=== PATIENT | female | born 1950 | race Caucasian/White ===

== ENCOUNTER → 2017-04-12 09:03 | Outpatient (CLI) | payer MEDICARE, OTHER, SELFPAY ==
[2017-04-12 10:17] LABS: Glucose 88 mg/dL (70-110)
== END ==
PROVIDERS: Family Provider Family Medicine; PCP Family Medicine; Visit Provider Family Medicine
DX: Z13.1 Encounter for screening for diabetes mellitus (principal)
CPT/HCPCS: 36415; 82947

== ENCOUNTER → 2017-12-28 16:05 | Outpatient (CLI) | payer MEDICARE, OTHER, SELFPAY ==
--- NOTE | 2017-12-28 16:20 | BI_ITS ---
MAMMOGRAPHY - BILATERAL SCREENING REASON FOR EXAM: Female, 67 years old. Routine annual screening examination. PERTINENT HISTORY: Non-contributory. TECHNIQUE: Digital bilateral breast narda (3D mammographic acquisition) in the CC and MLO projections. 2-D mediolateral oblique (MLO) and craniocaudad (CC) views of both breasts were obtained. CAD: Full Field Digital Mammography with Computer Added Detection was performed. COMPARISON: Comparison is made with prior study dated October 20, 2016 and October 06, 2015. FINDINGS: Breast Composition: The breasts are heterogeneously dense, which may obscure small masses. There are no dominant masses or suspicious calcifications. Stable bilateral axillary lymph nodes. No other significant abnormalities are identified. There has been no significant change since the prior study. BI/SCREENING MAMM (CAD), BILAT IMPRESSION: Stable bilateral screening mammogram. Yearly follow-up mammogram recommended. (A) ASSESSMENT CATEGORY: BIRADS Category 2: Benign. A letter regarding these results will be sent to the patient by the facility within 30 days. Approximately 10% of breast cancers are not detected by mammography. A normal mammogram should not delay biopsy of a clinically suspicious abnormality. [id number] Electronically Signed: Zak Caceres MD at 10:43 EDT Tel [phone], Service support ,
== END ==
PROVIDERS: Family Provider Family Medicine; PCP Family Medicine; Visit Provider Obstetrics & Gynecology
DX: Z12.31 Encounter for screening mammogram for malignant neoplasm of breast (principal)
CPT/HCPCS: 77063; 77067

== ENCOUNTER → 2019-01-01 13:03 | Outpatient (CLI) | payer MEDICARE, OTHER, SELFPAY ==
--- NOTE | 2019-01-01 13:08 | BI_ITS ---
MAMMOGRAPHY - BILATERAL SCREENING REASON FOR EXAM: Female, 68 years old. Routine annual screening examination. PERTINENT HISTORY: Non-contributory. TECHNIQUE: Digital bilateral breast hortencia (3D mammographic acquisition) in the CC and MLO projections. 2-D mediolateral oblique (MLO) and craniocaudad (CC) views of both breasts were obtained. CAD: Full Field Digital Mammography with Computer Added Detection was performed. COMPARISON: Comparison is made with prior examination dated December 28, 2017 and October 20, 2016. FINDINGS: Breast Composition: The breasts are heterogeneously dense, which may obscure small masses. There are no dominant masses or suspicious calcifications. No other significant abnormalities are identified. There has been no significant change since the prior study. BI/SCREEN MAMM (CAD) W/HORTENCIA BILAT IMPRESSION: Stable bilateral screening mammogram. Yearly follow-up mammogram recommended. (A) ASSESSMENT CATEGORY: BIRADS Category 1: Negative. A letter regarding these results will be sent to the patient by the facility within 30 days. Approximately 10% of breast cancers are not detected by mammography. A normal mammogram should not delay biopsy of a clinically suspicious abnormality. [id number] Electronically Signed: Zak Caceres, at 15:16 EDT , Service support ,
== END ==
PROVIDERS: Family Provider Family Medicine; PCP Family Medicine; Referring Provider Obstetrics & Gynecology; Visit Provider Obstetrics & Gynecology
DX: Z12.31 Encounter for screening mammogram for malignant neoplasm of breast (principal)
CPT/HCPCS: 77063; 77067

== ENCOUNTER 2019-02-21 11:13 | Day surgery (SDC) | payer MEDICARE, OTHER, SELFPAY ==
--- NOTE | 2019-02-13 11:32 | HP.PCM_ITS ---
History and Physical Date of Admission: 02/21/19 HPI: The patient is a 68 year old female presenting for pre-operative visit. She is scheduled for?anterior and posterior repair, for?symptomatic cystocele and rectocele on?02/21/2019. ??Procedure discussed along with risks, benefits and complications. ?Other alternatives discussed for management. Consent form signed??Yes.? PAST MEDICAL HISTORY PAST MEDICAL HISTORY Diagnosis Date ? Bursitis of left hip ? ? Hemorrhage of gastrointestinal tract, unspecified ? ? From hemorrhoids only ? Internal hemorrhoids without mention of complication ? ? Irregular menstrual cycle ? ? Irregular periods ?Resolved ? PMH - PAST MEDICAL HISTORY OF ? ? svt ? Shingles 04/12/2012 ? Symptomatic menopausal or female climacteric states ? ? ?With atrophic vaginitis ? Unspecified constipation ? ? ? PAST SURGICAL HISTORY PAST SURGICAL HISTORY Procedure Laterality Date ? APPENDECTOMY ? 87 ? CATARACT SURGERY, COMPLEX Left 04/2016 ? CATARACT SURGERY, COMPLEX Right 2018 ? COLONOSCOP W/ OR W/O [facility] SPEC ? 01/05/05 [facility] ? Colonoscopy ? COLONOSCOP W/ OR W/O [facility] SPEC ? 01/30/2015 ? Colonoscopy ? D&C, DIAG AND/OR THERAPEUTIC ? ? ? Dilation & curettage ? HYSTEROSCOPY, DIAGNOSTIC (SEPARATE ? 2001 ? Hysteroscopy ? L'SCOPE DX W/WO BRUSHINGS/WASHINGS ? ? ? Laparoscopy ? LIGATE FALLOPIAN TUBE ? 83 ? Tubal ligation ? REMOVAL OF SKIN TAGS 1-15 ? 08/17/05 ? Removal skin tags ? ? CURRENT MEDICATIONS Current Outpatient Medications Medication Sig Dispense Refill ? melatonin 3 mg cap Take by mouth. ? ? ? docusate sodium (STOOL SOFTENER ORAL) Take by mouth. ? ? ? compounded vaginal estrogen 0.1 % estriol cream. ?Apply 1/2 inch of cream vaginally qhs twice weekly 30 g 2 ? fluticasone (FLONASE) 50 mcg/actuation nasal spray Use 2 Sprays in each nostril once daily. Rinse mouth after use. 1 Bottle 11 ? CALCIUM CARBONATE/VITAMIN D3 (CALCIUM 600 + D,3, ORAL) Take by mouth twice daily. ? ? ? PSYLLIUM SEED, WITH SUGAR, (METAMUCIL ORAL) Take ?by mouth. ? ? ? POLYETHYLENE GLYCOL 3350 (MIRALAX ORAL) Take ?by mouth. As needed ? ? ? oxybutynin (DITROPAN) 5 mg tablet Take 1 tablet by mouth twice daily as needed. (Patient not taking: Reported on 12/04/2018 ) 60 tablet 12 ? No current facility-administered medications for this visit.? ? ALLERGIES:?Amoxicillin; Bactrim [Sulfamethoxazole-Trimethoprim] ? PERSONAL HISTORY:? SOCIAL HISTORY Social History ? Tobacco Use ? Smoking status: Never Smoker ? Smokeless tobacco: Never Used Substance Use Topics ? Alcohol use: Yes ? ? Comment: Occasionally ? Drug use: No ? FAMILY HISTORY:? FAMILY HISTORY FAMILY HISTORY Problem Relation Age of Onset ? Diabetes Mother ?Fatty liver; esophageal vaices Non- alcohol ? Ischemic Heart Disease Mother ?bypass age 72 ? Lipids Mother ? ? Coronary Artery Disease Mother ? ? other (Parkinson's) Mother ?Parkinskinson's= ? Cancer Father ?PROSTATE ? other (Parkinson's) Father ? ? Cancer Maternal Grandmother ?UTERINE ? Ischemic Heart Disease Maternal Grandfather ?and many others on that side of the family ? Prostate Cancer Brother ? ? other (polymyalgia rheumatica) Brother ? ? Lipids Sister ? ? REVIEW OF SYMPTOMS: GENERAL: denies fevers or chills ENDOCRINOLOGY: has not been on steroids Cardiology : denies palpitations or chest pain Respiratory: denies SOB or cough Hematology: denies history of prolonged bleeding or easy bruising or VTE Allergy: Denies history of personal or family history of allergy to anesthesia ? ? PHYSICAL EXAMINATION: ? VITALS:?Last menstrual period 07/12/2006. ? GENERAL:??The patient is well nourished, well hydrated in no acute distress. ?, The patient is oriented to time, place, and person. NECK:?Supple. No lynphadenopathy, normal thyroid, no thyromegaly. LUNGS:?Clear to auscultation bilaterally. no wheezes, rhonchi or rales HEART:?Regular rate and rhythm, Normal heart sounds and No murmurs or gallops ? IMPRESSION:?Symptomatic cystocele in the midline, and rectocele. ? PLAN:???The risks/benefits/alternatives and personal involved for the planne d?anterior and posterior repair?were reviewed with the patient. Her questions were answered to her satisfaction and she desires to proceed. ?Consent was signed. ?I reviewed with her postop instructions and expectations. ? ? I have reviewed and updated past medical and surgical history, medications and allergies? Patient plans to stay overnight in observation status This history and physical was completed in my office on 02/11/19
[2019-02-21] VITALS (9 sets, daily range): BP systolic 106–134; BP diastolic 52–82; PULSE 73–96; RESP 15–16; TEMP 35.9–36.9; O2SAT 95–100; BMI 30.5
[2019-02-21] MEDS: Lactated Ringers 1,000 ML 40 ML IV ×2 (07:00→16:14)
[2019-02-21] MEDS: Celecoxib 200 MG Capsule 400 MG PO (07:00)
[2019-02-21] MEDS: Gabapentin 600 MG Tablet PO (07:00)
[2019-02-21] MEDS: Phenazopyridine 95 MG Tablet 190 MG PO (07:00)
[2019-02-21] MEDS: Enoxaparin 40 MG/0.4 ML Syringe SC (07:00)
[2019-02-21] MEDS: Magnesium Sulfate 4gm/100mL 4 GM/100 ML IV.SOLN. IV (07:00)
[2019-02-21] MEDS: Acetaminophen 500 MG Tablet 1000 MG PO ×3 (07:00→23:44)
--- NOTE | 2019-02-21 11:26 | EKG12_ITS ---
Test Reason : PREOP Blood Pressure : / mmHG Vent. Rate : 072 BPM Atrial Rate : 072 BPM P-R Int : 186 ms QRS Dur : 082 ms QT Int : 378 ms P-R-T Axes : 052 023 026 degrees QTc Int : 413 ms Normal sinus rhythm Borderline Low Voltage QRS Confirmed by JASON REYNA, ZEHRA ([id number]), digital editor NIKOS SWENSON ([id number]) on 02/27/2019 1:29:36 PM Referred By: Rosmery Guzman Confirmed By:ZEHRA GOMEZ MD
[2019-02-21 11:55] LABS: Bedside Glucose 80 mg/dL (70-110)
[2019-02-21 12:13] LABS: Hematocrit 42.4 % (37-47); Hemoglobin 14.1 g/dL (12.0-15.0); Mean Corp Hgb Conc 33.3 g/dL (32-36); Mean Corpuscular Hgb 31.3 pg (27.0-32.0); Mean Platelet Vol. 10.1 fl (6.2-12.0); Platelet Count 236 K/mm3 (150-450); RBC Distribution Width CV 13.5 % (11.6-14.6); RBC Distribution Width SD 46.8 fl (35.1-43.9); Red Blood Count 4.51 M/mm3 (4.2-5.4)
[2019-02-21] MEDS: dexAMETHasone 10 MG/ML Vial 8 MG IV (14:08)
[2019-02-21] MEDS: Ondansetron 4 MG/2 ML Vial IV (14:08)
[2019-02-21] MEDS: Estrogens,Conj. 1 Tube 1 DOSE (14:40)
--- NOTE | 2019-02-21 15:04 | PCM.OPRPT ---
Report of Operation Date of Procedure: 02/21/19 Pre-Operative Diagnosis: symptomatic midline cystocele and rectocele Post-Operative Diagnosis: same Surgery/Procedure Performed:: anterior and posterior repair Description of Surgical Findings:: normal cervix and vagina, midline cystocele, rectocele precinct captain: Paulina Ramirez precinct captain: michelle Garrett Type of Anesthesia:: General Anesthesiologist: Faye Razo Special Medications: none Specimen's removed: none Drains: stratton Estimated Blood Loss (mL): 20 Fluids Replaced: lr Description of Procedure: the patient was taken operating room she is prepped and draped in dorsal lithotomy position. Weighted speculum was placed in the vagina. The midline cystocele and posterior rectocele were noted. The vaginal epithelium at the apex of the anterior vagina was grasped at approximately 2 and 10:00 with Allis clamps. The midline Allis clamp was placed approximately 3 cm proximal to the urethral meatus. the vaginal epithelium was then infiltrated with 1% Xylocaine with dilute epinephrine solution. An incision was made in the vaginal epithelium between the 2 proximal Allises and Metzenbaum scissors were used to undermine the vaginal epithelium in the midline. An incision was made in the vaginal epithelium and the vaginal epithelium was dissected off the underlying tissue with blunt and sharp dissection. The cystocele was then imbricated with interrupted 0 Vicryl sutures and secured down. Small amount of vaginal epithelium was removed and the vaginal epithelium was closed with 2-0 Vicryl suture in a running locked fashion. Hemostasis was noted. Attention was then turned to the rectocele. Allis clamps were placed at the introitus at approximately 4 and 7:00. The vaginal epithelium in the midline of the rectocele and in the perineal body were infiltrated with the same lidocaine with dilute epinephrine solution. A bin-shaped incision was made in the over the perineal body and the epithelium removed with the scalpel. Midline incision was made in the vaginal epithelium to near the cervix with Metzenbaum scissors with blunt and sharp dissection. Allis clamps were used to clamp the vaginal epithelium and it was dissected away from the underlying tissue with blunt and sharp dissection. 0 Vicryl sutures were used to imbricate the rectocele. Was noted that there is a very tight shelf at the most superior suture and this suture was removed. Decision was made to believe that suture out because of how it narrowed the vaginal opening up near the cervix. The excess vaginal epithelium was trimmed, and care was taken not to trim a lot of vaginal epithelium to allow for adequate closure. The perineal body was pulled together with 2-0 Vicryl interrupted sutures. The vaginal epithelium and perineal epithelium was then closed with 2-0 Vicryl suture in a running standard fashion by Dr. Allison. Hemostasis was noted. The vagina was then packed with gauze with Premarin cream. Stratton catheter was left to straight drain. Before the vagina was packed, vaginal sweep was completed by me. The patient was taken the recovery room in stable condition. I performed the entire procedure with assistance other than as dictated above. Grafts/Implants Used: none - Complications none - Admit VTE Documentation VTE Present on Admission: No VTE Mechan Device Prophylaxis: SCD's VTE Pharm Prophylaxis ordered?: Yes
[2019-02-21] MEDS: Ketorolac 15 MG/ML Vial IV ×2 (15:49→23:44)
[2019-02-21] MEDS: Docusate Sodium 100 MG Capsule PO (20:59)
[2019-02-22 02:33] VITALS: BP 122/56; PULSE 82; RESP 18; TEMP 36.9; O2SAT 95
[2019-02-22] MEDS: Ketorolac 15 MG/ML Vial IV ×2 (05:17→11:17)
[2019-02-22 05:18] LABS: Hematocrit 38.6 % (37-47); Hemoglobin 13.1 g/dL (12.0-15.0); Mean Corp Hgb Conc 33.9 g/dL (32-36); Mean Corpuscular Hgb 31.3 pg (27.0-32.0); Mean Corpuscular Volume 92.3 fL (81-99); Mean Platelet Vol. 9.9 fl (6.2-12.0); Platelet Count 235 K/mm3 (150-450); RBC Distribution Width CV 13.5 % (11.6-14.6); RBC Distribution Width SD 46.1 fl (35.1-43.9); Red Blood Count 4.18 M/mm3 (4.2-5.4); White Blood Count 16.5 K/mm3 (4.4-11.0)
[2019-02-22] MEDS: Acetaminophen 500 MG Tablet 1000 MG PO ×2 (05:18→11:17)
[2019-02-22 07:26] VITALS: O2SAT 96
--- NOTE | 2019-02-22 08:50 | DCINST_ITS ---
Discharge Diet: No Restrictions Discharge Activity: Return to Normal Activity, May Not Drive - for 5-7 days, May Shower Return to work on:: 03/22/19 May shower in (days): 0 May resume sexual activity in: 8 weeks Weight Bearing Status: Full weight bearing Call your doctor if your incision/area has: Continuous Slow Oozing, Sudden Increased Bleeding, Increased Pain/ Swelling, Increased Redness, Foul Smelling Discharge Call your doctor if you observe: Fever of 101 or Higher, Inability to urinate, Inability to have a bowel movement, Using more than one pad per hour Allergies/Adverse Reactions: Allergies amoxicillin Allergy (Verified 02/21/19 11:59) Rash sulfamethoxazole [From Bactrim] Allergy (Verified 02/21/19 11:59) Other MOUTH SORES trimethoprim [From Bactrim] Allergy (Verified 02/21/19 11:59) Other MOUTH SORES Medications to take at Discharge Fluticasone 0.05% [Flonase Nasal [place]] 1 spray NASAL DAILY PRN 01/30/15 Calcium Carbonate/Vitamin D3 [Calcium 500+D Tablet Chew] 1 ea PO DAILY 02/15/19 Loratadine [Claritin] 10 mg PO PRN PRN 02/15/19 Melatonin/Pyridoxine HCl (B6) [Melatonin 3 mg Tablet] 1 ea PO QHS PRN 02/15/19 Primary Care Physician: Shiraz Mccauley III, MD [Primary Care Provider] - Test Results: Test results from this visit will be discussed in further detail at your follow- up appointment, if applicable. Please Follow Up With: Rosmery Guzman MD - [phone] When: 2 adn 6 weeks or as needed
--- NOTE | 2019-02-22 08:51 | PN.OBGYN_ITS ---
Subjective: Pain well controlled. No nausea or vomiting. - Physical Exam Vitals/I&O's: Vital Signs Temp Pulse Resp BP Pulse Ox 98.5 F 82 18 122/56 H 96 02/22/19 02:33 02/22/19 02:33 02/22/19 02:33 02/22/19 02:33 02/22/19 07:26 Oxygen Flow Rate (L/min) 5 Oxygen Delivery Method Room Air Weight: 77.02 kg Body Mass Index (BMI) 30.5 Intake and Output for Last 24 Hours 02/20/19 02/21/19 02/22/19 23:59 23:59 23:59 Intake Total 1100.768 / 1100.768 Output Total 1400 / 1400 2400 / 2400 Balance -299.232 / -299.232 -2400 / -2400 General: Alert, Cooperative, No apparent distress Abdomen: Soft, Non Tender, Non-Distended, - - Vaginal packing removed with moderate amount of sanguinous drainage on it. No active vaginal bleeding. The catheter removed. Laboratory Results 02/21/19 11:53: POC Glucose 80 02/21/19 12:00: WBC 7.0, RBC 4.51, Hgb 14.1, Hct 42.4, MCV 94.0, MCH 31.3, MCHC 33.3, RDW Std Deviation 46.8 H, RDW Coeff of Birgit 13.5, Plt Count 236, MPV 10.1 02/22/19 05:10: WBC 16.5 H, RBC 4.18 L, Hgb 13.1, Hct 38.6, MCV 92.3, MCH 31.3, MCHC 33.9, RDW Std Deviation 46.1 H, RDW Coeff of Birgit 13.5, Plt Count 235, MPV 9.9 Current Medications Acetaminophen (Tylenol) 1,000 mg PO Q6 [facility] Last Admin: 02/22/19 05:18 Dose: 1,000 mg Documented by: Docusate Sodium (Colace) 100 mg PO BID [facility] Last Admin: 02/21/19 20:59 Dose: 100 mg Documented by: Enoxaparin Sodium (Lovenox) 40 mg SC DAILY [facility] Lactated Ringer's () 1,000 mls @ 40 mls/hr IV .Q25H [facility] Stop: 02/22/19 15:26 Last Admin: 02/21/19 16:14 Dose: 40 mls/hr Documented by: Influenza Virus Vaccine Quadrival (Flucelvax /Fluzone ) 0.5 ml IM .ONCE ONE Stop: 02/22/19 10:01 Ketorolac Tromethamine (Toradol) 15 mg IV Q6 [facility] Stop: 02/23/19 00:01 Last Admin: 02/22/19 05:17 Dose: 15 mg Documented by: Magnesium Oxide (Mag-Ox 400) 400 mg PO DAILY PRN PRN PRN Reason: Constipation Ondansetron HCl (Zofran Odt) 4 mg PO Q6H PRN PRN PRN Reason: NAUSEA Oxycodone HCl (Oxyir) 5 - 10 mg PO Q4H PRN PRN PRN Reason: Pain Score 4-10/10 Sodium Chloride () 10 - 40 ml IV UD PRN PRN Reason: SALINE FLUSH Medical Necessity - Tobacco Use Smoking Status: Never smoker Tobacco Use: Non-smoker Assessment/Plan Postoperative day #1 status post anterior and posterior repair. Vaginal packing and Mccormick removed. If passes voiding trial may DC home. Routine instructions. Patient states that she will be able to control her pain with anti- inflammatories and ice packs as needed
[2019-02-22] MEDS: Docusate Sodium 100 MG Capsule PO (09:56)
[2019-02-22 10:00] VITALS: BP 117/64; PULSE 74; RESP 18; TEMP 36.8; O2SAT 98
[2019-02-22 11:37] VITALS: BP 130/74; PULSE 80; RESP 18; TEMP 37.1; O2SAT 100
== END 2019-02-22 11:38 | disposition home or self-care (01) ==
LOC: SDC 11:14 → AC 11:15 → MS3 02-22 10:09
PROVIDERS: Family Provider Family Medicine; PCP Family Medicine; Referring Provider Obstetrics & Gynecology; Visit Provider Obstetrics & Gynecology
PROC: (CPT 57260; principal; 2019-02-21 12:55)
DX: N81.11 Cystocele, midline (principal); N81.6 Rectocele; Z78.0 Asymptomatic menopausal state
CPT/HCPCS: 57260; 36415; 82962; 85027; 93005; J7120; J2405

== ENCOUNTER → 2020-01-31 15:10 | Outpatient (CLI) | payer MEDICARE, OTHER, SELFPAY ==
[2019-02-21 16:41] VITALS: BMI 30.5
--- NOTE | 2020-01-31 15:31 | BI_ITS ---
MAMMOGRAPHY - BILATERAL SCREENING REASON FOR EXAM: Female, 69 years old. Routine annual screening examination. PERTINENT HISTORY: Screening TECHNIQUE: Digital bilateral breast hortencia (3D mammographic acquisition) in the CC and MLO projections. 2-D mediolateral oblique (MLO) and craniocaudad (CC) views of both breasts were obtained. CAD: Full Field Digital Mammography with Computer Added Detection was performed. COMPARISON: Previous study obtained on 01/01/2019 FINDINGS: Breast Composition: Heterogeneously dense There are no dominant masses or suspicious calcifications. No other significant abnormalities are identified. BI/SCREEN MAMM (CAD) W/HORTENCIA BILAT IMPRESSION: Stable bilateral screening mammogram. Yearly follow-up mammogram recommended. (A) ASSESSMENT CATEGORY: BIRADS Category 1: Negative. A letter regarding these results will be sent to the patient by the facility within 30 days. Approximately 10% of breast cancers are not detected by mammography. A normal mammogram should not delay biopsy of a clinically suspicious abnormality. [id number] Electronically Signed: Kenji Lindsay, at 16:11 EST Tel , Service support ,
== END ==
PROVIDERS: PCP Family Medicine; Referring Provider Obstetrics & Gynecology; Visit Provider Obstetrics & Gynecology
DX: Z12.31 Encounter for screening mammogram for malignant neoplasm of breast (principal)
CPT/HCPCS: 77063; 77067

== ENCOUNTER → 2021-02-10 14:05 | Outpatient (CLI) | payer MEDICARE, OTHER, SELFPAY ==
--- NOTE | 2021-02-10 14:11 | BI_ITS ---
MAMMOGRAPHY - BILATERAL SCREENING REASON FOR EXAM: Female, 70 years old. Routine annual screening examination. PERTINENT HISTORY: Non-contributory. TECHNIQUE: Digital bilateral breast hortencia (3D mammographic acquisition) in the CC and MLO projections. 2-D mediolateral oblique (MLO) and craniocaudad (CC) views of both breasts were obtained. CAD: Full Field Digital Mammography with Computer Added Detection was performed. COMPARISON: Comparison is made with prior study 01/31/2020 and 01/01/2019. FINDINGS: Breast Composition: The breasts are heterogeneously dense, which may obscure small masses. There are no dominant masses or suspicious calcifications. Stable small benign-appearing bilateral axillary No other significant abnormalities are identified. There has been no significant change since the prior study. BI/SCRN MAMM (CAD)W/HORTENCIA BILAT IMPRESSION: Stable bilateral screening mammogram. Yearly follow-up mammogram recommended. (A) ASSESSMENT CATEGORY: BIRADS Category 2: Benign. A letter regarding these results will be sent to the patient by the facility within 30 days. Approximately 10% of breast cancers are not detected by mammography. A normal mammogram should not delay biopsy of a clinically suspicious abnormality. [id number] Electronically Signed: Zak Caceres MD at 15:04 EST , Service support ,
== END ==
PROVIDERS: PCP Family Medicine; Referring Provider Obstetrics & Gynecology; Visit Provider Obstetrics & Gynecology
DX: Z12.31 Encounter for screening mammogram for malignant neoplasm of breast (principal)
CPT/HCPCS: 77063; 77067

== ENCOUNTER 2022-02-15 15:28 | Outpatient (CLI) | payer MEDICARE, OTHER, SELFPAY ==
--- NOTE | 2022-02-15 15:32 | BI_ITS ---
MAMMOGRAPHY - BILATERAL SCREENING REASON FOR EXAM: Female, 71 years old. Routine annual screening examination. PERTINENT HISTORY: Non-contributory. TECHNIQUE: Digital bilateral breast hortencia (3D mammographic acquisition) in the CC and MLO projections. 2-D mediolateral oblique (MLO) and craniocaudad (CC) views of both breasts were obtained. CAD: Full Field Digital Mammography with Computer Added Detection was performed. COMPARISON: Comparison is made with prior study dated 02/10/2021 and 01/31/2020. FINDINGS: Breast Composition: The breasts are heterogeneously dense, which may obscure small masses. There are no dominant masses or suspicious calcifications. Stable small benign-appearing bilateral axillary lymph nodes.. No other significant abnormalities are identified. There has been no significant change since the prior study. BI/SCRN MAMM (CAD)W/HORTENCIA BILAT IMPRESSION: Stable bilateral screening mammogram. Yearly follow-up mammogram recommended. (A) ASSESSMENT CATEGORY: BIRADS Category 2: Benign. A letter regarding these results will be sent to the patient by the facility within 30 days. Approximately 10% of breast cancers are not detected by mammography. A normal mammogram should not delay biopsy of a clinically suspicious abnormality. [id number] Electronically Signed: Zak Caceres MD at 9:05 EST ,
== END 2022-02-15 23:59 | disposition home or self-care (01) ==
LOC: OPBI 15:29
PROVIDERS: PCP Family Medicine; Visit Provider Obstetrics & Gynecology
DX: Z12.31 Encounter for screening mammogram for malignant neoplasm of breast (principal)
CPT/HCPCS: 77063; 77067

== ENCOUNTER 2022-03-29 10:51 | Day surgery (SDC) | payer MEDICARE, OTHER, SELFPAY ==
--- NOTE | 2022-03-22 16:53 | HP.PCM_ITS ---
History and Physical Date of Admission: 03/24/22 Pre-Op History and Physical ? HPI: The patient is a 71 year old female presenting for question regarding postmenopausal bleeding and endocervical polyp. Patient was previously seen by nurse practitioner Melanie Umana and had a stenotic cervix unable to obtain endometrial biopsy for postmenopausal bleeding. I was asked to see her in the room and again I was unable to penetrate through the cervix. Decision was made to perform a hysteroscopy, D&C, polypectomy under anesthesia. Patient had a ultrasound done which showed a 1 cm endocervical polyp and a thickened endometrial lining. Patient is scheduled for a knee replacement and would like the surgery done prior to that. ? Pre-operative visit. She is scheduled for Hysteroscopy D&C and polypectomy, for PMB, Thickened Endometrium, Endocervical polyp, stenotic cervix on 03/24/22. Procedure discussed along with risks, benefits and complications. Other alternatives discussed for management. Consent form signed? Yes. ? ? PAST MEDICAL HISTORY PAST MEDICAL HISTORY Diagnosis Date ? Bursitis of left hip ? ? Class 1 obesity due to excess calories without serious comorbidity with body mass index (BMI) of 30.0 to 30.9 in adult ? ? Hemorrhage of gastrointestinal tract, unspecified ? ? From hemorrhoids only ? Internal hemorrhoids without mention of complication ? ? Irregular menstrual cycle ? ? Irregular periods Resolved ? Osteoarthritis ? ? knee ? Primary osteoarthritis of both knees ? ? Dr. Michael ? Pure hypercholesterolemia ? ? Shingles 04/12/2012 ? SVT (supraventricular tachycardia) ([facility]) 2004 ? Symptomatic menopausal or female climacteric states ? ? With atrophic vaginitis ? Unspecified constipation ? ? ? PAST SURGICAL HISTORY PAST SURGICAL HISTORY Procedure Laterality Date ? APPENDECTOMY ? 87 ? CATARACT SURGERY, COMPLEX Left 04/2016 ? CATARACT SURGERY, COMPLEX Right 2018 ? CMBND ANTERPOST COLPORRAPHY W/CYSTO ? 02/21/2019 ? A&P repair ? COLONOSCOPY FLX DX W/COLLJ SPEC WHEN PFRMD ? 01/05/05 [facility] ? Colonoscopy ? COLONOSCOPY FLX DX W/COLLJ SPEC WHEN PFRMD ? 01/30/2015 ? Colonoscopy ? DILATION & CURETTAGE DX&/THER NONOBSTETRIC ? ? ? Dilation & curettage ? HYSTEROSCOPY, DIAGNOSTIC (SEPARATE ? 2002 ? Hysteroscopy ? LAPS ABD PRTM&OMENTUM DX W/WO SPEC BR/WA SPX ? ? ? Laparoscopy ? LIG/TRNSXJ FLP TUBE ABDL/VAG APPR UNI/BI ? 83 ? Tubal ligation ? 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 08/17/05 ? Removal skin tags ? ? ? CURRENT MEDICATIONS Current Outpatient Medications Medication Sig Dispense Refill ? EVENING PRIMROSE OIL ORAL Take by mouth. ? ? ? miSOPROStol (CYTOTEC) 200 mcg tablet Take 2 tablets by mouth as directed. The night before the procedure and the morning of the procedure. 4 tablet 0 ? meloxicam (MOBIC) 7.5 mg tablet ? atorvastatin (LIPITOR) 20 mg tablet Take 1 tablet by mouth daily at bedtime. For cholesterol. 90 tablet 1 ? estradiol (ESTRACE) 0.01 % (0.1 mg/gram) vaginal cream APPLY APROX. 1/2 INCH VAGINALLY AT BEDTIME TWICE WEEKLY 85 g 1 ? fluticasone (FLONASE) 50 mcg/actuation nasal spray Use 2 Sprays in each nostril once daily. Rinse mouth after use. 3 Bottle 3 ? docusate sodium (STOOL SOFTENER ORAL) Take by mouth. ? ? ? CALCIUM CARBONATE/VITAMIN D3 (CALCIUM 600 + D,3, ORAL) Take by mouth twice daily. ? ? ? PSYLLIUM SEED, WITH SUGAR, (METAMUCIL ORAL) Take by mouth. ? ? ? POLYETHYLENE GLYCOL 3350 (MIRALAX ORAL) Take by mouth. As needed ? ? ? No current facility-administered medications for this visit. ? ? ALLERGIES: Amoxicillin and Bactrim [Sulfamethoxazole-Trimethoprim] ? PERSONAL HISTORY: SOCIAL HISTORY Social History ? Tobacco Use ? Smoking status: Never ? Smokeless tobacco: Never Vaping Use ? Vaping Use: Never used Substance Use Topics ? Alcohol use: Yes ? ? Comment: 1-2 times per month ? Drug use: No ? FAMILY HISTORY: FAMILY HISTORY FAMILY HISTORY Problem Relation Age of Onset ? Diabetes Mother ? ? Fatty liver; esophageal vaices Non- alcohol ? Ischemic Heart Disease Mother ? ? bypass age 72 ? Lipids Mother ? ? Coronary Artery Disease Mother ? ? other (Parkinson's) Mother ? ? Parkinskinson's= ? Cancer Father ? ? PROSTATE ? other (Parkinson's) Father ? ? Cancer Maternal Grandmother ? ? UTERINE ? Ischemic Heart Disease Maternal Grandfather ? ? and many others on that side of the family ? Prostate Cancer Brother ? ? other (polymyalgia rheumatica) Brother ? ? Lipids Sister ? ? ? REVIEW OF SYMPTOMS: negative except as noted above PHYSICAL EXAMINATION: ? VITALS: Blood pressure 138/72, weight 168 lb (76.2 kg), last menstrual period 07/12/2006. ? GENERAL: The patient is well nourished, well hydrated in no acute distress. , The patient is oriented to time, place, and person. NECK: full range of motion LUNGS: Clear to auscultation bilaterally. no wheezes, rhonchi or rales HEART: Regular rate and rhythm, Normal heart sounds, and No murmurs or gallops GENITALIA: not performed today ? IMPRESSION: Postmenopausal bleeding, thickened endometrium, endocervical polyp, stenotic cervix ? PLAN: Hysteroscopy, dilation and curettage, polypectomy ? Pt has been counseled on risks/benefits and alternatives of surgery including but not limited to anesthesia, bleeding, infection, uterine perforation with subsequent injury to pelvic structures including bowel, bladder, ureters and vessels. Pt wishes to proceed with surgery at this time. ? Pre and post op instructions reviewed ? She will be having her preoperative medical clearance tomorrow with her family physician so blood work and EKG can be faxed over to [facility] on Monday or morning 03/24/2022 prior to surgery. ? ? I have reviewed and updated past medical and surgical history, medications and allergies Paulina Allison MD ?3:47 PM Office Visit on 03/22/2022 Office Visit on 03/22/2022 Note shared with patient
[2022-03-29] VITALS (9 sets, daily range): BP systolic 118–145; BP diastolic 59–95; PULSE 87–104; RESP 16–17; TEMP 36.1–37.1; O2SAT 94–98; BMI 29.8
[2022-03-29] MEDS: Lactated Ringers 1,000 ML 15 ML IV (11:00)
--- NOTE | 2022-03-29 12:27 | PCM.DC ---
Discharge Instructions Diet Discharge Diet: No restrictions Activity May resume sexual activity in: 1 week Lifting Restrictions: none Dressing / Incision Call your doctor if your incision/area has: Sudden Increased Bleeding and Foul Smelling Discharge Call your doctor if you observe: Fever of 101 or Higher and Using more than 1 pad per hour (for 2 hrs in a row) Follow Up Care Please Follow Up With: Rosmery Guzman MD When: 2-4 weeks or as needed. Call [phone] to make an appointment or with any concerns. Test Results: Test results from this visit will be discussed in further detail at your follow-up appointment, if applicable. Discharge Plan Admission Primary Reason for Your Visit: Hysteroscopy dilation and curettage Attending Provider: Rosmery Guzman Primary Care Provider: Abel Bolden Consulting Providers: Paulina Ramirez Discharge Orders/Prescriptions Prescriptions: No Action calcium carbonate-vitamin D3 1 EACH tablet,chewable 1 ea PO BID acetaminophen [Tylenol] 325 mg Tablet 325 mg PO Q6H PRN (Reason: Pain) atorvastatin 20 mg Tablet 20 mg PO QHS meloxicam [Mobic] 7.5 mg Tablet 7.5 mg PO PRN PRN (Reason: Pain) misoprostol [Cytotec] 200 mcg Tablet 400 mcg SUBLINGUAL PRN PRN (Reason: PREOP) estradiol 0.01 % (0.1 mg/gram) Cream 1 g VAGINAL SUWE ipratropium bromide 42 mcg (0.06 %) [place],Non-Aerosol 2 spray INTRANASAL DAILY Rx Instructions: administer into each nostril cholecalciferol (vitamin D3) [Vitamin D3] 25 mcg (1,000 unit) Capsule 25 mcg PO DAILY [place] Oil 1,000 mg Capsule 1 cap PO BID Rx Instructions: administer with meals Referrals / Follow Up: Abel Bolden MD [Primary Care Provider] - Disposition Disposition (needs filled in before D/C Order can be placed): Home, Self Care
--- NOTE | 2022-03-29 12:30 | EMB_PTH ---
PATIENT: MEDARDO GASTELUM [place] [facility] [place][id number] AGE/SX: 72/F ROOM: RE03/29/[address]: Dr. Rosmery Guzman MD : 1950 BED: DIS: 03/29/2022 SPEC #: [id number] RECD: 03/29/22 14:34 STATUS: ALEE REWan #: [id number] GONZALO: 03/29/22 12:[address]: Rosmery Guzman DEPT: SURGICAL PATHOLOGY RECD BY: Nilay Galvez ENTERED: 03/30/22 08:39 SP TYPE: ENDOM BX/C OTHR DR: MD Dr. Paulina Gonzales MD Tissues: Endometrium, NOS Procedures: Surgery Specimen Level IV HEADER OPERATION: Hysteroscopy, D & C Symphion, polypectomy PRE-OP DIAGNOSIS: Postmenopausal bleeding TISSUE SUBMITTED: Endometrial curettings MICROSCOPIC DIAGNOSIS Endometrium, curettings: Inactive endometrium with polypoid cystic atrophy. Fragment of benign polypoid, cystic endocervical tissue. Focal exogenous hormonal effect with denudation of mucosa. AM:kwaku 03/31/2022 COMMENT Case has been reviewed in consultation with Dr. Smith who concurs with the above diagnosis. IDC:SJ MICROSCOPIC DESCRIPTION Slides are reviewed. GROSS DESCRIPTION Received in fixative is one container labeled with the patient's name and designated endometrial curettings. The specimen consists of multiple irregular fragments of light quiñones soft tissue that in aggregate measure 3 x 2.5 x 0.2 cm. The specimen is totally submitted in one cassette. / AM:kwaku 03/30/2022 :5 CPT: 76475
--- NOTE | 2022-03-29 12:47 | OP.PCM_ITS ---
Problems Associated Problem List Diagnoses (1) PMB (postmenopausal bleeding): Report of Operation Date of Procedure: 03/29/22 Pre-Operative Diagnosis: PMB Post-Operative Diagnosis: same + endometrial polyp Surgery/Procedure Performed:: hysteroscopy D&C Description of Surgical Findings:: atrophic endometrium, reji flush stenotic cervix, normal endocervix. Funal small polyp Surgeon: Rosmery Guzman collection systems foreman: Pallavi Lopez Type of Anesthesia: MAC/Supplemental/Local Anesthesiologist: Ewa Mendoza Special Medications: none Specimen's removed: endometrial curetings and polyp Drains: none Estimated Blood Loss (mL): 5 Fluids Replaced: 400 Description of Procedure: The patient was taken to the OR where she was prepped and draped in dorsal lithotomy position. The weighted speculum was placed in the vagina and the anterior lip of the cervix was grasped with a single-tooth tenaculum. A paracervical block was administered with 8 cc of vasopressin solution. The solution was 20 units of vasopressin and 40 cc of normal saline. After the cervix was given some time, I to carefully dilate the os with small dilators because of how stenotic it was. The cervix was dilated serially with Hegar dilators. The Symphion hysteroscope was placed into the uterine cavity and the above findings were noted. Bilateral tubal ostia were identified. The hysteroscope was removed. The Symphion resection was readied and inserted. The polyp was resected. A visual D&C was performed with the device to sample the entire endometrium. The instruments were removed from the vagina. The specimen was handed off an350 cc normal saline Grafts/Implants Used: none Procedure Start Time: 12:53 Procedure Stop Time: 13:08 Complications none Admit VTE Documentation VTE Present on Admission: No VTE Mechan Device Prophylaxis: SCD's VTE Pharm Prophylaxis ordered?: No Reason prophylaxis not ordered:: Procedure Not Indicated
[2022-03-29] MEDS: Vasopressin 20 UNITS/ML Vial (12:53)
== END 2022-03-29 15:09 | disposition home or self-care (01) ==
LOC: SDC 10:52 → AC 10:52
PROVIDERS: PCP Family Medicine; Referring Provider Obstetrics & Gynecology; Visit Provider Obstetrics & Gynecology
PROC: 0UB98ZZ Excision of Uterus, Via Natural or Artificial Opening Endoscopic (ICD-10-PCS; CPT 58558; principal; 2022-03-29 12:15)
DX: N84.0 Polyp of corpus uteri (principal); N95.0 Postmenopausal bleeding; E78.00 Pure hypercholesterolemia, unspecified
CPT/HCPCS: 58558; 00952; 88305; J7120; J2405

== ENCOUNTER → 2022-03-30 | Outpatient (CLI) | payer MEDICARE, OTHER, SELFPAY ==
--- NOTE | 2022-03-30 08:19 | CT_ITS ---
CT of the right knee INDICATION: Knee pain preop nanette procedure TECHNIQUE: CT of the right knee was performed in the axial projection without contrast scanning from the hip to the ankle followed by sagittal coronal reconstructions. Radiographic technique was optimized limitation radiation dose. DLP was 1151.26 FINDINGS: Bony structures demonstrate normal mineralization for stated age. There is no acute fracture. There are no lytic or sclerotic bony lesions. There is narrowing of the medial compartment of the medial joint space with mild valgus angulation. There is also narrowing of the lateral compartment of the patellofemoral joint. Small suprapatellar bursal effusion is noted CT/Extremity Lower without Contra IMPRESSION: Moderate osteoarthritic changes. No acute fracture or other significant bony pathology Electronically Signed: Neil Layton MD at 18:07 EST ,
== END | disposition home or self-care (01) ==
LOC: CT 08:18
PROVIDERS: PCP Family Medicine; Visit Provider Specialist
DX: M21.161 Varus deformity, not elsewhere classified, right knee (principal); M17.11 Unilateral primary osteoarthritis, right knee
CPT/HCPCS: 73700

== ENCOUNTER 2022-04-03 14:36 | Emergency (ER) | payer MEDICARE, OTHER, SELFPAY ==
[2022-04-03 14:37] VITALS: BP 157/81; PULSE 109; RESP 18; TEMP 36.1; O2SAT 97; BMI 29.8
--- NOTE | 2022-04-03 15:03 | EDS_ITS ---
HPI History of Present Illness Chief Complaint: Lower Extremity Injury Detail of Chief Complaint: Left leg swelling Informant: patient Onset/Context/Timing Onset: Days Narrative Narrative: Patient presents with left leg swelling and some pain to the bottom of her left foot for the past couple days. She had surgery earlier this week which included cystoscopy and D&C. She is scheduled to undergo a right knee replacement this coming week. She denies chest pain or shortness of breath. No history of clots. She does state that her leg swelling seem to be somewhat improved when she first got this morning, but is increased again throughout the day. [facility] Medical History Arthritis Bladder disease Chronic constipation Chronic cough High cholesterol History of edema History of pain when walking History of steroid therapy History of stress test History of supraventricular tachycardia Leg cramps Non-smoker Post-menopausal Wears glasses Home Medications calcium carbonate 500 mg-vitamin D3 10 mcg (400 unit) chewable tablet 1 ea PO BID 02/15/19 [History Last Taken Unknown] acetaminophen 325 mg tablet (Tylenol) 325 mg PO Q6H PRN Pain 03/22/22 [History Last Taken Unknown] atorvastatin 20 mg tablet 20 mg PO QHS 03/22/22 [History Last Taken Unknown] cholecalciferol (vitamin D3) 25 mcg (1,000 unit) capsule (Vitamin D3) 25 mcg PO DAILY 03/22/22 [History Last Taken Unknown] estradiol 0.01% (0.1 mg/gram) vaginal cream 1 g vaginal SUWE 03/22/22 [History Last Taken Unknown] evening primrose oil-linoleic acid-gamolenic acid 1,000 mg capsule ([place] Oil) 1 cap PO BID 03/22/22 [History Last Taken Unknown] ipratropium bromide 42 mcg (0.06 %) nasal spray 2 spray intranasal DAILY 03/22/22 [History Last Taken Unknown] meloxicam 7.5 mg tablet 7.5 mg PO PRN PRN Pain 03/22/22 [History Last Taken Unkn own] misoprostol 200 mcg tablet (Cytotec) 400 mcg sublingual PRN PRN PREOP 03/22/22 [History Last Taken Unknown] Allergy/AdvReac Type Severity Reaction Status Date / Time amoxicillin Allergy Rash Verified 04/03/22 14:39 sulfamethoxazole Allergy Other Verified 04/03/22 14:39 [From Bactrim] trimethoprim [From Bactrim] Allergy Other Verified 04/03/22 14:39 Surgical History History of cystoscopy History of hysteroscopy Hx of colonoscopy Hx of exploratory laparotomy Hx of exploratory laparotomy Hx of tubal ligation Social History Smoking Status: Never smoker ROS ROS ED Constitutional Constitutional ED: Denies chills or fever(s) Eyes Eyes: Denies change in vision or discharge from eye(s) ENT ENT ED: Denies discharge from eye(s), rhinorrhea or sore throat Cardiovascular Cardiovascular: Denies chest pain or palpitations Respiratory/Chest Respiratory/Chest: Denies cough or dyspnea Gastrointestinal Gastrointestinal: Denies abdominal pain, diarrhea, nausea or vomiting Musculoskeletal Musculoskeletal: Reports extremity pain; Denies back pain Integumentary Denies Abrasions or rash Neurologic Neurologic: Denies headache(s) or weakness Psychiatric Psychiatric: Denies anxiety or depression Allergic/Immunologic Allergic/Immunologic ED: Denies lip swelling or urticaria EXAM Physical Exam Const Vital Signs: 04/03/22 14:37 Temperature 97 F L Temperature Source Temporal Pulse Rate 109 H Respiratory Rate 18 Blood Pressure 157/81 H Blood Pressure Mean 106 Pulse Ox 97 Oxygen Delivery Method Room Air Positive well nourished and well developed General Appearance ED: well developed HEENT Reports normocephalic and head/scalp atraumatic Eyes PERRL and EOMs intact bilaterally Neck supple Chest Wall inspection of chest normal and palpation of chest normal Resp normal respiratory effort and clear to auscultation bilaterally Cardio regular rate and regular rhythm GI normal to inspection, nondistended, normoactive bowel sounds Palpation: soft Extremity Extremity Narrative: 1+ edema noted to the left lower extremity. Mild tenderness of the plantar surface of the left foot. No wounds. She does not have pain with dorsiflexion of her toes. No palpable cords. No overlying skin change. Neuro oriented x3 and no sensory deficits noted Sensorium / Orientation: alert Motor Exam: strength 5/5 throughout Psych mental status grossly normal Skin no rashes or lesions noted MDM MDM MDM Narrative Medical decision making narrative: Patient presents on a Monday afternoon when I do not have ultrasound available to rule out a DVT. We discussed the possibility of treating her with a dose of blood thinner to cover her tonight, however because she has an upcoming surgery she would like to avoid this if possible. Patient does not have any pain in her thigh and I feel this is reasonable to hold. Patient will be given an order to return tomorrow for an ultrasound of her leg to rule out DVT. We also discussed other causes of her foot pain and edema, likely musculoskeletal in nature. Patient was on regular anti-inflammatories until recently. She may have some rebound inflammation as she is currently not able to take her anti- inflammatories preop. Return instructions are provided. Patient will return tomorrow for ultrasound of her leg. Discharge Plan Triage Chief Complaint: Lower Extremity Injury ED Provider: Vikki Aly Dx/Rx/DC Orders Clinical Impression: Edema of extremity Instructions: ED Deep Vein Thrombosis (DVT), ED Peripheral Edema, Unilateral Prescriptions: No Action calcium carbonate-vitamin D3 1 EACH tablet,chewable 1 ea PO BID acetaminophen [Tylenol] 325 mg Tablet 325 mg PO Q6H PRN (Reason: Pain) atorvastatin 20 mg Tablet 20 mg PO QHS meloxicam [Mobic] 7.5 mg Tablet 7.5 mg PO PRN PRN (Reason: Pain) misoprostol [Cytotec] 200 mcg Tablet 400 mcg SUBLINGUAL PRN PRN (Reason: PREOP) estradiol 0.01 % (0.1 mg/gram) Cream 1 g VAGINAL SUWE ipratropium bromide 42 mcg (0.06 %) [place],Non-Aerosol 2 spray INTRANASAL DAILY Rx Instructions: administer into each nostril cholecalciferol (vitamin D3) [Vitamin D3] 25 mcg (1,000 unit) Capsule 25 mcg PO DAILY [place] Oil 1,000 mg Capsule 1 cap PO BID Rx Instructions: administer with meals Other Ambulatory Orders: Venous Duplex US, Unilateral (Stat) Facility: [facility] - Location: [facility] Ordered By: Dr. Vikki Aly Primary Care Provider: Able Bolden Referrals: Abel Bolden MD [Primary Care Provider] - As Needed Disposition Disposition: Home, Self Care
== END 2022-04-03 15:23 | disposition home or self-care (01) ==
LOC: ED 15:12
PROVIDERS: Emergency Provider Emergency Medicine; PCP Family Medicine; Visit Provider Emergency Medicine
DX: R60.0 Localized edema (principal); E78.00 Pure hypercholesterolemia, unspecified; M79.672 Pain in left foot; M79.89 Other specified soft tissue disorders; M19.90 Unspecified osteoarthritis, unspecified site; Z79.899 Other long term (current) drug therapy
CPT/HCPCS: 99282

== ENCOUNTER → 2022-04-04 | Outpatient (CLI) | payer MEDICARE, OTHER, SELFPAY ==
--- NOTE | 2022-04-04 12:56 | VDLE_ITS ---
Reason For Study: LLE swelling RIGHT LEFT CFV is compressible, spontaneous, phasic, GSV is normal. competent and demonstrates normal CFV is compressible, spontaneous, phasic, augmentation. competent, and demonstrates normal Procedure augmentation. This is a venous duplex using B-mode, color FV is compressible, spontaneous, phasic, flow and spectral Doppler. competent and demonstrates normal Exam performed in department. augmentation. The exam was diagnostic. POP V is compressible, spontaneous, phasic, A preliminary report was called and/or faxed competent and demonstrates normal to Melissa mims/Dr. Bolden @ 1:[address] Bolden and/or his nurse will contact LT PerV is compressible. patient with instructions. T/P TRUNK is partially compressible and dilated. PTV is dilated and NON-compressible. VL/Venous Duplex US, Unilateral Interpretation Summary Acute deep vein thrombosis is noted in the left tibio-peroneal trunk and music promoter ior tibial veins Ordering Physician: Vikki Aly Referring Physician: Syed Bolden Performed By: Neyda Harris, MIQUEL, RVT
== END | disposition home or self-care (01) ==
LOC: CVS 12:54
PROVIDERS: PCP Family Medicine; Visit Provider Emergency Medicine
DX: M79.605 Pain in left leg (principal)
CPT/HCPCS: 93971

== ENCOUNTER 2022-04-07 19:49 | Emergency (ER) | payer MEDICARE, OTHER, SELFPAY ==
[2022-04-07 19:50] VITALS: BP 145/77; PULSE 100; RESP 18; TEMP 35.9; O2SAT 97; BMI 30.7
--- NOTE | 2022-04-07 20:27 | EKG12_ITS ---
Test Reason : DYSRHYTHMIA Blood Pressure : / mmHG Vent. Rate : 092 BPM Atrial Rate : 092 BPM P-R Int : 182 ms QRS Dur : 078 ms QT Int : 334 ms P-R-T Axes : 061 -12 041 degrees QTc Int : 413 ms Normal sinus rhythm Normal ECG Confirmed by FILIBERTO REYNA, LEONEL ([id number]), telegraph editor NKIOS SWENSON ([id number]) on 04/11/2022 9:13:02 AM Referred By: TL Confirmed By:LEONEL DE LOS SANTOS MD
--- NOTE | 2022-04-07 20:28 | EX.ED.DYSGE1 ---
HPI History of Present Illness Chief Complaint: General Illness Informant: patient Narrative Narrative: Patient presents with sickle allergies states she does not feel well today. She was diagnosed to left lower extremity 3 days ago. She noted swelling on Monday. She came in Monday swelling outpatient ultrasound the next morning was positive. Her PCP was contacted started on Xarelto she has been taking this. She had a D&C under MAC anesthesia 9 days ago. No history of PE or DVT. She denies chest pains or shortness of breath. States she is walking she no heart rate 110. Denies fevers headaches cough recent vomiting or diarrhea. Denies urinary symptoms. She reports 3 weeks ago she had a viral upper respiratory illness that resolved. Reports leg swelling is improving. [facility] Medical History Arthritis Bladder disease Chronic constipation Chronic cough High cholesterol History of edema History of pain when walking History of steroid therapy History of stress test History of supraventricular tachycardia Leg cramps Non-smoker Post-menopausal Wears glasses Home Medications calcium carbonate 500 mg-vitamin D3 10 mcg (400 unit) chewable tablet 1 ea PO BID 02/15/19 [History Last Taken Unknown] acetaminophen 325 mg tablet (Tylenol) 325 mg PO Q6H PRN Pain 03/22/22 [History Last Taken Unknown] atorvastatin 20 mg tablet 20 mg PO QHS 03/22/22 [History Last Taken Unknown] cholecalciferol (vitamin D3) 25 mcg (1,000 unit) capsule (Vitamin D3) 25 mcg PO DAILY 03/22/22 [History Last Taken Unknown] estradiol 0.01% (0.1 mg/gram) vaginal cream 1 g vaginal SUWE 03/22/22 [History Last Taken Unknown] evening primrose oil-linoleic acid-gamolenic acid 1,000 mg capsule ([place] Oil) 1 cap PO BID 03/22/22 [History Last Taken Unknown] ipratropium bromide 42 mcg (0.06 %) nasal spray 2 spray intranasal DAILY 03/22/22 [History Last Taken Unknown] meloxicam 7.5 mg tablet 7.5 mg PO PRN PRN Pain 03/22/22 [History Last Taken Unknown] misoprostol 200 mcg tablet (Cytotec) 400 mcg sublingual PRN PRN PREOP 03/22/22 [History Last Taken Unknown] Allergy/AdvReac Type Severity Reaction Status Date / Time amoxicillin Allergy Rash Verified 04/07/22 19:50 sulfamethoxazole Allergy Other Verified 04/07/22 19:50 [From Bactrim] trimethoprim [From Bactrim] Allergy Other Verified 04/07/22 19:50 Surgical History History of cystoscopy History of hysteroscopy Hx of colonoscopy Hx of exploratory laparotomy Hx of exploratory laparotomy Hx of tubal ligation Social History Smoking Status: Never smoker ROS ROS ED Constitutional Constitutional ED: Denies chills, fever(s) or sweats Eyes Eyes: Denies change in vision ENT ENT ED: Denies dysphagia or sore throat Cardiovascular Cardiovascular: Denies chest pain, leg edema, palpitations or racing heartbeat Respiratory/Chest Respiratory/Chest: Denies cough, dyspnea or dyspnea on exertion Gastrointestinal Gastrointestinal: Denies abdominal pain, diarrhea, nausea or vomiting Genitourinary Genitourinary ED: Denies dysuria, hematuria or urinary frequency Musculoskeletal Musculoskeletal: Denies back pain, extremity pain or neck pain Integumentary Denies rash or wounds Neurologic Neurologic: Denies headache(s), paresthesias or weakness EXAM Physical Exam Const Vital Signs: 04/07/22 19:50 04/07/22 20:02 04/07/22 21:49 Temperature 96.7 F L Temperature Source Temporal Pulse Rate 100 94 Respiratory Rate 18 19 H Respiratory Effort Normal Non-Labored Respiratory Pattern Normal Blood Pressure 145/77 H Blood Pressure Mean 99 Pulse Ox 97 95 Oxygen Delivery Method Room Air Room Air Positive well nourished and well developed General Appearance ED: well developed and NAD HEENT Reports moist mucous membranes normocephalic and atraumatic Eyes PERRL, EOMs intact bilaterally and conjunctivae normal General Eye ED: Yes normal appearance of both eyes Neck no lymphadenopathy and supple General: Negative for tenderness Chest Wall Chest: Negative for tenderness Resp normal respiratory effort and normal air movement Effort and Inspection: symmetric chest movement; Negative for respiratory distress Cardio regular rate, regular rhythm and no murmurs Peripheral Pulses: pulses 2+ throughout GI normal to inspection, nondistended, normoactive bowel sounds and non-tender Palpation: Negative for guarding or rebound tenderness present Back/Spine no CVA tenderness and no thoracic nor lumbar tenderness Extremity normal to inspection General Extremety ED: Negative for edema or tenderness General Extremity: Negative for edema Neuro oriented x3 and no sensory deficits noted Sensorium / Orientation: awake and alert Skin no rashes or lesions noted and no wounds MDM MDM MDM Narrative Medical decision making narrative: Patient presented with vague symptoms of just not feeling well. she states her heart rate was 110 at home. She states no significant dyspnea. She reports she was working harder today. She states she did have mild symptoms on Monday however not as significant. EKG normal labs were stable. Normal hemoglobin. White count 8.8. She is not tachycardic not hypoxic in ED. However with her tachycardia and her concerns, CT of the chest obtained for further evaluation. Results and discussion with radiology the PE right mid no right lower there is no right also noted pulmonary nodule left upper lobe is 6 mm. Consideration due to pulmonary embolism on Xarelto that she is failing her anticoagulation at this time. Multiple discussion with the patient she states she had mild symptoms on Monday when she initially came for evaluation of her leg pain she is not hypoxic she states minimal and resolved. She been taking her Xarelto she has had less activity over the last couple days she has been more active today she states. However these are more noticeable symptoms today compared to Monday. She ambulated pulse ox 93% clinically denied any symptoms. During monitoring she states she had weird sensation of symptoms which shakes and felt something was off. She was normal sinus rhythm on the monitor she is not hypoxic she is in no respiratory distress. I attempted to reach out to her physicians and on-call doctor multiple times no callback, discussed extensively with patient if she is concerned that we should start Lovenox. She has appointment with her doctor in the morning at 11 AM. Discussed that she can discuss with her PCP tomorrow for continued Lovenox bridging and starting warfarin if she has continued concerns. Without hypoxia or tachycardia, there is no indication for admission at this time. There is no heart strain on CT. She will be given Lovenox in the ED therapeutic dose. She will keep her appointment tomorrow. Return precautions. All questions were answered. Lab Data Attestation: I reviewed the patient's lab results. Labs: Laboratory Results - last 24 hr 04/07/22 04/07/22 20:32 20:32 WBC 8.8 RBC 4.58 Hgb 13.4 Hct 42.3 MCV 92.4 MCH 29.3 MCHC 31.7 L RDW Std Deviation 49.7 H RDW Coeff of Birgit 14.7 H Plt Count 307 MPV 9.5 Immature Gran % (Auto) 0.700 Neut % (Auto) 73.5 H Lymph % (Auto) 15.6 L [place] % (Auto) 8.6 Eos % (Auto) 0.9 Baso % (Auto) 0.7 Absolute Neuts (auto) 6.5 Absolute Lymphs (auto) 1.37 Nucleated RBC % 0 Sodium 144 Potassium 3.7 Chloride 108 H Carbon Dioxide 29.0 Anion Gap 7 BUN 17 Creatinine 0.65 Estim Creat Clear Calc 41.40 Est GFR (MDRD) Af Amer 116 Est GFR (MDRD) Non-Af 96 BUN/Creatinine Ratio 26.2 H Glucose 136 H Calcium 9.5 Radiography Diagnostic Testing: Clinical Impression(s) from Imaging Studies Chest CTA 04/07/22 21:34 IMPRESSION: 1. Moderate PE. No right heart strain. 2. Left upper lobe pulmonary nodule, nonspecific. Fleischner Society Guidelines (MacMahon, et al. Radiology 2017; 284(1):228-43) suggest the following. For low-risk patients recommend follow-up chest CT at 6-12 months. If unchanged consider an additional follow-up CT at 18-24 months. For high-risk patients initial follow-up chest CT at 6-12 months and if unchanged, 18-24 months. 3. Old granulomatous disease. Electronically Signed: Melissa Gonzalez MD at 22:16 EST Reading Location ID and State: [id number] / Tel , Service support , ADDENDUM: 04/07/22 2231 IMPRESSION: 1. Moderate PE. No right heart strain. 2. Left upper lobe pulmonary nodule, nonspecific. Fleischner Society Guidelines (MacMahon, et al. Radiology 2017; 284(1):228-43) suggest the following. For low-risk patients recommend follow-up chest CT at 6-12 months. If unchanged consider an additional follow-up CT at 18-24 months. For high-risk patients initial follow-up chest CT at 6-12 months and if unchanged, 18-24 months. 3. Old granulomatous disease. N.B. : The above Results were Read Back by Melissa Gonzalez MD to Yovani Arellano AA, and understanding confirmed on 04/07/2022 22:24:39 (ET). Electronically Signed: Melissa Gonzalez MD at 22:16 EST , EKG Initial EKG: Attestation: I personally reviewed and interpreted this EKG as follows: Comments: Sinus rhythm 92, no ST or T wave changes. Normal axis. QTC 413 Discharge Plan Triage Chief Complaint: General Illness ED Provider: Yovani Arellano Dx/Rx/DC Orders Clinical Impression: Pulmonary embolism on right, Left upper lobe pulmonary nodule Instructions: Pulmonary Embolism, ED Pulmonary Nodule, Solitary Prescriptions: No Action calcium carbonate-vitamin D3 1 EACH tablet,chewable 1 ea PO BID acetaminophen [Tylenol] 325 mg Tablet 325 mg PO Q6H PRN (Reason: Pain) atorvastatin 20 mg Tablet 20 mg PO QHS meloxicam [Mobic] 7.5 mg Tablet 7.5 mg PO PRN PRN (Reason: Pain) misoprostol [Cytotec] 200 mcg Tablet 400 mcg SUBLINGUAL PRN PRN (Reason: PREOP) estradiol 0.01 % (0.1 mg/gram) Cream 1 g VAGINAL SUWE ipratropium bromide 42 mcg (0.06 %) [place],Non-Aerosol 2 spray INTRANASAL DAILY Rx Instructions: administer into each nostril cholecalciferol (vitamin D3) [Vitamin D3] 25 mcg (1,000 unit) Capsule 25 mcg PO DAILY [place] Oil 1,000 mg Capsule 1 cap PO BID Rx Instructions: administer with meals Primary Care Provider: Abel Bolden Referrals: Abel Bolden MD [Primary Care Provider] - Keep Umberto appointment Activity Restrictions/Additional Instructions: Moderate pulmonary embolism right side middle and lower lobe. There is no heart strain. 6 mm left upper lobe pulmonary nodule. Will need to follow with your PCP imaging again in the future. Consideration discussed with possible failure of your Xarelto. You clinically have more symptoms currently. You are given Lovenox. Discussed with Dr. Bolden with your visit in the morning if you she can continue with the Lovenox for bridging and starting Coumadin. Attempted to get a hold of your doctor prior to your discharge. Return if worsening symptoms. Disposition Disposition: Home, Self Care
[2022-04-07 20:43] LABS: Absolute Lymphocyte Count 1.37 X10^3/uL (0.83-4.51); Absolute Neutrophil Count 6.5 X10^3/uL (2.0-7.7); Basophil# 0.06 X10^3/uL; Basophil% 0.7 % (0-1); Eosinophil# 0.08 X10^3/uL; Eosinophils% 0.9 % (0-5); Hematocrit 42.3 % (37-47); Hemoglobin 13.4 g/dL (12.0-15.0); Lymphocyte # 1.37 X10^3/ul (0.83-4.51); Lymphocyte % 15.6 % (19-41); Mean Corp Hgb Conc 31.7 g/dL (32-36); Mean Corpuscular Hgb 29.3 pg (27.0-32.0); Mean Corpuscular Volume 92.4 fL (81-99); Mean Platelet Vol. 9.5 fl (6.2-12.0); Monocyte# 0.75 X10^3/uL; Monocyte% 8.6 % (0-10); NRBC Flagged by Analyzer 0 % (0-5); Neutrophil # 6.45 X10^3/uL (2.7-7.7); Neutrophil % 73.5 % (47-70); Platelet Count 307 K/mm3 (150-450); RBC Distribution Width CV 14.7 % (11.6-14.6); RBC Distribution Width SD 49.7 fl (35.1-43.9); Red Blood Count 4.58 M/mm3 (4.2-5.4); White Blood Count 8.8 K/mm3 (4.4-11.0)
[2022-04-07 21:02] LABS: Anion Gap 7 (5-15); BUN 17 mg/dL (7-18); BUN/Creat Ratio 26.2 RATIO (10-20); Calcium,Total 9.5 mg/dL (8.5-10.1); Chloride 108 mmol/L (98-107); Creatinine, Serum 0.65 mg/dL (0.55-1.02); EST Glomerular Filtration Rate 96 mL/min (>60); Est Glom Filt Rate - Afr Amer 116 mL/min (>60); Glucose 136 mg/dL (74-106); Potassium 3.7 mmol/L (3.5-5.1); Sodium Level 144 mmol/L (136-145)
--- NOTE | 2022-04-07 21:34 | CT_ITS ---
We are attempting to reach an attending provider to discuss findings. An addendum with communication details will be sent when the communication is complete. EXAM: CT ANGIOGRAPHY CHEST WITHOUT AND WITH INTRAVENOUS CONTRAST CLINICAL INDICATION: palpitations -- recent LLE DVT, r/o PE TECHNIQUE: Helically acquired angiography images were obtained of the chest without and with intravenous contrast. This CT exam was performed using one or more of the following dose reduction techniques: automated exposure control, adjustment of the mA and/or kV according to patient size, and/or use of iterative reconstruction technique. This report was created using [employer] report generation technology. MIP reconstructed images were created and reviewed. CONTRAST: IV 100mL Isovue-370 COMPARISON: None. FINDINGS: PULMONARY ARTERIES: Moderate pulmonary emboli in segmental and subsegmental arteries of the right middle and lower lobes. Normal in caliber. AORTA: Unremarkable. Normal in caliber. No evidence of dissection. GREAT VESSELS OF AORTIC ARCH: Unremarkable. Normal in caliber. No evidence of dissection. LUNGS AND PLEURAL SPACES: Calcified granulomas in the right middle and lower lobes. 6 mm nodular density in the left upper lobe seen on series 2 image 215. No additional pulmonary nodules. No pleural effusion or thickening. No pneumothorax. HEART: Unremarkable. Heart size is normal. No pericardial effusion. No signs of right heart strain, ratio of right ventricle to left ventricle measures less than 1. MEDIASTINUM: Unremarkable. No mediastinal or hilar adenopathy. Esophagus is unremarkable. No hiatal hernia. THYROID: Unremarkable. No thyroid lesions. BONES/JOINTS: Unremarkable. No suspicious lytic or blastic abnormality. CT/CTA Chest W/WO Contrast IMPRESSION: 1. Moderate PE. No right heart strain. 2. Left upper lobe pulmonary nodule, nonspecific. Fleischner Society Guidelines (MacMahon, et al. Radiology 2017; 284(1):228-43) suggest the following. For low-risk patients recommend follow-up chest CT at 6-12 months. If unchanged consider an additional follow-up CT at 18-24 months. For high-risk patients initial follow-up chest CT at 6-12 months and if unchanged, 18-24 months. 3. Old granulomatous disease. Electronically Signed: Melissa Gonzalez MD at 22:16 EST Reading Location ID and State: [id number] / Tel , Service support ,
[2022-04-07 21:49] VITALS: PULSE 94; RESP 19; O2SAT 95
[2022-04-07 22:21] VITALS: O2SAT 95
[2022-04-08 00:18] VITALS: BP 139/89; PULSE 100; RESP 17; O2SAT 98
[2022-04-08] MEDS: Enoxaparin 80 MG/0.8 ML Syringe SC (00:29)
== END 2022-04-08 00:36 | disposition home or self-care (01) ==
PROVIDERS: Emergency Provider Emergency Medicine; PCP Family Medicine; Visit Provider Emergency Medicine
DX: I26.99 Other pulmonary embolism without acute cor pulmonale (principal); E78.00 Pure hypercholesterolemia, unspecified; M19.90 Unspecified osteoarthritis, unspecified site; Z79.899 Other long term (current) drug therapy; R91.1 Solitary pulmonary nodule
CPT/HCPCS: 71275; 80048; 85025; 93005; 99284; Q9967; A4216

== ENCOUNTER 2022-04-20 16:53 | Emergency (ER) | payer MEDICARE, OTHER, SELFPAY ==
[2022-04-20 16:54] VITALS: BP 136/84; PULSE 104; RESP 18; TEMP 36.1; O2SAT 96; BMI 30.2
--- NOTE | 2022-04-20 20:19 | EDS_ITS ---
HPI History of Present Illness Chief Complaint: Upper Extremity Injury Narrative Narrative: 72-year-old female past medical history of DVT and pulmonary embolism, currently taking warfarin and Lovenox. She states that she was initially on Xarelto, and then was diagnosed with a pulmonary embolism and they were not sure if the Xarelto had been working, so they switched her to warfarin. She has had a low INR in the past so they are bridging her with Lovenox. She is on about day 12 of Lovenox. They increased her warfarin to 7.5 mg on Monday and Monday, but she has not taken any blood thinners today. She presents because on Monday, she began having right elbow swelling. She had a history of bursitis and thought may be the swelling on her olecranon was another form of bursitis. She denies any direct trauma against a hard surface to her right elbow. No fevers or chills. No redness to the area. She noticed that the olecranon was swollen, and then she wrapped her right elbow with an Barber bandage and started to notice ecchymosis medially in her proximal forearm. She presents mainly because of the elbow swelling and the fact that she is on blood thinners. [facility] Medical History Arthritis Bladder disease Chronic constipation Chronic cough High cholesterol History of edema History of pain when walking History of steroid therapy History of stress test History of supraventricular tachycardia Leg cramps Non-smoker Post-menopausal Wears glasses Home Medications calcium carbonate 500 mg-vitamin D3 10 mcg (400 unit) chewable tablet 1 ea PO BID 02/15/19 [History Last Taken Unknown] acetaminophen 325 mg tablet (Tylenol) 325 mg PO Q6H PRN Pain 03/22/22 [History Last Taken Unknown] atorvastatin 20 mg tablet 20 mg PO QHS 03/22/22 [History Last Taken Unknown] cholecalciferol (vitamin D3) 25 mcg (1,000 unit) capsule (Vitamin D3) 25 mcg PO DAILY 03/22/22 [History Last Taken Unknown] estradiol 0.01% (0.1 mg/gram) vaginal cream 1 g vaginal SUWE 03/22/22 [History Last Taken Unknown] evening primrose oil-linoleic acid-gamolenic acid 1,000 mg capsule ([place] Oil) 1 cap PO BID 03/22/22 [History Last Taken Unknown] ipratropium bromide 42 mcg (0.06 %) nasal spray 2 spray intranasal DAILY 03/22/22 [History Last Taken Unknown] meloxicam 7.5 mg tablet 7.5 mg PO PRN PRN Pain 03/22/22 [History Last Taken Unknown] misoprostol 200 mcg tablet (Cytotec) 400 mcg sublingual PRN PRN PREOP 03/22/22 [History Last Taken Unknown] Allergy/AdvReac Type Severity Reaction Status Date / Time amoxicillin Allergy Rash Verified 04/20/22 16:54 sulfamethoxazole Allergy Other Verified 04/20/22 16:54 [From Bactrim] trimethoprim [From Bactrim] Allergy Other Verified 04/20/22 16:54 Surgical History History of cystoscopy History of hysteroscopy Hx of colonoscopy Hx of exploratory laparotomy Hx of exploratory laparotomy Hx of tubal ligation Social History Smoking Status: Never smoker ROS ROS ED ROS Narrative Constitutional: No fever, no chills. HEENT: No sore throat. No neck pain. No loss of vision. No rhinorrhea. Cardiovascular: No chest pain. No palpitations. No pedal edema. Respiratory: No cough, no shortness of breath. Abdominal: No abdominal pain. No nausea. No vomiting. Genitourinary: No dysuria. No hematuria. Musculoskeletal: No myalgias. Right posterior elbow swelling with ecchymosis of proximal forearm medially. Neurologic: No headaches. No dizziness. No lightheadedness. Skin: No rash. No change in color. Psychiatric: No depression. No anxiety. EXAM Physical Exam Narrative Exam Narrative: Afebrile. Vital signs noted. HEENT: Normocephalic. Atraumatic. PERRL, EOMI. Neck soft and supple. No point tenderness or step off. Cardiovascular: Regular rate and rhythm. No murmurs, rubs, or gallops appreciated. Respiratory: No tachypnea. Lungs clear to auscultation bilaterally. Gastrointestinal: Abdomen soft, nontender, with normoactive bowel sounds. No rebound or guarding. Neurological: Awake. Alert. Nonfocal, nonlateralizing. Skin: No rash. Normal color. No pallor. Musculoskeletal: No pedal edema. Full range of motion extremities. Positive swelling of right olecranon bursa without erythema. Mild swelling and tenderness with slight ecchymosis medial proximal forearm. Neurovascular intact distally with palpable radial pulse. Good capillary refill. Full range of motion of wrist. Const Vital Signs: 04/20/22 16:54 Temperature 97 F L Temperature Source Temporal Pulse Rate 104 H Respiratory Rate 18 Blood Pressure 136/84 H Blood Pressure Mean 101 Pulse Ox 96 Oxygen Delivery Method Room Air MDM MDM MDM Narrative Medical decision making narrative: She is supposed to have her INR checked tomorrow, but I will check it today to make sure that she is not having a spontaneous hematoma. X-rays were obtained of the right elbow and 3 views and interpreted by myself. I am not concerned for septic arthritis as she has full range of motion of her right elbow. I do not think this is a septic bursitis that requires antibiotics as there is no erythema and she is afebrile. I reviewed her laboratory work and her INR is subtherapeutic at 1.7. X-rays of the right elbow were obtained and interpreted by myself. There is soft tissue swelling about the olecranon consistent with bursitis but no evidence of fracture. I reviewed the radiology report which confirms no evidence of fracture. At this point in time, she is post to have her INR rechecked tomorrow. I do feel that she should take her Lovenox and her Coumadin to treat her DVT/pulmonary embolism and that the benefit of taking it outweighs the low risk of her continued bleeding in the soft tissue of her forearm. She states that she was told to wrap her elbow, so Barber wrap will be applied here. She will follow-up with orthopedics. She will return with increased swelling, increased pain, new or worsening symptoms. Position is discharged home in stable condition. Lab Data Attestation: I reviewed the patient's lab results. Discharge Plan Triage Chief Complaint: Upper Extremity Injury ED Provider: Chino Saxena Dx/Rx/DC Orders Clinical Impression: Olecranon bursitis of right elbow, Hematoma Instructions: ED Hematoma, ED Bursitis Elbow Olecranon Prescriptions: No Action calcium carbonate-vitamin D3 1 EACH tablet,chewable 1 ea PO BID acetaminophen [Tylenol] 325 mg Tablet 325 mg PO Q6H PRN (Reason: Pain) atorvastatin 20 mg Tablet 20 mg PO QHS meloxicam [Mobic] 7.5 mg Tablet 7.5 mg PO PRN PRN (Reason: Pain) misoprostol [Cytotec] 200 mcg Tablet 400 mcg SUBLINGUAL PRN PRN (Reason: PREOP) estradiol 0.01 % (0.1 mg/gram) Cream 1 g VAGINAL SUWE ipratropium bromide 42 mcg (0.06 %) [place],Non-Aerosol 2 spray INTRANASAL DAILY Rx Instructions: administer into each nostril cholecalciferol (vitamin D3) [Vitamin D3] 25 mcg (1,000 unit) Capsule 25 mcg PO DAILY [place] Oil 1,000 mg Capsule 1 cap PO BID Rx Instructions: administer with meals Primary Care Provider: Abel Bolden Referrals: Abel Bolden MD [Primary Care Provider] - Johnnie Michael MD [Med Staff - Active Staff] - As soon as possible Activity Restrictions/Additional Instructions: Continue your yourself Lovenox and Coumadin as the benefit of anticoagulation for your pulmonary embolism and DVT outweighs the small amount of bleeding that you are having in the soft tissue of your right forearm. Disposition Disposition: Home, Self Care
--- NOTE | 2022-04-20 20:34 | RAD_ITS ---
INDICATION: Swelling olecranon EXAMINATION/TECHNIQUE: X-RAY - RIGHT XR Elbow Min 3 Views 3 VIEWS COMPARISON: None. FINDINGS: SOFT TISSUES: Soft tissue swelling over the olecranon. No soft tissue gas or radiopaque foreign body. BONES/JOINTS: No acute fracture or subluxation. Normal alignment. Preservation of the joint space. No sclerotic or destructive changes observed. RAD/Elbow min 3 Views IMPRESSION: Soft tissue swelling over the left, probably represents sinusitis. No finding of fracture or dislocation. Electronically Signed: Salvatore Liang MD at 20:57 EST ,
[2022-04-20 21:02] LABS: International Normalized Ratio 1.7; Prothrombin Time (Protime)PT. 19.5 SECONDS (11.7-14.9)
== END 2022-04-20 21:44 | disposition home or self-care (01) ==
PROVIDERS: Emergency Provider Emergency Medicine; PCP Family Medicine; Visit Provider Emergency Medicine
DX: M70.21 Olecranon bursitis, right elbow (principal); E78.00 Pure hypercholesterolemia, unspecified; Z86.711 Personal history of pulmonary embolism; Z86.718 Personal history of other venous thrombosis and embolism; Z79.01 Long term (current) use of anticoagulants; Z79.899 Other long term (current) drug therapy; S50.01XA Contusion of right elbow, initial encounter; M19.90 Unspecified osteoarthritis, unspecified site; Z92.241 Personal history of systemic steroid therapy; X58.XXXA Exposure to other specified factors, initial encounter
CPT/HCPCS: 73080; 85610; 99283; A4216

== ENCOUNTER → 2022-11-29 | Outpatient (CLI) | payer MEDICARE, OTHER, SELFPAY ==
--- NOTE | 2022-11-29 07:56 | CT_ITS ---
STUDY: CT RIGHT KNEE WITHOUT CONTRAST REASON FOR EXAM: Female, 72 years old. Varus deformity, not elsewhere classified, right knee RADIATION DOSAGE (If Supplied By Facility): CTDIvol = ( 18.73 ) mGy, DLP = ( 1414 ) mGycm TECHNIQUE: Transaxial CT imaging of the right knee was performed. Coronal and sagittal images were reformatted. Individualized dose optimization techniques were used for this CT. COMPARISON: Right knee CT dated 03/30/2022. FINDINGS: There is persistent severe degenerative arthrosis of the medial femorotibial compartment with severe joint space narrowing, small marginal osteophyte formation, and subchondral sclerosis. There is persistent mild degenerative arthrosis of the lateral femorotibial compartment with small marginal osteophyte formation. There is persistent mild degenerative arthrosis of the patellofemoral compartment with small marginal osteophyte formation. Normal proximal tibiofibular articulation. There is a small to moderate joint effusion. There is no demonstrated fracture. The quadriceps tendon is grossly normal. The patellar tendon is grossly normal. Normal Hoffa''s fat pad. There is minimal subcutaneous soft tissue edema along the anterior aspect of the knee. CT/Extremity Lower without Contra IMPRESSION: Persistent tricompartment degenerative arthrosis, most severe in the medial femorotibial compartment. Small to moderate joint effusion. Electronically Signed: Jose R Rosales MD at 10:28 EDT ,
== END | disposition home or self-care (01) ==
LOC: CT 07:56
PROVIDERS: PCP Family Medicine; Referring Provider Specialist; Visit Provider Specialist
DX: M21.161 Varus deformity, not elsewhere classified, right knee (principal)
CPT/HCPCS: 73700

== ENCOUNTER → 2023-02-20 | Outpatient (CLI) | payer MEDICARE, OTHER, SELFPAY ==
--- NOTE | 2023-02-20 11:57 | BI_ITS ---
MAMMOGRAPHY - BILATERAL SCREENING REASON FOR EXAM: Female, 72 years old. Routine annual screening examination. PERTINENT HISTORY: Non-contributory. TECHNIQUE: Digital bilateral breast hortencia (3D mammographic acquisition) in the CC and MLO projections. 2-D mediolateral oblique (MLO) and craniocaudad (CC) views of both breasts were obtained. CAD: Full Field Digital Mammography with Computer Added Detection was performed. COMPARISON: Comparison is made with prior study dated February 15, 2022 and February 10, 2021. FINDINGS: Breast Composition: The breasts are heterogeneously dense, which may obscure small masses. There are no dominant masses or suspicious calcifications. Stable benign-appearing bilateral axillary lymph nodes. No other significant abnormalities are identified. There has been no significant change since the prior study. BI/SCRN MAMM (CAD)W/HORTENCIA BILAT IMPRESSION: Stable bilateral screening mammogram. Yearly follow-up mammogram recommended. (A) ASSESSMENT CATEGORY: BIRADS Category 2: Benign. A letter regarding these results will be sent to the patient by the facility within 30 days. Approximately 10% of breast cancers are not detected by mammography. A normal mammogram should not delay biopsy of a clinically suspicious abnormality. [id number] Electronically Signed: Zak Caceres MD at 12:46 EST ,
== END | disposition home or self-care (01) ==
LOC: OPBI 11:55
PROVIDERS: PCP Family Medicine; Referring Provider Obstetrics & Gynecology; Visit Provider Obstetrics & Gynecology
DX: Z12.31 Encounter for screening mammogram for malignant neoplasm of breast (principal)
CPT/HCPCS: 77063; 77067

== ENCOUNTER → 2024-02-22 | Outpatient (CLI) | payer MEDICARE, OTHER, SELFPAY ==
--- NOTE | 2024-02-22 15:53 | BI_ITS ---
MAMMOGRAPHY - BILATERAL SCREENING REASON FOR EXAM: Female, 73 years old. Routine annual screening examination. PERTINENT HISTORY: Non-contributory. TECHNIQUE: Digital bilateral breast hortencia (3D mammographic acquisition) in the CC and MLO projections. 2-D mediolateral oblique (MLO) and craniocaudad (CC) views of both breasts were obtained. CAD: Full Field Digital Mammography with Computer Added Detection was performed. COMPARISON: Comparison is made with prior study February 20, 2023 and February 15, 2022. FINDINGS: Breast Composition: The breasts are heterogeneously dense, which may obscure small masses. There are no dominant masses or suspicious calcifications. Stable bilateral axillary lymph nodes. No other significant abnormalities are identified. There has been no significant change since the prior study. BI/SCRN MAMM (CAD)W/HORTENCIA BILAT IMPRESSION: Stable bilateral screening mammogram. Yearly follow-up mammogram recommended. (A) ASSESSMENT CATEGORY: BIRADS Category 2: Benign. A letter regarding these results will be sent to the patient by the facility within 30 days. Approximately 10% of breast cancers are not detected by mammography. A normal mammogram should not delay biopsy of a clinically suspicious abnormality. [id number] Electronically Signed: Zak Caceres MD at 8:35 EST ,
== END | disposition home or self-care (01) ==
LOC: OPBI 15:51
PROVIDERS: PCP Family Medicine; Referring Provider Obstetrics & Gynecology; Visit Provider Obstetrics & Gynecology
DX: Z12.31 Encounter for screening mammogram for malignant neoplasm of breast (principal)
CPT/HCPCS: 77063; 77067

== ENCOUNTER → 2024-03-27 | Outpatient (CLI) | payer MEDICARE, OTHER, SELFPAY ==
--- NOTE | 2024-03-27 08:52 | EKG12_ITS ---
Test Reason : PREOP Blood Pressure : */* mmHG Vent. Rate : 72 BPM Atrial Rate : 72 BPM P-R Int : 190 ms QRS Dur : 80 ms QT Int : 404 ms P-R-T Axes : 65 -10 41 degrees QTcB Int : 442 ms Normal sinus rhythm Normal ECG Confirmed by FILIBERTO REYNA, LOENEL ([id number]), brands editor NIKOS SWENSON ([id number]) on 03/28/2024 5:50:22 AM Referred By: Johnnie Michael Confirmed By: LEONEL DE LOS SANTOS MD
[2024-03-27 09:36] LABS: Absolute Lymphocyte Count 2.01 X10^3/uL (0.83-4.51); Absolute Neutrophil Count 3.6 X10^3/uL (2.0-7.7); Basophil# 0.07 X10^3/uL; Basophil% 1.1 % (0-1); Eosinophil# 0.09 X10^3/uL; Eosinophils% 1.4 % (0-5); Hematocrit 44.6 % (37-47); Hemoglobin 14.6 g/dL (12.0-15.0); Lymphocyte # 2.01 X10^3/ul (0.83-4.51); Lymphocyte % 30.9 % (19-41); Mean Corp Hgb Conc 32.7 g/dL (32-36); Mean Corpuscular Hgb 29.3 pg (27.0-32.0); Mean Corpuscular Volume 89.6 fL (81-99); Mean Platelet Vol. 10.5 fl (6.2-12.0); Monocyte% 10.8 % (0-10); NRBC Flagged by Analyzer 0 % (0-5); Neutrophil # 3.61 X10^3/uL (2.7-7.7); Neutrophil % 55.3 % (47-70); Platelet Count 219 K/mm3 (150-450); RBC Distribution Width CV 15.3 % (11.6-14.6); RBC Distribution Width SD 50.8 fl (35.1-43.9); Red Blood Count 4.98 M/mm3 (4.2-5.4); White Blood Count 6.5 K/mm3 (4.4-11.0)
[2024-03-27 09:59] LABS: AST(SGOT) 19 U/L (15-37); Alanine Aminotransfer ALT/SGPT 26 U/L (13-56); Albumin, Serum 3.8 g/dL (3.2-5.0); Alkaline Phosphatase 106 U/L (45-117); Anion Gap 3 (5-15); BUN 19 mg/dL (7-18); Calcium,Total 9.5 mg/dL (8.5-10.1); Chloride 109 mmol/L (98-107); Cholesterol 127 mg/dL (200); Creatinine, Serum 0.79 mg/dL (0.55-1.02); EST Glomerular Filtration Rate 76 mL/min (>60); Est Glom Filt Rate - Afr Amer 92 mL/min (>60); Globulin 3.9 g/dL (2.2-4.2); Glucose 100 mg/dL (74-106); High Density Lipoprotein 64 mg/dL; Potassium 4.3 mmol/L (3.5-5.1); Protein, Total 7.7 g/dL (6.4-8.2); Sodium Level 140 mmol/L (136-145); Triglycerides 102 mg/dL; Very Low Density Lipoprotein 20 mg/dL (5-40)
== END | disposition home or self-care (01) ==
LOC: PSN 08:49
PROVIDERS: PCP Family Medicine; Referring Provider Specialist; Visit Provider Specialist
DX: Z01.810 Encounter for preprocedural cardiovascular examination (principal); Z01.818 Encounter for other preprocedural examination; E78.00 Pure hypercholesterolemia, unspecified
CPT/HCPCS: 36415; 80053; 80061; 85025; 93005

== ENCOUNTER → 2024-11-04 | Outpatient (CLI) | payer MEDICARE, OTHER, SELFPAY | END | disposition home or self-care (01) | LOC: LABSPEC 15:57 | PROVIDERS: PCP Family Medicine; Referring Provider Urology; Visit Provider Urology | DX: N30.00 Acute cystitis without hematuria (principal) | CPT/HCPCS: 87086; 87088; 87186 ==

== ENCOUNTER 2025-02-20 06:28 | Day surgery (SDC) | payer MEDICARE, OTHER, SELFPAY ==
[2025-02-20] VITALS (7 sets, daily range): BP systolic 104–124; BP diastolic 67–81; PULSE 66–80; RESP 14–20; TEMP 36.1–36.4; O2SAT 98–99; BMI 31.0
--- OUTSIDE RECORDS SUMMARY | 2025-02-20 06:31 | XMS RPT_ITS | CCD ---
Author Organization [facility] Care Team Providers Care Fountain Brush Assembler Name Role Phone Abhinav Bolden MD Primary Care Provider Yovany REYNA, Bolivar Jorgensen Primary Care Provider Garrick LUIS MD, Shiraz [place] Primary Care Provider Steffi Abhinav Ly MD Primary Care Provider Dr. Abel Bolden Primary Care Provider Dr. Zeke Palomino Attending Provider Abhinav Bolden MD Primary Care Provider Podlogar BINDERY MACHINE SETTER.Meli PURCELL Unavailable Knevelin BINDERY MACHINE SETTER.MOTION DESIGNER, Tony Unavailable Knoble BINDERY MACHINE SETTER.MOTION DESIGNER, Tony Unavailable TONY GIRON Referring Unavailable ABHINAV BOLDEN Primary Care Unavailab TONY Brown Referring Unavailable ABHINAV BOLDEN Primary Care Unavailab Christopher Fernandes Unavailable Dr. Abel Bolden MD Primary Care Provider Nohemi REYNA, Dr. William Milligan Attending Provider Dr. William Song MD Referring Provider THINE RIVERA Admitting Unavailable THIEN RIVERA Attending Unavailable ABHINAV BOLDEN Primary Care Unavailab LILIAN Rankin Referring Unavailable ABHINAV BOLDEN Primary Care Unavailab SORAIDA Valencia Attending Unavailable ABHINAV BOLDEN Primary Care Unavailab le MELI REYNA Attending Unavailable ABHINAV BOLDEN Primary Care Unavailab le PODLOGARMELI Attending Unavailable SETHER BOLDENER B Primary Care Unavailab TONY Brown Referring Unavailable CLEOLEY, VIDALOPHER B Primary Care Unavailab BEVERLEY Martinez Attending Unavailable CLEOLEY, VIDALOPHER B Primary Care Unavailab le HARLILIAN BRIGHT Referring Unavailable BURSLEY, CHRISTOPHER B Primary Care Unavailab le PODLOGJANEEN, MELI Attending Unavailable KIMI, VIDALOPHER B Primary Care Unavailab THIEN Franco Attending Unavailable BURSLEY, VIDALOPHER B Primary Care Unavailab le KNTONY HANNAH Attending Unavailable BURSLEY, CHRISTOPHER B Primary Care Unavailab le BURSLEY, CHRISTOPHER B Primary Care Unavailab TONY Brown Referring Unavailable BURSLEY, CHRISTOPHER B Primary Care Unavailab le HARPSTERLILIAN Attending Unavailable BURSLEY, CHRISTOPHER B Primary Care Unavailab le HARLILIAN BRIGHT Attending Unavailable HARPSTERLILIAN Referring Unavailable BURSLEY, VIDALOPHER B Primary Care Unavailab JIHAN Leigh Attending Unavailabl e CLEOLEY, CHRISTOPHER B Primary Care Unavailab le Bursley, Abel Primary Care Unavailable Jacob Nickerson Attending Unavailable Podlogar Meli MOSS Attending Unavailable Bursley, Abel Primary Care Unavailable Yash Chairez Attending Unavailable Jose Juan Garcia Referring Unavailable Bursley, Abel Primary Care Unavailable Beverley Jorgensen Referring Unavailable Beverley Jorgensen Attending Unavailable Bursley, Abel Primary Care Unavailable Jose Juan Garcia Referring Unavailable Jose Juan Garcia Attending Unavailable Podlogar INSTRUCTIONAL DEVELOPERMeli Consulting Unavailable Bursley, Abel Primary Care Unavailable William Song Referring Unavailable William Song Attending Unavailable Bursley, Abel Primary Care Unavailable Allergies Allergy Classification Reported Allergen(s) Allergy Type Date of Onset Reaction(s) Facility (20 sources) Amoxicillin; Translations: [AMOXICILLIN] Drug Allergy 6 Rash [facility] Work Phone: (20 sources) Sulfamethoxazole / Trimethoprim; Translations: [SULFAMETHOXAZOLE-TR IMETHOPRIM] Drug Allergy 6 [facility] Work Phone: (7 sources) Sulfamethoxazole Drug Allergy 9 Other [facility] Comment on above: MOUTH SORES (7 sources) Trimethoprim Drug Allergy 9 Other [facility] Comment on above: MOUTH SORES (20 sources) Meperidine; Translations: [MEPERIDINE] Drug Allergy 3 Other: See Comments [facility] Work Phone: (1 source) Amoxicillin Drug Allergy 3 [facility] Repository (1 source) Sulfamethoxazole Drug Allergy 3 [facility] Rep[facility] (1 source) Trimethoprim Drug Allergy 3 [facility] Medications Current Medications Medication Drug Class(es) Dates Sig (Normalized) Sig (Original) acetaminophen 325 mg oral tablet (20 sources) Start: 03-22-2022 take 1 tablet by mouth every six hours as needed for pain Acetaminophen (Tylenol) 325 mg Tablet Active 325 mg PO EVERY 6 HOURS as needed for Pain March 22, 2022 1:00am acetaminophen (T YLENOL EXTRA STRENGTH ORAL) Take 2 tablets by mouth as needed. Active acetaminophen (T YLENOL EXTRA STRENGTH ORAL) Take 2 tablets by mouth as needed. 0 Active Comment on above: Take 2 tablets by mo [facility] as needed. atorvastatin 20 mg oral tablet (20 sources) HMG-CoA Reductase Inhibitor Start: 021 End: 025 take 1 tablet by mouth once daily at bedtime for hyperlipidemia atorvastatin (LIPITOR) 20 mg tablet Take 1 tablet by mouth daily at bedtime. For cholesterol. 90 tablet 1 06/24/2024 12/21/2024 Active Comment on above: Take 1 tablet by marcos daily at bedtime. For cholesterol. calcium carbonate 1250 mg / cholecalciferol 0.01 mg chewable tablet (7 sources) Vitamin D Start: 019 Calcium Carbonate-Vitamin D3 1 EACH tablet,chewable Active 1 NMA PO TWICE A DAY February 15, 2019 1:00am Start: 02-15-2019 Calcium Carbon ate-Vitamin D3 Active 1 EACH PO TWICE A DAY February 15, 2019 12:00am Start: 02-15-2019 Calcium Carbon ate-Vitamin D3 Active 1 EACH PO DAILY February 15, 2019 12:00am Calcium Carbonate / vitamin D3 (20 sources) CALCIUM CARBONAT E/VITAMIN D3 (CALCIUM 600 + D,3, ORAL) Take by mouth twice daily. Active CALCIUM CARBONAT E/VITAMIN D3 (CALCIUM 600 + D,3, ORAL) Take by mouth twice daily. 0 Active Comment on above: Take by mouth twice daily. cholecalciferol 0.025 mg oral capsule (6 sources) Vitamin D Start: take 1 capsule by mouth once daily Cholecalciferol (Vitamin D3) (Vitamin D3) 25 mcg (1,000 unit) Capsule Active 25 ug PO DAILY March 22, 2022 1:00am ciprofloxacin 500 mg oral tablet (3 sources) Quinolone Antimicrobial Start: ciprofloxacin HCl (CIPRO) 500 mg tablet 11/06/2024 Active Start: 10-04-2024 End: 10-07-2024 take 1 tablet by mouth twice daily ciprofloxacin HCl (CIPRO) 500 mg tablet Indications: Urinary retention , UTI symptoms Take 1 tablet by mouth two times a day for 3 days. 6 tablet 10/04/2024 10/07/2024 Active diphenhydrAMINE hydrochloride 25 mg oral capsule (20 sources) Histamine-1 Receptor Antagonist take 1 capsule by mouth every six hours as needed diphenhydrAMINE (BENADRYL) 25 mg capsule Take 25 mg by mouth every 6 hours as needed. Active Comment on above: Take 25 mg by mouth every 6 hours as needed. Docusate (20 sources) docusate sodium (STOOL SOFTENER ORAL) Take by mouth. Active docusate sodium (STOOL SOFTENER ORAL) Take by mouth. 0 Active Comment on above: Take by mouth. 0.8 ml enoxaparin sodium 100 mg/ml prefilled syringe (12 sources) Low Molecular Weight Heparin Start: End: inject 0.8 mL by subcutaneous injection every twelve hours enoxaparin (LOVENOX) 80 mg/0.8 mL Indications: Acute deep vein thrombosis (DVT) of tibial vein of left lower extremity (HCC) Inject 0.8 mL subcutaneously every 12 hours for 10 days. 16 mL 0 04/28/2022 05/08/2022 Active Comment on above: Inject 0.8 mL subcut aneously every 12 hours for 10 days. estradiol 0.1 mg/ml vaginal cream (20 sources) Estrogen Start: Estradiol 0.01 % (0.1 mg/gram) Cream Active 1 g VAGINAL SUWE March 22, 2022 1:00am Start: 01-18-2021 End: 04-24-2023 estradiol (ESTRACE) 0.01 % ( 0.1 mg/gram) vaginal cream APPLY APROX. 1/2 INCH VAGINALLY AT BEDTIME TWICE WEEKLY 85 g 1 01/18/2021 04/24/2023 Discontinued (Other) Start: 01-30-2015 End: 02-22-2019 Estradiol (Vagifem) 10 MCG t ablet Discontinued 10 ug VG SUJanuary 30, 2015 1:00am February 22, 2019 9:49am Comment on above: APPLY APROX. 1/2 INC H VAGINALLY AT BEDTIME TWICE WEEKLY Yocasta Mjdk-Zwwbhzrq-Bsdknlst c Ac (Stem Oil) 1,000 mg Capsule (6 sources) Start: 03-22-2022 Yocasta Qizp-Zmantgjf-Prilsaegp Ac (Stem Oil) 1,000 mg Capsule Active 1 NMA PO TWICE A DAY March 22, 2022 1:00am administer with meals Start: 03-22-2022 take 1 capsule by mo uth twice daily at mealtime Yocasta Fxzm-Wmigxzqa-Sqclivaqv Ac (Stem Oil) 1,000 mg Capsule Active 1 CAP PO TWICE A DAY March 22, 2022 1:00am administer with meals Start: 03-22-2022 take 1 capsule by mo uth twice daily at mealtime Yocasta Ijam-Wlguagle-Tjtxzjtnh Ac (Stem Oil) 1,000 mg Capsule Active 1 CAP PO TWICE A DAY March 22, 2022 12:00am administer with meals fluticasone propionate 0.05 mg/actuat metered dose nasal spray (20 sources) Corticosteroid Start: 09-16-2020 take 2 spray(s) by mouth once daily fluticasone (FLONASE) 50 mcg/actuation nasal spray Indications: Vasomotor rhinitis Use 2 Sprays in each nostril once daily. Rinse mouth after use. 3 Bottle 3 09/16/2020 Active Start: 01-30-2015 Fluticasone Pr opionate Active 1 SPRAY NASAL DAILY January 30, 2015 12:00am Comment on above: Use 2 Sprays in each nostril once daily. Rinse mouth after use. ipratropium bromide 0.042 mg/actuat metered dose nasal spray (20 sources) Anticholinergic Start: 02-07-2024 ipratropium bromide (ATROVENT) 42 mcg (0.06 %) nasal spray Indications: Vasomotor rhinitis Use 2 Sprays in the nose two times a day. 15 mL 2 02/07/2024 Active Start: 03-22-2022 Ipratropium Br omide 42 mcg (0.06 %) Crocker,Non-Aerosol Active 2 NMA INTRANASAL DAILY March 22, 2022 1:00am administer into each nostril Start: 03-22-2022 take 1 spray(s) nasa l route once daily Ipratropium [place] Active 2 SPRAY INTRANASAL DAILY March 22, 2022 12:00am administer into each nostril End: 02-07-2024 ipratropium bromide (ATROVEN T NASAL) Use in the nose once daily. 02/07/2024 Discontinued (Duplicate Entry) ipratropium brom tho (ATROVENT NASAL) Use in the nose once daily. Active ipratropium brom tho (ATROVENT NASAL) Use in the nose once daily. 0 Active Comment on above: Use in the nose once daily. iv contrast (will be provided with radiology test) (1 source) Start: 2024 End: 2024 inject 1 dose intravenously once, then inject 1 dose intravenously once iv contrast (will be provided with radiology test) Indications: Localized enlarged lymph nodes Inject 1 each intravenously one time only for [address] Neck W IVCON No IV access, insert saline lock prior to the sedation, infusion, injection for imaging exam. Discontinue saline lock post exam. If Pt. has a central line or IVAD, may access for administration according to line specific nursing protocol. Once exam is complete flush line and de-access according to line specific nursing protocol in the CT contrast administration guidelines link. 1 each 08/29/2024 08/29/2024 Active latanoprost 0.05 mg/ml ophthalmic solution (20 sources) Prostaglandin Analog Start: 2023 latanoprost (XALATAN) 0.005 % ophthalmic solution 03/22/2023 Active loratadine 10 mg disintegrating oral tablet (1 source) Start: 2018 Loratadine Active 10 MG PO NEEDED February 15, 2019 12:00am melatonin 3 mg / vitamin b6 10 mg oral tablet (1 source) Start: 2018 Melatonin-Pyridoxine Hcl (B6) Active 1 EACH PO AT BEDTIME February 15, 2019 12:00am meloxicam 7.5 mg oral tablet (16 sources) Nonsteroidal Anti-inflammatory Drug Start: 2021 End: 2022 Meloxicam (Mobic) 7.5 mg Tablet Active 7.5 mg PO NEEDED as needed for Pain March 22, 2022 1:00am Comment on above: Take 7.5 mg by mouth as needed. miSOPROStol 0.2 mg oral tablet (20 sources) Prostaglandin E1 Analog Start: 2022 Misoprostol (Cytotec) 200 mcg Tablet Active 400 ug SL NEEDED as needed for PREOP March 22, 2022 1:00am Start: 03-22-2022 Misoprostol (C ytotec) 200 mcg Tablet Active 400 MCG SL NEEDED March 22, 2022 12:00am Start: 03-17-2022 miSOPROStol (C YTOTEC) 200 mcg tablet Take 2 tablets by mouth as directed. The night before the procedure and the morning of the procedure. 4 tablet 0 03/17/2022 Active Start: 03-15-2022 End: 03-17-2022 miSOPROStol (CYTOTEC) 200 mc g tablet Indications: PMB (postmenopausal bleeding) Use 2 tablets vaginally as directed. The night before the procedure and the morning of the procedure. 4 tablet 0 03/15/2022 03/17/2022 Discontinued Comment on above: Use 2 tablets vagina lly as directed. The night before the procedure and the morning of the procedure. Take 2 tablets by mo ut as directed. The night before the procedure and the morning of the procedure. nitrofurantoin, macrocrystals 25 mg / nitrofurantoin, monohydrate 75 mg oral capsule (2 sources) Nitrofuran Antibacterial Start: End: take 1 capsule by mouth twice daily at mealtime nitrofurantoin monohydrate and macrocrystal (MACROBID) 100 mg capsule Take 1 capsule by mouth twice daily with meals for 7 days. 14 capsule 0 07/09/2022 07/16/2022 Active Comment on above: Take 1 capsule by mo ut twice daily with meals for 7 days. oxyCODONE hydrochloride 1 mg/ml oral solution (2 sources) Opioid Agonist Start: 025 End: 025 take 5 mL by mouth every six hours as needed oxyCODONE (ROXICODONE) 5 mg/5 mL oral solution Indications: Acute post-operative pain Take 5 mL by mouth every 6 hours as needed for up to 5 days. 100 mL 10/01/2024 10/06/2024 Active Polyethylene Glycols (20 sources) POLYETHYLENE GLY COL 3350 (MIRALAX ORAL) Take by mouth. As needed Active POLYETHYLENE GLY COL 3350 (MIRALAX ORAL) Take by mouth. As needed 0 Active Comment on above: Take by mouth. As ne eded PSYLLIUM SEED, WITH SUGAR, (METAMUCIL ORAL) (20 sources) PSYLLIUM SEED, W ITH SUGAR, (METAMUCIL ORAL) Take by mouth. Active PSYLLIUM SEED, W ITH SUGAR, (METAMUCIL ORAL) Take by mouth. 0 Active Comment on above: Take by mouth. Completed/Discontinued Medications Medication Drug Class(es) Dates Sig (Normalized) Sig (Original) apixaban (4 sources) Factor Xa Inhibitor Start: 04-04-2022 End: 04-04-2022 take 1 tablet by mouth twice daily apixaban (ELIQUIS) 5 mg tab(s) Take 1 tablet by mouth twice daily. To start after she finishes starting month regimen/pack 60 tablet 1 04/04/2022 04/04/2022 Discontinued Start: 04-04-2022 End: 04-04-2022 take 2 tablets by mouth twice daily, then take 1 tablet by mouth twice daily apixaban (ELIQUIS) 5 mg (74 tabs) Take 2 tablets (10 mg) by mouth twice daily for 7 days. Then take 1 tablet (5 mg) by mouth twice daily for 23 days 74 tablet 0 04/04/2022 04/04/2022 Discontinued Comment on above: Take 2 tablets (10 m g) by mouth twice daily for 7 days. Then take 1 tablet (5 mg) by mouth twice daily for 23 days Take 1 tablet by marcos th twice daily. To start after she finishes starting month regimen/pack ergocalciferol, vitamin D2, (VITAMIN D2 ORAL) (20 sources) End: 09-27-2024 ergocalciferol, vitamin D2, (VITAMIN D2 ORAL) Take by mouth. 09/27/2024 Discontinued ergocalciferol, vitamin D2, (VITAMIN D2 ORAL) Take by mouth. Active ergocalciferol, vitamin D2, (VITAMIN D2 ORAL) Take by mouth. 0 Active Comment on above: Take by mouth. EVENING PRIMROSE OIL ORAL (20 sources) EVENING PRIMROSE OIL ORAL Take by mouth. 0 Active Comment on above: Take by mouth. melatonin 3 mg oral capsule (7 sources) End: 3 melatonin 3 mg cap Take by mouth. 0 03/15/2022 Discontinued Comment on above: Take by mouth. pantoprazole 40 mg delayed release oral tablet (2 sources) Proton Pump Inhibitor Start: 2 End: [address] (PROTONIX) 40 mg tablet rivaroxaban 15 mg oral tablet (6 sources) Factor Xa Inhibitor Start: 3 End: 3 take 1 tablet by mouth twice daily at mealtime rivaroxaban (XARELTO DVT-PE TREAT 30D START) 15 mg (42)- 20 mg (9) DsPk Indications: Acute deep vein thrombosis (DVT) of tibial vein of left lower extremity (HCC) Take 1 tablet (15 mg) by mouth twice daily with food for 21 days. Then take 1 tablet (20 mg) by mouth once daily with food for 9 days. 51 tablet 0 04/04/2022 04/04/2022 Discontinued Start: 04-04-2022 End: 06-03-2022 take 1 tablet by mouth once daily at dinner rivaroxaban (XARELTO) 20 mg tablet Indications: Acute deep vein thrombosis (DVT) of tibial vein of left lower extremity (HCC) Take 1 tablet by mouth daily with dinner. Start after completing 30 day starter pack 30 tablet 1 04/04/2022 04/04/2022 Discontinued Comment on above: Take 1 tablet by marcos th daily with dinner. Start after completing 30 day starter pack Take 1 tablet (15 mg ) by mouth twice daily with food for 21 days. Then take 1 tablet (20 mg) by mouth once daily with food for 9 days. warfarin sodium 5 mg oral tablet (20 sources) Vitamin K Antagonist Start: 04-21-2022 End: 04-28-2022 warfarin (COUMADIN) 5 mg tablet Indications: Acute deep vein thrombosis (DVT) of tibial vein of left lower extremity (HCC) 7.5 mg Monday//Mon, 5 mg all others days or as directed 0 04/21/2022 04/28/2022 Discontinued Start: 04-08-2022 End: 12-14-2022 warfarin (COUMADIN) 5 mg tab let Indications: Acute deep vein thrombosis (DVT) of tibial vein of left lower extremity (HCC) 5mg Mon,Tues and 7.5mg all other days or as directed 60 tablet 11 04/28/2022 12/14/2022 Discontinued Comment on above: Take 1 tablet by marcos th once daily. 7.5 mg Monday// ri, 5 mg all others days or as directed 5mg Mon,Tu and 7.5 mg all other days or as directed Problems Active Problems Problem Classification Problem Date Documented Da te Episodic/Chronic Administrative/social admission (1 source) Advance directive discussed with patient; Translations: [Other specified counseling] Episodic Coagulation and hemorrhagic disorders (1 source) Petechiae; Translations: [Spontaneous ecchymoses] Episodic Complications of surgical procedures or medical care (2 sources) Postprocedural retention of urine; Translations: [Other postprocedural complications and disorders of genitourinary system] Onset: 10-04-2024 10-04-2024 Episodic Disorders of lipid metabolism (20 sources) Pure hypercholesterolemia ; Translations: [Pure hypercholesterolemia , unspecified] Onset: 09-18-2020 09-18-2020 Chronic Genitourinary symptoms and ill-defined conditions (8 sources) Abnormal urine; Translations: [Unspecified abnormal findings in urine] Onset: 10-04-2024 Episodic Immunizations and screening for infectious disease (4 sources) Patient encounter status; Translations: [Encounter for immunization] Onset: 12-27-2024 12-07-2022 Episodic Menopausal disorders (20 sources) Atrophic vaginitis; Translations: [Postmenopausal atrophic vaginitis] Onset: 08-10-2010 04-12-2011 Chronic Nonmalignant breast conditions (20 sources) Fibrocystic disease of breast; Translations: [Diffuse cystic mastopathy of unspecified breast] Onset: 09-26-2005 04-12-2011 Chronic Osteoarthritis (20 sources) Primary gonarthrosis, bilateral; Translations: [Bilateral primary osteoarthritis of knee] Onset: 09-21-2021 Chronic Other aftercare (2 sources) Anticoagulant effect; Translations: [Encounter for therapeutic drug level monitoring] Episodic Other circulatory disease (7 sources) History of cardiac arrhythmia; Translations: [Personal history of other diseases of the circulatory system] Onset: 09-27-2024 09-27-2024 Episodic Other connective tissue disease (7 sources) History of total replacement of left hip joint; Translations: [Presence of left artificial hip joint] Onset: 09-27-2024 09-27-2024 Chronic Other connective tissue disease (1 source) Presence of left artificial hip joint; Translations: [History of total hip arthroplasty, left] Onset: 09-27-2024 Chronic Other connective tissue disease (1 source) Presence of unspecified artificial knee joint; Translations: [History of partial knee replacement] Onset: 09-27-2024 Chronic Other connective tissue disease (3 sources) Bursitis of olecranon of right elbow; Translations: [Olecranon bursitis, right elbow] 04-28-2022 Episodic Other connective tissue disease (1 source) Bursitis of left hip; Translations: [Other bursitis of hip, left hip] 02-07-2024 Episodic Other female genital disorders (1 source) H/O: postmenopausal bleeding; Translations: [Personal history of other diseases of the female genital tract] 07-17-2024 Episodic Other gastrointestinal disorders (20 sources) Chronic constipation; Translations: [Other constipation] 09-03-2019 Episodic Other injuries and conditions due to external causes (3 sources) Hematoma; Translations: [Other injury of unspecified body region, initial encounter] 04-28-2022 Episodic Other lower respiratory disease (7 sources) Nodule of lung; Translations: [Solitary pulmonary nodule] 04-07-2022 Episodic Other lower respiratory disease (7 sources) Multiple nodules of lung; Translations: [Other nonspecific abnormal finding of lung field] 09-20-2022 Episodic Other nutritional; endocrine; and metabolic disorders (20 sources) Obesity; Translations: [Other obesity due to excess calories] 09-16-2020 Chronic Other nutritional; endocrine; and metabolic disorders (20 sources) Obesity caused by energy imbalance; Translations: [Other obesity due to excess calories] 09-16-2020 Chronic Other nutritional; endocrine; and metabolic disorders (1 source) Other obesity due to excess calories; Translations: [Class 1 obesity due to excess calories without serious comorbidity with body mass index (BMI) of 30.0 to 30.9 in adult] Onset: 09-16-2020 Chronic Other nutritional; endocrine; and metabolic disorders (1 source) Body mass index (BMI) 30.0-30.9, adult; Translations: [Class 1 obesity due to excess calories without serious comorbidity with body mass index (BMI) of 30.0 to 30.9 in adult] Onset: 09-16-2020 Chronic Other upper respiratory disease (20 sources) Vasomotor rhinitis; Translations: [Vasomotor rhinitis] Onset: 04-06-2018 04-06-2018 Chronic Other upper respiratory disease (1 source) Vasomotor rhinitis; Translations: [Vasomotor rhinitis] Onset: 04-06-2018 Chronic Other upper respiratory infections (1 source) Viral upper respiratory tract infection; Translations: [Acute upper respiratory infection, unspecified] Episodic Residual codes; unclassified (5 sources) Edema of extremity; Translations: [Localized edema] 04-03-2022 Episodic Residual codes; unclassified (1 source) Family history of malignant neoplasm of uterus; Translations: [Family history of malignant neoplasm of other genital organs] 07-17-2024 Episodic Residual codes; unclassified (1 source) Postoperative state; Translations: [Other specified postprocedural states] 11-08-2024 Episodic Residual codes; unclassified (1 source) Other specified postprocedural states; Translations: [Post-operative state] Onset: 11-08-2024 Episodic Residual codes; unclassified (1 source) Acquired absence of other specified parts of digestive tract; Translations: [H/O parotidectomy] Onset: 10-04-2024 Episodic Unclassified (1 source) Class 1 obesity due to excess calories without serious comorbidity with body mass index (BMI) of 30.0 to 30.9 in adult; Translations: [Class 1 obesity due to excess calories without serious comorbidity with body mass index (BMI) of 30.0 to 30.9 in adult] Onset: 09-16-2020 Urinary tract infections (1 source) Acute cystitis without hematuria; Translations: [Acute cystitis without hematuria] Onset: 11-07-2024 Episodic Past or Other Problems Problem Classification Problem Date Documented Da te Episodic/Chronic Cardiac dysrhythmias (20 sources) Supraventricular tachycardia; Translations: [SVT (supraventricular tachycardia)] Onset: 9 Resolved: 8 04-04-2017 Chronic Diseases of mouth; excluding dental (4 sources) Mass of parotid gland; Translations: [Other diseases of salivary glands] Onset: 5 09-03-2024 Episodic Disorders of teeth and jaw (6 sources) Problem of jaw; Translations: [Other specified diseases of jaws] Onset: 5 08-29-2024 Episodic Gastrointestinal hemorrhage (20 sources) Gastrointestinal hemorrhage; Translations: [Gastrointestinal hemorrhage, unspecified] Resolved: 9 12-18-2008 Episodic Lymphadenitis (6 sources) Localized enlarged lymph nodes; Translations: [Localized enlarged lymph nodes] Onset: 5 08-29-2024 Episodic Other circulatory disease (1 source) Personal history of other diseases of the circulatory system; Translations: [Personal history of cardiac arrhythmia] Onset: 5 Episodic Other congenital anomalies (20 sources) Congenital anomaly of skin; Translations: [Other specified congenital malformations of skin] Onset: 6 Resolved: 9 12-18-2008 Chronic Other connective tissue disease (1 source) Other bursitis of hip, left hip; Translations: [Bursitis of other bursa of left hip] Onset: 4 Episodic Other female genital disorders (1 source) Personal history of other diseases of the female genital tract; Translations: [History of postmenopausal bleeding] Onset: 5 Episodic Other gastrointestinal disorders (1 source) Other constipation; Translations: [Chronic constipation] Onset: 0 Episodic Other lower respiratory disease (20 sources) Solitary nodule of lung; Translations: [Solitary pulmonary nodule] Onset: 2 04-12-2022 Episodic Other lower respiratory disease (1 source) Solitary pulmonary nodule; Translations: [Solitary pulmonary nodule on lung CT] Onset: 3 Episodic Other lower respiratory disease (2 sources) Other nonspecific abnormal finding of lung field; Translations: [Multiple lung nodules on CT] Onset: 5 Episodic Other nervous system disorders (1 source) Other acute postprocedural pain; Translations: [Acute post-operative pain] Onset: 5 Episodic Other screening for suspected conditions (not mental disorders or infectious disease) (20 sources) Mammography abnormal; Translations: [Other abnormal and inconclusive findings on diagnostic imaging of breast] Onset: 4 Resolved: 8 04-04-2017 Episodic Phlebitis; thrombophlebitis and thromboembolism (20 sources) Acute deep venous thrombosis of tibial vein of left leg; Translations: [Acute embolism and thrombosis of left tibial vein] Onset: 3 Episodic Pulmonary heart disease (20 sources) Pulmonary embolism; Translations: [Other pulmonary embolism without acute cor pulmonale] Onset: 3 Resolved: 4 04-07-2022 Episodic Residual codes; unclassified (1 source) Family history of malignant neoplasm of other genital organs; Translations: [Family history of uterine cancer] Onset: 5 Episodic Screening and history of mental health and substance abuse codes (2 sources) Encounter for screening for depression; Translations: [Encounter for screening examination for other mental health and behavioral disorders] Onset: 4 Episodic Viral infection (20 sources) Herpes zoster; Translations: [Zoster without complications] Onset: 3 04-12-2012 Episodic Results Test Name Value Interpretation Reference Range Facility [facility]JASP[facility] -------- YAKELIN HUYNH ([id number]) 1950 F Date Time Provider Department 12/27/24 9:00 AM MELI REYNA During your visit today, we recorded the following information about you: Allergies As of Date: 12/27/2024 Noted Allergy Reaction AMOXICILLIN 07/15/2005 2 - Rash BACTRIM (SULFAMETHOXAZOLE-TRIMET H*07/15/2005 Comments: stomatitis DEMEROL (MEPERIDINE) 12/07/2022 14 - Other: See Comments Comments: Urinary retention Date Reviewed: 11/08/2024 Reviewed by: Twin Reddy OCCA - Fully Assessed Visit Diagnosis:Encounter for immunization [Z23] Order(s):INFLUENZA VACCINE, PRSV FREE, AGE 65+ YR, HIGH DOSE, TRIVALENT (FLUZONE HIGH-DOSE) [68214SOV] Order #: [id number] Prescriptions as of 12/30/2024 - atorvastatin (LIPITOR) 20 mg tablet Take 1 tablet by mouth daily at bedtime. For cholesterol. - ciprofloxacin HCl (CIPRO) 500 mg tablet - ipratropium bromide (ATROVENT) 42 mcg (0.06 %) nasal spray Use 2 Sprays in the nose two times a day. - latanoprost (XALATAN) 0.005 % ophthalmic solution - acetaminophen (TYLENOL EXTRA STRENGTH ORAL) Take 2 tablets by mouth as needed. - diphenhydrAMINE (BENADRYL) 25 mg capsule Take 25 mg by mouth every 6 hours as needed. - fluticasone (FLONASE) 50 mcg/actuation nasal spray Use 2 Sprays in each nostril once daily. Rinse mouth after use. - docusate sodium (STOOL SOFTENER ORAL) Take by mouth. - CALCIUM CARBONATE/VITAMIN D3 (CALCIUM 600 + D,3, ORAL) Take by mouth twice daily. - PSYLLIUM SEED, WITH SUGAR, (METAMUCIL ORAL) Take by mouth. - POLYETHYLENE GLYCOL 3350 (MIRALAX ORAL) Take by mouth. 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 12/18/2008 Diffuse cystic mastopathy [N60.19] 09/26/2005 Routine general medical examination at a health*12/18/2008 08/16/2011 Class: Chronic Routine gynecological examination [Z01.419] 12/18/2008 08/16/2011 Class: Chronic SVT (supraventricular tachycardia) (HCC) [I47.1*12/18/2008 04/04/2017 Postmenopausal atrophic vaginitis [N95.2] 08/10/2010 Shingles [B02.9] 04/12/2012 Abnormal mammogram, unspecified [R92.8] 10/15/2013 04/04/2017 Vasomotor rhinitis [J30.0] 04/06/2018 Class 1 obesity due to excess calories without * Pure hypercholesterolemia [E78.00] Primary osteoarthritis of both knees [M17.0] 09/21/2021 Personal history of DVT (deep vein thrombosis) *04/11/2022 Single subsegmental pulmonary embolism without *04/11/2022 03/28/2023 Solitary pulmonary nodule on lung CT [R91.1] 04/07/2021 History of total hip arthroplasty, left [Z96.64*09/27/2024 History of partial knee replacement [Z96.659] 09/27/2024 Personal history of cardiac arrhythmia [Z86.79] 09/27/2024 Encounter Status:Closed by MELI REYNA on 12/30/24 [facility] CNOVon 11-08-2024 CNOV Office Visit (OTMNCA ) -------- YAKELIN HUYNH ([id number]) 1950 F Date Time Provider Department 11/08/24 12:20 PM JIHAN ACOSTA During your visit today, we recorded the following information about you: Pulse Blood pressure Weight 85/minute 124/71 77.2 kg Jihan Acosta APRN.MOTION DESIGNER 11/08/2024 12:58 PM Signed [facility] Note CC post op Patient of Dr Rivera Last clinic visit on: 09/30/2024 HPI : Patient is a 74 year old female with a history of HLD, obesity, osteoarthritis, prior PE in 2022, who 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 Was evaluated by PCP who ordered ultrasound which was inconclusive. CT scan revealed parotid gland mass. Saw [facility] who recommended biopsy but this was unable to be completed at [facility]. She was taken to the OR with Dr Rivera 09/30/2024 for parotidectomy questions/concerns today include: - Mild ear discomfort, rated 1/10, with occasional zing of discomfort. - No issues with hearing, jaw movement, or swallowing. - No pain along the incision line; initial scab took 2-3 weeks to soften and come off. - Using Aquaphor on the incision site. - noticed some swelling and numbness around the incision. - Denies any drainage from the incision. -reports a tender area in front of the ear. 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 Last 2 Encounter Wt Readings: Date: Wt: 11/08/2024 77.2 kg (170 lb 3.1 oz) 10/04/2024 76 kg (167 lb 8.8 oz) BP 124/71 Pulse 85 Wt 77.2 kg (170 lb 3.1 oz) LMP 07/12/2006 SpO2 96% BMI 31.13 kg/m? Current Outpatient Medications Medication Sig Dispense Refill ciprofloxacin HCl (CIPRO) 500 mg tablet atorvastatin (LIPITOR) 20 mg tablet Take 1 tablet by mouth daily at bedtime. For cholesterol. 90 tablet 1 ipratropium bromide (ATROVENT) 42 mcg (0.06 %) nasal spray Use 2 Sprays in the nose two times a day. 15 mL 2 latanoprost (XALATAN) 0.005 % ophthalmic solution acetaminophen (TYLENOL EXTRA STRENGTH ORAL) Take 2 tablets by mouth as needed. fluticasone (FLONASE) 50 mcg/actuation nasal spray Use 2 Sprays in each nostril once daily. Rinse mouth after use. 3 Bottle 3 CALCIUM CARBONATE/VITAMIN D3 (CALCIUM 600 + D,3, ORAL) Take by mouth twice daily. PSYLLIUM SEED, WITH SUGAR, (METAMUCIL ORAL) Take by mouth. diphenhydrAMINE (BENADRYL) 25 mg capsule Take 25 mg by mouth every 6 hours as needed. (Patient not taking: Reported on 11/08/2024) docusate sodium (STOOL SOFTENER ORAL) Take by mouth. (Patient not taking: Reported on 11/08/2024) POLYETHYLENE GLYCOL 3350 (MIRALAX ORAL) Take by mouth. As needed (Patient not taking: Reported on 11/08/2024) No current facility-administered medications for this visit. ALLERGIES Allergen Reactions Amoxicillin Rash Bactrim [Sulfametho* stomatitis Demerol [Meperidine] Other: See Comments Urinary retention EXAM: Constitutional - General Appearance: well developed, well nourished, without obvious deformities Communication: speaks with a strong voice without hoarseness Head AND Face - Overall: no obvious scars, lesions or masses Parotid and submandibular glands: right [place]ent[place] incision well approximated minimal edema posteriorly Facial strength: normal and equal bilaterally Ear, Nose, Mouth AND Throat - Neck: appears symmetric, and on palpation is without masses or lymphadenopathy Thyroid: no asymmetry, thyromegaly, or thyroid nodules on palpation Neuro: CN III - CN XII grossly intact Latest Ref Rng AND Units 12/07/2022 08/29/2024 10/01/2024 CMP Sodium 136 - 144 mmol/L 140 135 Potassium 3.7 - 5.1 mmol/L 4.2 4.2 Chloride 98 - 107 mmol/L 107 105 CO2 22 - 30 mmol/L 23 19 Glucose 74 - 99 mg/dL 81 153 BUN 7 - 21 mg/dL 19 14 Creatinine 0.58 - 0.96 mg/dL 0.69 0.72 0.59 EGFR >=60 mL/min/1.73m? 93 89 96 Protein, Total 6.3 - 8.0 g/dL 7.2 Albumin 3.9 - 4.9 g/dL 4.5 Calcium 8.5 - 10.2 mg/dL 10.0 9.9 Bilirubin, Total 0.2 - 1.3 mg/dL 0.4 AST 13 - 35 U/L 25 ALT 7 - 38 U/L 23 Alkaline Phosphatase 34 - 123 U/L 92 Latest Ref Rng AND Units 08/29/2024 09/30/2024 10/01/2024 CBC WBC 3.70 - 11.00 k/uL 6.30 15.57 RBC 3.90 - 5.20 m/uL 4.74 4.79 Hemoglobin 11.5 - 15.5 g/dL 14.4 14.4 Hemoglobin Total, Whole Blood 11.5 - 15.5 g/dL 15.0 Hematocrit 36.0 - 46.0 % 43.9 42.7 MCV 80.0 - 100.0 fL 92.6 89.1 MCH 26.0 - 34.0 pg 30.4 30.1 MCHC 30.5 - 36.0 g/dL 32.8 33.7 RDW-CV 11.5 - 15.0 % 13.5 14.3 Platelet Count 150 - 400 k/uL 214 208 MPV 9.0 - 12.7 fL 11.5 10.5 Baso% % 1.0 0.1 Abs Neut (ANC) 1.45 - 7.50 k/uL 3.94 13.85 Abs Lymph 1.00 - 4.00 k/uL 1.61 0.88 Abs [place] <0.87 k/uL 0.62 0.72 Abs Eosin <0.46 k/uL 0.06 <0.03 Abs Baso <0.11 k/uL 0.06 <0.03 NRBC /100 WBC 0.0 0.0 ASSESSMENT: Yakelin Huynh is a 74 year old female with history of HLD, obesity, osteoarthritis, prior PE in 2022, who p (more content not included)... Normal [facility] Urine Cultureon 11-06-2024 URC Presumptive E. coli [place] Count >100,000 Presumptive E. coli: REACTION Ampicillin Islt APRIL >=32 Ampicillin+Sulbac Islt APRIL 16 I Cefepime Islt APRIL <=0.12 S cefTRIAXone Islt APRIL <=0.25 S Ciprofloxacin Islt APRIL <=0.06 S B-Lactamase Extended Susc Islt NEG Gentamicin Islt APRIL <=1 S levoFLOXacin Islt APRIL <=0.12 S Meropenem Islt APRIL <=0.25 S Nitrofurantoin Islt APRIL <=16 S Pip+Tazo Islt APRIL <=4 S TMP SMX Islt APRIL <=20 S Normal [facility] Comment on above: Performed By: #### M 100.1610 #### [facility] [address] [place], [address] Urine cultureOrdered By: Deo Song on 11-04-2024 Bacteria identified Cx Nom (U) Presumptive E. coli Abnormal [facility] CNPMaite 10-07-2024 CNPN Telephone (INTMWS) -------- YAKELIN HUYNH ([id number]) 1950 F Date Time Provider Department 10/07/24 SORAIDA FELDMAN During your visit today, we recorded the following information about you: Dai Garcia LPN 10/07/2024 8:58 AM Signed Patient calling asking to have Urology referral faxed to Dr Song office at [phone]. Printed office visit notes, urine results, face sheet, consult, insurance card copy and faxed as requested. Allergies As of Date: 10/07/2024 Noted Allergy Reaction AMOXICILLIN 07/15/2005 2 - Rash BACTRIM (SULFAMETHOXAZOLE-TRIMET H*07/15/2005 Comments: stomatitis DEMEROL (MEPERIDINE) 12/07/2022 14 - Other: See Comments Comments: Urinary retention Date Reviewed: 10/04/2024 Reviewed by: Soraida Feldman APRN.DIGITAL SALES EXECUTIVE - Fully Assessed Reason for Visit: fax Urology referral to Dr Song [Other] Prescriptions as of 10/07/2024 - ciprofloxacin HCl (CIPRO) 500 mg tablet Take 1 tablet by mouth two times a day for 3 days. - atorvastatin (LIPITOR) 20 mg tablet Take 1 tablet by mouth daily at bedtime. For cholesterol. - ipratropium bromide (ATROVENT) 42 mcg (0.06 %) nasal spray Use 2 Sprays in the nose two times a day. - latanoprost (XALATAN) 0.005 % ophthalmic solution - acetaminophen (TYLENOL EXTRA STRENGTH ORAL) Take 2 tablets by mouth as needed. - diphenhydrAMINE (BENADRYL) 25 mg capsule Take 25 mg by mouth every 6 hours as needed. - fluticasone (FLONASE) 50 mcg/actuation nasal spray Use 2 Sprays in each nostril once daily. Rinse mouth after use. - docusate sodium (STOOL SOFTENER ORAL) Take by mouth. - CALCIUM CARBONATE/VITAMIN D3 (CALCIUM 600 + D,3, ORAL) Take by mouth twice daily. - PSYLLIUM SEED, WITH SUGAR, (METAMUCIL ORAL) Take by mouth. - POLYETHYLENE GLYCOL 3350 (MIRALAX ORAL) Take by mouth. 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 12/18/2008 Diffuse cystic mastopathy [N60.19] 09/26/2005 Routine general medical examination at [facility]*12/18/2008 08/16/2011 Class: Chronic Routine gynecological examination [Z01.419] 12/18/2008 08/16/2011 Class: Chronic SVT (supraventricular tachycardia) (HCC) [I47.1*12/18/2008 04/04/2017 Postmenopausal atrophic vaginitis [N95.2] 08/10/2010 Shingles [B02.9] 04/12/2012 Abnormal mammogram, unspecified [R92.8] 10/15/2013 04/04/2017 Vasomotor rhinitis [J30.0] 04/06/2018 Class 1 obesity due to excess calories without * Pure hypercholesterolemia [E78.00] Primary osteoarthritis of both knees [M17.0] 09/21/2021 Personal history of DVT (deep vein thrombosis) *04/11/2022 Single subsegmental pulmonary embolism without *04/11/2022 03/28/2023 Solitary pulmonary nodule on lung CT [R91.1] 04/07/2021 History of total hip arthroplasty, left [Z96.64*09/27/2024 History of partial knee replacement [Z96.659] 09/27/2024 Personal history of cardiac arrhythmia [Z86.79] 09/27/2024 Encounter Status:Closed by DAI GARCIA on 10/07/24 Normal [facility] Bacteria Ur Culton Bacteria identified Cx Nom (U) CULTURE, URINE: Mixed microbiota: ORGANISM ID: 1 10,000 -<50,000 CFU/ml Lactose positive gram negative bacilli ORGANISM ID: 2 <10,000 CFU/ml Lactose negative gram negative bacilli Normal [facility] Comment on above: Performed By: #### 6 30-4 ####[facility] [id number] [place] [id number] [place] CNOVon 10-04-2024 CNOV Office Visit (INTMWS ) -------- YAKELIN HUYNH ([id number]) 1950 F Date Time Provider Department 10/04/24 11:40 AM SORAIDA FELDMAN INTMWS During your visit today, we recorded the following information about you: Pulse Respiration Blood pressure Weight 101/minute 16/minute 116/80 76 kg Soraida Feldman APRN.[facility] 10/04/2024 12:19 PM Signed Subjective Patient ID: Yakelin is a 74 year old female who presents for Urinary Frequency (urinary frequency and pelvic pain). HPI Yakelin Huynh is a 74-year-old female presenting for evaluation of urinary retention and discomfort following recent parotid gland tumor removal. Urinary Retention and Discomfort: - Recent [facility]. - History of urinary retention issues post-anesthesia; required straight catheterization once during hospital stay. - Reports incomplete bladder emptying post-surgery; experiencing a heavy sensation in the pelvic area. - Urinating throughout the day with some relief, but unsure if completely emptying bladder. - Nocturia noted during hospital stay, urinating every 1.5-2 hours. - Denies dysuria, urgency, or back pain; monitoring temperature regularly. - History of urinary retention with previous surgeries and anesthesia, including childbirth and a surgery in the 1980s. - Past treatment with Ditropan for suspected overactive bladder, discontinued due to lack of efficacy. - No current fever; managing post-surgical discomfort with Tylenol. ROS Constitutional: (-) fever Neck: (+) tight pulling sensation Genitourinary: (+) urinary frequency, (+) urinary retention, (+) suprapubic heaviness, (+) straining to void, (-) dysuria, (-) urinary urgency Musculoskeletal: (-) back pain Objective BP 116/80 Pulse 101 Resp 16 Wt 76 kg (167 lb 8.8 oz) LMP 07/12/2006 BMI 30.65 kg/m? Physical Exam Vitals and nursing note reviewed. Constitutional: Appearance: Normal appearance. HENT: Head: Normocephalic and atraumatic. Eyes: Conjunctiva/sclera: Conjunctivae normal. Cardiovascular: Rate and Rhythm: Normal rate and regular rhythm. Heart sounds: Normal heart sounds. Pulmonary: Effort: Pulmonary effort is normal. Breath sounds: Normal breath sounds. Abdominal: General: Bowel sounds are normal. Palpations: Abdomen is soft. Tenderness: There is abdominal tenderness (mild mid low abdomen). Skin: General: Skin is warm and dry. Neurological: General: No focal deficit present. Mental Status: She is alert and oriented to person, place, and time. 1. Urinary retention (R33.9) 2. UTI symptoms (R39.9) 3. Postprocedural urinary retention (N99.89) - Recent parotidectomy with subsequent urinary retention requiring straight catheterization; ongoing incomplete bladder emptying and pelvic heaviness. - Urinalysis obtained to evaluate for UTI. Culture sent - Start empiric antibiotic therapy. - Refer to urology for further evaluation, including bladder ultrasound to assess post-void residual volume. - Advised to seek emergency care if unable to void. 4. H/O parotidectomy (Z90.49) - Recent parotid gland tumor removal; no current surgical complications reported. Soraida Feldman APRN.DIGITAL SALES EXECUTIVE Medical Decision Making: Problems: Low: Acute, uncomplicated illness or injury Data: Unique test(s) ordered: 2 Risk: Moderate: Drug management Medical Decision Making Level: 3 - Low Allergies As of Date: 10/04/2024 Noted Allergy Reaction AMOXICILLIN 07/15/2005 2 - Rash BACTRIM (SULFAMETHOXAZOLE-TRIMET H*07/15/2005 Comments: stomatitis DEMEROL (MEPERIDINE) 12/07/2022 14 - Other: See Comments Comments: Urinary retention Date Reviewed: 10/04/2024 Reviewed by: Soraida Feldman APRN.DIGITAL SALES EXECUTIVE - Fully Assessed Reason for Visit: Urinary Frequency [1086] Cmt: urinary frequency and pelvic pain Primary Visit Diagnosis:Urinary retention [R33.9] Other Visit Diagnoses:UTI symptoms [R39.9] H/O parotidectomy [Z90.49] Comment:09/30/24 Postprocedural urinary retention [N99.89, R33.8] Order(s):CONSULT TO UROLOGY [9040] Order #: [id number]: 1 FUTURE UA DIP, URINE (POC) [6492384] Order #: [id number]. #:[id number] BACTERIAL CULTURE, URINE [SQURCUL] Order #: [id number]. #:[id number] ciprofloxacin HCl (CIPRO) 500 mg tabletTake 1 tablet by mouth two times a day for 3 days.Disp: 6 tabletRfl: 0 Prescriptions as of 10/04/2024 - ciprofloxacin HCl (CIPRO) 500 mg tablet Take 1 tablet by mouth two times a day for 3 days. - oxyCODONE (ROXICODONE) 5 mg/5 mL oral solution Take 5 mL by mouth every 6 hours as needed for up to 5 days. - atorvastatin (LIPITOR) 20 mg tablet Take 1 tablet by mouth daily at bedtime. For cholesterol. - ipratropium bromide (ATROVENT) 42 mcg (0.06 %) nasal spray Use 2 Sprays in the nose two times a day. - latanoprost (XALATAN) 0.005 % ophthalmic solution - (more content not included)... Normal [facility] UA DIP, URINE (POC)on 2024 BILIRUBIN UA (POCT) Negative Negative [facility] CLARITY UA (POCT) Clear [facility] COLOR UA (POCT) Yellow [facility] GLUCOSE UA (POCT) Negative Negative mg/dL [facility] Hemoglobin Ql (U) Negative Negative [facility] Interpretation and review of laboratory results Abnormal [facility] KETONE UA (POCT) Negative Negative mg/dL [facility] LEUKOCYTES UA (POCT) Negative Negative [facility] NITRITE UA (POCT) Negative Negative [facility] PH UA (POCT) 7 4.5 - 8.0 [facility] Protein Ql (U) Negative Negative mg/dL [facility] SPECIFIC GRAVITY UA (POCT) <=1.005 Abnormal 1.005 - 1.030 [facility] UROBILINOGEN UA (POCT) 0.2 Ayana l E.U./dL [facility] Location:[facility], [address], [place], [address] [facility] Basic metabolic 2000 panelon 10-01-2024 Anion gap [Moles/Vol] 11 mmol/L Normal 8-15 [facility] Comment on above: Order Comment: Speci men Type: BLOOD SPECIMENOrdering Facility: [facility] Address: [address] [place] [address] Performed By: #### 2 4321-2 ####[facility]CL[facility] [id number] [facility] [address] [address] [place] Calcium [Mass/Vol] 9.9 mg/dL Normal 8.5-10.2 [facility] Comment on above: Order Comment: Speci men Type: BLOOD SPECIMENOrdering Facility: [facility] Address: [address] [place] [address] Performed By: #### 2 4321-2 ####[facility] [id number] [place] [id number] [place] Chloride [Moles/Vol] 105 mmol/L Normal 98-107 [facility] Comment on above: Order Comment: Speci men Type: BLOOD SPECIMENOrdering Facility: [facility] Address: [address] [place] [address] Performed By: #### 2 4321-2 ####[facility] [id number] [place] [id number] [place] CO2 [Moles/Vol] 19 mmol/L Low 22-30 [facility] Comment on above: Order Comment: Speci men Type: BLOOD SPECIMENOrdering Facility: [facility] Address: [address] [place], [place] [address] Performed By: #### 2 4321-2 ####[facility] [id number] [address] [address] [place] Creatinine [Mass/Vol] 0.59 mg/dL Normal 0.58-0.96 [facility] Comment on above: Order Comment: Corrina steward Type: BLOOD SPECIMENOrdering Facility: [facility] Address: [address] [place] [address] Performed By: #### 2 4321-2 ####[facility] [id number] [place] [address] [place] eGFRcr SerPlBld CKD-EPI 2020 96 mL/min/1.73m??? Normal >=60 [facility] Comment on above: Order Comment: Corrina steward Type: BLOOD SPECIMENOrdering Facility: [facility] Address: [address] [place] [address] Result Comment: Josselin mated Glomerular Filtration Rate (eGFR) is calculated using the 2020 CKD-EPI creatinine equation. This equation utilizes serum creatinine, sex, and age as parameters. The creatinine assay has traceable calibration to isotope dilution-mass spectrometry. Refer to KDIGO guidelines for clinical interpretation. In patients with unstable renal function, e.g. those with acute kidney injury, the eGFR may not accurately reflect actual GFR. Performed By: #### 2 4321-2 ####[facility] [id number] [place] [address] [place] Glucose [Mass/Vol] 153 mg/dL High 74-99 [facility] Comment on above: Order Comment: Corrina steward Type: BLOOD SPECIMENOrdering Facility: [facility] Address: [address] [place] [address] Result Comment: The [place] Diabetes Association (ADA) provides guidance for cutoff values for fasting glucose and random glucose. The ADA defines fasting as no caloric intake for at least 8 hours. Fasting plasma glucose results between 100 to 125 mg/dL indicate increased risk for diabetes (prediabetes). Fasting plasma glucose results greater than or equal to 126 mg/dL meet the criteria for diagnosis of diabetes. In the absence of unequivocal hyperglycemia, results should be confirmed by repeat testing. In a patient with classic symptoms of hyperglycemia or hyperglycemic crisis, random plasma glucose results greater than or equal to 200 mg/dL meet the criteria for diagnosis of diabetes. Reference: Standards of Medical Care in Diabetes 2016, [place] Diabetes Association. Diabetes Care. 2016.39(Suppl 1). Performed By: #### 2 4321-2 ####[facility] [id number] [place] [address] [place] Potassium [Moles/Vol] 4.2 mmol/L Normal 3.7-5.1 [facility] Comment on above: Order Comment: Speci men Type: BLOOD SPECIMENOrdering Facility: [facility] Address: [address] [place] [address] Performed By: #### 2 4321-2 ####[facility] LABIA [id number] [place] [address] [place] Sodium [Moles/Vol] 135 mmol/L Low 136-144 [facility] Comment on above: Order Comment: Speci men Type: BLOOD SPECIMENOrdering Facility: [facility] Address: [address] [place] [address] Performed By: #### 2 4321-2 ####[facility] [id number] [place] [address] [place] Urea nitrogen [Mass/Vol] 14 mg/dL Normal 7-21 [facility] Comment on above: Order Comment: Speci men Type: BLOOD SPECIMENOrdering Facility: [facility] Address: [address] [place] [address] Performed By: #### 2 4321-2 ####[facility] [id number] [place] [id number] [place] CBC W Auto Differential pane l (Bld)on 10-01-2024 Basophils (Bld) [#/Vol] 10*3/uL Normal <0.11 [facility] Comment on above: Order Comment: Speci men Type: BLOOD SPECIMENOrdering Facility: [facility] Address: [address] [place] [address] Performed By: #### 5 7021-8 ####[facility] [id number] [address], [place] [address] [place] Basophils/100 WBC (Bld) 0.1 % Normal [facility] Comment on above: Order Comment: Speci men Type: BLOOD SPECIMENOrdering Facility: [facility] Address: [address] [place] [address] Performed By: #### 5 7021-8 ####[facility] [id number] [address], [place] [address] [place] Differential cell count method Nom (Bld) Auto Normal [facility] Comment on above: Order Comment: Speci men Type: BLOOD SPECIMENOrdering Facility: [facility] Address: [address] [place] [address] Performed By: #### 5 7021-8 ####[facility] [id number] [address], [place] [address] [place] Eosinophils (Bld) [#/Vol] 10*3/uL Normal <0.46 [facility] Comment on above: Order Comment: Speci men Type: BLOOD SPECIMENOrdering Facility: [facility] Address: [address] [place] [address] Performed By: #### 5 7021-8 ####[facility] [id number] [address], [address] [place] Eosinophils/100 WBC (Bld) 0.0 % Normal [facility] Comment on above: Order Comment: Speci men Type: BLOOD SPECIMENOrdering Facility: [facility] Address: [address] [place] [address] Performed By: #### 5 7021-8 ####[facility] [id number] [place] [address] [place] Erythrocyte distribution width (RBC) [Ratio] 14.3 % Normal 11.5-15.0 [facility] Comment on above: Order Comment: Speci men Type: BLOOD SPECIMENOrdering Facility: [facility] Address: [address] [place] [address] Performed By: #### 5 7021-8 ####[facility] [id number] [place] [address] [place] Hematocrit (Bld) [Volume fraction] 42.7 % Normal 36.0-46.0 [facility] Comment on above: Order Comment: Speci men Type: BLOOD SPECIMENOrdering Facility: [facility] Address: [address] [place] [address] Performed By: #### 5 7021-8 ####[facility] [id number] [place] [address] [place] Hemoglobin (Bld) [Mass/Vol] 14.4 g/dL Normal 11.5-15.5 [facility] Comment on above: Order Comment: Speci men Type: BLOOD SPECIMENOrdering Facility: [facility] Address: [address] [place] [address] Performed By: #### 5 7021-8 ####[facility] [id number] [place] [address] [place] Immature granulocytes (Bld) [#/Vol] 0.10 10*3/uL High <0.10 [facility] Comment on above: Order Comment: Speci men Type: BLOOD SPECIMENOrdering Facility: [facility] Address: [address] [place] [address] Performed By: #### 5 7021-8 ####[facility] [id number] [place] [address] [place] Immature granulocytes/100 WBC (Bld) 0.6 % Normal [facility] Comment on above: Order Comment: Speci men Type: BLOOD SPECIMENOrdering Facility: [facility] Address: [address] [place] [address] Performed By: #### 5 7021-8 ####[facility] [id number] [place] [address] [place] Lymphocytes (Bld) [#/Vol] 0.88 10*3/uL Low 1.00-4.00 [facility] Comment on above: Order Comment: Speci men Type: BLOOD SPECIMENOrdering Facility: [facility] Address: [address] [place] [address] Performed By: #### 5 7021-8 ####[facility] [id number] [place] [address] [place] Lymphocytes/100 WBC (Bld) 5.7 % Normal [facility] Comment on above: Order Comment: Speci men Type: BLOOD SPECIMENOrdering Facility: [facility] Address: [address] [place] [address] Performed By: #### 5 7021-8 ####[facility] [id number] [place] [address] [place] MCH (RBC) [Entitic mass] 30.1 pg Normal 26.0-34.0 [facility] Comment on above: Order Comment: Speci men Type: BLOOD SPECIMENOrdering Facility: [facility] Address: [address] [place] [address] Performed By: #### 5 7021-8 ####[facility] [id number] [place] [address] [place] MCHC (RBC) [Mass/Vol] 33.7 g/dL Normal 30.5-36.0 [facility] Comment on above: Order Comment: Speci men Type: BLOOD SPECIMENOrdering Facility: [facility] Address: [address] [place] [address] Performed By: #### 5 7021-8 ####[facility] [id number] [place] [address] [place] MCV (RBC) [Entitic vol] 89.1 fL Normal 80.0-100.0 [facility] Comment on above: Order Comment: Speci men Type: BLOOD SPECIMENOrdering Facility: [facility] Address: [address] [place] [address] Performed By: #### 5 7021-8 ####[facility] [id number] [place] [address] [place] Monocytes (Bld) [#/Vol] 0.72 10*3/uL Normal <0.87 [facility] Comment on above: Order Comment: Speci men Type: BLOOD SPECIMENOrdering Facility: [facility] Address: [address] [place] [address] Performed By: #### 5 7021-8 ####[facility] [id number] [place] [address] [place] Monocytes/100 WBC (Bld) 4.6 % Normal [facility] Comment on above: Order Comment: Speci men Type: BLOOD SPECIMENOrdering Facility: [facility] Address: [address] [place] [address] Performed By: #### 5 7021-8 ####[facility] [id number] [place] [address] [place] Neutrophils (Bld) [#/Vol] 13.85 10*3/uL High 1.45-7.50 [facility] Comment on above: Order Comment: Speci men Type: BLOOD SPECIMENOrdering Facility: [facility] Address: [address] [place] [address] Performed By: #### 5 7021-8 ####[facility] [id number] [facility] [place] [id number] [place] Neutrophils/100 WBC (Bld) 89.0 % Normal [facility] Comment on above: Order Comment: Speci men Type: BLOOD SPECIMENOrdering Facility: [facility] Address: [address] [place] [address] Performed By: #### 5 7021-8 ####[facility] [id number] [place] [address] [place] Nucleated RBC (Bld) [#/Vol] 10*3/uL Normal <0.01 [facility] Comment on above: Order Comment: Speci men Type: BLOOD SPECIMENOrdering Facility: [facility] Address: [address] [place] [address] Performed By: #### 5 7021-8 ####[facility] [id number] [place] [address] [place] Nucleated RBC/100 WBC (Bld) [Ratio] 0.0 /100 WBC Normal [facility] Comment on above: Order Comment: Speci men Type: BLOOD SPECIMENOrdering Facility: [facility] Address: [address] [place] [address] Performed By: #### 5 7021-8 ####[facility] [id number] [place] [address] [place] Platelet mean volume (Bld) [Entitic vol] 10.5 fL Normal 9.0-12.7 [facility] Comment on above: Order Comment: Speci men Type: BLOOD SPECIMENOrdering Facility: [facility] Address: [address] [place] [address] Performed By: #### 5 7021-8 ####[facility] [id number] [place] [address] [place] Platelets (Bld) [#/Vol] 208 10*3/uL Normal 150-400 [facility] Comment on above: Order Comment: Speci men Type: BLOOD SPECIMENOrdering Facility: [facility] Address: [address] [place] [address] Performed By: #### 5 7021-8 ####[facility] [id number] [place] [address] [place] RBC (Bld) [#/Vol] 4.79 10*6/uL Normal 3.90-5.20 [facility] Comment on above: Order Comment: Speci men Type: BLOOD SPECIMENOrdering Facility: [facility] Address: [address] [place] [address] Performed By: #### 5 7021-8 ####[facility] LABSUBHASH [id number] [place] [address] [place] WBC (Bld) [#/Vol] 15.57 10*3/uL High 3.70-11.00 [facility] Comment on above: Order Comment: Speci men Type: BLOOD SPECIMENOrdering Facility: [facility] Address: [address] [place] [address] Performed By: #### 5 7021-8 ####[facility] [id number] [place] [address] [place] ANES POSTPROC EVALon 025 ANES POSTPROC EVAL HNO ID: [id number] Author: RICARDA MCCLENDON MD Service: ? 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 Post Anesthesia Patient Status Patient Evaluation: PACU. Neurological Status: aware and responsive. Pulmonary Status: breathing comfortably on supplemental oxygen Airway Control: returned to baseline unsupported. Cardiovascular Status: stable. Pain Management: clinically adequate Postoperative Hydration: acceptable. Intraoperative Events: no significant anesthesia events Recommendation: continue current plan of care. Anesthesia Observations No Documentation SIGNATURE: Ricarda Mcclendon MD PATIENT NAME: Yakelin Huynh DATE: September 30, 2024 TIME: 5:02 PM CSN: [id number] Normal [facility] ANES PRE-OPon 09-30-2024 ANES PRE-OP HNO ID: [id number] Author: KRISTIAN GRANADOS MD Service: ? Author Type: Anesthesiologist Type: Anesthesia Preprocedure Evaluation Filed: 09/30/2024 13:39 Note Text: ANESTHESIOLOGY DAY OF SURGERY NOTE : 1950 Procedure Information Anesthesia Start Date/Time: 09/30/24 1330 Procedure: PAROTIDECTOMY (Right: Neck) Location: [facility] Surgeons: Thien Rivera MD Estimated body mass index is 30.73 kg/m? as calculated from the following: Height as of 09/27/24: 157.5 cm (5' 2). Weight as of 09/27/24: 76.2 kg (168 lb). Most recent hematocrit and potassium results: Hematocrit 43.9 08/29/2024 Potassium 4.2 12/07/2022 Relevant Problems NEURO-PSYCH (+) Personal history of DVT (deep vein thrombosis) (+) Personal history of cardiac arrhythmia I - PHYSICAL EVALUATION AIRWAY Patient intubated: No. Tracheostomy tube not present Mallampati: III. TM distance: >3 FB. Neck ROM: full ROM without neurological symptoms. Mouth opening: adequate. Short neck: no. Thick neck: no DENTAL Dental findings: teeth intact. II - ANESTHESIA PLAN ASA Score: 2 Anesthetic Plan: general Airway type: ETT The patient is not a current smoker. NPO Status: adequate Beta Madi Monitoring Plan Monitoring plan: standard ASA. Post Procedure Analgesic Plan Postoperative analgesic plan: multimodal analgesia. Informed Consent Anesthetic risks, benefits, alternatives, personnel and consent discussed: yes. Patient / Responsible Democrat agrees to proceed: yes Patient / Surrogate agrees to blood products: blood products not planned Significant changes in the patient condition since the History and Physical, not otherwise documented in primary service progress note: no. Potential Anesthesia issues that may suggest increased risk of complications or contraindication to planned procedure: none. Vitals Value Taken Time BP 145/71 09/30/24 1106 Pulse 77 09/30/24 1106 Resp 16 09/30/24 1106 Temp 36.9 ?C (98.4 ?F) 09/30/24 1106 SpO2 98 % 09/30/24 1106 Facility-Administered Medications as of 09/30/2024 Medication Dose Route Frequency lidocaine (PF) 10 mg/mL (1 %) 1-2 mg injection (XYLOCAINE) 0.1-0.2 mL INTRADERMAL PRN Or lidocaine 1% 0.25 mL subcutaneous j-tip syringe (XYLOCAINE) 0.25 mL SUBCUTANEOUS PRN lactated ringers iv infusion 5-30 mL/hr INTRAVENOUS CONTINUOUS NaCl 0.9% iv flush bag 20 mL INTRAVENOUS PRN vancomycin iv piggyback 1.5 g in D5W 300 mL (VANCOCIN) 1.5 g INTRAVENOUS Pre-Op Once Outpatient Medications as of 09/30/2024 Medication Sig atorvastatin (LIPITOR) 20 mg tablet Take 1 tablet by mouth daily at bedtime. For cholesterol. latanoprost (XALATAN) 0.005 % ophthalmic solution acetaminophen (TYLENOL EXTRA STRENGTH ORAL) Take 2 tablets by mouth as needed. ipratropium bromide (ATROVENT) 42 mcg (0.06 %) nasal spray Use 2 Sprays in the nose two times a day. diphenhydrAMINE (BENADRYL) 25 mg capsule Take 25 mg by mouth every 6 hours as needed. fluticasone (FLONASE) 50 mcg/actuation nasal spray Use 2 Sprays in each nostril once daily. Rinse mouth after use. docusate sodium (STOOL SOFTENER ORAL) Take by mouth. CALCIUM CARBONATE/VITAMIN D3 (CALCIUM 600 + D,3, ORAL) Take by mouth twice daily. PSYLLIUM SEED, WITH SUGAR, (METAMUCIL ORAL) Take by mouth. POLYETHYLENE GLYCOL 3350 (MIRALAX ORAL) Take by mouth. As needed I have interviewed and examined the patient. I have reviewed the medical record and/or the pre-anesthesia evaluation, pertinent labs, and test results. This contains updated information obtained within 48 hours of Surgery/Procedure. SIGNATURE: Kristian Granados MD PATIENT NAME: Yakelin Huynh DATE: September 30, 2024 TIME: 1:38 PM CSN: [id number] Normal [facility] OPERATIVE NOon 09-30-2024 OPERATIVE NO HNO ID: [id number] Author: THIEN RIVERA MD Service: Otolaryngology Author Type: Physician Type: Operative Report Filed: 10/01/2024 11:29 Note Text: [facility] OPERATIVE/PROCEDURE REPORT LOG ID: [id number] SURGERY/PROCEDURE DATE: 09/30/2024 INCISION/PROCEDURE START TIME: 2:13 PM INCISION CLOSE/PROCEDURE END TIME: 4:23 PM SURGEON(S)/PROCEDURALIST (S) AND RIVETER(S): Surgeons and Role: * Thien Rivera MD - Primary * Cherrie Caceres MD - Resident - Assisting No Additional Staff ANESTHESIA: General [facility] OP REPORT Performed by: Cherrie Caceres MD Authorized by: Thien Rivera MD Benign Partial Parotidectomy Pre-Op Diagnosis/Indication: Parotid tumor Post-Op Diagnoses: Same as pre-op OPERATIVE FINDINGS/ADDITIONAL DETAILS Title of Operation: 1. Right extracapsular parotidectomy with identification, preservation and dissection of facial nerve inferior division 2. Right limited excisional lymph node biopsy (level 2 lymph nodes) with identification , preservation CN 11 Indications For Procedure: Yakelin Huynh is a 74 year old year old with a history of non-diagnostic FNA of right parotid lesion. Preoperatively, we discussed the risks and benefits, alternatives and potential complications of the procedure. Risks of the procedure including but not limited to pain, infection, hemorrhage, hematoma, heart attack, stroke, urinary tract infection, nerve injury, , and the potential need for further surgery or treatment were discussed. Specific risks addressed include facial weakness or paralysis which may be temporary or permanent, cosmetic deformity, Christel syndrome, first bite syndrome, seroma/fistula formation, ear numbness, and recurrence. All questions were answered, and informed consent was signed by the patient. Findings At Operation: 1. Lower division of facial nerve identified and preserved. Stimulating at conclusion of case 2. Right accessory nerve identified and preserved 3. Frozen pathology consistent with pleomorphic adenoma Details Of The Procedure: The patient was brought to the operating room and placed supine on the operating table. A preoperative huddle was completed and the patient was identified by name and date of . The procedure to be completed was confirmed with all the personnel involved. The patient was then placed under general anesthesia and intubated transorally. A proposed modified Valentina incision was then marked. 9 cc of 1% lidocaine with 1:100,000 epinephrine was then injected subcutaneously. The facial nerve monitor was placed to monitor the right orbicularis reena muscle and the orbicularis oculi muscle. After confirming good function and placement, this was used for the remainder of the case. The skin was then prepped and draped in the usual sterile fashion. A preoperative time-out was then carried out. An incision was made sharply along the incision line. The superior/anterior skin flap was raised in the SMAS plane until we were well around the parotid tissue. The tragal cartilage was found and from the parotid gland. The anterior border of the sternocleidomastoid muscle was identified, and the parotid gland was from the sternocleidomastoid muscle superiorly. The posterior belly of the digastric muscle was identified. Decision was made to pursue extracapsular parotidectomy. Dissection continued circumferentially around mass, with careful dissection to preserve facial nerve branches, which were identified at the superior most aspect of the lesion and followed in a distal manner. Dissection continued until the mass was removed with capsule intact. Hemostasis was obtained during the case by Bovie electrocautery and bipolar cautery. A limited right neck dissection was then performed. Subplatysmal flaps were raised superiorly over the submandibular contents. The accessory nerve was identified and traced out. Lymph node packet was identified medial to the nerve and deep to the posterior digastric muscle, and was carefully removed and sent for frozen pathology, which was benign. To drain the parotid, one #7 Vinod drain was placed through a posterior stab incision and sutured to the skin using a 2-0 nylon suture. All wounds were copiously irrigated with normal saline at the prior to closure and hemostasis was assured via multiple Valsalva maneuvers prior to closure. Wounds were closed using simple interrupted 3-0 Vicryl suture for the platsyma, 4-0 Monocryl and 5-0 running fast for skin. A formal post-operative signout was performed at the conclusion of the procedure. The patient was extubated in the operating room and taken to the recovery room in stable condition. There were no complications. I was present for the entire case and performed all critical portions of the case. Any non-critical portions performed by the plant attendant or assistant operator surgeon was done under my direct supervision. Cherrie Caceres MD O (more content not included)... Normal [facility] Pathology biopsy report Rishabh (Tiss)on 09-30-2024 AP DISCLAIMER Normal [facility] Comment on above: Order Comment: Speci men Type: TISSUE SPECIMENOrdering Facility: [facility] Address: [address] [place] [address] Result Comment: Dorota logan Developed Test (LDT) Disclaimer: Performance characteristics of immunohistochemical, immunofluorescent, and chromogenic in-situ hybridization tests have been determined by the performing laboratory within [facility] Pathology and Laboratory Medicine Department ([facility], [facility], [facility], [facility], [facility], [facility], or [facility]) in a manner consistent with CLIA requirements. One or more of these tests may not have been cleared or approved by the FDA. [facility] is regulated under CLIA as qualified to perform high-complexity testing. These tests are used for clinical purposes. These should not be regarded as investigational or for research. Positive and negative controls stain appropriately. Performed By: #### 6 6121-5 ####[facility] [id number] [place] [address] [place] BLOCK FOR ADDITIONAL BIOMARKERS/MOLECULAR STUDIES A2 Normal [facility] Comment on above: Order Comment: Speci men Type: TISSUE SPECIMENOrdering Facility: [facility] Address: [address] [place] [address] Performed By: #### 6 6121-5 ####[facility] [id number] [address] [address] [place] CASE REPORT Normal [facility] Comment on above: Order Comment: Speci men Type: TISSUE SPECIMENOrdering Facility: [facility] Address: [address] [place] [address] Result Comment: Surg ical Pathology Report Case: [id number] Authorizing Provider: Thien Rivera MD Collected: 09/30/2024 03:32 PM Ordering Location: Admitting Received: 09/30/2024 03:36 PM Pathologist: Nancy Sutherland MD Intraop: Nancy Sutherland MD Specimens: A) - Parotid Gland, Right, Resection, Right deep lobe parotid B) - Lymph Node (Specify Site in Comments), Right level 2 Performed By: #### 6 6121-5 ####[facility] [id number] [facility] [id number] [address] [place] [facility] CLINICAL HISTORY Normal [facility] Comment on above: Order Comment: Speci men Type: TISSUE SPECIMENOrdering Facility: [facility] Address: [address] [place] [address] Result Comment: Pre- op diagnosis: Mass of right parotid gland [K11.8] Performed By: #### 6 6121-5 ####[facility] [id number] [address] [place] [address] [facility] DIAGNOSIS COMMENT The margins are free of neoplasm. Normal [facility] Comment on above: Order Comment: Speci men Type: TISSUE SPECIMENOrdering Facility: [facility] Address: [address] [place] [address] Performed By: #### 6 6121-5 ####[facility] [id number] [facility] [address] [place] [address] [facility] FINAL DIAGNOSIS Normal [facility] Comment on above: Order Comment: Speci men Type: TISSUE SPECIMENOrdering Facility: [facility] Address: [address] [place] [address] Result Comment: A. P arotid gland, right, resection - Pleomorphic adenoma (1.5 cm). (See comment.) B. Lymph nodes, right level 2, excision: - Two lymph nodes, negative for malignancy (0/2). at 1115 EDT Performed By: #### 6 6121-5 ####[facility] [id number] [facility] [address] [place] [address] [place] FINAL PERFORMING LAB Normal [facility] Comment on above: Order Comment: Speci men Type: TISSUE SPECIMENOrdering Facility: [facility] Address: [address] [place] [address] Result Comment: Diag nostic interpretation performed at: [facility], [address] [place] [address], [address] [place] [address] CLIA# [id number] Senior Electrical Estimator: Indra Ochoa MD Performed By: #### 6 6121-5 ####[facility] LABCL[facility] [id number] [facility] [address] [place] GROSS DESCRIPTION Normal [facility] Comment on above: Order Comment: Speci men Type: TISSUE SPECIMENOrdering Facility: [facility] Address: [address] [place] [address] Result Comment: A. P arotid Gland, Right, Resection Labeled: Right deep lobe parotid Received: Fresh Overall specimen dimensions: 1.5 x 1.5 x 1.3 cm Attached structures: None Lesion: Occupies entire specimen. Size: 1.5 x 1.5 x 1.3. Description: Firm, rubbery, quiñones-white cut surface. Tumor abuts circumferential soft tissue margin. Ink code: Black: Circumferential soft tissue margin Reviewed by: Dr. Sutherland Cassette code: Totally submitted FSA1: Cost Accountant section. A2-A3: Remainder of specimen Gross Examination performed at [facility], [address] [place] [address]. CLIA # [id number] [facility] 09/30/24 3:45 PM B. Lymph Node (Specify Site in Comments) Received for frozen diagnosis in a container labeled (right level 2) is a 3 x 1 x 0.5 cm portion of fibrofatty tissue. 2 lymph nodes are identified within the specimen. The smaller node measures 0.8 x 0.5 x 0.2 cm and the larger lymph node measures 1 x 0.8 x 0.5 cm. The specimen is totally submitted as follows. FSB1: Smaller node, serially section. FSB2: Larger node, serially sectioned Gross Examination performed at [facility], [address] [place] [address]. CLIA # [id number] [facility] 09/30/24 3:59 PM Performed By: #### 6 6121-5 ####[facility] [id number] [place] [address] [place] INTRAOPERATIVE DIAGNOSIS Normal [facility] Comment on above: Order Comment: Speci men Type: TISSUE SPECIMENOrdering Facility: [facility] Address: [address] [place] [address] Result Comment: A. P arotid Gland, Right, Resection FSA1: Pleomorphic adenoma (Dr. Sutherland) Intraoperative diagnosis performed at [facility], [address] [place] [address] CLIA# [id number] B. Lymph Node (Specify Site in Comments) FSB1: 2 lymph nodes, negative for carcinoma (Dr. Sutherland) Intraoperative diagnosis performed at [facility], [address] [place] [address], [place] [address] CLIA# [id number] Performed By: #### 6 6121-5 ####[facility] [id number] [place] [address] [place] VENOUS BLOOD GASES WITH IONI ZED MAGNESIUMon 09-30-2024 BASE DEFICIT, VENOUS -1 mmol/L Normal -2-0 [facility] Comment on above: Order Comment: Speci men Type: VENOUS BLOOD SPECIMENOrdering Facility: [facility] Address: [address] [place] [address] Performed By: #### V ALLMG ####[facility] [id number] [place] [address] [place] Calcium.ionized (Bld) [Mass/Vol] 1.28 mmol/L Normal 1.08-1.30 [facility] Comment on above: Order Comment: Speci men Type: VENOUS BLOOD SPECIMENOrdering Facility: [facility] Address: [address] [place] [address] Performed By: #### V ALLMG ####[facility] [id number] [address] [place] Calcium.ionized adjusted to pH 7.4 (BldA) [Moles/Vol] 1.25 mmol/L Normal 1.08-1.30 [facility] Comment on above: Order Comment: Speci men Type: VENOUS BLOOD SPECIMENOrdering Facility: [facility] Address: [address] [place] [address] Performed By: #### V ALLMG ####[facility] [id number] [address] [place] Carboxyhemoglobin (BldV) [Mass fraction] 1.0 % Normal 0.0-2.0 [facility] Comment on above: Order Comment: Speci men Type: VENOUS BLOOD SPECIMENOrdering Facility: [facility] Address: [address] [place] [address] Result Comment: Carb oxyhemoglobin Reference Range for Smokers: 2.0-8.0% Performed By: #### V ALLMG ####[facility] [id number] [place] [address] [place] CO2 (BldV) [Partial pressure] 45 mm[Hg] Normal 42-55 [facility] Comment on above: Order Comment: Speci men Type: VENOUS BLOOD SPECIMENOrdering Facility: [facility] Address: [address] [place] [address] Performed By: #### V ALLMG ####[facility] [id number] [address] [place] CO2 adjusted to patient's actual temperature (BldV) [Partial pressure] 45 mmHg Normal 42-55 [facility] Comment on above: Order Comment: Speci men Type: VENOUS BLOOD SPECIMENOrdering Facility: [facility] Address: [address] [place] [address] Performed By: #### V ALLMG ####[facility] [id number] [place] [address] [place] Glucose [Mass/Vol] 98 mg/dL Normal 60-105 [facility] Comment on above: Order Comment: Speci men Type: VENOUS BLOOD SPECIMENOrdering Facility: [facility] Address: [address] [place] [address] Performed By: #### V ALLMG ####[facility] [id number] [place] [id number] [place] HCO3 (Bld) [Moles/Vol] 25 mmol/L Normal 24-28 [facility] Comment on above: Order Comment: Speci men Type: VENOUS BLOOD SPECIMENOrdering Facility: [facility] Address: [address] [place] [address] Performed By: #### V ALLMG ####[facility]IA [id number] [place] [address] [place] Hematocrit (Bld) [Volume fraction] 45.9 % Normal 36.0-46.0 [facility] Comment on above: Order Comment: Speci men Type: VENOUS BLOOD SPECIMENOrdering Facility: [facility] Address: [address] [place] [address] Performed By: #### V ALLMG ####[facility] [id number] [place] [address] [place] Hemoglobin (Bld) [Mass/Vol] 15.0 g/dL Normal 11.5-15.5 [facility] Comment on above: Order Comment: Speci men Type: VENOUS BLOOD SPECIMENOrdering Facility: [facility] Address: [address] [place] [address] Performed By: #### V ALLMG ####[facility] [id number] [place] [id number] [place] Lactate [Moles/Vol] 1.4 mmol/L Normal 0.5-2.2 [facility] Comment on above: Order Comment: Speci men Type: VENOUS BLOOD SPECIMENOrdering Facility: [facility] Address: [address] [place] [address] Performed By: #### V ALLMG ####[facility] [id number] [place] [address] [place] Magnesium [Moles/Vol] 0.58 mmol/L Normal 0.45-0.60 [facility] Comment on above: Order Comment: Speci men Type: VENOUS BLOOD SPECIMENOrdering Facility: [facility] Address: [address] [place] [address] Performed By: #### V ALLMG ####[facility]IA [id number] [place] [address] [place] Methemoglobin (Bld) [Mass fraction] 0.6 % Normal 0.0-1.5 [facility] Comment on above: Order Comment: Speci men Type: VENOUS BLOOD SPECIMENOrdering Facility: [facility] Address: [address] [place] [address] Performed By: #### V ALLMG ####[facility] [id number] [place] [address] [place] Oxygen (BldV) [Partial pressure] 205 mm[Hg] High 35-45 [facility] Comment on above: Order Comment: Speci men Type: VENOUS BLOOD SPECIMENOrdering Facility: [facility] Address: [address] [place] [address] Performed By: #### V ALLMG ####[facility] [id number] [place] [address] [place] Oxygen adjusted to patient's actual temperature (BldV) [Partial pressure] 205 mmHg High 35-45 [facility] Comment on above: Order Comment: Speci men Type: VENOUS BLOOD SPECIMENOrdering Facility: [facility] Address: [address] [place] [address] Performed By: #### V ALLMG ####[facility] [id number] [place] [id number] [place] Oxygen saturation in Venous blood 100 % High 60-85 [facility] Comment on above: Order Comment: Speci men Type: VENOUS BLOOD SPECIMENOrdering Facility: [facility] Address: [address] [place] [address] Performed By: #### V ALLMG ####[facility] [id number] [address] [address] [place] Oxyhemoglobin (BldV) [Mass fraction] 98 % High 60-85 [facility] Comment on above: Order Comment: Speci men Type: VENOUS BLOOD SPECIMENOrdering Facility: [facility] Address: [address] [place] [address] Performed By: #### V ALLMG ####[facility] [id number] [address] [address] [place] pH (BldV) 7.36 [pH] Normal 7.32-7.42 [facility] Comment on above: Order Comment: Speci men Type: VENOUS BLOOD SPECIMENOrdering Facility: [facility] Address: [address] [place] [address] Performed By: #### V ALLMG ####[facility] LABIA [id number] [place] [address] [place] pH adjusted to patient's actual temperature (BldV) 7.36 Normal 7.32-7.42 [facility] Comment on above: Order Comment: Speci men Type: VENOUS BLOOD SPECIMENOrdering Facility: [facility] Address: [address] [place] [address] Performed By: #### V ALLMG ####[facility] [id number] [place] [address] [place] Potassium [Moles/Vol] 4.1 mmol/L Normal 3.5-5.0 [facility] Comment on above: Order Comment: Speci men Type: VENOUS BLOOD SPECIMENOrdering Facility: [facility] Address: [address] [place] [address] Performed By: #### V ALLMG ####[facility] [id number] [place] [address] [place] Sodium [Moles/Vol] 142 mmol/L Normal 136-144 [facility] Comment on above: Order Comment: Speci men Type: VENOUS BLOOD SPECIMENOrdering Facility: [facility] Address: [address] [place] [address] Performed By: #### V ALLMG ####[facility] [id number] [place] [id number] [facility] CNPMaite 09-27-2024 SAVANNAH Telephone (CHAPO) -------- YAKELIN HUYNH ([id number]) 1950 F Date Time Provider Department 09/27/24 JOSE VALLES During your visit today, we recorded the following information about you: Jose Valles APRN.CNP 09/27/2024 9:38 AM Signed Can we get her EKG from [facility] scanned into [employer], surgery is Monday. Thank you Palma Hernandez LPN 09/27/2024 9:44 AM Signed Scanned into [employer]. Palma Hernandez LPN Allergies As of Date: 09/27/2024 Noted Allergy Reaction AMOXICILLIN 07/15/2005 2 - Rash BACTRIM (SULFAMETHOXAZOLE-TRIMET H*07/15/2005 Comments: stomatitis DEMEROL (MEPERIDINE) 12/07/2022 14 - Other: See Comments Comments: Urinary retention Date Reviewed: 09/27/2024 Reviewed by: Jose Valles APRN.MOTION DESIGNER - Fully Assessed Reason for Visit: Request Outside Medical Records [3285] Prescriptions as of 09/27/2024 - atorvastatin (LIPITOR) 20 mg tablet Take 1 tablet by mouth daily at bedtime. For cholesterol. - ipratropium bromide (ATROVENT) 42 mcg (0.06 %) nasal spray Use 2 Sprays in the nose two times a day. - latanoprost (XALATAN) 0.005 % ophthalmic solution - acetaminophen (TYLENOL EXTRA STRENGTH ORAL) Take 2 tablets by mouth as needed. - diphenhydrAMINE (BENADRYL) 25 mg capsule Take 25 mg by mouth every 6 hours as needed. - fluticasone (FLONASE) 50 mcg/actuation nasal spray Use 2 Sprays in each nostril once daily. Rinse mouth after use. - docusate sodium (STOOL SOFTENER ORAL) Take by mouth. - CALCIUM CARBONATE/VITAMIN D3 (CALCIUM 600 + D,3, ORAL) Take by mouth twice daily. - PSYLLIUM SEED, WITH SUGAR, (METAMUCIL ORAL) Take by mouth. - POLYETHYLENE GLYCOL 3350 (MIRALAX ORAL) Take by mouth. 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 12/18/2008 Diffuse cystic mastopathy [N60.19] 09/26/2005 Routine general medical examination at a [facility]*12/18/2008 08/16/2011 Class: Chronic Routine gynecological examination [Z01.419] 12/18/2008 08/16/2011 Class: Chronic SVT (supraventricular tachycardia) (HCC) [I47.1*12/18/2008 04/04/2017 Postmenopausal atrophic vaginitis [N95.2] 08/10/2010 Shingles [B02.9] 04/12/2012 Abnormal mammogram, unspecified [R92.8] 10/15/2013 04/04/2017 Vasomotor rhinitis [J30.0] 04/06/2018 Class 1 obesity due to excess calories without * Pure hypercholesterolemia [E78.00] Primary osteoarthritis of both knees [M17.0] 09/21/2021 Personal history of DVT (deep vein thrombosis) *04/11/2022 Single subsegmental pulmonary embolism without *04/11/2022 03/28/2023 Solitary pulmonary nodule on lung CT [R91.1] 04/07/2021 History of total hip arthroplasty, left [Z96.64*09/27/2024 History of partial knee replacement [Z96.659] 09/27/2024 Personal history of cardiac arrhythmia [Z86.79] 09/27/2024 Encounter Status:Closed by PALMA HERNANDEZ on 09/27/24 Normal [facility] HISTORY PHYSICALon HISTORY PHYSICAL HNO ID: [id number] Author: JOSE VALLES APRN.MOTION DESIGNER Service: ? Author Type: Nurse Practitioner Type: H&P Filed: 09/27/2024 09:38 Note Text: [facility] HISTORY AND PHYSICAL EXAMINATION SERVICE DATE: 09/27/2024 SERVICE TIME: 9:35 AM PRIMARY CARE PHYSICIAN: Abhinav Bolden MD Assessment Patient has the following medical conditions which may affect eriberto-operative course: Pure hypercholesterolemia Assessment: c/w statin Solitary pulmonary nodule on lung CT Assessment: repeat serial imaging stable, following pulmonary Office Visit on 06/10/2024 Chronic constipation Assessment: controlled on rx Personal history of DVT (deep vein thrombosis) Assessment: hx provoked DVT/PE, tx wit OAC for 6 mos, 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 Vasomotor rhinitis Assessment: rx as needed ANESTHESIA FINDINGS: Intubation History: No history of difficult intubation Significant Anesthesia Considerations: none Airway History: No history of difficult airway Bloom Activity Status Index: METS: Climb a flight of stairs or walk up a hill (5.50 METs) DASI Score: 5.5 Patient denies any chest pain or undue shortness of breath with the above physical activity. Clinical Frailty Scale: 2. Well STOP-Bang Score: Snores loudly Patient over 50 years old Has a large neck Denies feeling tired, fatigued, or sleepy during the daytime Has not been observed to stop breathing or choking/gasping during sleep Denies having high blood pressure BMI less than or equal to 35 kg/m2 Non-male patient STOP-Bang Score: 3 [id number] Score: Age: 65-74 Sex: female CHF history: No Hypertension history: No Stroke/TIA/thromboemboli sm history: No Vascular disease history: No Diabetes history: No [id number] Score: 2 ARISCAT Score: Age: 51-80 Preoperative SpO2: >=96% Respiratory infection in the last month: No Preoperative anemia: No Surgical incision: peripheral Duration of surgery: >3 hrs Emergency procedure: No ARISCAT Score: 26 I - PHYSICAL EVALUATION AIRWAY Patient intubated: No. Tracheostomy tube not present Mallampati: III. TM distance: >3 FB. Neck ROM: full ROM without neurological symptoms. Mouth opening: adequate. Short neck: no. Thick neck: yes Sparrow present: no Lip Bite Test: I Microretrognathia/Micron agthia/Recessed Chin: No DENTAL Dental findings: teeth intact. II - ANESTHESIA PLAN Anesthetic Plan: other Beta Madi Monitoring Plan Post Procedure Analgesic Plan Prepared for Surgery: optimally prepared for surgery. CONSULTS: Patient does not require consults for optimization at this time Planned Anesthetic: other anesthesia choice The Following Tests/Procedures Have Been Initiated: No orders of the defined types were placed in this encounter. REASON FOR VISIT: Yakelin Huynh is a 74 year old female who is scheduled for Procedure(s): PAROTIDECTOMY (Right) at the request of Thien Rosas MD for consultation. My final recommendation will be communicated back to the requesting physician by way of shared medical record or letter. Subjective The patient has the following: COVID-19 Immunization Status Current Care Gaps Covid-19 Vaccine ( season) Overdue since 06/03/2024 12/05/2023 Outside Immunization: COVID-19, mRNA, LNP-S, PF, 50 mcg/0.5 mL 03/20/2023 Imm Admin: COVID-19 vaccine, age 12+ yr (MODERNA) 09/26/2022 Imm Admin: COVID-19 vaccine, age 12+ yr, bivalent (MODERNA) Only the first 3 history entries have been loaded, but more history exists. CHIEF COMPLAINT: Pre-op exam HPI: Yakelin Huynh is a 74 year old seen for PAC due to scheduled above surgery because mass of right parotid gland. 09/25/24, Thien Rosas MD HPI: Patient is a 74 year old female with PMHx of HLD, obesity, osteoarthritis, prior PE in 2022, who 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 Was evaluated by PCP who ordered ultrasound which was inconclusive. CT scan revealed parotid gland mass. Saw [facility] who recommended biopsy but this was unable to be completed at [facility]. Patient reports mass present for one month, stable size of mass, no pain, mildly tender to palpation, some right neck tightness, no overlying skin changes, no facial numbness or tingling, no reported facial asymmetry. No history of skin cancer or radiation exposure. No history of head o (more content not included)... Normal [facility] CNOVon 09-25-2024 CNOV Office Visit (OTOLMN ) -------- YAKELIN HUYNH ([id number]) 1950 F Date Time Provider Department 09/25/24 11:20 AM THIEN RIVERA OTOLMN During your visit today, we recorded the following information about you: Twin Reddy OCCA 09/26/2024 8:47 AM Signed Tobacco Use: Never Was smoking cessation packet given? N/A - Patient is a non-smoker or quit >1 year ago. Was a referral initiated?N/A Patient is a non-smoker Thien Rivera MD 09/26/2024 8:47 AM Signed CC: Yakelin Huynh is a 74 year old female seen at the request of Tony Giron APRN.CNP for right parotid mass. HPI: Patient is a 74 year old female with PMHx of HLD, obesity, osteoarthritis, prior PE in 2022, who 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 Was evaluated by PCP who ordered ultrasound which was inconclusive. CT scan revealed parotid gland mass. Saw [facility] E[facility] who recommended biopsy but this was unable to be completed at [facility]. Patient reports mass present for one month, stable size of mass, no pain, mildly tender to palpation, some right neck tightness, no overlying skin changes, no facial numbness or tingling, no reported facial asymmetry. No history of skin cancer or radiation exposure. No history of head or neck cancer, No family history of head or neck cancer. No prior head and neck surgery. No blood thinners. No tobacco history, occasional EtOH use. ALLERGIES Allergen Reactions Amoxicillin Rash Bactrim [Sulfametho* stomatitis Demerol [Meperidine] Other: See Comments Urinary retention Current Outpatient Medications Medication Sig atorvastatin (LIPITOR) 20 mg tablet Take 1 tablet by mouth daily at bedtime. For cholesterol. ipratropium bromide (ATROVENT) 42 mcg (0.06 %) nasal spray Use 2 Sprays in the nose two times a day. latanoprost (XALATAN) 0.005 % ophthalmic solution acetaminophen (TYLENOL EXTRA STRENGTH ORAL) Take 2 tablets by mouth as needed. diphenhydrAMINE (BENADRYL) 25 mg capsule Take 25 mg by mouth every 6 hours as needed. fluticasone (FLONASE) 50 mcg/actuation nasal spray Use 2 Sprays in each nostril once daily. Rinse mouth after use. docusate sodium (STOOL SOFTENER ORAL) Take by mouth. CALCIUM CARBONATE/VITAMIN D3 (CALCIUM 600 + D,3, ORAL) Take by mouth twice daily. PSYLLIUM SEED, WITH SUGAR, (METAMUCIL ORAL) Take by mouth. POLYETHYLENE GLYCOL 3350 (MIRALAX ORAL) Take by mouth. As needed ergocalciferol, vitamin D2, (VITAMIN D2 ORAL) Take by mouth. (Patient not taking: Reported on 07/17/2024) No current facility-administered medications for this visit. PAST MEDICAL HISTORY Diagnosis Date Bursitis of left hip Class 1 obesity due to excess calories without serious comorbidity with body mass index (BMI) of 30.0 to 30.9 in adult DVT (deep venous thrombosis) (HCC) 04/03/2022 after [facility] Glaucoma 2023 right eye change Hemorrhage of gastrointestinal tract, unspecified From hemorrhoids only Internal hemorrhoids without mention of complication Irregular menstrual cycle Irregular periods Resolved Osteoarthritis knee Primary osteoarthritis of both knees Dr. Garcia Pulmonary embolism (HCC) 04/08/2022 After [facility] Pure hypercholesterolemia Shingles 04/12/2012 Solitary pulmonary nodule on lung CT 04/07/2021 Stable. no further imaging needed 06/2024 SVT (supraventricular tachycardia) ([facility]) 2004 Symptomatic menopausal or female climacteric states With atrophic vaginitis Unspecified constipation PAST SURGICAL HISTORY Procedure Laterality Date APPENDECTOMY 1986 CATARACT SURGERY, COMPLEX Left 04/2016 CATARACT SURGERY, COMPLEX Right 2018 [facility] ANTERPOST COLPORRAPHY W/CYSTO 02/21/2019 [facility] repair COLONOSCOPY FLX DX W/COLLJ SPEC WHEN PFRMD 01/05/05 [facility] Colonoscopy COLONOSCOPY FLX DX W/COLLJ SPEC WHEN PFRMD 01/30/2015 Colonoscopy DILATION AND CURETTAGE DXAND/THER NONOBSTETRIC Dilation AND curettage HYSTEROSCOPY BX ENDOMETRIUMAND/POLYPC W/WO [facility] 03/29/2022 [facility] w/ polyp resection HYSTEROSCOPY, DIAGNOSTIC (SEPARATE 2002 Hysteroscopy LAPS ABD PRTMANDOMENTUM DX W/WO SPEC BR/WA SPX Laparoscopy LIG/TRNSXJ FLP TUBE ABDL/VAG APPR UNI/BI 1982 Tubal ligation 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 Eyes: The pt denies having blurred vision or double vision. Respiratory: Denies symptoms of shortness of breath, noisy breathing, hoarseness, or chronic cough. GI: Denies symptoms (more content not included)... Normal [facility] CYTOLOGY NON-GYNon 5 AP DISCLAIMER Normal [facility] Comment on above: Order Comment: Speci men Type: SPECIMEN OBTAINED BY ASPIRATIONOrdering Facility: [facility] Address: [address] [place] [address] Result Comment: Dorota logan Developed Test (LDT) Disclaimer: Performance characteristics of immunohistochemical, immunofluorescent, and chromogenic in-situ hybridization tests have been determined by the performing laboratory within [facility]'s [place] [facility] Pathology and Laboratory Medicine Department ([facility], [facility], [facility], [facility], [facility], [facility], or [facility]) in a manner consistent with CLIA requirements. One or more of these tests may not have been cleared or approved by the FDA. [facility] is regulated under CLIA as qualified to perform high-complexity testing. These tests are used for clinical purposes. These should not be regarded as investigational or for research. Positive and negative controls stain appropriately. Performed By: #### C YTONON ####[facility] [id number] [place] [address] [place] CASE REPORT Normal [facility] Comment on above: Order Comment: Speci men Type: SPECIMEN OBTAINED BY ASPIRATIONOrdering Facility: [facility] Address: [address] [place] [address] Result Comment: [facility] Cytology Report Case: [id number] Authorizing Provider: Thien Rivera MD Collected: 09/25/2024 12:28 PM Ordering Location: Otolaryngology Received: 09/25/2024 08:22 PM Pathologist: Danilo Benitez MD Specimen: Parotid Gland, Right Performed By: #### C YTONON ####[facility] [id number] [place] [address] [place] [place] CLINICAL HISTORY right parotid gland mass x 1 month, right cervical lymphadenopathy Normal [facility] Comment on above: Order Comment: Speci men Type: SPECIMEN OBTAINED BY ASPIRATIONOrdering Facility: [facility] Address: [address] [place] [address] Performed By: #### C YTONON ####[facility] LABCLIA [id number] [place] [address] [place] FINAL DIAGNOSIS Normal [facility] Comment on above: Order Comment: Speci men Type: SPECIMEN OBTAINED BY ASPIRATIONOrdering Facility: [facility] Address: [address] [place] [address] Result Comment: A. R ight Parotid Gland, FNA: Non-diagnostic aspirate sample. Blood, acute inflammation and rare non-lesional acinar tissue. The following cell blocks were associated with this case: A1 Cell Block, Alcohol Fixed at 1612 EDT Performed By: #### C YTONON ####[facility] LABCL[facility] [id number] [address] STATES OF [facility] FINAL PERFORMING LAB [facility] Comment on above: Order Comment: Speci men Type: SPECIMEN OBTAINED BY ASPIRATIONOrdering Facility: [facility] Address: [address] [place] [address] Result Comment: Tech nical component, head start director screening performed at: [facility], [address] [place] [address] CLIA: [id number] Diagnostic interpretation performed at: [facility], [address] [place] [address] CLIA# [id number] Senior Electrical Estimator: Indra Ochoa MD Performed By: #### C YTONON ####[facility] [id number] [address] GROSS DESCRIPTION Normal [facility] Comment on above: Order Comment: Speci men Type: SPECIMEN OBTAINED BY ASPIRATIONOrdering Facility: [facility] Address: [address] [place] [address] Result Comment: A. P arotid Gland, Right 30 cc clear pink CytoLyt with scant particles. ThinPrep and Cell Block prepared and 4 smears. Performed By: #### C YTONON ####[facility] [id number] [address] STATES [place] CNPMaite 09-11-2024 CNPN Telephone (HN) -------- YAKELIN HUYNH ([id number]) 1950 F Date Time Provider Department 09/11/24 THIEN RIVERA During your visit today, we recorded the following information about you: Julia Lei 09/11/2024 3:27 PM Signed Pt called confused about her upcoming appt that is scheduled on 11/05 for a right parotid mass. It has been explained to the pt that she will have to come in for a consultation/evaluation first and then any scans, tests or surgery will be discussed. Pt is not understanding this process and will need a callback. [phone] Julia Lei 10/10/2024 10:51 AM Signed Pt called in upset because she was told when she was discharged that someone would give her a call to schedule a post-op for next week. I informed the pt that Dr. Rivera has no openings for October but I could get her in with Jihan. Pt was still upset that she could not get in next week. I proceeded to offer appointments with Jihan and she complained that she is scheduled to work on those dates, even on Saturdays. She is going out of town as of October so I was unable to offer anything then. I did place her on [facility] scheduled on 11/08 but unfortunately, I will not be able to get her in any sooner. Roman Alcocer, RN 10/15/2024 10:36 AM Signed Patient placed on Jihan's scheduled on 11/08 Allergies As of Date: 09/11/2024 Noted Allergy Reaction AMOXICILLIN 07/15/2005 2 - Rash BACTRIM (SULFAMETHOXAZOLE-TRIMET H*07/15/2005 Comments: stomatitis DEMEROL (MEPERIDINE) 12/07/2022 14 - Other: See Comments Comments: Urinary retention Date Reviewed: 08/29/2024 Reviewed by: Patrizia Ratliff MA - Fully Assessed Prescriptions as of 10/15/2024 - atorvastatin (LIPITOR) 20 mg tablet Take 1 tablet by mouth daily at bedtime. For cholesterol. - ipratropium bromide (ATROVENT) 42 mcg (0.06 %) nasal spray Use 2 Sprays in the nose two times a day. - latanoprost (XALATAN) 0.005 % ophthalmic solution - acetaminophen (TYLENOL EXTRA STRENGTH ORAL) Take 2 tablets by mouth as needed. - diphenhydrAMINE (BENADRYL) 25 mg capsule Take 25 mg by mouth every 6 hours as needed. - fluticasone (FLONASE) 50 mcg/actuation nasal spray Use 2 Sprays in each nostril once daily. Rinse mouth after use. - docusate sodium (STOOL SOFTENER ORAL) Take by mouth. - CALCIUM CARBONATE/VITAMIN D3 (CALCIUM 600 + D,3, ORAL) Take by mouth twice daily. - PSYLLIUM SEED, WITH SUGAR, (METAMUCIL ORAL) Take by mouth. - POLYETHYLENE GLYCOL 3350 (MIRALAX ORAL) Take by mouth. 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 12/18/2008 Diffuse cystic mastopathy [N60.19] 09/26/2005 Routine general medical examination at a [facility]*12/18/2008 08/16/2011 Class: Chronic Routine gynecological examination [Z01.419] 12/18/2008 08/16/2011 Class: Chronic SVT (supraventricular tachycardia) (HCC) [I47.1*12/18/2008 04/04/2017 Postmenopausal atrophic vaginitis [N95.2] 08/10/2010 Shingles [B02.9] 04/12/2012 Abnormal mammogram, unspecified [R92.8] 10/15/2013 04/04/2017 Vasomotor rhinitis [J30.0] 04/06/2018 Class 1 obesity due to excess calories without * Pure hypercholesterolemia [E78.00] Primary osteoarthritis of both knees [M17.0] 09/21/2021 Personal history of DVT (deep vein thrombosis) *04/11/2022 Single subsegmental pulmonary embolism without *04/11/2022 03/28/2023 Solitary pulmonary nodule on lung CT [R91.1] 04/07/2021 Encounter Status:Closed by ROMAN ALCOCER on 10/15/24 Normal [facility] CT NECK SOFT TISSUE W IVCONo n 09-02-2024 CT NECK SOFT TISSUE W IVCON * * *Final Report* * * DATE OF EXAM: Sep 02 2024 2:18PM [facility] 0013 - CT NECK SOFT TISSUE W IVCON / PROCEDURE REASON: Localized enlarged lymph nodes * * * * Physician Interpretation * * * * CT Neck Soft Tissue with Contrast HISTORY: Neck mass, right side of neck.. Evaluate for primary lesion, adenopathy, or other underlying structural abnormality. COMPARISON: None. TECHNIQUE: Helical scan of the neck from the petrous ridges through the upper mediastinum following IV administration of 100 Omnipaque 300. Dose-Length Product (DLP): 368.94 mGy*cm. CT Dose Reduction Employed: Automated exposure control(AEC) and iterative recon RESULT: Visualized portions of the brain, orbits, sinuses condition temporal mastoid bones are all unremarkable. MUCOSAL SURFACES AND PHARYNGEAL MUCOSAL SPACE: Axial image 78, slightly asymmetric prominence right side tongue base/lingual tonsils TONGUE BASE AND VALLECULA: No mass is identified. This includes the tongue base, and caudal aspect of the tonsillar pillars. Bilateral palatine tonsil calcifications related to chronic inflammation. No signs of acute inflammation. The vallecula is normal. The preepiglottic fat is maintained. PRE-STYLOID PARAPHARYNGEAL SPACE: Fat and muscle planes are normal. SERVICE OR WORK DISPATCHER SPACE: Visualized mandible, muscles of mastication, pterygopalatine fossa and pterygomaxillary fissures are normal bilaterally. JAWS: No gross bony destructive lesions or dental inflammatory lesions identified. CAROTID SHEATH AND CONTENTS: The carotid arteries and jugular veins demonstrate normal contrast enhancement.. Moderate degree calcific stenosis left carotid bifurcation/proximal left ICA with 50% diameter stenosis CERVICAL SOFT TISSUES AND LYMPH NODES: The deep cervical fascial planes, and prevertebral soft tissues are normal. Prominent right level IIa 3 and 4 lymph nodes. 12 by 21 mm right level 4 large lymph node MAJOR SALIVARY GLANDS: Axial image 92 and sagittal image 32, 1.7 x 1.5 x 1.3 cm inhomogeneously enhancing mass anterior superficial portion of the right parotid gland. Left carotid gland and submandibular glands are unremarkable THYROID: Morphology and enhancement pattern of the thyroid is normal. LARYNX AND VISIBLE TRACHEOBRONCHIAL TREE: No laryngeal or para laryngeal masses are identified. The paraglottic fat plane is preserved. No endoluminal masses are identified within the visualized tracheobronchial tree. Airway is patent to the grayson. LUNG APICES AND UPPER MEDIASTINUM: Lung apices are clear. No mediastinal masses are identified. Cervical spine: Multilevel degenerative central and foraminal stenotic changes IMPRESSION: Axial image 92 and sagittal image 32, 1.7 x 1.5 x 1.3 cm inhomogeneously enhancing mass anterior superficial portion of the right parotid gland. Tissue sampling is recommended to differentiate benign versus malignant lesion, especially in view of right-sided cervical lymphadenopathy Prominent right level IIa 3 and 4 lymph nodes. 12 by 21 mm right level 4 large lymph node Axial image 78, slightly asymmetric prominence right side tongue base/lingual tonsils COMMUNICATION: Stat read result was provided following interpretation as ordered. Metal Ceiling Builder: [facility] Transcribe Date/Time: Sep 02 2024 2:52P Dictated by : KOBE PAT MD This examination was interpreted and the report reviewed and electronically signed by: KOBE PAT MD on Sep 02 2024 2:59PM EST [id number] Normal [facility] CT Neck W contrast Bisi 06-2 IMPRESSION: Axial image 92 and sagittal image 32, 1.7 x 1.5 x 1.3 cm inhomogeneously enhancing mass anterior superficial portion of the right parotid gland. Tissue sampling is recommended to differentiate benign versus malignant lesion, especially in view of right-sided cervical lymphadenopathy Prominent right level IIa 3 and 4 lymph nodes. 12 by 21 mm right level 4 large lymph node Axial image 78, slightly asymmetric prominence right side tongue base/lingual tonsils COMMUNICATION: Stat read result was provided following interpretation as ordered. Metal Ceiling Builder: [facility] Transcribe Date/Time: Sep 02 2024 2:52P Dictated by : KOBE PAT MD This examination was interpreted and the report reviewed and electronically signed by: KOBE PAT MD on Sep 02 2024 2:59PM EST [facility] * * *Final Report* * * DATE OF EXAM: Sep 02 2024 2:18PM [facility] 0013 - CT NECK SOFT TISSUE W IVCON / PROCEDURE REASON: Localized enlarged lymph nodes * * * * Physician Interpretation * * * * CT Neck Soft Tissue with Contrast HISTORY: Neck mass, right side of neck.. Evaluate for primary lesion, adenopathy, or other underlying structural abnormality. COMPARISON: None. TECHNIQUE: Helical scan of the neck from the petrous ridges through the upper mediastinum following IV administration of 100 Omnipaque 300. Dose-Length Product (DLP): 368.94 mGy*cm. CT Dose Reduction Employed: Automated exposure control(AEC) and iterative recon RESULT: Visualized portions of the brain, orbits, sinuses condition temporal mastoid bones are all unremarkable. MUCOSAL SURFACES AND PHARYNGEAL MUCOSAL SPACE: Axial image 78, slightly asymmetric prominence right side tongue base/lingual tonsils TONGUE BASE AND VALLECULA: No mass is identified. This includes the tongue base, and caudal aspect of the tonsillar pillars. Bilateral palatine tonsil calcifications related to chronic inflammation. No signs of acute inflammation. The vallecula is normal. The preepiglottic fat is maintained. PRE-STYLOID PARAPHARYNGEAL SPACE: Fat and muscle planes are normal. SERVICE OR WORK DISPATCHER SPACE: Visualized mandible, muscles of mastication, pterygopalatine fossa and pterygomaxillary fissures are normal bilaterally. JAWS: No gross bony destructive lesions or dental inflammatory lesions identified. CAROTID SHEATH AND CONTENTS: The carotid arteries and jugular veins demonstrate normal contrast enhancement.. Moderate degree calcific stenosis left carotid bifurcation/proximal left ICA with 50% diameter stenosis CERVICAL SOFT TISSUES AND LYMPH NODES: The deep cervical fascial planes, and prevertebral soft tissues are normal. Prominent right level IIa 3 and 4 lymph nodes. 12 by 21 mm right level 4 large lymph node MAJOR SALIVARY GLANDS: Axial image 92 and sagittal image 32, 1.7 x 1.5 x 1.3 cm inhomogeneously enhancing mass anterior superficial portion of the right parotid gland. Left carotid gland and submandibular glands are unremarkable THYROID: Morphology and enhancement pattern of the thyroid is normal. LARYNX AND VISIBLE TRACHEOBRONCHIAL TREE: No laryngeal or para laryngeal masses are identified. The paraglottic fat plane is preserved. No endoluminal masses are identified within the visualized tracheobronchial tree. Airway is patent to the grayson. LUNG APICES AND UPPER MEDIASTINUM: Lung apices are clear. No mediastinal masses are identified. Cervical spine: Multilevel degenerative central and foraminal stenotic changes [facility] Provider, Shirin goodwin [place] - 09/02/2024 * * *Final Report* * * DATE OF EXAM: Sep 02 2024 2:18PM [facility] 0013 - CT NECK SOFT TISSUE W IVCON / PROCEDURE REASON: Localized enlarged lymph nodes * * * * Physician Interpretation * * * * CT Neck Soft Tissue with Contrast HISTORY: Neck mass, right side of neck.. Evaluate for primary lesion, adenopathy, or other underlying structural abnormality. COMPARISON: None. TECHNIQUE: Helical scan of the neck from the petrous ridges through the upper mediastinum following IV administration of 100 Omnipaque 300. Dose-Length Product (DLP): 368.94 mGy*cm. CT Dose Reduction Employed: Automated exposure control(AEC) and iterative recon RESULT: Visualized portions of the brain, orbits, sinuses condition temporal mastoid bones are all unremarkable. MUCOSAL SURFACES AND PHARYNGEAL MUCOSAL SPACE: Axial image 78, slightly asymmetric prominence right side tongue base/lingual tonsils TONGUE BASE AND VALLECULA: No mass is identified. This includes the tongue base, and caudal aspect of the tonsillar pillars. Bilateral palatine tonsil calcifications related to chronic inflammation. No signs of acute inflammation. The vallecula is normal. The preepiglottic fat is maintained. PRE-STYLOID PARAPHARYNGEAL SPACE: Fat and muscle planes are normal. SERVICE OR WORK DISPATCHER SPACE: Visualized mandible, muscles of mastication, pterygopalatine fossa and pterygomaxillary fissures are normal bilaterally. JAWS: No gross bony destructive lesions or dental inflammatory lesions identified. CAROTID SHEATH AND CONTENTS: The carotid arteries and jugular veins demonstrate normal contrast enhancement.. Moderate degree calcific stenosis left carotid bifurcation/proximal left ICA with 50% diameter stenosis CERVICAL SOFT TISSUES AND LYMPH NODES: The deep cervical fascial planes, and prevertebral soft tissues are normal. Prominent right level IIa 3 and 4 lymph nodes. 12 by 21 mm right level 4 large lymph node MAJOR SALIVARY GLANDS: Axial image 92 and sagittal image 32, 1.7 x 1.5 x 1.3 cm inhomogeneously enhancing mass anterior superficial portion of the right parotid gland. Left carotid gland and submandibular glands are unremarkable THYROID: Morphology and enhancement pattern of the thyroid is normal. LARYNX AND VISIBLE TRACHEOBRONCHIAL TREE: No laryngeal or para laryngeal masses are identified. The paraglottic fat plane is preserved. No endoluminal masses are identified within the visualized tracheobronchial tree. Airway is patent to the grayson. LUNG APICES AND UPPER MEDIASTINUM: Lung apices are clear. No mediastinal masses are identified. Cervical spine: Multilevel degenerative central and foraminal stenotic changes IMPRESSION IMPRESSION: Axial image 92 and sagittal image 32, 1.7 x 1.5 x 1.3 cm inhomogeneously enhancing mass anterior superficial portion of the right parotid gland. Tissue sampling is recommended to differentiate benign versus malignant lesion, especially in view of right-sided cervical lymphadenopathy Prominent right level IIa 3 and 4 lymph nodes. 12 by 21 mm right level 4 large lymph node Axial image 78, slightly asymmetric prominence right side tongue base/lingual tonsils COMMUNICATION: Stat read result was provided following interpretation as ordered. Metal Ceiling Builder: [facility] Transcribe Date/Time: Sep 02 2024 2:52P Dictated by : KOBE PAT MD This examination was interpreted and the report reviewed and electronically signed by: KOBE PAT MD on Sep 02 2024 2:59PM EST [facility] Radiology Study observation (narrative) [facility] CT Neck W contrast IVOrdered By: Ccf Provider on 09-02-2024 [facility] CBC W Auto Differential pane l (Bld)on 08-29-2024 Basophils (Bld) [#/Vol] 0.06 10*3/uL Normal <0.11 [facility] Comment on above: Order Comment: Speci men Type: BLOOD SPECIMENOrdering Facility: [facility] Address: [address] [place] [address] Performed By: #### 5 7021-8 ####[facility] LABCLIA [id number] [place] [address] [place] Basophils/100 WBC (Bld) 1.0 % Normal [facility] Comment on above: Order Comment: Speci men Type: BLOOD SPECIMENOrdering Facility: [facility] Address: [address] [place] [address] Performed By: #### 5 7021-8 ####[facility] LABCLIA [id number] [place] [id number] [place] Differential cell count method Nom (Bld) Auto Normal [facility] Comment on above: Order Comment: Speci men Type: BLOOD SPECIMENOrdering Facility: [facility] Address: [address] [place] [address] Performed By: #### 5 7021-8 ####[facility] LABCLIA [id number] [place] [address] [place] Eosinophils (Bld) [#/Vol] 0.06 10*3/uL Normal <0.46 [facility] Comment on above: Order Comment: Speci men Type: BLOOD SPECIMENOrdering Facility: [facility] Address: [address] [place] [address] Performed By: #### 5 7021-8 ####[facility] LABCLIA [id number] [place] [address] [place] Eosinophils/100 WBC (Bld) 1.0 % Normal [facility] Comment on above: Order Comment: Speci men Type: BLOOD SPECIMENOrdering Facility: [facility] Address: [address] [place] [address] Performed By: #### 5 7021-8 ####[facility]CL[facility] [id number] [place] [address] [place] Erythrocyte distribution width (RBC) [Ratio] 13.5 % Normal 11.5-15.0 [facility] Comment on above: Order Comment: Speci men Type: BLOOD SPECIMENOrdering Facility: [facility] Address: [address] [place] [address] Performed By: #### 5 7021-8 ####[facility]CL[facility] [id number] [place] [id number] [place] Hematocrit (Bld) [Volume fraction] 43.9 % Normal 36.0-46.0 [facility] Comment on above: Order Comment: Speci men Type: BLOOD SPECIMENOrdering Facility: [facility] Address: [address] [place] [address] Performed By: #### 5 7021-8 ####[facility]CL[facility] [id number] [place] [address] [place] Hemoglobin (Bld) [Mass/Vol] 14.4 g/dL Normal 11.5-15.5 [facility] Comment on above: Order Comment: Speci men Type: BLOOD SPECIMENOrdering Facility: [facility] Address: [address] [place] [address] Performed By: #### 5 7021-8 ####[facility]CL[facility] [id number] [place] [address] [place] Immature granulocytes (Bld) [#/Vol] 10*3/uL Normal <0.10 [facility] Comment on above: Order Comment: Speci men Type: BLOOD SPECIMENOrdering Facility: [facility] Address: [address] [place] [address] Performed By: #### 5 7021-8 ####[facility] LABIA [id number] [place] [address] [place] Immature granulocytes/100 WBC (Bld) 0.2 % Normal [facility] Comment on above: Order Comment: Speci men Type: BLOOD SPECIMENOrdering Facility: [facility] Address: [address] [place] [address] Performed By: #### 5 7021-8 ####[facility] LABIA [id number] [place] [address] [place] Lymphocytes (Bld) [#/Vol] 1.61 10*3/uL Normal 1.00-4.00 [facility] Comment on above: Order Comment: Speci men Type: BLOOD SPECIMENOrdering Facility: [facility] Address: [address] [place] [address] Performed By: #### 5 7021-8 ####[facility]CL[facility] [id number] [place] [address] [place] Lymphocytes/100 WBC (Bld) 25.6 % Normal [facility] Comment on above: Order Comment: Speci men Type: BLOOD SPECIMENOrdering Facility: [facility] Address: [address] [place] [address] Performed By: #### 5 7021-8 ####[facility] LABIA [id number] [place] [address] [place] MCH (RBC) [Entitic mass] 30.4 pg Normal 26.0-34.0 [facility] Comment on above: Order Comment: Speci men Type: BLOOD SPECIMENOrdering Facility: [facility] Address: [address] [place] [address] Performed By: #### 5 7021-8 ####[facility] LABIA [id number] [place] [address] [place] MCHC (RBC) [Mass/Vol] 32.8 g/dL Normal 30.5-36.0 [facility] Comment on above: Order Comment: Speci men Type: BLOOD SPECIMENOrdering Facility: [facility] Address: [address] [place] [address] Performed By: #### 5 7021-8 ####[facility] LABIA [id number] [place] [address] [place] MCV (RBC) [Entitic vol] 92.6 fL Normal 80.0-100.0 [facility] Comment on above: Order Comment: Speci men Type: BLOOD SPECIMENOrdering Facility: [facility] Address: [address] [place] [address] Performed By: #### 5 7021-8 ####[facility] LABIA [id number] [place] [address] [place] Monocytes (Bld) [#/Vol] 0.62 10*3/uL Normal <0.87 [facility] Comment on above: Order Comment: Speci men Type: BLOOD SPECIMENOrdering Facility: [facility] Address: [address] [place] [address] Performed By: #### 5 7021-8 ####[facility]CL[facility] [id number] [facility] [place] [id number] [place] Monocytes/100 WBC (Bld) 9.8 % Normal [facility] Comment on above: Order Comment: Speci men Type: BLOOD SPECIMENOrdering Facility: [facility] Address: [address] [place] [address] Performed By: #### 5 7021-8 ####[facility] [id number] [facility] [address], [place] [address] [place] Neutrophils (Bld) [#/Vol] 3.94 10*3/uL Normal 1.45-7.50 [facility] Comment on above: Order Comment: Speci men Type: BLOOD SPECIMENOrdering Facility: [facility] Address: [address] [place] [address] Performed By: #### 5 7021-8 ####[facility]CL[facility] [id number] [facility] [place] [address] [place] Neutrophils/100 WBC (Bld) 62.4 % Normal [facility] Comment on above: Order Comment: Speci men Type: BLOOD SPECIMENOrdering Facility: [facility] Address: [address] [place] [address] Performed By: #### 5 7021-8 ####[facility]CL[facility] [id number] [place] [id number] [place] Nucleated RBC (Bld) [#/Vol] 10*3/uL Normal <0.01 [facility] Comment on above: Order Comment: Speci men Type: BLOOD SPECIMENOrdering Facility: [facility] Address: [address] [place] [address] Performed By: #### 5 7021-8 ####[facility] [id number] [address] [place] [address] [place] Nucleated RBC/100 WBC (Bld) [Ratio] 0.0 /100 WBC Normal [facility] Comment on above: Order Comment: Speci men Type: BLOOD SPECIMENOrdering Facility: [facility] Address: [address] [place] [address] Performed By: #### 5 7021-8 ####[facility]CL[facility] [id number] [address] [place] [address] [place] Platelet mean volume (Bld) [Entitic vol] 11.5 fL Normal 9.0-12.7 [facility] Comment on above: Order Comment: Speci men Type: BLOOD SPECIMENOrdering Facility: [facility] [facility] Address: [address] [place] [address] Performed By: #### 5 7021-8 ####[facility] LABIA [id number] [address], [facility] [place] Platelets (Bld) [#/Vol] 214 10*3/uL Normal 150-400 [facility] Comment on above: Order Comment: Speci men Type: BLOOD SPECIMENOrdering Facility: [facility] Address: [address] [place] [address] Performed By: #### 5 7021-8 ####[facility] LABCLIA [id number] [address] [place] [address] [place] RBC (Bld) [#/Vol] 4.74 10*6/uL Normal 3.90-5.20 [facility] Comment on above: Order Comment: Speci men Type: BLOOD SPECIMENOrdering Facility: [facility] Address: [address] [place] [address] Performed By: #### 5 7021-8 ####[facility] LABCLIA [id number] [address] [place] [address] [place] WBC (Bld) [#/Vol] 6.30 10*3/uL Normal 3.70-11.00 [facility] Comment on above: Order Comment: Speci men Type: BLOOD SPECIMENOrdering Facility: [facility] Address: [address] [place] [address] Performed By: #### 5 7021-8 ####[facility] LABCLIA [id number] ANUELPat HERNANDEZ [address] [place] CNOVon 08-29-2024 CNOV Office Visit (FAMPWS ) -------- YAKELIN HUYNH ([id number]) 1950 F Date Time Provider Department 08/29/24 8:20 AM TONY GIRON During your visit today, we recorded the following information about you: Pulse Blood pressure Weight 88/minute 120/76 77 kg Tony Giron APRN.MOTION DESIGNER 08/29/2024 8:49 AM Signed Chief Complaint Patient presents with: lump on jaw: X 6 days HPI Yakelin Willson Lino is a 74 year old female who presents here today for right sided nodule on jaw, she noticed it Monday. Denies pain, slightly tender to palpation. No changes in her routine and she has not been around anyone that was sick, she did have a dental cleaning x3 weeks ago but did not have any other changes in her routine. The nodule is constantly there and does not change. Nodule feels firm, slightly moveable. Denies sore throat, has some nasal congestion related to her vasomotor rhinits, this has been ongoing. Past medical history, appointments, medications, allergies reviewed. Previous Medical History PAST MEDICAL HISTORY Diagnosis Date Bursitis of left hip Class 1 obesity due to excess calories without serious comorbidity with body mass index (BMI) of 30.0 to 30.9 in adult DVT (deep venous thrombosis) (HCC) 04/03/2022 after DANTX Glaucoma 2023 right eye change Hemorrhage of gastrointestinal tract, unspecified From hemorrhoids only Internal hemorrhoids without mention of complication Irregular menstrual cycle Irregular periods Resolved Osteoarthritis knee Primary osteoarthritis of both knees Dr. Garcia Pulmonary embolism ([facility]) 04/08/2022 After [facility] Pure hypercholesterolemia Shingles 04/12/2012 Solitary pulmonary nodule on lung CT 04/07/2021 Stable. no further imaging needed 06/2024 SVT (supraventricular tachycardia) ([facility]) 2004 Symptomatic menopausal or female climacteric states With atrophic vaginitis Unspecified constipation Previous Surgical History PAST SURGICAL HISTORY Procedure Laterality Date APPENDECTOMY 1986 CATARACT SURGERY, COMPLEX Left 04/2016 CATARACT SURGERY, COMPLEX Right 2018 [facility] ANTERPOST COLPORRAPHY W/CYSTO 02/21/2019 AANDP repair COLONOSCOPY FLX DX W/COLLJ SPEC WHEN PFRMD 01/05/05 [facility] Colonoscopy COLONOSCOPY FLX DX W/COLLJ SPEC WHEN PFRMD 01/30/2015 Colonoscopy DILATION AND CURETTAGE DXAND/THER NONOBSTETRIC Dilation AND curettage HYSTEROSCOPY BX ENDOMETRIUMAND/POLYPC W/WO DANDC 03/29/2022 DANDC w/ polyp resection HYSTEROSCOPY, DIAGNOSTIC (SEPARATE 2001 Hysteroscopy LAPS ABD PRTMANDOMENTUM DX W/WO SPEC BR/WA SPX Laparoscopy LIG/TRNSXJ FLP TUBE ABDL/VAG APPR UNI/BI 1982 Tubal ligation 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 ANY AREA UPW/15 08/17/2005 Removal skin tags TOTAL HIP REPLACEMENT Left 04/25/2024 TOTAL KNEE REPLACEMENT Right 12/23/2022 parital knee replacement Family History FAMILY HISTORY Problem Relation Age of Onset Diabetes Mother Fatty liver; esophageal vaices Non- alcohol Ischemic Heart Disease Mother bypass age 72 Lipids Mother Coronary Artery Disease Mother other (Parkinson's) Mother Parkingitainson's= Cancer Father PROSTATE other (Parkinson's) Father Cancer Maternal Grandmother UTERINE Ischemic Heart Disease Maternal Grandfather and many others on that side of the family Prostate Cancer Brother other (polymyalgia rheumatica) Brother Lipids Sister Patient Allergies ALLERGIES Allergen Reactions Amoxicillin Rash Bactrim [Sulfametho* stomatitis Demerol [Meperidine] Other: See Comments Urinary retention Current Medications Current Outpatient Medications on File Prior to Visit Medication Sig atorvastatin (LIPITOR) 20 mg tablet Take 1 tablet by mouth daily at bedtime. For cholesterol. ipratropium bromide (ATROVENT) 42 mcg (0.06 %) nasal spray Use 2 Sprays in the nose two times a day. latanoprost (XALATAN) 0.005 % ophthalmic solution ergocalciferol, vitamin D2, (VITAMIN D2 ORAL) Take by mouth. (Patient not taking: Reported on 07/17/2024) acetaminophen (TYLENOL EXTRA STRENGTH ORAL) Take 2 tablets by mouth as needed. diphenhydrAMINE (BENADRYL) 25 mg capsule Take 25 mg by mouth every 6 hours as needed. fluticasone (FLONASE) 50 mcg/actuation nasal spray Use 2 Sprays in each nostril once daily. Rinse mouth after use. docusate sodium (STOOL SOFTENER ORAL) Take by mouth. CALCIUM CARBONATE/VITAMIN D3 (CALCIUM 600 + D,3, ORAL) Take by mouth twice daily. PSYLLIUM SEED, WITH SUGAR, (METAMUCIL ORAL) Take by mouth. POLYETHYLENE GLYCOL 3350 (MIRALAX ORAL) Take by mouth. As needed No current facility-administered medications on file prior to visit. Social History Social History Tobacco Use Smoking status: Never Smokeless tobacco: Never Vaping Use Vaping status: Never Used Substance Use Topics Alcohol use: Yes Comment: 1-2 times per month Drug use: No Review of Symptoms RE (more content not included)... Normal [facility] Creatinine + eGFR Pnl SerPlB ldon 08-29-2024 Creatinine and Glomerular filtration rate.predicted panel (S/P/Bld) 89 mL/min/1.73m??? Normal >=60 [facility] Comment on above: Order Comment: Speci men Type: BLOOD SPECIMENOrdering Facility: [facility] Address: [address] [place] [id number] Result Comment: Josselin mated Glomerular Filtration Rate (eGFR) is calculated using the 2020 CKD-EPI creatinine equation. This equation utilizes serum creatinine, sex, and age as parameters. The creatinine assay has traceable calibration to isotope dilution-mass spectrometry. Refer to KDIGO guidelines for clinical interpretation. In patients with unstable renal function, e.g. those with acute kidney injury, the eGFR may not accurately reflect actual GFR. Performed By: #### 4 5066-8 ####[facility] [id number] [place] [address] [place] Creatinine and Glomerular fi ltration rate.predicted panel (S/P/Bld)Ordered By: Meli Hathaway on 08-29-2024 Creatinine [Mass/Vol] 0.72 mg/dL 0.58 - 0.96 mg/dL [facility] GFR/1.73 sq M.predicted among non-blacks MDRD (S/P/Bld) [Vol rate/Area] 89 mL/min/{1.73_m2} - PINF [facility] Comment on above: Estimated Glomerular Filtration Rate (eGFR) is calculated using the 2020 CKD-EPI creatinine equation. This equation utilizes serum creatinine, sex, and age as parameters. The creatinine assay has traceable calibration to isotope dilution-mass spectrometry. Refer to KDIGO guidelines for clinical interpretation. In patients with unstable renal function, e.g. those with acute kidney injury, the eGFR may not accurately reflect actual GFR. Interpretation and review of laboratory results Normal [facility] Creatinine and Glomerular fi ltration rate.predicted panel (S/P/Bld)on 08-29-2024 Creatinine [Mass/Vol] 0.72 mg/dL Normal 0.58-0.96 [facility] Comment on above: Order Comment: Speci men Type: BLOOD SPECIMENOrdering Facility: [facility] Address: [address] [place] [address] Performed By: #### 4 5066-8 ####[facility] [id number] [place] [address] [place] US HEAD/NECK SOFT TISSUE OT Marie 08-29-2024 US HEAD/NECK SOFT TISSUE OTHER * * *Final Report* * * DATE OF EXAM: Aug 29 2024 11:45AM [facility]U 1052 - US HEAD/NECK SOFT TISSUE OTHER / PROCEDURE REASON: Mass of jaw * * * * Physician Interpretation * * * * US HEAD/NECK SOFT TISSUE OTHER Ordering Physician: TONY GIRON Clinical Statement: Palpable lump in the right jaw. TECHNIQUE: Grayscale and color images were acquired of the area of palpable lump in the right neck/jaw as well as the contralateral neck for comparison.. FINDINGS: In the area of palpable lump in the right jaw, inferior to the ear there is an hypoechoic lobulated shadowing mass measuring 1.7 x 1.4 x 1.6 cm. Significant peripheral vascularity is noted. No definite fatty hilum is identified. Images of the same region in the contralateral neck demonstrate normal soft tissue and are otherwise unremarkable. IMPRESSION: Indeterminate right neck soft tissue mass, potentially a primary parotid neoplasm or pathologically enlarged lymph node. Recommend CT neck with contrast and potentially tissue sampling for further evaluation. Metal Ceiling Builder: [facility] Transcribe Date/Time: Aug 29 2024 12:22P Dictated by : BO NAIDU MD This examination was interpreted and the report reviewed and electronically signed by: BO NAIDU MD on Aug 29 2024 12:29PM EST [id number] Normal [facility] US Head and neck soft tissue on 08-29-2024 IMPRESSION: Indeterminate right neck soft tissue mass, potentially a primary parotid neoplasm or pathologically enlarged lymph node. Recommend CT neck with contrast and potentially tissue sampling for further evaluation. Metal Ceiling Builder: [facility] Transcribe Date/Time: Aug 29 2024 12:22P Dictated by : BO NAIDU MD This examination was interpreted and the report reviewed and electronically signed by: BO NAIDU MD on Aug 29 2024 12:29PM EST [facility] * * *Final Report* * * DATE OF EXAM: Aug 29 2024 11:45AM [facility] 1052 - US HEAD/NECK SOFT TISSUE OTHER / PROCEDURE REASON: Mass of jaw * * * * Physician Interpretation * * * * US HEAD/NECK SOFT TISSUE OTHER Ordering Physician: TONY GIRON Clinical Statement: Palpable lump in the right jaw. TECHNIQUE: Grayscale and color images were acquired of the area of palpable lump in the right neck/jaw as well as the contralateral neck for comparison.. FINDINGS: In the area of palpable lump in the right jaw, inferior to the ear there is an hypoechoic lobulated shadowing mass measuring 1.7 x 1.4 x 1.6 cm. Significant peripheral vascularity is noted. No definite fatty hilum is identified. Images of the same region in the contralateral neck demonstrate normal soft tissue and are otherwise unremarkable. [facility] Provider, Shirin Morenocuauhtemoc goodwin [place] - 08/29/2024 * * *Final Report* * * DATE OF EXAM: Aug 29 2024 11:45AM [facility] 1052 - US HEAD/NECK SOFT TISSUE OTHER / PROCEDURE REASON: Mass of jaw * * * * Physician Interpretation * * * * US HEAD/NECK SOFT TISSUE OTHER Ordering Physician: TONY GIRON Clinical Statement: Palpable lump in the right jaw. TECHNIQUE: Grayscale and color images were acquired of the area of palpable lump in the right neck/jaw as well as the contralateral neck for comparison.. FINDINGS: In the area of palpable lump in the right jaw, inferior to the ear there is an hypoechoic lobulated shadowing mass measuring 1.7 x 1.4 x 1.6 cm. Significant peripheral vascularity is noted. No definite fatty hilum is identified. Images of the same region in the contralateral neck demonstrate normal soft tissue and are otherwise unremarkable. IMPRESSION IMPRESSION: Indeterminate right neck soft tissue mass, potentially a primary parotid neoplasm or pathologically enlarged lymph node. Recommend CT neck with contrast and potentially tissue sampling for further evaluation. Metal Ceiling Builder: LEONEL Transcribe Date/Time: Aug 29 2024 12:22P Dictated by : BO NAIDU MD This examination was interpreted and the report reviewed and electronically signed by: BO NAIDU MD on Aug 29 2024 12:29PM EST [facility] Radiology Study observation (narrative) [facility] US Head and neck soft tissue Ordered By: [facility] Provider on 08-29-2024 [facility] CNOVon 07-17-2024 CNOV Office Visit (OBGYWM ) -------- YAKELIN HUYNH ([id number]) 1950 F Date Time Provider Department 07/17/24 11:10 AM BEVERLEY JORGENSEN OBGYWM During your visit today, we recorded the following information about you: Blood pressure Weight Height 114/78 76.2 kg 1.575 m Beverley Jorgensen MD 07/17/2024 11:35 AM Signed Yakelin is a 74 year old who presents for an annual gynecologic exam without complaints. HRT use: No- Hx PE and DVT Still get period: No LMP: N/A Menopause symptoms: Vaginal dryness Contraception frequency: N/A HPV vaccine: No; Last pap smear: 2016 History of abnormal pap: No, all prior PAP smears have been normal Bothersome pelvic pain: No Last mammogram: 2023 normal History of abnormal mammogram: Yes OB History Gravida3 Para3 Term3 Preterm0 AB0 Living3 SAB0 IAB0 Ectopic0 Multiple0 Live Births0 FAMILY HISTORY Problem Relation Age of Onset Diabetes Mother Fatty liver; esophageal vaices Non- alcohol Ischemic Heart Disease Mother bypass age 72 Lipids Mother Coronary Artery Disease Mother other (Parkinson's) Mother Parkinskinson's= Cancer Father PROSTATE other (Parkinson's) Father Cancer Maternal Grandmother UTERINE Ischemic Heart Disease Maternal Grandfather and many others on that side of the family Prostate Cancer Brother other (polymyalgia rheumatica) Brother Lipids Sister SOCIAL HISTORY Social History Tobacco Use Smoking status: Never Smokeless tobacco: Never Vaping Use Vaping status: Never Used Substance Use Topics Alcohol use: Yes Comment: 1-2 times per month Drug use: No REVIEW OF SYSTEMS Abdomen: No abdominal pain, nausea, vomiting, diarrhea, or constipation. No bloating, early satiety, indigestion, or increased flatulence. Bladder: No dysuria, gross hematuria, urinary frequency, urinary urgency, or incontinence Breast: No breast lumps, nipple d/c, overlying skin changes, redness or skin retraction Allergies and current medication updated:Yes SENSITIVE EXAM: The sensitive examination was discussed with the Patient or Patient's Authorized Cost Accountant. As applicable, any other physician, advance practice provider, medical student, or other health professional student that will be observing or involved in the sensitive examination for educational or training purposes was discussed with the Patient or Authorized Cost Accountant. The Patient or Authorized Cost Accountant has agreed to proceed with the sensitive examination. (Sensitive examination includes inspection and/or palpation of the breasts, pelvis, prostate and anorectal regions). EXAM: BP 114/78 Ht 5' 2 (1.58m) Wt 168 lb (76.2kg) LMP 07/12/2006 BMI 30.72 kg/(m2). GENERAL: pleasant, female in no apparent distress HEENT: Normocephalic, atraumatic, mucus membranes moist, and no lesions NECK: Supple, full range of motion, no adenopathy, and thyroid normal DERMATOLOGY: Normal, without lesions, non-icteric, and non-hirsute BREAST: soft, non-tender, symmetric, no dominant mass, normal nipple-areolar complex, no lymphadenopathy, and no nipple discharge CHEST: Normal inspiratory effort ABDOMEN: soft, non-tender, and no masses PELVIC: external genitalia normal, normal Bartholin's glands, urethra, [place]'s glands, no vulvar lesions, no cervical lesions, good vaginal support, physiologic discharge present, normal appearing perineal body and perianal region, atrophic flattened epithelium BIMANUAL: uterus normal size, shape and consistency, no adnexal masses, and non-tender RECTOVAGINAL: deferred. NEURO: alert and oriented x3,exam grossly non-focal EXTREMITIES: normal ASSESSMENT/PLAN: 1) Health maintenance: Pap/HPV screening no longer needed Mammogram ordered 2) Follow up one year or sooner as needed Beverley Jorgensen MD Allergies As of Date: 07/17/2024 Noted Allergy Reaction AMOXICILLIN 07/15/2005 2 - Rash BACTRIM (SULFAMETHOXAZOLE-TRIMET H*07/15/2005 Comments: stomatitis DEMEROL (MEPERIDINE) 12/07/2022 14 - Other: See Comments Comments: Urinary retention Date Reviewed: 07/17/2024 Reviewed by: Beverley Jorgensen MD - Fully Assessed Reason for Visit: Yearly Exam [187] Primary Visit Diagnosis:Encounter for gynecological examination (general) (routine) without abnormal findings [Z01.419] Other Visit Diagnoses:History of postmenopausal bleeding [Z87.42] Family history of uterine cancer [Z80.49] Prescriptions as of 07/17/2024 - atorvastatin (LIPITOR) 20 mg tablet Take 1 tablet by mouth daily at bedtime. For cholesterol. - ipratropium bromide (ATROVENT) 42 mcg (0.06 %) nasal spray Use 2 Sprays in the nose two times a day. - latanoprost (XALATAN) 0.005 % ophthalmic solution - ergocalciferol, vitamin D2, (VITAMIN D2 ORAL) Take by mouth. - acetaminophen (TYLENOL EXTRA STRENGTH ORAL) Take 2 tablets by mouth as needed. (more content not included)... Normal [facility] CNOVon 06-10-2024 CNOV Office Visit (PULMWS ) -------- YAKELIN HUYNH ([id number]) 1950 F Date Time Provider Department 06/10/24 12:00 PM LILIAN LEWIS PULLISBET During your visit today, we recorded the following information about you: Pulse Blood pressure Weight Height 73/minute 127/82 77.2 kg 1.575 m Lilian Lewis, TEJINDER.MOTION DESIGNER 06/10/2024 12:18 PM Signed [facility] INCIDENTAL LUNG NODULE PROGRAM (Follow Up) Impression / Recommendations 1. Multiple lung nodules on CT (Primary) Multiple lung nodules on 06/07/2024 CT Chest, up to 10 mm in size, are stable dating back to 04/07/2022. No further follow up is recommended. Pending final radiology review[place] may develop new lung nodules related to exposure. Over the last 2 years she has not developed any new nodules. If further CT imaging is done and she would like an additional review she was encouraged to reach out. -------- History of Present Illness Yakelin Huynh is a 74 year old female with a pertinent past medical history significant for No history of tobacco abuse who is being seen as a follow up for evaluation of a lung nodule(s). Accompanied by her . Yakelin Huynh had a CT Chest on 10/21/2022 for the indication of PE. >5 nodules were detected Incidentally. The nodule of greatest concern is a Solid 9 mm nodule with a Smooth border in the Right upper lobe of the lung. Prior imaging: (Yes What type of prior imaging? CT Scan 04/07/2022 at [facility] Was the nodule of concern seen on prior imaging? Yes Has the nodule of concern remained stable? Stable) Subsequent imaging 04/11/2023 and 06/07/2024. The nodule of concern has remained stable and no new nodules noted. Respiratory symptoms include: SOB: No Chest tightness: No Coughing: Yes: Without mucus Hemoptysis: No Wheezing: No Fever/Chills: No Recent Respiratory Infection: No Unintentional weight loss: No Last 6 Encounter Wt Readings: Date: Wt: 04/01/2024 76.7 kg (169 lb) 02/07/2024 76.8 kg (169 lb 5 oz) 04/24/2023 76.7 kg (169 lb) 04/11/2023 74.2 kg (163 lb 9.6 oz) 03/28/2023 74.6 kg (164 lb 6.4 oz) 12/07/2022 73.5 kg (162 lb) Modified Medical [employer] Lime Dyspnea Scale (MMRC) I only get breathless with strenous exercise 0 Problem List, History, Medications and allergies have been reviewed from the [facility] electronic medical record and any appropriate up-dates have been made. Physical Exam LMP 07/12/2006 General Appearance: Well appearing, alert, in no acute distress, well-hydrated, well nourished.. Neck: Supple, no adenopathy; thyroid symmetric, normal size Lungs: Lungs clear to auscultation. No wheezing, rhonchi, rales.. Heart: RRR without murmur, gallop, or rubs. No ectopy. Neurologic: Oriented X 3. Diagnostic Data I have personally visualized, reviewed and analyzed the findings on pulmonary function testing and radiographs. 06/07/2024 CT Chest, 04/11/2023 CT Chest and 04/07/2022 CT Chest stable RLL partially calcified nodule * * *Final Report* * * DATE OF EXAM: Apr 11 2023 9:00AM [facility] - CT CHEST WO IVCON / PROCEDURE REASON: Lung nodules * * * * Physician Interpretation * * * * EXAMINATION: CHEST CT WITHOUT CONTRAST CLINICAL HISTORY: Lung nodules. Technique: Spiral CT acquisition of the chest from the thoracic inlet to the upper abdomen without contrast. MQ: CTCWO_6 CT Radiation dose: Integrated Dose-length product (DLP) for this visit = 257 mGy*cm CT Dose Reduction Employed: Automated exposure control(AEC) and iterative recon Comparison: CT chest on 10/21/2022 RESULT: Limitations: None. Lines, tubes, and devices: None. Lung parenchyma and airways: The central airways are patent. Multiple solid nodules are visualized in the bilateral lungs. For example, there are nodules in the right lung measuring up to 1 cm, series 6 images 88, 117, 127, 134, 146 and 153. There are nodules in the left lung measuring up to 5 mm, series 6 images 42, 65, 84, 94 and 105. No new nodules identified. No masses. Biapical scarring is again noted. There are scattered calcified granulomas in the right lung. The bilateral lungs are clear of consolidations. Pleural space: No pleural effusion. No pleural thickening. Lower neck, lymph nodes, and mediastinum: The imaged thyroid gland is normal. No lymphadenopathy in the supraclavicular, axillary, mediastinal, or hilar regions. Calcified lymph nodes again noted in the mediastinum and bilateral hilar region, likely related to remote granulomatous disease. Heart, pericardium, and thoracic vessels: The thoracic aorta and main pulmonary artery are normal in caliber. The cardiac chambers are normal in size. Punctate coronary artery atherosclerotic c (more content not included)... Normal [facility] CT CHEST WO IVCONon 06-08-19 CT CHEST WO IVCON * * *Final Report* * * DATE OF EXAM: Jun 07 2024 10:25AM [facility] 0541 - CT CHEST WO IVCON / PROCEDURE REASON: Lung nodules * * * * Physician Interpretation * * * * EXAMINATION: CHEST CT WITHOUT CONTRAST CLINICAL HISTORY: Follow-up pulmonary nodules. Technique: Spiral CT acquisition of the chest from the thoracic inlet to the upper abdomen without contrast. MQ: CTCWO_6 CT Radiation dose: Integrated Dose-length product (DLP) for this visit = 243 mGy*cm CT Dose Reduction Employed: Automated exposure control(AEC) and iterative recon Comparison: CT chest 04/11/2023. RESULT: Limitations: None. Lines, tubes, and devices: None. Lung parenchyma and airways: The central airways are patent. No consolidation. Scattered calcified granulomas. Biapical pleural parenchymal scarring. Redemonstrated pulmonary nodules, for example: * 6 mm solid left upper lobe nodule (6:74), stable. * 6 mm solid right middle lobe nodule (6:236), stable. * 12 mm solid anteromedial right lower lobe nodule (6:252), stable. * 5 mm solid posterior left upper lobe nodule (6:110), stable. * 5 mm solid anterior left lower lobe nodule (6:124), stable. * Multiple additional sub-6 mm bilateral pulmonary nodules stable from prior. No new or enlarging pulmonary nodules. Pleural space: No pleural effusion. No pleural thickening. Lower neck, lymph nodes, and mediastinum: The imaged thyroid gland is normal. No lymphadenopathy in the supraclavicular, axillary, mediastinal, or hilar regions. Prominent but subcentimeter short axis mediastinal and paratracheal lymph nodes, some of which are calcified and stable from prior. Heart, pericardium, and thoracic vessels: The thoracic aorta and main pulmonary artery are normal in caliber. The cardiac chambers are normal in size. Mild coronary artery atherosclerotic calcifications are noted within the LAD, although the study is not optimized for coronary assessment. No pericardial effusion or thickening. Bones and soft tissues: No destructive bone lesion. Chest wall is unremarkable. Upper abdomen: No acute abnormality in the imaged upper abdomen. Localizer images: No additional findings. IMPRESSION: Stable bilateral pulmonary nodules, largest measuring 12 mm in the right lower lobe. No new or enlarging pulmonary nodules or thoracic lymphadenopathy. Metal Ceiling Builder: PSCB Transcribe Date/Time: Jun 15 2024 12:42P Dictated by : CARLOS KELLEY MD This examination was interpreted and the report reviewed and electronically signed by: CARLOS KELLEY MD on Jun 15 2024 12:56PM EST [id number] Normal [facility] -------- YAKELIN HUYNH ([id number]) 1950 F Date Time Provider Department 05/08/24 ABHINAV BOLDEN During your visit today, we recorded the following information about you: Dai Garcia LPN 05/08/2024 2:25 PM Signed Patient calling she had left hip replacement done per Dr Garcia 2 weeks ago, she had problem with gastritis after eating pasta dish. He had her add Nexium 20 mg once daily in pm, she continues taking Pepcid 20 mg in the am. She said the gastritis has resolved. She had her 2 week follow up with Dr Garcia today and he wanted her to check with PCP on how long to continue taking the Nexium rx? Please advise Abhinav Bolden MD 05/08/2024 2:48 PM Signed I would take it for 2 more weeks and then stop. Let us know if symptoms return. Yoni Gregg LPN 05/08/2024 4:47 PM Signed Pt notified. She verbalized understanding. Yoni Gregg LPN Allergies As of Date: 05/08/2024 Noted Allergy Reaction AMOXICILLIN 07/15/2005 2 - Rash BACTRIM (SULFAMETHOXAZOLE-TRIMET H*07/15/2005 Comments: stomatitis DEMEROL (MEPERIDINE) 12/07/2022 14 - Other: See Comments Comments: Urinary retention Date Reviewed: 04/01/2024 Reviewed by: Benito Ta LPN - Fully Assessed Reason for Visit: Patient Question [9368] Prescriptions as of 05/08/2024 - ipratropium bromide (ATROVENT) 42 mcg (0.06 %) nasal spray Use 2 Sprays in the nose two times a day. - atorvastatin (LIPITOR) 20 mg tablet Take 1 tablet by mouth daily at bedtime. For cholesterol. - latanoprost (XALATAN) 0.005 % ophthalmic solution - ergocalciferol, vitamin D2, (VITAMIN D2 ORAL) Take by mouth. - acetaminophen (TYLENOL EXTRA STRENGTH ORAL) Take 2 tablets by mouth as needed. - diphenhydrAMINE (BENADRYL) 25 mg capsule Take 25 mg by mouth every 6 hours as needed. - fluticasone (FLONASE) 50 mcg/actuation nasal spray Use 2 Sprays in each nostril once daily. Rinse mouth after use. - docusate sodium (STOOL SOFTENER ORAL) Take by mouth. - CALCIUM CARBONATE/VITAMIN D3 (CALCIUM 600 + D,3, ORAL) Take by mouth twice daily. - PSYLLIUM SEED, WITH SUGAR, (METAMUCIL ORAL) Take by mouth. - POLYETHYLENE GLYCOL 3350 (MIRALAX ORAL) Take by mouth. 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/2005 12/18/2008 Diffuse cystic mastopathy [N60.19] 09/26/2005 Routine general medical examination at [facility]*12/18/2008 08/16/2011 Class: Chronic Routine gynecological examination [Z01.419] 12/18/2008 08/16/2011 Class: Chronic SVT (supraventricular tachycardia) (HCC) [I47.1*12/18/2008 04/04/2017 Postmenopausal atrophic vaginitis [N95.2] 08/10/2010 Shingles [B02.9] 04/12/2012 Abnormal mammogram, unspecified [R92.8] 10/15/2013 04/04/2017 Vasomotor rhinitis [J30.0] 04/06/2018 Class 1 obesity due to excess calories without * Pure hypercholesterolemia [E78.00] Primary osteoarthritis of both knees [M17.0] 09/21/2021 Personal history of DVT (deep vein thrombosis) *04/11/2022 Single subsegmental pulmonary embolism without *04/11/2022 03/28/2023 Solitary pulmonary nodule on lung CT [R91.1] 04/07/2021 Encounter Status:Closed by YONI GREGG on 05/08/24 [facility] CNOVon 04-01-2024 CNOV Office Visit (FAMPWS ) -------- YAKELIN HUYNH ([id number]) 1950 F Date Time Provider Department 04/01/24 12:20 PM PODLOGMELI VERNON During your visit today, we recorded the following information about you: Pulse Respiration Blood pressure Weight 83/minute 18/minute 134/76 76.7 kg PodlogMeli vernon APRN.CNP 04/01/2024 1:00 PM Signed CC: Patient presents with: Pre-Op Exam HPI Yakelin Huynh is a 74 year old female who presents today for pre-op evaluation. Surgical Procedure: anterior left total hip arthroplasty Date of Procedure: 04/25/2024 Surgeon: Dr. Jose WERNER date: 04/17/2024 Patient reports had EKG METS: Walk indoors, such as around the house (1.75 METs): YES Do light work around the house, such as dusting or washing dishes (2.70 METs): YES Take care of self; that is eating, dressing, bathing, using the toilet (2.75 METs): YES Walk a block or two on level ground (2.75 METs): YES Do moderate work around the house such as vacuuming, sweeping floors, or carrying in groceries (3.50 METs): YES Do yardwork, such as raking leaves, weeding,or pushing a power mower (4.50 METs): YES Climb a flight of stairs or walk up a hill (5.50 METs): YES Participate in moderate recreational activities, such as golf, bowling, dancing, doubles tennis, or throwing a baseball or football (6.00 METs): YES Participate in strenuous sport, such as swimming, singles tennis, football, basketball, or skiing (7.50 METs): NO Do heavy work around the house, such as scrubbing floors, lifting or moving heavy furniture (8.00 METs): YES Run a short distance (8.00 METs): NO Patient denies any chest pain or undue shortness of breath with the above physical activity. Diabetes No Hypertension requiring medication No Congestive Heart Failure No Current Smoker within 1 Year No COPD/asthma No ITALIA No Dialysis No Acute renal failure No Steroid use for chronic condition No Disseminated cancer No REVIEW OF SYSTEMS GENERAL: No weight loss, malaise or fevers NECK: Negative for lumps, goiter, pain and significant neck swelling RESPIRATORY: Negative for cough, hemoptysis, wheezing, COPD, dyspnea or shortness of breath CARDIOVASCULAR: Negative for chest pain, leg swelling, hypertension, CHF or palpitations SKIN: Negative for lesions, rash, and itching PAST MEDICAL HISTORY Diagnosis Date Bursitis of left hip Class 1 obesity due to excess calories without serious comorbidity with body mass index (BMI) of 30.0 to 30.9 in adult DVT (deep venous thrombosis) (HCC) 04/03/2022 after DANTX Glaucoma 2023 right eye change Hemorrhage of gastrointestinal tract, unspecified From hemorrhoids only Internal hemorrhoids without mention of complication Irregular menstrual cycle Irregular periods Resolved Osteoarthritis knee Primary osteoarthritis of both knees Dr. Garcia Pulmonary embolism ([facility]) 04/08/2022 After DANTX Pure hypercholesterolemia Shingles 04/12/2012 Solitary pulmonary nodule on lung CT 04/07/2021 SVT (supraventricular tachycardia) ([facility]) 2004 Symptomatic menopausal or female climacteric states With atrophic vaginitis Unspecified constipation PAST SURGICAL HISTORY Procedure Laterality Date APPENDECTOMY 1986 CATARACT SURGERY, COMPLEX Left 04/2016 CATARACT SURGERY, COMPLEX Right 2018 [facility] ANTERPOST COLPORRAPHY W/CYSTO 02/21/2019 AANDP repair COLONOSCOPY FLX DX W/COLLJ SPEC WHEN PFRMD 01/05/05 [facility] Colonoscopy COLONOSCOPY FLX DX W/COLLJ SPEC WHEN PFRMD 01/30/2015 Colonoscopy DILATION AND CURETTAGE DXAND/THER NONOBSTETRIC Dilation AND curettage HYSTEROSCOPY BX ENDOMETRIUMAND/POLYPC W/WO DANDC 03/29/2022 DANDC w/ polyp resection HYSTEROSCOPY, DIAGNOSTIC (SEPARATE 2002 Hysteroscopy LAPS ABD PRTMANDOMENTUM DX W/WO SPEC BR/WA SPX Laparoscopy LIG/TRNSXJ FLP TUBE ABDL/VAG APPR UNI/BI 1982 Tubal ligation 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 atorvastatin (LIPITOR) 20 mg tablet Take 1 tablet by mouth daily at bedtime. For cholesterol. latanoprost (XALATAN) 0.005 % ophthalmic solution ergocalciferol, vitamin D2, (VITAMIN D2 ORAL) Take by mouth. acetaminophen (TYLENOL EXTRA STRENGTH ORAL) Take 2 tablets by mouth as needed. diphenhydrAMINE (BENADRYL) 25 mg capsule Take 25 mg by mouth every 6 hours as needed. fluticasone (FLONASE) 50 mcg/actuation nasal spray Use 2 Sprays in each nostril once daily. Rinse mouth after use. (Patient taking differently: Use 2 Sprays in each nostril once daily. Rinse mouth after use. Uses as needed) docusate sodium (STOOL SOFTENER (more content not included)... [facility] -------- YAKELIN HUYNH ([id number]) 1950 F Date Time Provider Department 04/01/24 MELI REYNA During your visit today, we recorded the following information about you: Meli Reyna APRN.BINH 04/01/2024 12:32 PM Signed Please fax surgical clearance form om my outbox to Dr. Garcia. Meli Reyna APRN.Benito Lora LPN 04/01/2024 2:55 PM Signed Paperwork faxed to [phone]. Benito Ta LPN Allergies As of Date: 04/01/2024 Noted Allergy Reaction AMOXICILLIN 07/15/2005 2 - Rash BACTRIM (SULFAMETHOXAZOLE-TRIMET H*07/15/2005 Comments: stomatitis DEMEROL (MEPERIDINE) 12/07/2022 14 - Other: See Comments Comments: Urinary retention Date Reviewed: 04/01/2024 Reviewed by: Benito Ta LPN - Fully Assessed Prescriptions as of 04/01/2024 - ipratropium bromide (ATROVENT) 42 mcg (0.06 %) nasal spray Use 2 Sprays in the nose two times a day. - atorvastatin (LIPITOR) 20 mg tablet Take 1 tablet by mouth daily at bedtime. For cholesterol. - latanoprost (XALATAN) 0.005 % ophthalmic solution - ergocalciferol, vitamin D2, (VITAMIN D2 ORAL) Take by mouth. - acetaminophen (TYLENOL EXTRA STRENGTH ORAL) Take 2 tablets by mouth as needed. - diphenhydrAMINE (BENADRYL) 25 mg capsule Take 25 mg by mouth every 6 hours as needed. - fluticasone (FLONASE) 50 mcg/actuation nasal spray Use 2 Sprays in each nostril once daily. Rinse mouth after use. - docusate sodium (STOOL SOFTENER ORAL) Take by mouth. - CALCIUM CARBONATE/VITAMIN D3 (CALCIUM 600 + D,3, ORAL) Take by mouth twice daily. - PSYLLIUM SEED, WITH SUGAR, (METAMUCIL ORAL) Take by mouth. - POLYETHYLENE GLYCOL 3350 (MIRALAX ORAL) Take by mouth. 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/2005 12/18/2008 Diffuse cystic mastopathy [N60.19] 09/26/2005 Routine general medical examination at [facility]*12/18/2008 08/16/2011 Class: Chronic Routine gynecological examination [Z01.419] 12/18/2008 08/16/2011 Class: Chronic SVT (supraventricular tachycardia) (HCC) [I47.1*12/18/2008 04/04/2017 Postmenopausal atrophic vaginitis [N95.2] 08/10/2010 Shingles [B02.9] 04/12/2012 Abnormal mammogram, unspecified [R92.8] 10/15/2013 04/04/2017 Vasomotor rhinitis [J30.0] 04/06/2018 Class 1 obesity due to excess calories without * Pure hypercholesterolemia [E78.00] Primary osteoarthritis of both knees [M17.0] 09/21/2021 Personal history of DVT (deep vein thrombosis) *04/11/2022 Single subsegmental pulmonary embolism without *04/11/2022 03/28/2023 Solitary pulmonary nodule on lung CT [R91.1] 04/07/2021 Encounter Status:Closed by BENITO TA on 04/01/24 Normal [facility] 12 Lead EKGon 2024 12 Lead EKG [facility] [address] [place] [address] 12 Lead EKG 03/27/24 0856 MR#: [id number] Acct: [id number] Name: YAKELIN HUYNH Rep #: [id number] : 1950 74 From: Yash Chairez MD Attending Dr: Dr. Jose Juan Garcia MD Status: REG [facility] Ordering Dr: Jose Juan Garcia MD Date: 03/27/24 Location: [facility] Sex: F C Admitted: Test Reason : PREOP Blood Pressure : */* mmHG Vent. Rate : 72 BPM Atrial Rate : 72 BPM P-R Int : 190 ms QRS Dur : 80 ms QT Int : 404 ms P-R-T Axes : 65 -10 41 degrees QTcB Int : 442 ms Normal sinus rhythm Normal ECG Confirmed by YASH CHAIREZ MD ([id number]), newspaper editor NIKOS SWENSON ([id number]) on 03/28/2024 5:50:22 AM Referred By: Jose Juan Garcia Confirmed By: YASH CHAIREZ MD 03/28/24 0550 Date Yash Chairez MD CC: Dr. Abel Bolden MD; Dr. Jose Juan Garcia MD Signed Normal [facility] CBC W/Diff, Automatedon - Absolute Lymph 2.01 X10 3/uL Normal 0.83-4.51 [facility] Comment on above: Order Comment: MELI ORDERD A CMP LIPID JOSE JUAN GARCIA ORDERD ALB,CBCD,BMP Performed By: #### L 100.0100, L500.4050, L500.4100 #### [facility] [address] [place], [address] Absolute Neut 3.6 X10 3/uL Normal 2.0-7.7 [facility] Comment on above: Order Comment: MELI ORDERD A CMP LIPID JOSE JUAN GARCIA ORDERD ALB,CBCD,BMP Performed By: #### L 100.0100, L500.4050, L500.4100 #### [facility] [address] [place], [address] Basophils/100 WBC (Bld) 1.1 % High 0-1 [facility] Comment on above: Order Comment: MELI LOMBARDID A CMP LIPID JOSE JUAN GARCIA ORDERD ALB,CBCD,BMP Performed By: #### L 100.0100, L500.4050, L500.4100 #### [facility] [address] [place], [address] Eosinophils/100 WBC (Bld) 1.4 % Normal 0-5 [facility] Comment on above: Order Comment: MELI ORDERD A CMP LIPID JOSE JUAN GARCIA ORDERD ALB,CBCD,BMP Performed By: #### L 100.0100, L500.4050, L500.4100 #### [facility] [address] [place], [address] Erythrocyte distribution width (RBC) [Ratio] 15.3 % High 11.6-14.6 [facility] Comment on above: Order Comment: MELI ORDERD A CMP LIPID JOSE JUAN GARCIA ORDERD ALB,CBCD,BMP Performed By: #### L 100.0100, L500.4050, L500.4100 #### [facility] [address] [place], [address] Hematocrit (Bld) [Volume fraction] 44.6 % Normal 37-47 [facility] Comment on above: Order Comment: MELI LOMBARDID A CMP LIPID JOSE JUAN GARCIA ORDERD ALB,CBCD,BMP Performed By: #### L 100.0100, L500.4050, L500.4100 #### [facility] [address] [place], [address] Hemoglobin (Bld) [Mass/Vol] 14.6 g/dL Normal 12.0-15.0 [facility] Comment on above: Order Comment: MELI LOMBARDID A CMP LIPID JOSE JUAN GARCIA ORDERD ALB,CBCD,BMP Performed By: #### L 100.0100, L500.4050, L500.4100 #### [facility] [address] [place], [address] IG% 0.500 Normal 0.0-0.9 [facility] Comment on above: Order Comment: MELI LOMBARDID A CMP LIPID JOSE JUAN GARCIA ORDERD ALB,CBCD,BMP Result Comment: IG% - Immature Granulocytes (promyelocytes, myelocytes and metamyelocytes) > 1% indicates that a LEFT SHIFT is Present. Performed By: #### L 100.0100, L500.4050, L500.4100 #### [facility] [address] [place], [address] Lymphocytes/100 WBC (Bld) 30.9 % Normal 19-41 [facility] Comment on above: Order Comment: MELI LOMBARDID A CMP LIPID JOSE JUAN GARCIA ORDERD ALB,CBCD,BMP Performed By: #### L 100.0100, L500.4050, L500.4100 #### [facility] [address] [place], [address] MCH (RBC) [Entitic mass] 29.3 pg Normal 27.0-32.0 [facility] Comment on above: Order Comment: MELI ORDERD A CMP LIPID JOSE JUAN JOSE ORDERD ALB,CBCD,BMP Performed By: #### L 100.0100, L500.4050, L500.4100 #### [facility] [address] [place], [address] MCHC (RBC) [Mass/Vol] 32.7 g/dL Normal 32-36 [facility] Comment on above: Order Comment: MELI ORDERD A CMP LIPID JOSE JUAN JOSE ORDERD ALB,CBCD,BMP Performed By: #### L 100.0100, L500.4050, L500.4100 #### [facility] [address] [place], [address] MCV (RBC) [Entitic vol] 89.6 fL Normal 81-99 [facility] Comment on above: Order Comment: MELI LOMBARDID A CMP LIPID JOSE JUAN JOSE ORDERD ALB,CBCD,BMP Performed By: #### L 100.0100, L500.4050, L500.4100 #### [facility] [address] [place], [address] Monocytes/100 WBC (Bld) 10.8 % High 0-10 [facility] Comment on above: Order Comment: MELI LOMBARDID A CMP LIPID JOSE JUAN JOSE ORDERD ALB,CBCD,BMP Performed By: #### L 100.0100, L500.4050, L500.4100 #### [facility] [address] [place], [address] Neutrophils/100 WBC (Bld) 55.3 % Normal 47-70 [facility] Comment on above: Order Comment: MELI ORDERD A CMP LIPID JOSE JUAN JOSE ORDERD ALB,CBCD,BMP Performed By: #### L 100.0100, L500.4050, L500.4100 #### [facility] [address] [place], [address] Nucleated RBC (Bld) [#/Vol] 0 10*3/uL Normal 0-5 [facility] Comment on above: Order Comment: MELI ORDERD A CMP LIPID JOSE JUAN JOSE ORDERD ALB,CBCD,BMP Performed By: #### L 100.0100, L500.4050, L500.4100 #### [facility] [address] [place], [address] Platelet mean volume (Bld) [Entitic vol] 10.5 fL Normal 6.2-12.0 [facility] Comment on above: Order Comment: MELI LOMBARDID A CMP LIPID JOSE JUAN JOSE ORDERD ALB,CBCD,BMP Performed By: #### L 100.0100, L500.4050, L500.4100 #### [facility] [address] [place], [address] Platelets (Bld) [#/Vol] 219 10*3/uL Normal 150-450 [facility] Comment on above: Order Comment: MELI LOMBARDID A CMP LIPID JOSE JUAN JOSE ORDERD ALB,CBCD,BMP Performed By: #### L 100.0100, L500.4050, L500.4100 #### [facility] [address] [place], [address] RBC (Bld) [#/Vol] 4.98 10*6/uL Normal 4.2-5.4 [facility] Comment on above: Order Comment: MELI ORDERD A CMP LIPID JOSE JUAN JOSE ORDERD ALB,CBCD,BMP Performed By: #### L 100.0100, L500.4050, L500.4100 #### [facility] [address] [place], [address] RDW SD 50.8 fl High 35.1-43.9 [facility] Comment on above: Order Comment: MELI ORDERD A CMP LIPID JOSE JUAN JOSE ORDERD ALB,CBCD,BMP Performed By: #### L 100.0100, L500.4050, L500.4100 #### [facility] [address] [place], [address] WBC (Bld) [#/Vol] 6.5 10*3/uL Normal 4.4-11.0 [facility] Comment on above: Order Comment: MELI LOMBARDID A CMP LIPID JOSE JUAN GARCIA ORDERD ALB,CBCD,BMP Performed By: #### L 100.0100, L500.4050, L500.4100 #### [facility] [address] [place], [address] Comprehensive Metabolic Prof idon 2024 Albumin [Mass/Vol] 3.8 g/dL Normal 3.2-5.0 [facility] Comment on above: Order Comment: MELI LOMBARDID A CMP LIPID JOSE JUAN GARCIA ORDERD ALB,CBCD,BMP Performed By: #### L 100.0100, L500.4050, L500.4100 #### [facility] [address] [place], [address] Albumin/Globulin [Mass ratio] 1.0 {ratio} Normal 0.9-2.4 [facility] Comment on above: Order Comment: MELI LOMBARDIPat A CMP LIPID JOSE JUAN GARCIA ORDERD ALB,CBCD,BMP Performed By: #### L 100.0100, L500.4050, L500.4100 #### [facility] [address] [place], [address] ALK P 106 U/L Normal 45-117 [facility] Comment on above: Order Comment: MELI LOMBARDID A CMP LIPID JOSE JUAN GARCIA ORDERD ALB,CBCD,BMP Performed By: #### L 100.0100, L500.4050, L500.4100 #### [facility] [address] [place], [address] ALT [Catalytic activity/Vol] 26 U/L Normal 13-56 [facility] Comment on above: Order Comment: MELI ORDERD A CMP LIPID JOSE JUAN GARCIA ORDERD ALB,CBCD,BMP Performed By: #### L 100.0100, L500.4050, L500.4100 #### [facility] [address] [place], [address] AST [Catalytic activity/Vol] 19 U/L Normal 15-37 [facility] Comment on above: Order Comment: MELI ORDERD A CMP LIPID JOSE JUANOCTAVIA GARCIA ORDERD ALB,CBCD,BMP Performed By: #### L 100.0100, L500.4050, L500.4100 #### [facility] [address] [place], [address] Bilirubin [Mass/Vol] 0.50 mg/dL Normal 0.20-1.[address] [facility] Comment on above: Order Comment: MELI LOMBARDID A CMP LIPID JOSE JUAN GARCIA ORDERD ALB,CBCD,BMP Result Comment: For patients on eltrombopag therapy, use of Dimension [place] TBIL is not recommended. Performed By: #### L 100.0100, L500.4050, L500.4100 #### [facility] [address] [place], [address] BUN/CRE 24.0 RATIO High 10-20 [facility] Comment on above: Order Comment: MELI LOMBARDID A CMP LIPID JOSE JUAN GARCIA ORDERD ALB,CBCD,BMP Performed By: #### L 100.0100, L500.4050, L500.4100 #### [facility] [address] [place], [address] CA,Total 9.5 mg/dL Normal 8.5-10.1 [facility] Comment on above: Order Comment: MELI LOMBARDID A CMP LIPID JOSE JUAN GARCIA ORDERD ALB,CBCD,BMP Performed By: #### L 100.0100, L500.4050, L500.4100 #### [facility] [address] [place], [address] Chloride [Moles/Vol] 109 mmol/L High 98-[address] [facility] Comment on above: Order Comment: MELI ORDERD A CMP LIPID JOSE JUAN JOSE ORDERD ALB,CBCD,BMP Performed By: #### L 100.0100, L500.4050, L500.4100 #### [facility] [address] [place], [address] CO2 [Moles/Vol] 28.0 mmol/L Normal 21.0-32.0 [facility] Comment on above: Order Comment: MELI LOMBARDID A CMP LIPID JOSE JUANOCTAVIA GARCIA ORDERD ALB,CBCD,BMP Performed By: #### L 100.0100, L500.4050, L500.4100 #### [facility] [address] [place], [address] Creatinine [Mass/Vol] 0.79 mg/dL Normal 0.55-1.02 [facility] Comment on above: Order Comment: MELI LOMBARDID A CMP LIPID JOSE JUANOCTAVIA GARCIA ORDERD ALB,CBCD,BMP Result Comment: The validity of the calculated GFR GFRAA in patients over 70 years has not been determined. Clinical correlation is essential. Performed By: #### L 100.0100, L500.4050, L500.4100 #### [facility] [address] [place], [address] EST GFR - AA 92 mL/min Normal >60 [facility] Comment on above: Order Comment: MELI LOMBARDID A CMP LIPID JOSE JUAN JOSE ORDERD ALB,CBCD,BMP Result Comment: Afri can [place] GFR Calc Performed By: #### L 100.0100, L500.4050, L500.4100 #### [facility] [address] [place], [address] GAP 3 Low 5-15 [facility] Comment on above: Order Comment: MELI LOMBARDID A CMP LIPID JOSE JUANOCTAVIA GARCIA ORDERD ALB,CBCD,BMP Performed By: #### L 100.0100, L500.4050, L500.4100 #### [facility] [address] [place], [address] GFR/1.73 sq M.predicted among non-blacks MDRD (S/P/Bld) [Vol rate/Area] 76 mL/min/{1.73_m2} Normal >60 [place] [facility] Comment on above: Order Comment: MELI LOMBARDID A CMP LIPID JOSE JUAN GARCIA ORDERD ALB,CBCD,BMP Result Comment: Non- GFR Calc Performed By: #### L 100.0100, L500.4050, L500.4100 #### [facility] [address] [place], [address] Globulin (S) [Mass/Vol] 3.9 g/dL Normal 2.2-4.2 [facility] Comment on above: Order Comment: MELI SWANN A CMP LIPID JOSE JUAN GARCIA ORDERD ALB,CBCD,BMP Performed By: #### L 100.0100, L500.4050, L500.4100 #### [facility] [address] [place], [address] Glucose [Mass/Vol] 100 mg/dL Normal 74-106 [facility] Comment on above: Order Comment: MELI SWANN A CMP LIPID JOSE JUAN GARCIA ORDERD ALB,CBCD,BMP Result Comment: Fast ing Glucose result from 100 to 125 mg/dL suggests IMPAIRED HOMEOSTASIS per A.D.A. criteria. Performed By: #### L 100.0100, L500.4050, L500.4100 #### [facility] [address] [place], [address] Potassium [Moles/Vol] 4.3 mmol/L Normal 3.5-5.1 [facility] Comment on above: Order Comment: MELI SWANN A CMP LIPID JOSE JUAN GARCIA ORDERD ALB,CBCD,BMP Performed By: #### L 100.0100, L500.4050, L500.4100 #### [facility] [address] [place], [address] Sodium [Moles/Vol] 140 mmol/L Normal 136-145 [facility] Comment on above: Order Comment: MELI LOMBARDID A CMP LIPID JOSE JUAN GARCIA ORDERD ALB,CBCD,BMP Performed By: #### L 100.0100, L500.4050, L500.4100 #### [facility] [address] [place], [address] T PROT 7.7 g/dL Normal 6.4-8.2 [facility] Comment on above: Order Comment: MELI LOMBARDID A CMP LIPID JOSE JUAN GARCIA ORDERD ALB,CBCD,BMP Performed By: #### L 100.0100, L500.4050, L500.4100 #### [facility] [address] [place], [address] Urea nitrogen [Mass/Vol] 19 mg/dL High 7-18 [facility] Comment on above: Order Comment: MELI LOMBARDID A CMP LIPID JOSE JUAN GARCIA ORDERD ALB,CBCD,BMP Performed By: #### L 100.0100, L500.4050, L500.4100 #### [facility] [address] [place], [address] Lipid Profileon 2024 Cholesterol [Mass/Vol] 127 mg/dL Normal 200 [facility] Comment on above: Order Comment: MELI LOMBARDID A CMP LIPID JOSE JUAN GARCIA ORDERD ALB,CBCD,BMP Result Comment: <200 mg/dL Desirable 200-240 mg/dL Borderline >240 mg/dL High Risk Performed By: #### L 100.0100, L500.4050, L500.4100 #### [facility] [address] [place], [address] Cholesterol in HDL [Mass/Vol] 64 mg/dL Normal [facility] Comment on above: Order Comment: MELI ORDERD A CMP LIPID JOSE JUAN GARCIA ORDERD ALB,CBCD,BMP Result Comment: The drugs N-Acetylcysteine and Metamizole may falsely depress this assay. Reference Range HDL <40 mg/dL Low HDL Cholesterol HDL >or= 60 mg/dL High HDL Cholesterol Performed By: #### L 100.0100, L500.4050, L500.4100 #### [facility] [address] [place], [address] Cholesterol in LDL [Mass/Vol] 43 mg/dL Normal 0-130 [facility] Comment on above: Order Comment: MELI ORDERD A CMP LIPID JOSE JUAN GARCIA ORDERD ALB,CBCD,BMP Performed By: #### L 100.0100, L500.4050, L500.4100 #### [facility] [address] [place], [address] Cholesterol in VLDL [Mass/Vol] 20 mg/dL Normal 5-40 [facility] Comment on above: Order Comment: MELI ORDERD A CMP LIPID JOSE JUAN CUETOMER ORDERD ALB,CBCD,BMP Performed By: #### L 100.0100, L500.4050, L500.4100 #### [facility] [address] [place], [address] Triglyceride [Mass/Vol] 102 mg/dL Normal [facility] Comment on above: Order Comment: MELI ORDERD A CMP LIPID JOSE JUAN GARCIA ORDERD ALB,CBCD,BMP Result Comment: The drugs N-Acetylcysteine and Metamizole may falsely depress this assay. Serum Triglycerides Reference Interval Normal <150 mg/dL Borderline high 150 - 199 mg/dL High 200 - 499 mg/dL Very High > or = 500 mg/dL Performed By: #### L 100.0100, L500.4050, L500.4100 #### [facility] [address] [place], [address] SCRN MAMM (CAD)W/HORTENCIA BILATo n 02-22-2024 SCRN MAMM (CAD)W/HORTENCIA BILAT [facility] Imaging Services [address] [place] [address] SCRN MAMM (CAD)W/HORTENCIA BILAT MR#: [id number] Acct: [id number] Name: YAKELIN HUYNH Rep #: [id number] : 1950 F 73 From: Zak orozco MD PCP: Dr. Abel Bolden MD Status: [facility] Study: SCRN MAMM (CAD)W/HORTENCIA BILAT Date of Exam: 02/10 05/06 Exam# [id number] Ordering Dr: Beverley Jorgensen MD [id number] MAMMOGRAPHY - BILATERAL SCREENING REASON FOR EXAM: Female, 73 years old. Routine annual screening examination. PERTINENT HISTORY: Non-contributory. TECHNIQUE: Digital bilateral breast hortencia (3D mammographic acquisition) in the CC and MLO projections. 2-D mediolateral oblique (MLO) and craniocaudad (CC) views of both breasts were obtained. CAD: Full Field Digital Mammography with Computer Added Detection was performed. COMPARISON: Comparison is made with prior study February 20, 2023 and February 15, 2022. FINDINGS: Breast Composition: The breasts are heterogeneously dense, which may obscure small masses. There are no dominant masses or suspicious calcifications. Stable bilateral axillary lymph nodes. No other significant abnormalities are identified. There has been no significant change since the prior study. BI/SCRN MAMM (CAD)W/HORTENCIA BILAT IMPRESSION: Stable bilateral screening mammogram. Yearly follow-up mammogram recommended. (A) ASSESSMENT CATEGORY: BIRADS Category 2: Benign. A letter regarding these results will be sent to the patient by the facility within 30 days. Approximately 10% of breast cancers are not detected by mammography. A normal mammogram should not delay biopsy of a clinically suspicious abnormality. [id number] Electronically Signed: Zak Caceres MD at 8:35 EST , CC: Dr. Abel Bolden MD; Dr. Beverley Jorgensen MD Metal Ceiling Builder: S[facility] Office Visit (FAMPWS ) -------- YAKELIN HUYNH ([id number]) 1950 F Date Time Provider Department 02/07/24 9:40 AM MELI REYNA During your visit today, we recorded the following information about you: Pulse Respiration Blood pressure Weight 86/minute 18/minute 126/78 76.8 kg Height 1.591 m Meli Renya APRN.CNP 02/07/2024 10:19 AM Signed 02/07/2024 Patient presents with: Yearly Exam SUBJECTIVE: This is a 73 year old that is here today for Above Complaints. Since last office visit has been in good health without ER visits or hospitalizations. Following with Dr. Garcia for bursitis in hips. Is currently in physical therapy HYPERLIPIDEMIA: Patient is taking medications: Yes. Patient is watching diet: Yes. Patient denies myalgias: Yes. Patient denies gi upset: Yes Follows with pulmonology for hx of lung nodules. Last chest CT on 10/11/2023 which showed stable bilateral lung nodules. Follow-units CT scheduled in April. Would like refill on Atrovent nasal spray. Reports she will develop runny nose which triggers her to cough. Used this in the past which worked well. PAST MEDICAL HISTORY Diagnosis Date Bursitis of left hip Class 1 obesity due to excess calories without serious comorbidity with body mass index (BMI) of 30.0 to 30.9 in adult DVT (deep venous thrombosis) ([facility]) 04/03/2022 after [facility] Glaucoma 2023 right eye change Hemorrhage of gastrointestinal tract, unspecified From hemorrhoids only Internal hemorrhoids without mention of complication Irregular menstrual cycle Irregular periods Resolved Osteoarthritis knee Primary osteoarthritis of both knees Dr. Garcia Pulmonary embolism ([facility]) 04/08/2022 After [facility] Pure hypercholesterolemia Shingles 04/12/2012 Solitary pulmonary nodule on lung CT 04/07/2021 SVT (supraventricular tachycardia) ([facility]) 2004 Symptomatic menopausal or female climacteric states With atrophic vaginitis Unspecified constipation ALLERGIES Amoxicillin, Bactrim [Sulfamethoxazole-Trimet hoprim], and Demerol [Meperidine] MEDICATIONS Current Outpatient Medications Medication Sig atorvastatin (LIPITOR) 20 mg tablet Take 1 tablet by mouth daily at bedtime. For cholesterol. latanoprost (XALATAN) 0.005 % ophthalmic solution ergocalciferol, vitamin D2, (VITAMIN D2 ORAL) Take by mouth. acetaminophen (TYLENOL EXTRA STRENGTH ORAL) Take 2 tablets by mouth as needed. diphenhydrAMINE (BENADRYL) 25 mg capsule Take 25 mg by mouth every 6 hours as needed. ipratropium bromide (ATROVENT NASAL) Use in the nose once daily. fluticasone (FLONASE) 50 mcg/actuation nasal spray Use 2 Sprays in each nostril once daily. Rinse mouth after use. (Patient taking differently: Use 2 Sprays in each nostril once daily. Rinse mouth after use. Uses as needed) docusate sodium (STOOL SOFTENER ORAL) Take by mouth. CALCIUM CARBONATE/VITAMIN D3 (CALCIUM 600 + D,3, ORAL) Take by mouth twice daily. PSYLLIUM SEED, WITH SUGAR, (METAMUCIL ORAL) Take by mouth. POLYETHYLENE GLYCOL 3350 (MIRALAX ORAL) Take by mouth. As needed No current facility-administered medications for this visit. Medications and allergies reviewed by this provider. SOCIAL HISTORY Social History Tobacco Use Smoking status: Never Smokeless tobacco: Never Vaping Use Vaping status: Never Used Substance Use Topics Alcohol use: Yes Comment: 1-2 times per month Drug use: No REVIEW OF SYSTEMS GENERAL: No weight loss, malaise or fevers RESPIRATORY: Negative for cough, hemoptysis, wheezing, COPD, dyspnea or shortness of breath CARDIOVASCULAR: Negative for chest pain, leg swelling, hypertension, CHF or palpitations All other reviewed and negative other than HPI. OBJECTIVE: BP 126/78 Pulse 86 Resp 18 Ht 159.1 cm (5' 2.64) Wt 76.8 kg (169 lb 5 oz) LMP 07/12/2006 SpO2 98% BMI 30.34 kg/m? . Vital signs reviewed by this provider. APPEARANCE Well appearing, alert, in no acute distress, well-hydrated, well nourished. EYES PERRLA, conjunctiva and sclera normal. EARS External ears normal, canals clear NECK Supple, no adenopathy; thyroid symmetric, normal size, no bruits HEART RRR with normal S1 and S2, no murmurs, no gallops, no JVD appreciated LUNG clear to auscultation. No wheezes, rhonchi or rales EXTREMITIES Extremities normal, No deformities, No skin discoloration, and No edema SKIN Skin color, texture, turgor normal, no suspicious rashes or lesions to exposed skin Latest Ref Rng 03/28/2023 Cholesterol, Total <200 mg/dL 142 Triglyceride <150 mg/dL 135 HDL Cholesterol >39 mg/dL 51 Non HDL Cholesterol <130 mg/dL 91 Fasting Time hrs 14 VLDL Cholesterol <30 mg/dL 27 TC:HDL Ratio <5.10 2.78 LDL Cholesterol <100 mg/dL 64 LDL:HDL Ratio <2.54 1.25 Latest Ref Rng 12/07/2022 WBC 3.70 - 11.00 k/uL 6.72 RBC 3.90 - 5.20 m/uL 4.57 Hemoglobin 11.5 - 15.5 (more content not included)... Normal [facility] ECG COMPLETEon 12-09-2022 Atrial Rate 69 BPM [facility] Calculated P [place] 70 degrees [facility] Calculated R [place] -10 degrees [facility] Calculated T [place] 35 degrees [facility] P-R Interval 186 ms [facility] QRS Duration 80 ms [facility] QT Interval 400 ms [facility] QTC Calculation (Bazett) 428 ms [facility] Ventricular Rate 69 BPM [facility] CBC W Auto Differential pane l (Bld)on 12-07-2022 Basophils (Bld) [#/Vol] 0.08 10*3/uL <0.11 k/uL [facility] Basophils/100 WBC (Bld) 1.2 % [facility] Differential cell count method Nom (Bld) Auto [facility] Eosinophils (Bld) [#/Vol] 0.08 10*3/uL <0.46 k/uL [facility] Eosinophils/100 WBC (Bld) 1.2 % [facility] Erythrocyte distribution width (RBC) [Ratio] 12.7 % 11.5 - 15.0 % [facility] Hematocrit (Bld) [Volume fraction] 43.8 % 36.0 - 46.0 % [facility] Hemoglobin (Bld) [Mass/Vol] 14.7 g/dL 11.5 - 15.5 g/dL [facility] Immature granulocytes (Bld) [#/Vol] <0.10 k/uL [facility] Immature granulocytes/100 WBC (Bld) 0.1 % [facility] Lymphocytes (Bld) [#/Vol] 2.12 10*3/uL 1.00 - 4.00 k/uL [facility] Lymphocytes/100 WBC (Bld) 31.5 % [facility] MCH (RBC) [Entitic mass] 32.2 pg 26.0 - 34.0 pg [facility] MCHC (RBC) [Mass/Vol] 33.6 g/dL 30.5 - 36.0 g/dL [facility] MCV (RBC) [Entitic vol] 95.8 fL 80.0 - 100.0 fL [facility] Monocytes (Bld) [#/Vol] 0.57 10*3/uL <0.87 k/uL [facility] Monocytes/100 WBC (Bld) 8.5 % [facility] Neutrophils (Bld) [#/Vol] 3.86 10*3/uL 1.45 - 7.50 k/uL [facility] Neutrophils/100 WBC (Bld) 57.5 % [facility] Nucleated RBC (Bld) [#/Vol] <0.01 k/uL [facility] Nucleated RBC/100 WBC (Bld) [Ratio] 0.0 /100 WBC [facility] Platelet mean volume (Bld) [Entitic vol] 10.7 fL 9.0 - 12.7 fL [facility] Platelets (Bld) [#/Vol] 218 10*3/uL 150 - 400 k/uL [facility] RBC (Bld) [#/Vol] 4.57 10*6/uL 3.90 - 5.2 0 m/uL [facility] WBC (Bld) [#/Vol] 6.72 10*3/uL 3.70 - 11. 00 k/uL [facility] Comprehensive metabolic 2000 panelon 12-07-2022 Albumin [Mass/Vol] 4.5 g/dL 3.9 - 4.9 g/dL [facility] ALP [Catalytic activity/Vol] 92 U/L 34 - 123 U/L [facility] ALT [Catalytic activity/Vol] 23 U/L 7 - 38 U/L [facility] Anion gap [Moles/Vol] 10 mmol/L 9 - 18 mmol/L [facility] AST [Catalytic activity/Vol] 25 U/L 13 - 35 U/L [facility] Bilirubin [Mass/Vol] 0.4 mg/dL 0.2 - 1 .3 mg/dL [facility] Calcium [Mass/Vol] 10.0 mg/dL 8.5 - 10. 2 mg/dL [facility] Chloride [Moles/Vol] 107 mmol/L High 97 - 10 5 mmol/L [facility] CO2 [Moles/Vol] 23 mmol/L 22 - 30 mmol/L [facility] Creatinine [Mass/Vol] 0.69 mg/dL 0.58 - 0.96 mg/dL [facility] Estimated Glomerular Filtration Rate 93 mL/min/1.73m >=60 mL/min/1.73m [facility] Glucose [Mass/Vol] 81 mg/dL 74 - 99 mg/dL [facility] Potassium [Moles/Vol] 4.2 mmol/L 3.7 - 5.1 mmol/L [facility] Protein [Mass/Vol] 7.2 g/dL 6.3 - 8.0 g/dL [facility] Sodium [Moles/Vol] 140 mmol/L 136 - 144 mmol/L [facility] Urea nitrogen [Mass/Vol] 19 mg/dL 7 - 21 mg/dL [facility] CT CHEST WO IVCONon 10-22-19 [facility] CBC W Auto Differential pane l (Bld)on 07-04-2022 Basophils (Bld) [#/Vol] 0.08 10*3/uL <0.11 k/uL [facility] Basophils/100 WBC (Bld) 0.9 % [facility] Differential cell count method Nom (Bld) Auto [facility] Eosinophils (Bld) [#/Vol] 0.04 10*3/uL <0.46 k/uL [facility] Eosinophils/100 WBC (Bld) 0.4 % [facility] Erythrocyte distribution width (RBC) [Ratio] 13.9 % 11.5 - 15.0 % [facility] Hematocrit (Bld) [Volume fraction] 41.5 % 36.0 - 46.0 % [facility] Hemoglobin (Bld) [Mass/Vol] 14.0 g/dL 11.5 - 15.5 g/dL [facility] Immature granulocytes (Bld) [#/Vol] 0.03 10*3/uL <0.10 k/uL [facility] Immature granulocytes/100 WBC (Bld) 0.3 % [facility] Lymphocytes (Bld) [#/Vol] 1.71 10*3/uL 1.00 - 4.00 k/uL [facility] Lymphocytes/100 WBC (Bld) 18.8 % [facility] MCH (RBC) [Entitic mass] 30.7 pg 26.0 - 34.0 pg [facility] MCHC (RBC) [Mass/Vol] 33.7 g/dL 30.5 - 36.0 g/dL [facility] MCV (RBC) [Entitic vol] 91.0 fL 80.0 - 100.0 fL [facility] Monocytes (Bld) [#/Vol] 0.68 10*3/uL <0.87 k/uL [facility] Monocytes/100 WBC (Bld) 7.5 % [facility] Neutrophils (Bld) [#/Vol] 6.56 10*3/uL 1.45 - 7.50 k/uL [facility] Neutrophils/100 WBC (Bld) 72.1 % [facility] Nucleated RBC (Bld) [#/Vol] <0.01 k/uL [facility] Nucleated RBC/100 WBC (Bld) [Ratio] 0.0 /100 WBC [facility] Platelet mean volume (Bld) [Entitic vol] 10.3 fL 9.0 - 12.7 fL [facility] Platelets (Bld) [#/Vol] 232 10*3/uL 150 - 400 k/uL [facility] RBC (Bld) [#/Vol] 4.56 10*6/uL 3.90 - 5.2 0 m/uL [facility] WBC (Bld) [#/Vol] 9.10 10*3/uL 3.70 - 11. 00 k/uL [facility] PT panel Coag (PPP)on 2022 INR Coag (PPP) [Relative time] 2.7 {INR} High 0.9 - 1.3 [facility] PT Coag (PPP) [Time] 25.9 s High <13.1 sec [facility] UA DIP, URINE (POC)on 2022 BILIRUBIN UA (POCT) Negative Negative [facility] CLARITY UA (POCT) Clear [facility] COLOR UA (POCT) Yellow [facility] GLUCOSE UA (POCT) Negative Negative mg/dL [facility] HEMOGLOBIN/BLOOD UA (POCT) Small Abnormal Negative [facility] KETONE UA (POCT) Negative Negative mg/dL [facility] LEUKOCYTES UA (POCT) Small Abnormal Negative [facility] NITRITE UA (POCT) Negative Negative [facility] PH UA (POCT) 6.0 4.5 - 8.0 [facility] Protein Ql (U) Negative Negative mg/dL [facility] SPECIFIC GRAVITY UA (POCT) 1.015 1.005 - 1.030 [facility] UROBILINOGEN UA (POCT) 0.2 E.U./dL Ayana l E.U./dL [facility] INR (POC)on 04-28-2022 INR Coag (PPP) [Relative time] 1.9 {INR} High 0.8 - 1.2 [facility] Internal Quality Check Acceptable [facility] Absolute lymphocyte countOrd ered By: Dr. Arellano on 04-07-2022 Lymphocytes Auto (Unsp spec) [#/Vol] 1.37 10*3/uL 0.83-4.51 [facility] Basophil percentageOrdered B y: Dr. Arellano on 04-07-2022 Basophils/100 WBC (Bld) 0.7 % 0-1 [facility] Chloride [Moles/Vol] 108 mmol/L 98-[address] [facility] Eosinophils/100 WBC (Bld) 0.9 % 0-5 [facility] Glucose [Mass/Vol] 136 mg/dL 74-106 [facility] Comment on above: Fasting Glucose resu lt greater than or equal to 126 mg/dL suggests DIABETES MELLITUS per A.D.A. criteria. Neutrophils (Bld) [#/Vol] 6.5 10*3/uL 2.0-7.7 [facility] Neutrophils/100 WBC (Bld) 73.5 % 47-70 [facility] Potassium [Moles/Vol] 3.7 mmol/L 3.5-5.1 [facility] Sodium [Moles/Vol] 144 mmol/L 136-145 [facility] WBC (Bld) [#/Vol] 8.8 10*3/uL 4.4-11.0 [facility] Blood erythrocytes count (nu mber/volume)Ordered By: Dr. Arellano on 04-07-2022 RBC (Bld) [#/Vol] 4.58 10*6/uL 4.2-5.4 [facility] Blood hemoglobin measurement (mass/volume)Ordered By: Dr. Arellano on 04-07-2022 Hemoglobin (Bld) [Mass/Vol] 13.4 g/dL 12.0-15.0 [facility] Blood lymphocytes/100 leukoc ytesOrdered By: Dr. Arellano on 04-07-2022 Lymphocytes/100 WBC (Bld) 15.6 % 19-41 [facility] Blood monocytes/100 leukocyt esOrdered By: Dr. Arellano on 04-07-2022 Monocytes/100 WBC (Bld) 8.6 % 0-10 [facility] Blood platelet mean volumeOr dered By: Dr. Arellano on 04-07-2022 Platelet mean volume (Bld) [Entitic vol] 9.5 fL 6.2-12.0 [facility] Determination of erythrocyte mean corpuscular volume (MCV)Ordered By: Dr. Arellano on 04-07-2022 MCV (RBC) [Entitic vol] 92.4 fL 81-99 [facility] Hematocrit Auto (Bld) [Volum e fraction]Ordered By: Dr. Arellano on 04-07-2022 Hematocrit (Bld) [Volume fraction] 42.3 % 37-47 [facility] Laboratory - Chemistry and C hemistry - challengeOrdered By: Dr. Arellano on 04-07-2022 CO2 [Moles/Vol] 29.0 mmol/L 21.0-32.0 [facility] Urea nitrogen/Creatinine [Mass ratio] 26.2 mg/mg 10-20 [facility] - Hematology and Cell countsOrdered By: Dr. Arellano on 04-07-2022 Erythrocyte distribution width (RBC) [Entitic vol] 49.7 fL 35.1-43.9 [facility] Erythrocyte distribution width (RBC) [Ratio] 14.7 % 11.6-14.6 [facility] Immature granulocytes/100 WBC (Bld) 0.700 % 0.0-0.9 [facility] Comment on above: IG% - Immature Granu locytes (promyelocytes, myelocytes and metamyelocytes) > 1% indicates that a LEFT SHIFT is Present. MCH (RBC) [Entitic mass] 29.3 pg 27.0-32.0 [facility] Nucleated RBC/100 WBC (Bld) [Ratio] 0 % 0-5 [facility] MCHC Auto (RBC) [Mass/Vol]Or dered By: Dr. Arellano on 04-07-2022 MCHC (RBC) [Mass/Vol] 31.7 g/dL 32-36 [facility] No Panel InformationOrdered By: Dr. Arellano on 04-07-2022 Estimated Creatinine Clearance Calc 41.40 ml/min [facility] Estimated GFR (MDRD) Amer 116 mL/min >60 [facility] Comment on above: GFR Calc Estimated GFR (MDRD) Non-Af Amer 96 mL/min >60 [facility] Comment on above: Non- GFR Calc Platelets bldOrdered By: Dr. Arellano on 04-07-2022 Platelets (Bld) [#/Vol] 307 10*3/uL 150-450 [facility] Serum or plasma calcium marcy urement (mass/volume)Ordered By: Dr. Arellano on 04-07-2022 Calcium [Mass/Vol] 9.5 mg/dL 8.5-10.1 [facility] Serum or plasma creatinine m easurement (mass/volume)Ordered By: Dr. Arellano on 04-07-2022 Creatinine [Mass/Vol] 0.65 mg/dL 0.55-1.02 [facility] Comment on above: The validity of the calculated GFR & GFRAA in patients over 70 years has not been determined. Clinical correlation is essential. Serum or plasma urea nitroge n measurement (mass/volume)Ordered By: Dr. Arellano on 04-07-2022 Urea nitrogen [Mass/Vol] 17 mg/dL -18 [facility] Thin prep Papanicolaou smear with manual screeningOrdered By: Dr. Arellano on 04-07-2022 Thin prep Papanicolaou smear with manual screening 7 -15 [facility] CBC W Auto Differential pane l (Bld)on 03-28-2022 Basophils (Bld) [#/Vol] 0.03 10*3/uL <0.11 k/uL [facility] Basophils/100 WBC (Bld) 0.4 % [facility] Differential cell count method Nom (Bld) Auto [facility] Eosinophils (Bld) [#/Vol] 0.07 10*3/uL <0.46 k/uL [facility] Eosinophils/100 WBC (Bld) 0.8 % [facility] Erythrocyte distribution width (RBC) [Ratio] 14.7 % 11.5 - 15.0 % [facility] Hematocrit (Bld) [Volume fraction] 45.7 % 36.0 - 46.0 % [facility] Hemoglobin (Bld) [Mass/Vol] 14.8 g/dL 11.5 - 15.5 g/dL [facility] Immature granulocytes (Bld) [#/Vol] <0.10 k/uL [facility] Immature granulocytes/100 WBC (Bld) 0.2 % [facility] Lymphocytes (Bld) [#/Vol] 1.45 10*3/uL 1.00 - 4.00 k/uL [facility] Lymphocytes/100 WBC (Bld) 17.0 % [facility] MCH (RBC) [Entitic mass] 30.3 pg 26.0 - 34.0 pg [facility] MCHC (RBC) [Mass/Vol] 32.4 g/dL 30.5 - 36.0 g/dL [facility] MCV (RBC) [Entitic vol] 93.6 fL 80.0 - 100.0 fL [facility] Monocytes (Bld) [#/Vol] 0.62 10*3/uL <0.87 k/uL [facility] Monocytes/100 WBC (Bld) 7.3 % [facility] Neutrophils (Bld) [#/Vol] 6.36 10*3/uL 1.45 - 7.50 k/uL [facility] Neutrophils/100 WBC (Bld) 74.3 % [facility] Nucleated RBC (Bld) [#/Vol] <0.01 k/uL [facility] Nucleated RBC/100 WBC (Bld) [Ratio] 0.0 /100 WBC [facility] Platelet mean volume (Bld) [Entitic vol] 10.7 fL 9.0 - 12.7 fL [facility] Platelets (Bld) [#/Vol] 152 10*3/uL 150 - 400 k/uL [facility] RBC (Bld) [#/Vol] 4.88 10*6/uL 3.90 - 5.2 0 m/uL [facility] WBC (Bld) [#/Vol] 8.55 10*3/uL 3.70 - 11. 00 k/uL [facility] Comprehensive metabolic 2000 panelon 03-28-2022 Albumin [Mass/Vol] 4.2 g/dL 3.9 - 4.9 g/dL [facility] ALP [Catalytic activity/Vol] 89 U/L 34 - 123 U/L [facility] ALT [Catalytic activity/Vol] 38 U/L 7 - 38 U/L [facility] Anion gap [Moles/Vol] 13 mmol/L 9 - 18 mmol/L [facility] AST [Catalytic activity/Vol] 28 U/L 13 - 35 U/L [facility] Bilirubin [Mass/Vol] 0.4 mg/dL 0.2 - 1 .3 mg/dL [facility] Calcium [Mass/Vol] 10.2 mg/dL 8.5 - 10. 2 mg/dL [facility] Chloride [Moles/Vol] 104 mmol/L 97 - 10 5 mmol/L [facility] CO2 [Moles/Vol] 23 mmol/L 22 - 30 mmol/L [facility] Creatinine [Mass/Vol] 0.71 mg/dL 0.58 - 0.96 mg/dL [facility] Estimated Glomerular Filtration Rate 92 mL/min/1.73m >=60 mL/min/1.73m [facility] Glucose [Mass/Vol] 94 mg/dL 74 - 99 mg/dL [facility] Potassium [Moles/Vol] 4.4 mmol/L 3.7 - 5.1 mmol/L [facility] Protein [Mass/Vol] 7.3 g/dL 6.3 - 8.0 g/dL [facility] Sodium [Moles/Vol] 140 mmol/L 136 - 144 mmol/L [facility] Urea nitrogen [Mass/Vol] 16 mg/dL 7 - 21 mg/dL [facility] HbA1c (Bld)on 03-28-2022 Average glucose Estimated from glycated hemoglobin (Bld) [Mass/Vol] 117 mg/dL [facility] HbA1c (Bld) [Mass fraction] 5.7 % High 4.3 - 5.6 % [facility] No Panel Informationon 03-17 Radiology Result ACTIONABLE Abnormal [facility] Comprehensive metabolic 2000 panelon 09-22-2021 Albumin [Mass/Vol] 4.2 g/dL 3.9 - 4.9 g/dL [facility] ALP [Catalytic activity/Vol] 90 U/L 34 - 123 U/L [facility] ALT [Catalytic activity/Vol] 18 U/L 7 - 38 U/L [facility] Anion gap [Moles/Vol] 12 mmol/L 9 - 18 mmol/L [facility] AST [Catalytic activity/Vol] 22 U/L 13 - 35 U/L [facility] Bilirubin [Mass/Vol] 0.3 mg/dL 0.2 - 1 .3 mg/dL [facility] Calcium [Mass/Vol] 10.0 mg/dL 8.5 - 10. 2 mg/dL [facility] Chloride [Moles/Vol] 103 mmol/L 97 - 10 5 mmol/L [facility] CO2 [Moles/Vol] 24 mmol/L 22 - 30 mmol/L [facility] Creatinine [Mass/Vol] 0.78 mg/dL 0.58 - 0.96 mg/dL [facility] Estimated Glomerular Filtration Rate 82 mL/min/1.73m >=60 mL/min/1.73m [facility] Glucose [Mass/Vol] 102 mg/dL High 74 - 99 mg/dL [facility] Potassium [Moles/Vol] 4.1 mmol/L 3.7 - 5.1 mmol/L [facility] Protein [Mass/Vol] 7.1 g/dL 6.3 - 8.0 g/dL [facility] Sodium [Moles/Vol] 139 mmol/L 136 - 144 mmol/L [facility] Urea nitrogen [Mass/Vol] 17 mg/dL 7 - 21 mg/dL [facility] Vital Signs Date Time Vital Sign Value Performing Clinician Phi bender 11-08-2024 12:18-0400 Body mass index (BMI) [Ratio] 31.13 kg/m2 Jihan Rogernert BINDERY MACHINE SETTER.MOTION DESIGNER Work Phone: [facility] 11-08-2024 12:18-0400 Body weight 77.2 kg Jihan Kahnert BINDERY MACHINE SETTER.MOTION DESIGNER Work Phone: [facility] 11-08-2024 12:18-0400 Diastolic blood pressure 71 mm[Hg] Jihan Kahnert BINDERY MACHINE SETTER.MOTION DESIGNER Work Phone: [facility] 11-08-2024 12:18-0400 Heart rate 85 /min Jihan Rogernert BINDERY MACHINE SETTER.MOTION DESIGNER Work Phone: [facility] 11-08-2024 12:18-0400 SaO2% (BldA) [Mass fraction] 96 % Jihan Rogernert BINDERY MACHINE SETTER.MOTION DESIGNER Work Phone: [facility] 11-08-2024 12:18-0400 Systolic blood pressure 124 mm[Hg] Jihan Kahnert BINDERY MACHINE SETTER.MOTION DESIGNER Work Phone: [facility] 10-04-2024 11:39-0400 Body mass index (BMI) [Ratio] 30.65 kg/m2 Soraida Feldman BINDERY MACHINE SETTER.DIGITAL SALES EXECUTIVE Work Phone: [facility] 10-04-2024 11:39-0400 Body weight 76 kg Soraida Feldman BINDERY MACHINE SETTER.DIGITAL SALES EXECUTIVE Work Phone: [facility] 10-04-2024 11:39-0400 Diastolic blood pressure 80 mm[Hg] Soraida Feldman BINDERY MACHINE SETTER.DIGITAL SALES EXECUTIVE Work Phone: [facility] 10-04-2024 11:39-0400 Heart rate 101 /min Soraida Feldman BINDERY MACHINE SETTER.DIGITAL SALES EXECUTIVE Work Phone: [facility] 10-04-2024 11:39-0400 Respiratory rate 16 /min Soraida Feldman BINDERY MACHINE SETTER.DIGITAL SALES EXECUTIVE Work Phone: [facility] 10-04-2024 11:39-0400 Systolic blood pressure 116 mm[Hg] Soraida Feldman APRN.CNS Work Phone: [facility] 09-27-2024 09:08-0400 Body height 157.5 cm Pacc 1 Work Phone: [facility] 09-27-2024 09:08-0400 Body mass index (BMI) [Ratio] 30.73 kg/m2 Pacc 1 Work Phone: [facility] 09-27-2024 09:08-0400 Body temperature 97.3 [degF] Pacc 1 Work Phone: [facility] 09-27-2024 09:08-0400 Body weight 76.2 kg Pacc 1 Work Phone: [facility] 09-27-2024 09:08-0400 Diastolic blood pressure 80 mm[Hg] Pacc 1 Work Phone: [facility] 09-27-2024 09:08-0400 Heart rate 96 /min Pacc 1 Work Phone: [facility] 09-27-2024 09:08-0400 Respiratory rate 14 /min Pacc 1 Work Phone: [facility] 09-27-2024 09:08-0400 SaO2% (BldA) [Mass fraction] 96 % Pacc 1 Work Phone: [facility] 09-27-2024 09:08-0400 Systolic blood pressure 134 mm[Hg] Pacc 1 Work Phone: [facility] 08-29-2024 08:24-0400 Body mass index (BMI) [Ratio] 31.05 kg/m2 Tony Giron APRN.CNP Work Phone: [facility] 08-29-2024 08:24-0400 Body weight 77 kg Tony Giron APRN.CNP Work Phone: [facility] 08-29-2024 08:24-0400 Diastolic blood pressure 76 mm[Hg] Tony Giron APRN.CNP Work Phone: [facility] 08-29-2024 08:24-0400 Heart rate 88 /min Tony Giron APRN.MOTION DESIGNER Work Phone: [facility] 08-29-2024 08:24-0400 SaO2% (BldA) [Mass fraction] 98 % Tony Giron BINDERY MACHINE SETTER.MOTION DESIGNER Work Phone: [facility] 08-29-2024 08:24-0400 Systolic blood pressure 120 mm[Hg] Tony Giron BINDERY MACHINE SETTER.MOTION DESIGNER Work Phone: [facility] 07-17-2024 11:14-0400 Body height 157.5 cm Beverley Jorgensen MD Work Phone: [facility] 07-17-2024 11:14-0400 Body mass index (BMI) [Ratio] 30.73 kg/m2 Beverley Jorgensen MD Work Phone: [facility] 07-17-2024 11:14-0400 Body weight 76.2 kg Beverley Jorgensen MD Work Phone: [facility] 07-17-2024 11:14-0400 Diastolic blood pressure 78 mm[Hg] Beverley Jorgensen MD Work Phone: [facility] 07-17-2024 11:14-0400 Systolic blood pressure 114 mm[Hg] Beverley Jorgensen MD Work Phone: [facility] 06-10-2024 11:48-0400 Body height 157.5 cm Lilian Lewis APRN.MOTION DESIGNER Work Phone: [facility] 06-10-2024 11:48-0400 Body mass index (BMI) [Ratio] 31.13 kg/m2 Lilian Lewis APRN.MOTION DESIGNER Work Phone: [facility] 06-10-2024 11:48-0400 Body weight 77.2 kg Lilian Lewis APRN.MOTION DESIGNER Work Phone: [facility] 06-10-2024 11:48-0400 Diastolic blood pressure 82 mm[Hg] Lilian [place] BINDERY MACHINE SETTER.MOTION DESIGNER Work Phone: [facility] 06-10-2024 11:48-0400 Heart rate 73 /min Lilian Ochoater BINDERY MACHINE SETTER.MOTION DESIGNER Work Phone: [facility] 06-10-2024 11:48-0400 SaO2% (BldA) [Mass fraction] 100 % Lilian [place] BINDERY MACHINE SETTER.MOTION DESIGNER Work Phone: [facility] 06-10-2024 11:48-0400 Systolic blood pressure 127 mm[Hg] Lilian [place] BINDERY MACHINE SETTER.MOTION DESIGNER Work Phone: [facility] 04-01-2024 12:15-0500 Body mass index (BMI) [Ratio] 30.28 kg/m2 Meli Podlogar BINDERY MACHINE SETTER.MOTION DESIGNER Work Phone: [facility] 04-01-2024 12:15-0500 Body weight 76.66 kg Meli Podlogar BINDERY MACHINE SETTER.MOTION DESIGNER Work Phone: [facility] 04-01-2024 12:15-0500 Diastolic blood pressure 76 mm[Hg] Meli Podlogar BINDERY MACHINE SETTER.MOTION DESIGNER Work Phone: [facility] 04-01-2024 12:15-0500 Heart rate 83 /min Meli Podlogar BINDERY MACHINE SETTER.MOTION DESIGNER Work Phone: [facility] 04-01-2024 12:15-0500 Respiratory rate 18 /min Meli Podlogar BINDERY MACHINE SETTER.MOTION DESIGNER Work Phone: [facility] 04-01-2024 12:15-0500 SaO2% (BldA) [Mass fraction] 98 % Meli Podlogar BINDERY MACHINE SETTER.MOTION DESIGNER Work Phone: [facility] 04-01-2024 12:15-0500 Systolic blood pressure 134 mm[Hg] Meli Podlogar BINDERY MACHINE SETTER.MOTION DESIGNER Work Phone: [facility] 02-07-2024 09:38-0500 Body height 159.1 cm Meli Podlogar BINDERY MACHINE SETTER.MOTION DESIGNER Work Phone: [facility] 02-07-2024 09:38-0500 Body mass index (BMI) [Ratio] 30.34 kg/m2 Meli Podlogar BINDERY MACHINE SETTER.MOTION DESIGNER Work Phone: [facility] 02-07-2024 09:38-0500 Body weight 76.8 kg Meli Podlogar BINDERY MACHINE SETTER.MOTION DESIGNER Work Phone: [facility] 02-07-2024 09:38-0500 Diastolic blood pressure 78 mm[Hg] Meli Podlogar BINDERY MACHINE SETTER.MOTION DESIGNER Work Phone: [facility] 02-07-2024 09:38-0500 Heart rate 86 /min Meli Podlogar BINDERY MACHINE SETTER.MOTION DESIGNER Work Phone: [facility] 02-07-2024 09:38-0500 Respiratory rate 18 /min Meli Podlogar BINDERY MACHINE SETTER.MOTION DESIGNER Work Phone: [facility] 02-07-2024 09:38-0500 SaO2% (BldA) [Mass fraction] 98 % Meli Podlogar BINDERY MACHINE SETTER.MOTION DESIGNER Work Phone: [facility] 02-07-2024 09:38-0500 Systolic blood pressure 126 mm[Hg] Meli Podlogar BINDERY MACHINE SETTER.MOTION DESIGNER Work Phone: [facility] 04-24-2023 14:10-0500 Body height 157.5 cm Beverley Jorgensen MD Work Phone: [facility] 04-24-2023 14:10-0500 Body weight 76.66 kg Beverley Jorgensen MD Work Phone: [facility] 04-24-2023 14:10-0500 Diastolic blood pressure 78 mm[Hg] Beverley Jorgensen MD Work Phone: [facility] 04-24-2023 14:10-0500 Systolic blood pressure 122 mm[Hg] Beverley Jorgensen MD Work Phone: [facility] 12-07-2022 11:12-0400 Body height 157.5 cm Abhinav Bolden MD Work Phone: [facility] 12-07-2022 11:12-0400 Body weight 73.48 kg Abhinav Bolden MD Work Phone: [facility] 12-07-2022 11:12-0400 Diastolic blood pressure 80 mm[Hg] Abhinav Bolden MD Work Phone: [facility] 12-07-2022 11:12-0400 Heart rate 79 /min Abhinav Bolden MD Work Phone: [facility] 12-07-2022 11:12-0400 Respiratory rate 16 /min Abhinav Bolden MD Work Phone: [facility] 12-07-2022 11:12-0400 SaO2% (BldA) [Mass fraction] 98 % Abhinav Bolden MD Work Phone: [facility] 12-07-2022 11:12-0400 Systolic blood pressure 128 mm[Hg] Abhinav Bolden MD Work Phone: [facility] 09-20-2022 10:34-0400 Body weight 72.85 kg Abhinav Bolden MD Work Phone: [facility] 09-20-2022 10:34-0400 Diastolic blood pressure 70 mm[Hg] Abhinav Bolden MD Work Phone: [facility] 09-20-2022 10:34-0400 Heart rate 81 /min Abhinav Bolden MD Work Phone: [facility] 09-20-2022 10:34-0400 Respiratory rate 16 /min Abhinav Bolden MD Work Phone: [facility] 09-20-2022 10:34-0400 SaO2% (BldA) [Mass fraction] 98 % Abhinav Bolden MD Work Phone: [facility] 09-20-2022 10:34-0400 Systolic blood pressure 122 mm[Hg] Abhinav Bolden MD Work Phone: [facility] 07-04-2022 15:00-0400 Body weight 74.75 kg Meli Podlogar BINDERY MACHINE SETTER.MOTION DESIGNER Work Phone: [facility] 07-04-2022 15:00-0400 Diastolic blood pressure 80 mm[Hg] Meli Podlogar BINDERY MACHINE SETTER.MOTION DESIGNER Work Phone: [facility] 07-04-2022 15:00-0400 Heart rate 104 /min Meli Podlogar BINDERY MACHINE SETTER.MOTION DESIGNER Work Phone: [facility] 07-04-2022 15:00-0400 Respiratory rate 18 /min Meli Podlogar BINDERY MACHINE SETTER.MOTION DESIGNER Work Phone: [facility] 07-04-2022 15:00-0400 SaO2% (BldA) [Mass fraction] 96 % Meli Podlogar BINDERY MACHINE SETTER.MOTION DESIGNER Work Phone: [facility] 07-04-2022 15:00-0400 Systolic blood pressure 118 mm[Hg] Meli Podlogar BINDERY MACHINE SETTER.MOTION DESIGNER Work Phone: [facility] 06-27-2022 10:32-0400 Body weight 75.03 kg Meli Podlogar BINDERY MACHINE SETTER.MOTION DESIGNER Work Phone: [facility] 06-27-2022 10:32-0400 Diastolic blood pressure 82 mm[Hg] Meli Podlogar BINDERY MACHINE SETTER.MOTION DESIGNER Work Phone: [facility] 06-27-2022 10:32-0400 Heart rate 95 /min Meli Podlogar BINDERY MACHINE SETTER.MOTION DESIGNER Work Phone: [facility] 06-27-2022 10:32-0400 Respiratory rate 16 /min Meli Podlogar BINDERY MACHINE SETTER.MOTION DESIGNER Work Phone: [facility] 06-27-2022 10:32-0400 SaO2% (BldA) [Mass fraction] 97 % Meli Podlogar BINDERY MACHINE SETTER.MOTION DESIGNER Work Phone: [facility] 06-27-2022 10:32-0400 Systolic blood pressure 122 mm[Hg] Meli Podlogar BINDERY MACHINE SETTER.MOTION DESIGNER Work Phone: [facility] 05-09-2022 10:37-0500 Body weight 75.66 kg Abhinav Bolden MD Work Phone: [facility] 05-09-2022 10:37-0500 Diastolic blood pressure 72 mm[Hg] Abhinav Bolden MD Work Phone: [facility] 05-09-2022 10:37-0500 Heart rate 98 /min Abhinav Bolden MD Work Phone: [facility] 05-09-2022 10:37-0500 Respiratory rate 16 /min Abhinav Bolden MD Work Phone: [facility] 05-09-2022 10:37-0500 SaO2% (BldA) [Mass fraction] 97 % Abhinav Bolden MD Work Phone: [facility] 05-09-2022 10:37-0500 Systolic blood pressure 122 mm[Hg] Abhinav Bolden MD Work Phone: [facility] 04-08-2022 11:30-0500 Body temperature 98.91 [degF] Abhinav Bolden MD Work Phone: [facility] 04-08-2022 11:30-0500 Body weight 74.57 kg Abhinav Bolden MD Work Phone: [facility] 04-08-2022 11:30-0500 Diastolic blood pressure 72 mm[Hg] Abhinav Bolden MD Work Phone: [facility] 04-08-2022 11:30-0500 Heart rate 105 /min Abhinav Bolden MD Work Phone: [facility] 04-08-2022 11:30-0500 Respiratory rate 16 /min Abhinav Bolden MD Work Phone: [facility] 04-08-2022 11:30-0500 SaO2% (BldA) [Mass fraction] 97 % Abhinav Bolden MD Work Phone: [facility] 04-08-2022 11:30-0500 Systolic blood pressure 138 mm[Hg] Abhinav Bolden MD Work Phone: 7(108)631-377729 [place] [address] 04-08-2022 00:18-0500 Diastolic blood pressure 89 mm[Hg] Dr. Abel Bolden Work Phone: 9(707)780-104084 [place] [address] 04-08-2022 00:18-0500 Heart rate 100 /min Dr. Abel Bolden Work Phone: 0(427)279-466584 [place] [address] 04-08-2022 00:18-0500 Respiratory rate 17 /min Dr. Abel Bolden Work Phone: 3(179)759-338984 [place] [address] 04-08-2022 00:18-0500 SaO2% (BldA) [Mass fraction] 98 % Dr. Abel Bolden Work Phone: 9(259)284-361184 [place] [address] 04-08-2022 00:18-0500 Systolic blood pressure 139 mm[Hg] Dr. Abel Bolden Work Phone: 4(434)901-067784 [place] [address] 04-07-2022 19:50-0500 Body height 157.[address] Abel Bolden Work Phone: 9(792)913-496884 [place] [address] 04-07-2022 19:50-0500 Body mass index (BMI) [Ratio] 30.7 kg/m2 Dr. Abel Bolden Work Phone: 3(669)717-675184 [place] [address] 04-07-2022 19:50-0500 Body temperature 96.7 [degF] Dr. Abel Bolden Work Phone: 0(549)381-911684 [place] [address] 04-07-2022 19:50-0500 Body weight 76.[address] Abel Bolden Work Phone: 0(341)638-243684 [place] [address] 04-03-2022 14:37-0500 Body mass index (BMI) [Ratio] 29.8 kg/m2 Dr. Abel Bolden Work Phone: 1(375)846-163184 [place] [address] 04-03-2022 14:37-0500 Body temperature 97 [degF] Dr. Abel Bolden Work Phone: 4(565)942-116984 [place] [address] 04-03-2022 14:37-0500 Body weight 73.[address] Abel Bolden Work Phone: [facility] 04-03-2022 14:37-0500 Diastolic blood pressure 81 mm[Hg] Dr. Abel Bolden Work Phone: [facility] 04-03-2022 14:37-0500 Heart rate 109 /min Dr. Abel Bolden Work Phone: [facility] 04-03-2022 14:37-0500 Respiratory rate 18 /min Dr. Abel Bolden Work Phone: [facility] 04-03-2022 14:37-0500 SaO2% (BldA) [Mass fraction] 97 % Dr. Abel Bolden Work Phone: [facility] 04-03-2022 14:37-0500 Systolic blood pressure 157 mm[Hg] Dr. Abel Bolden Work Phone: [facility] 03-29-2022 14:41-0500 Body temperature 97 [degF] [facility] 03-29-2022 14:41-0500 Diastolic blood pressure 75 mm[Hg] [facility] 03-29-2022 14:41-0500 Heart rate 90 /min [facility] 03-29-2022 14:41-0500 Respiratory rate 16 /min [facility] 03-29-2022 14:41-0500 SaO2% (BldA) [Mass fraction] 96 % [facility] 03-29-2022 14:41-0500 Systolic blood pressure 128 mm[Hg] [facility] 03-29-2022 11:22-0500 Body height 157.48 cm [facility] 03-29-2022 11:22-0500 Body mass index (BMI) [Ratio] 29.8 kg/m2 [facility] 03-29-2022 11:22-0500 Body weight 74 kg [facility] 03-28-2022 11:04-0500 Body weight 73.94 kg Abhinav Bolden MD Work Phone: [facility] 03-28-2022 11:04-0500 Diastolic blood pressure 84 mm[Hg] Abihnav Bolden MD Work Phone: [facility] 03-28-2022 11:04-0500 Heart rate 102 /min Abhinav Boldne MD Work Phone: [facility] 03-28-2022 11:04-0500 Respiratory rate 16 /min Abhinav Bolden MD Work Phone: [facility] 03-28-2022 11:04-0500 SaO2% (BldA) [Mass fraction] 98 % Abhinav Bolden MD Work Phone: [facility] 03-28-2022 11:04-0500 Systolic blood pressure 134 mm[Hg] Abhinav Bolden MD Work Phone: [facility] 03-17-2022 11:15-0500 Body weight 74.75 kg Melanie Lyndsay BINDERY MACHINE SETTER.MOTION DESIGNER Work Phone: [facility] 03-17-2022 11:15-0500 Diastolic blood pressure 80 mm[Hg] Melanie Lyndsay BINDERY MACHINE SETTER.MOTION DESIGNER Work Phone: [facility] 03-17-2022 11:15-0500 Systolic blood pressure 120 mm[Hg] Melanie Lyndsay BINDERY MACHINE SETTER.MOTION DESIGNER Work Phone: [facility] 03-15-2022 13:28-0500 Body weight 76.66 kg Melanie Lyndsay BINDERY MACHINE SETTER.MOTION DESIGNER Work Phone: [facility] 03-15-2022 13:28-0500 Diastolic blood pressure 70 mm[Hg] Melanie Morse BINDERY MACHINE SETTER.MOTION DESIGNER Work Phone: [facility] 03-15-2022 13:28-0500 Systolic blood pressure 120 mm[Hg] Melanie Morse BINDERY MACHINE SETTER.MOTION DESIGNER Work Phone: [facility] 02-14-2022 08:51-0500 Body height 160 cm Beverley Jorgensen MD Work Phone: [facility] 02-14-2022 08:51-0500 Body weight 75.75 kg Beverley Jorgensen MD Work Phone: [facility] 02-14-2022 08:51-0500 Diastolic blood pressure 74 mm[Hg] Beverley Jorgensen MD Work Phone: [facility] 02-14-2022 08:51-0500 Systolic blood pressure 118 mm[Hg] Beverley Jorgensen MD Work Phone: [facility] 09-21-2021 14:43-0400 Body weight 76.39 kg Abhinav Bolden MD Work Phone: [facility] 09-21-2021 14:43-0400 Diastolic blood pressure 72 mm[Hg] Abhinav Bolden MD Work Phone: [facility] 09-21-2021 14:43-0400 Heart rate 91 /min Abhinav Bolden MD Work Phone: [facility] 09-21-2021 14:43-0400 Respiratory rate 16 /min Abhinav Bolden MD Work Phone: [facility] 09-21-2021 14:43-0400 SaO2% (BldA) [Mass fraction] 97 % Abhinav Bolden MD Work Phone: [facility] 09-21-2021 14:43-0400 Systolic blood pressure 124 mm[Hg] Abhinav Bolden MD Work Phone: [facility] Encounters Encounter Date Encounter Type Care Provider Facility Start: 02-20-2025 ambulatory Abel Yip lity:[facility] Start: 12-27-2024 End: 12-27-2024 ambulatory MELI PODLOGAR Facility:[facility] Start: 11-08-2024 End: 11-08-2024 Patient encounter procedure Jihan Acosta BINDERY MACHINE SETTER.MOTION DESIGNER Work Phone: Otolarynogology Comment on above: Post-operative state (Primary Dx) Start: 11-08-2024 End: 11-08-2024 ambulatory JIHAN ACOSTA Facility:[facility] Start: 11-04-2024 End: 11-04-[address] Abel Bolden MD Work Phone: -Laboratory Specimen Start: 11-04-2024 End: 11-04-[address] William Song MD -Laboratory Specimen Work Phone: Start: 11-04-2024 End: 11-04-2024 ambulatory William Song Facility:[facility] Start: 10-07-2024 End: 10-07-2024 Telephone encounter Soraida Feldman APRN.CNS Work Phone: [facility] Comment on above: fax Urology referral to Dr Song Start: 10-04-2024 End: 10-04-2024 Office outpatient visit 15 minutes Soraida Feldman APRN.CNS Work Phone: [facility] Comment on above: Urinary retention (P rimary Dx); UTI symptoms; H/O parotidectomy; Postprocedural urinary retention Start: 10-04-2024 End: 10-04-2024 ambulatory Abhinav Bolden MD Work Phone: [facility] Comment on above: Urinary Symptoms Start: 09-30-2024 End: 10-01-2024 ambulatory [facility] Facility:[facility] Start: 09-27-2024 End: 09-27-2024 Telephone encounter Jose Valles APRN.MOTION DESIGNER Work Phone: Pre Anesthesia Comment on above: Request Outside [facility] Start: 09-27-2024 End: 09-27-2024 [facility] Work Phone: [facility] Start: 09-27-2024 End: 09-27-2024 Anesthesia consultation [facility] 1 Work Phone: Pre Anesthesia Comment on above: Pre-operative examin ation (Primary Dx); Pure hypercholesterolemia; Solitary pulmonary nodule on lung CT; Chronic constipation; Personal history of DVT (deep vein thrombosis); History of total hip arthroplasty, left; History of partial knee replacement; Personal history of cardiac arrhythmia; Class 1 obesity due to excess calories without serious comorbidity with body mass index (BMI) of 30.0 to 30.9 in adult; Vasomotor rhinitis Start: 09-27-2024 End: 09-27-2024 Preprocedural examination done [facility] Work Phone: [facility] Start: 09-27-2024 End: 09-27-2024 ambulatory ABHINAV BOLDEN Facility:[facility] Start: 09-27-2024 Encounter for other preprocedural examination THIEN RIVERA [facility] Start: 09-25-2024 End: 09-25-2024 Patient encounter procedure Thien Rivera MD Work Phone: Otolaryngology Comment on above: Mass of right paroti d gland (Primary Dx) Start: 09-25-2024 End: 09-25-2024 ambulatory THIEN RIVERA Facility:[facility] Start: 09-02-2024 ambulatory TONYJASMINA GIRON Facilit y:[facility] Start: 09-02-2024 End: 09-02-2024 Subsequent hospital visit by physician [facility] Work Phone: [facility] Comment on above: Localized enlarged l ymph nodes [R59.0] Start: 08-29-2024 End: 08-29-2024 ambulatory TONY GIRON Facility:[facility] Start: 08-29-2024 End: 09-03-2024 Follow-up encounter Tony Giron APRN.CNP Work Phone: [facility] Start: 08-29-2024 ambulatory TONY GIRON Facilit y:[facility] Start: 08-29-2024 End: 08-29-2024 Subsequent hospital visit by physician [facility] Comment on above: Mass of jaw [M27.8] Start: 08-29-2024 End: 08-29-2024 Patient encounter procedure Tony Giron APRN.MOTION DESIGNER Work Phone: Family [facility] Comment on above: Mass of jaw (Primary Dx) Start: 08-29-2024 End: 08-29-2024 ambulatory TONY GIRON Facility:[facility] Start: 07-17-2024 End: 07-17-2024 Patient encounter procedure Beverley Jorgensen MD Work Phone: OB/Gynecology Comment on above: Encounter for gyneco logical examination (general) (routine) without abnormal findings (Primary Dx); History of postmenopausal bleeding; Family history of uterine cancer Start: 07-17-2024 End: 07-17-2024 Patient encounter status Beverley Jorgensen MD Work Phone: [facility] Start: 07-17-2024 End: 07-17-2024 ambulatory BEVERLEY JORGENSEN Facility:[facility] Start: 07-17-2024 Encounter for gyneco logical examination (general) (routine) without abnormal findings BEVERLEY JORGENSEN [facility] Start: 06-24-2024 End: 06-24-2024 Refill Tony Giron APRN.CNP Work Phone: [facility] Comment on above: Refill Request Start: 06-17-2024 End: 06-17-2024 Follow-up encounter Lilian Lewis APRN.CNP Work Phone: Pulmonary Medicine Start: 06-10-2024 End: 06-10-2024 ambulatory [facility] Facility:[facility] Start: 06-10-2024 End: 06-10-2024 Patient encounter procedure Lilian Lewis APRN.CNP Work Phone: Pulmonary Medicine Comment on above: Multiple lung nodule s on CT (Primary Dx) Start: 06-07-2024 End: 06-07-2024 ambulatory [facility] Facility:[facility] Start: 06-07-2024 End: 06-07-2024 Subsequent hospital visit by physician [facility] (I-Stat) Work Phone: Cat Scan Comment on above: Lung nodules [R91.8] Start: 05-08-2024 End: 05-08-2024 Telephone encounter Abhinav Bolden MD Work Phone: [facility] Comment on above: Patient Question Start: 04-23-2024 End: 04-23-2024 ambulatory Caitlyn FORDE Pulmonary Medicine Start: 04-18-2024 Encounter for prepro cedural cardiovascular examination Jose Juan Garcia [facility] Start: 04-15-2024 End: 04-15-2024 Orders Only Lilianinna Lewis BINDERY MACHINE SETTER.MOTION DESIGNER Work Phone: Pulmonary Medicine Comment on above: Lung nodules (Primar y Dx) Start: 04-01-2024 End: 04-01-2024 Telephone encounter Meli Podlogar BINDERY MACHINE SETTER.MOTION DESIGNER Work Phone: [facility] Start: 04-01-2024 End: 04-01-2024 Patient encounter procedure Meli Podlogar BINDERY MACHINE SETTER.MOTION DESIGNER Work Phone: [facility] Comment on above: Preop examination (P rimary Dx) Start: 04-01-2024 End: 04-01-2024 Preprocedural examination done Meli Podlogar BINDERY MACHINE SETTER.MOTION DESIGNER Work Phone: [facility] Work Phone: Start: 04-01-2024 End: 04-01-2024 ambulatory MELI PODLOGAR Facility:[facility] Start: 04-01-2024 Encounter for other preprocedural examination MELI PODLOGAR [facility] Start: 2024 End: 2024 ambulatory Yash Chairez Facility[facility] Start: 2024 End: 2024 ambulatory Jose Juan Garcia Facility:[facility] Start: 03-25-2024 ambulatory Meli Podlogar INSTRUCTIONAL DEVELOPER Facil ity:[facility] Start: 02-22-2024 End: 02-22-2024 ambulatory Beverley Jorgesnen Facility:[facility] Start: 02-07-2024 End: 02-07-2024 Patient encounter procedure Meli Podlogar BINDERY MACHINE SETTER.MOTION DESIGNER Work Phone: [facility] Comment on above: Pure hypercholestero lemia (Primary Dx); Screening for depression; Encounter for screening examination for other mental health and behavioral disorders; Vasomotor rhinitis; Bursitis of other bursa of left hip; Lung nodules Start: 02-07-2024 End: 02-07-2024 ambulatory MELI PODLOGAR Facility:[facility] Start: 12-21-2023 End: 12-22-2023 Norbert Bolden MD Work Phone: [facility] Comment on above: Refill Request Start: 06-26-2023 Refill Abhinav Bolden MD Work Phone: [facility] Comment on above: Refill Request Start: 04-24-2023 End: 04-24-2023 Patient encounter procedure Beverley Jorgensen MD Work Phone: OB/Gynecology Comment on above: Encounter for gyneco logical examination (general) (routine) without abnormal findings (Primary Dx) Start: 04-24-2023 End: 04-24-2023 Patient encounter status Beverley Jorgensen MD Work Phone: [facility] Start: 02-20-2023 End: 02-20-2023 [facility] Work Phone: Start: 02-20-2023 End: 02-20-2023 Patient encounter procedure [facility] Work Phone: Start: 12-07-2022 Telephone encounter Abel Bolden MD Work Phone: [facility] Comment on above: Medical Clearance Start: 12-07-2022 End: 12-07-2022 Patient encounter procedure Abhinav Bolden MD Work Phone: [facility] Comment on above: Pre-op evaluation (P rimary Dx); Primary osteoarthritis of both knees; History of pulmonary embolism; History of DVT (deep vein thrombosis); Encounter for immunization Start: 12-07-2022 End: 12-07-2022 Preprocedural examination done Abhinav Bolden MD Work Phone: [facility] Start: 11-29-2022 End: 11-29-2022 ambulatory [facility] Work Phone: Start: 11-29-2022 End: 11-29-2022 Patient encounter procedure [facility], [facility] Work Phone: Start: 11-21-2022 Telephone encounter Lilian alvarado APRN.MOTION DESIGNER Work Phone: Pulmonary Medicine Comment on above: Patient Question Start: 10-25-2022 Telephone encounter Abel Bolden MD Work Phone: [facility] [place] Comment on above: Results Start: 10-21-2022 End: 10-21-2022 Subsequent hospital visit by physician Ct [facility] (I-Stat) Work Phone: Cat Scan Comment on above: Lung nodules [R91.8] Start: 09-27-2022 End: 09-27-2022 Anticoagulant drug monitoring [facility] Work Phone: Coumadin [facility] [place] Comment on above: Personal history of DVT (deep vein thrombosis) (Primary Dx); Single subsegmental pulmonary embolism without acute cor pulmonale (HCC) Start: 09-20-2022 End: 09-20-2022 Patient encounter procedure Abhinav Bolden MD Work Phone: [facility] Comment on above: Lung nodules (Primar y Dx); Single subsegmental pulmonary embolism without acute cor pulmonale (HCC); Personal history of DVT (deep vein thrombosis); Pure hypercholesterolemia Start: 09-06-2022 End: 09-06-2022 Anticoagulant drug monitoring [facility] Work Phone: Coumadin [facility] [place] Comment on above: Personal history of DVT (deep vein thrombosis); Single subsegmental pulmonary embolism without acute cor pulmonale (HCC) Start: 07-11-2022 End: 07-11-2022 Anticoagulant drug monitoring [facility] Work Phone: Coumadin [facility] [place] Comment on above: Personal history of DVT (deep vein thrombosis); Single subsegmental pulmonary embolism without acute cor pulmonale (HCC) Start: 07-09-2022 Telephone encounter Abel Bolden MD Work Phone: [facility] Medicine [place] Comment on above: Results Start: 07-05-2022 Telephone encounter Meli mckeon APRN.MOTION DESIGNER Work Phone: Family [facility] [place] Comment on above: Results Start: 07-04-2022 End: 07-04-2022 Patient encounter procedure Meli Reyna APRN.CNP Work Phone: [facility] [place] Comment on above: Petechiae (Primary D x) Start: 06-27-2022 End: 06-27-2022 Patient encounter procedure Meli Whitelogjaneen MARR.MOTION DESIGNER Work Phone: [facility] [place] Comment on above: Personal history of DVT (deep vein thrombosis) (Primary Dx); Single subsegmental pulmonary embolism without acute cor pulmonale (HCC); Anticoagulation goal of INR 2 to 3 Start: 06-14-2022 End: 06-14-2022 Anticoagulant drug monitoring [facility] Work Phone: [facility]madin [facility] [place] Comment on above: Personal history of DVT (deep vein thrombosis); Single subsegmental pulmonary embolism without acute cor pulmonale (HCC) Start: 06-02-2022 Refill Meli Whitelogjaneen BINDERY MACHINE SETTER.MOTION DESIGNER Work Phone: [facility] Comment on above: Refill Request Start: 05-23-2022 End: 05-23-2022 Anticoagulant drug monitoring [facility] Work Phone: [facility] [place] Comment on above: Personal history of DVT (deep vein thrombosis); Single subsegmental pulmonary embolism without acute cor pulmonale (HCC) Start: 05-09-2022 End: 05-09-2022 Patient encounter procedure Abhinav Bolden MD Work Phone: [facility] [place] Comment on above: Acute deep vein thro mbosis (DVT) of tibial vein of left lower extremity (HCC) (Primary Dx); Single subsegmental pulmonary embolism without acute cor pulmonale (HCC); Anticoagulation goal of INR 2 to 3 Start: 05-09-2022 End: 05-09-2022 Anticoagulant drug monitoring [facility] Phone: [facility] Comment on above: Personal history of DVT (deep vein thrombosis); Single subsegmental pulmonary embolism without acute cor pulmonale (HCC) Start: 05-03-2022 End: 05-03-2022 Anticoagulant drug monitoring [facility] Work [facility]: [facility] Comment on above: Personal history of DVT (deep vein thrombosis); Single subsegmental pulmonary embolism without acute cor pulmonale (HCC) Start: 04-28-2022 End: 04-28-2022 Anticoagulant drug monitoring [facility] Work Phone: [facility] Comment on above: Personal history of DVT (deep vein thrombosis); Single subsegmental pulmonary embolism without acute cor pulmonale (HCC); Acute deep vein thrombosis (DVT) of tibial vein of left lower extremity (HCC) Refill Request Start: 04-21-2022 End: 04-21-2022 Anticoagulant drug monitoring [facility] Work Phone: [facility] [place] Comment on above: Personal history of DVT (deep vein thrombosis); Single subsegmental pulmonary embolism without acute cor pulmonale (HCC); Acute deep vein thrombosis (DVT) of tibial vein of left lower extremity (HCC) Start: 04-18-2022 End: 04-18-2022 Refill Neil Landaverde MD Work Phone: [facility] Comment on above: Refill Request Personal history of DVT (deep vein thrombosis); Single subsegmental pulmonary embolism without acute cor pulmonale (HCC) Start: 04-13-2022 Telephone encounter Abel Bolden MD Work Phone: [facility] Comment on above: Anticoagulation Start: 04-11-2022 Telephone encounter Abel Bolden MD Work Phone: [facility] Comment on above: Orders (protime) Start: 04-11-2022 End: 04-11-2022 Anticoagulant drug monitoring [facility] Work Phone: [facility] [place] Comment on above: Personal history of DVT (deep vein thrombosis); Single subsegmental pulmonary embolism without acute cor pulmonale (HCC) Start: 04-08-2022 End: 04-08-2022 Patient encounter procedure Abhinav oBlden MD Work Phone: [facility] Comment on above: Acute deep vein thro mbosis (DVT) of tibial vein of left lower extremity (HCC) (Primary Dx); Acute pulmonary embolism without acute cor pulmonale, unspecified pulmonary embolism type (HCC); Lung nodule seen on imaging study Start: 04-07-2022 End: 04-08-2022 Emergency department patient visit Dr. Abel Bolden Work Phone: [facility]Emergency Department Start: 04-04-2022 Telephone encounter Abel Bolden MD Work Phone: [facility] Comment on above: Patient Update Results Start: 04-04-2022 Non-patient / Non-visit Dr. Doris Bolden Work Phone: [facility] Start: 04-04-2022 End: 04-04-[address] Abel Bolden Work Phone: [facility] Work Phone: Start: 04-04-2022 End: 04-04-[address] Abel Bolden Work Phone: [facility]Cardiovascula r Services Start: 04-03-2022 End: 04-03-2022 Emergency department patient visit Dr. Abel Bolden Work Phone: [facility]Emergency Department Start: 04-01-2022 Telephone encounter Beverley Jorgensen MD Work Phone: OB/Gynecology Comment on above: Results Start: 03-30-2022 End: 03-30-[address] Abel Bolden Work Phone: [facility] Start: 03-29-2022 End: 03-29-2022 ambulatory Beverley Jorgensen MD Work Phone: [facility] Work Phone: Start: 03-29-2022 Patient encounter procedure Lisa Jorgensen MD Work Phone: [facility] Start: 03-29-2022 Telephone encounter Meli mckeon APRN.CNP Work Phone: [facility] Comment on above: Results Start: 03-29-2022 End: 03-29-2022 Admission to same day surgery center [facility]Surgical Day Care Start: 03-28-2022 End: 03-28-2022 Patient encounter procedure Abhinav Bolden MD Work Phone: [facility] Comment on above: Pre-op evaluation (P rimary Dx); Primary osteoarthritis of both knees; Viral URI with cough; Class 1 obesity due to excess calories without serious comorbidity with body mass index (BMI) of 30.0 to 30.9 in adult Start: 03-28-2022 End: 03-28-2022 Preprocedural examination done Abhinav Bolden MD Work Phone: [facility] Start: 03-23-2022 Telephone encounter Paulina Allison MD Work Phone: OB/Gynecology Comment on above: upcoming surgery Start: 03-17-2022 End: 03-17-2022 Patient encounter procedure Melanie Zamora APRN.MOTION DESIGNER Work Phone: OB/Gynecology Comment on above: Postmenopausal bleed ing (Primary Dx) Start: 03-15-2022 End: 03-15-2022 Subsequent hospital visit by physician [facility] Work Phone: Radiology Comment on above: PMB (postmenopausal bleeding) [N95.0] Start: 03-15-2022 End: 03-15-2022 Patient encounter procedure Melanie Zamora APRN.MOTION DESIGNER Work Phone: OB/Gynecology Comment on above: PMB (postmenopausal bleeding) (Primary Dx) Start: 02-15-2022 End: 02-15-2022 ambulatory [facility] Work Phone: Start: 02-15-2022 End: 02-15-2022 Patient encounter procedure [facility] Start: 02-14-2022 End: 02-14-2022 Patient encounter procedure Beverley Jorgensen MD Work Phone: OB/Gynecology Comment on above: Encounter for gyneco logical examination (general) (routine) without abnormal findings (Primary Dx) Start: 02-14-2022 End: 02-14-2022 Patient encounter status Beverley Jorgensen MD Work Phone: OB/Gynecology Start: 01-24-2022 Telephone encounter Beverley Jorgensen MD Work Phone: OB/Gynecology Comment on above: Mammogram Order Start: 01-01-2022 End: 01-01-2022 ambulatory [facility] [place] Work Phone: [facility] Comment on above: Arrived Start: 12-06-2021 Refill Abhinav Bolden MD Work Phone: [facility] Comment on above: Refill Request Start: 09-21-2021 End: 09-21-2021 Patient encounter procedure Abhinav Bolden MD Work Phone: [facility] [place] Comment on above: Hyperlipidemia, mixe d (Primary Dx); Chronic constipation; Primary osteoarthritis of both knees; Class 1 obesity due to excess calories without serious comorbidity with body mass index (BMI) of 30.0 to 30.9 in adult; Advance directive discussed with patient Start: 06-18-2021 Refill Abhinav Bolden MD Work Phone: [facility] [place] Comment on above: Refill Request Start: 07-01-2020 ambulatory [facility] Provider Venancio vasquez Metabolon Comment on above: Advanced Directive I nformation Start: 07-01-2020 E-mail encounter fro m caregiver [facility] Provider SORIN SUAZO Start: 08-25-2011 ambulatory [facility] Provider Medical Re cords Comment on above: Pap and HPV Start: 08-25-2011 E-mail encounter fro m caregiver [facility] Provider [facility] Start: 12-18-2008 End: 08-16-2011 Patient encounter status Abhinav Bolden MD Work Phone: [facility] Work Phone: Procedures Date Procedure Procedure Detail Performing Clinician Start: 11-04-[address] Abel wallace MD Work Phone: Start: 10-04-2024 Urnls dip stick/tablet rgnt auto w/o microscopy Soraida Feldman BINDERY MACHINE SETTER.DIGITAL SALES EXECUTIVE Work Phone: Start: 09-27-2024 History of operative procedure on knee History of partial knee replacement [facility] [place] [facility] Work Phone: Start: 09-02-2024 Ct soft tissue neck w/contrast material Tony Giron BINDERY MACHINE SETTER.MOTION DESIGNER Work Phone: Start: 08-29-2024 Us soft tissue head & neck real time imge docm Tony Giron BINDERY MACHINE SETTER.MOTION DESIGNER Work Phone: Start: 02-07-2024 Adult depression screening assessment Meli Reyna BINDERY MACHINE SETTER.MOTION DESIGNER Work Phone: Start: 03-28-2023 Lipid 1996 panel - Serum or Plasma Beverley Jorgensen MD Work Phone: Start: 02-20-2023 Screening mammography Start: 12-07-2022 INFLUENZA VACCINE, PRSV FREE, AGE 65+ YR, HIGH DOSE, QUADRIVALENT (FLUZONE HIGH-DOSE) Abhinav Bolden MD Work Phone: Start: 12-07-2022 Ecg routine ecg w/least 12 lds i&r only [facility] Provider Start: 11-29-2022 MRI of lower extremity Start: 10-21-2022 Ct thorax w/o contrast material Abhinav Bolden MD Work Phone: Start: 07-04-2022 Urnls dip stick/tablet rgnt auto w/o microscopy Meli Reyna BINDERY MACHINE SETTER.MOTION DESIGNER Work Phone: Start: 04-28-2022 Prothrombin time [facility] Provider Start: 04-07-2022 CT angiography of chest with contrast Dr. Abel Bolden Work Phone: Start: 03-30-2022 MRI of lower extremity Dr. Abel lyles Work Phone: Start: 03-29-2022 Hysteroscopy,D&C Symphion (Not Applicable) Start: 03-15-2022 Us transvaginal Melanie Lyndsay BINDERY MACHINE SETTER.C INSTRUCTIONAL DEVELOPER Work Phone: Start: 02-15-2022 End: 02-15-2022 Screening mammography Start: 01-01-2022 INFLUENZA SEASONAL QUADRIVALENT HIGH DOSE AGE 65+ Davidson Mantilla MD Work Phone: Start: 09-21-2021 Adult depression screening assessment Abhinav Bolden MD Work Phone: Start: 02-10-2021 Mammography Abhinav Bolden MD Work Phone: Start: 12-25-2020 Lipid 1996 panel - Serum or Plasma Lilian Lewis BINDERY MACHINE SETTER.MOTION DESIGNER Work Phone: Start: 09-14-2020 Adult depression screening assessment Abhinav Bolden MD Work Phone: Start: 01-30-2015 Colonoscopy Abhinav Bolden MD Work Phone: H/O: surgery H/O parotidectomy Soraida block BINDERY MACHINE SETTER.DIGITAL SALES EXECUTIVE Work Phone: Plan of Treatment Date Care Activity Detail Author Start: 03-28-2028 Lipid panel Lipid Screening [facility] Start: 10-02-2027 Diabetes Screening Diabetes Screening [facility] Start: 2027 RSV Vaccine (1 - 1-dose 75+ series) RSV Vaccine (1 - 1-dose 75+ series) [facility] Start: 06-15-2026 Urine microalbumin profile [facility] Start: 12-25-2025 Lipid 1996 panel - Serum or Plasma Lipid Screening [facility] Start: 12-25-2025 LIPID SCREEN LIPID SCREEN [facility] Start: 12-07-2025 Diabetes Screening Diabetes Screening [facility] Start: 07-18-2025 End: 07-18-2025 Patient encounter procedure 07/18/2025 2:20 PM EDT Office Visit OB/Gynecology [address] [place], [place] [id number] Beverley Jorgensen MD [address] [place] [id number] annual OB/Gynecology Comment on above: annual Start: 07-04-2025 DIABETES SCREEN DIABETES SCREEN [facility] Start: 07-04-2025 Diabetes Screening Diabetes Screening [facility] Start: 05-15-2025 End: 05-15-2025 Follow-up encounter 05/15/2025 4:00 PM EST [facility] Otolaryngology [address] [address] Thien Rivera MD [address] [place] [address] FOLLOW UP PER [facility] Otolaryngology Comment on above: FOLLOW UP PER [facility] Start: 03-28-2025 DIABETES SCREEN DIABETES SCREEN [facility] Start: 02-21-2025 Screening for malignant neoplasm of breast Mammogram Screening [facility] Start: 02-10-2025 End: 02-10-2025 Patient encounter procedure 02/10/2025 9:40 AM EST Office Visit [facility] [address] [place] [address] PodlogarMeli APRN.MOTION DESIGNER [address] [place] [address] Annual exam [facility] Comment on above: Annual exam Start: 02-06-2025 Anxiety Screening Anxiety Screening [facility] Start: 02-06-2025 Depression Screening Depression Screening [facility] Start: 01-30-2025 Colonoscopy COLONOSCOPY [facility] Start: 01-30-2025 COLORECTAL CANCER SCREENING COLORECTAL CANCER SCREENING [facility] Start: 01-30-2025 Screening for malignant neoplasm of colon [facility] Start: 11-11-2024 Influenza [facility] Start: 09-30-2024 End: 09-30-2024 Admission to same day surgery center 09/30/2024 1:04 PM EDT - 09/30/2024 4:55 PM EDT Surgery Admitting [address] [place] [address] Thien Rivera MD [address] [place] [address] PAROTIDECTOMY Admitting Comment on above: PAROTIDECTOMY Start: 09-30-2024 End: 09-30-2024 Exc prtd sai/prtd glnd lat dsj&prsrv facial nr PAROTIDECTOMY Mass of right parotid gland 09/30/2024 1:04 PM EDT [facility] Start: 09-30-2024 Subsequent hospital visit by physician 09/30/2024 1:04 PM EDT Hospital Encounter Admitting [address] [place] [address] Thien Rivera MD [address] [place], [place] [id number] Mass of right parotid gland [K11.8] Admitting Comment on above: Mass of right parotid gland [K11.8] Start: 09-21-2024 DIABETES SCREEN DIABETES SCREEN [facility] Start: 09-02-2024 End: 09-02-2024 Patient encounter procedure 09/02/2024 2:00 PM EDT Appointment [facility] [address] [place], [place] [id number] CT NECK SOFT TISSUE W IVCON [facility] Comment on above: CT NECK SOFT TISSUE W IVCON Start: 08-29-2024 End: 11-28-2024 CBC W Auto Differential panel - Blood [facility] Work Phone: Comment on above: Expected: 08/29/2024, Expires: Start: 07-17-2024 End: 07-17-2024 Patient encounter procedure 07/17/2024 11:10 AM EDT Office Visit OB/Gynecology [address] [place], [place] [phone] Beverley Jorgensen MD [address] [place] [address] annual - r/s due to post hip surgery OB/Gynecology Comment on above: annual - r/s due to post hip surgery Start: 06-10-2024 End: 06-10-2024 Patient encounter procedure Pulmonary Medicine Comment on above: Established LCS, reschedule from CT down 04/[address] 06/07/24 Start: 06-07-2024 End: 06-07-2024 Patient encounter procedure 06/07/2024 10:00 AM EDT Appointment Cat Scan [address] [place] [address] Lung Screening Cat Scan Comment on above: Lung Screening Start: 06-05-2024 End: 06-05-2024 Patient encounter procedure 06/05/2024 4:00 PM EDT Office Visit OB/Gynecology [address] [place] [address] Beverley Jorgensen MD [address] [place] [address] annual OB/Gynecology Comment on above: annual Start: 06-03-2024 Covid-19 Vaccine () Covid-19 Vaccine () [facility] Start: 04-15-2024 End: 04-15-2024 Patient encounter procedure Cat Scan Comment on above: Lung nodules [R91.8] CT chest follow up 1 2 month with est Lung C/M/N Start: 03-14-2024 End: 06-13-2024 Comprehensive metabolic 2000 panel - Serum or Plasma COMPREHENSIVE METABOLIC PANEL Lab Routine Pure hypercholesterolemia Expected: 03/14/2024, Expires: 06/13/2024 [facility] Comment on above: Expected: 03/14/2024, Expires: Start: 03-14-2024 End: 06-13-2024 Lipid 1996 panel - Serum or Plasma LIPID PANEL BASIC Lab Routine Pure hypercholesterolemia Expected: 03/14/2024, Expires: 06/13/2024 [facility] Work Phone: Comment on above: Expected: 03/14/2024, Expires: Start: 03-13-2024 Advance Directive Discussion Advance Directive Discussion [facility] Start: 02-21-2024 Screening for malignant neoplasm of breast Mammogram Screening [facility] Start: 02-07-2024 End: 02-07-2024 Patient encounter procedure 02/07/2024 9:40 AM EST Office Visit [facility] [address] [place] [address] ChristopherlogMeli vernon APRN.MOTION DESIGNER [address] [place] [address] Annual Exam [facility] Comment on above: Annual Exam Start: 11-12-2023 Covid-19 Vaccine () Covid-19 Vaccine () [facility] Start: 11-12-2023 Influenza vaccination Influenza Vaccine (#1) [facility] Start: 09-17-2023 DIABETES SCREEN DIABETES SCREEN [facility] Start: 03-13-2023 Advance Directive Discussion Advance Directive Discussion [facility] Start: 03-13-2023 Behavioral Health Screening Behavioral Health Screening [facility] Start: 02-15-2023 Mammography [facility] Start: 11-21-2022 Covid-19 Vaccine () Covid-19 Vaccine () [facility] Start: 11-11-2022 Influenza vaccination [facility] Start: 09-21-2022 Adult depression screening assessment DEPRESSION SCREENING [facility] Start: 07-20-2022 End: 09-19-2022 Bacteria identified in Urine by Culture URINE CULTURE Microbiology Routine Abnormal urine Expected: 07/20/2022, Expires: 09/19/2022 [facility] Work Phone: Comment on above: Expected: 07/20/2022, Expires: 3 Start: 07-04-2022 End: 09-03-2022 Comprehensive metabolic 2000 panel - Serum or Plasma [facility] Work Phone: Comment on above: Expected: 07/04/2022, Expires: 3 Start: 04-08-2022 COVID-19 VACCINE (6 - Moderna series) COVID-19 VACCINE (6 - Moderna series) [facility] Start: 03-29-2022 Anes hysteroscopy&/hystero salpingography w/bx ANESTH HYSTEROSCOPE/GRAPH [facility] Start: 03-29-2022 Hysteroscopy bx endometrium&/polypc w/wo d&c HYSTEROSCOPY BIOPSY [facility] Start: 03-29-2022 Ambulation without limitation [facility] Start: 03-29-2022 Medical regimen orders management [facility] Start: 03-29-2022 Medication education [facility] Start: 03-29-2022 Patient discharge [facility] Start: 03-29-2022 Procedure discontinued [facility] Start: 03-29-2022 Taking patient vital signs [facility] Start: 03-29-2022 Vital signs measurements [facility] Start: 03-29-2022 [facility] Start: 03-15-2022 End: 03-15-2023 PELVIC US WHI PELVIC US I Anc Imaging Routine PMB (postmenopausal bleeding) Expected: 03/15/2022, Expires: 03/15/2023 [facility] Work Phone: Comment on above: Expected: 03/15/2022, Expires: Start: 03-13-2022 ADVANCE DIRECTIVE DISCUSSION ADVANCE DIRECTIVE DISCUSSION [facility] Start: 03-13-2022 DEPRESSION ASSESSMENT DEPRESSION ASSESSMENT [facility] Start: 02-10-2022 Mammography MAMMOGRAM [facility] Start: 11-11-2021 Influenza vaccination INFLUENZA (#1) [facility] Start: 09-14-2021 Adult depression screening assessment DEPRESSION SCREENING [facility] Start: 09-13-2021 COVID-19 VACCINE (5 - Booster for Moderna series) COVID-19 VACCINE (5 - Booster for Moderna series) [facility] Start: 03-13-2021 ADVANCE DIRECTIVE DISCUSSION ADVANCE DIRECTIVE DISCUSSION [facility] Start: 03-13-2021 DEPRESSION ASSESSMENT DEPRESSION ASSESSMENT [facility] Start: 03-13-2017 Medicare Annual Wellness Visit Medicare Annual Wellness Visit [facility] Start: 2012 RSV Vaccine (1 - 1-dose 60+ series) RSV Vaccine (1 - 1-dose 60+ series) [facility] Start: 2012 RSV Vaccine (1 - Risk 60-74 years 1-dose series) RSV Vaccine (1 - Risk 60-74 years 1-dose series) [facility] Start: 1997 COLOGUARD (FIT-DNA) COLOGUARD (FIT-DNA) [facility] Start: [address] COLONOGRAPHY [facility] Start: 1997 FECAL OCCULT BLOOD FECAL OCCULT BLOOD [facility] Start: 1997 Screening for malignant neoplasm of colon [facility] Start: 1997 SIGMOIDOSCOPY SIGMOIDOSCOPY [facility] Start: 1970 Anxiety Screening Anxiety Screening [facility] Start: 1970 Depression Screening Depression Screening [facility] Bacteria identified in Urine by Culture URINE CULTURE Microbiology Routine Abnormal urine 07/06/2022 11:02 AM EDT [facility] Work Phone: Bacteria identified in Urine by Culture BACTERIAL CULTURE, URINE Microbiology Routine Urinary retention UTI symptoms 10/04/2024 12:15 PM EDT [facility] Work Phone: End: 05-15-2025 CT Chest WO contrast CT CHEST WO IVCON Radiology Routine Lung nodules 1 Occurrences starting 04/15/2024 until 05/15/2025 [facility] Work Phone: Comment on above: 1 Occurrences starting 04/15/2024 until 05/15/2025 CT Chest WO contrast CT CHEST WO IVCON Radiology Routine Lung nodules 06/07/2024 10:25 AM EDT [facility] Work Phone: End: 09-28-2025 CT Neck W contrast IV CT NECK SOFT TISSUE W IVCON Radiology STAT Localized enlarged lymph nodes 1 Occurrences starting 08/29/2024 until 09/28/2025 [facility] Work Phone: Comment on above: 1 Occurrences starting 08/29/2024 until 09/28/2025 End: 10-20-2023 Ct thorax w/o contrast material CT CHEST WO IVCON Radiology Routine Lung nodules 1 Occurrences starting 09/20/2022 until 10/20/2023 [facility] Work Phone: Comment on above: 1 Occurrences starting 09/20/2022 until 10/20/2023 End: 12-22-2023 Ct thorax w/o contrast material CT CHEST WO IVCON Radiology Routine Lung nodules 1 Occurrences starting 11/22/2022 until 12/22/2023 [facility] Work Phone: Comment on above: 1 Occurrences starting 11/22/2022 until 12/22/2023 CYTOLOGY NON-GEOPHYSICAL LABORATORY SUPERVISOR CYTOLOGY NON-GY N Lab Routine Mass of right parotid gland 09/25/2024 12:28 PM EDT [facility] End: 03-28-2023 ECG COMPLETE ECG COMPLETE ECG Routine Pre-op evaluation 1 Occurrences starting 03/28/2022 until 03/28/2023 [facility] Work Phone: Comment on above: 1 Occurrences starting 03/28/2022 until 03/28/2023 End: 12-08-2023 ECG COMPLETE ECG COMPLETE ECG Routine Pre-op evaluation 1 Occurrences starting 12/07/2022 until 12/08/2023 [facility] Work Phone: Comment on above: 1 Occurrences starting 12/07/2022 until 12/08/2023 Endometrial bx w/wo endocervix bx w/o dilat spx ENDOMETRIAL BIOPSY Procedures Routine PMB (postmenopausal bleeding) Ordered: 03/15/2022 [facility] Work Phone: Comment on above: Ordered: 03/15/2022 Exc prtd sai/prtd glnd lat dsj&prsrv facial nr PAROTIDECTOMY Mass of right parotid gland [facility] End: 04-11-2023 INR in Platelet poor plasma by Coagulation assay INR (POC) Lab Routine Personal history of DVT (deep vein thrombosis) Single subsegmental pulmonary embolism without acute cor pulmonale (HCC) Once per month for 99 Occurrences starting 04/11/2022 until 04/11/2023 [facility] Work Phone: Comment on above: Once per month for 99 Occurrences starti ng 04/11/2022 until 04/11/2023 Patient Education [facility] Work Phone: Patient referral [facility] Work Phone: End: 04-11-2023 PT panel - Platelet poor plasma by Coagulation assay PROTHROMBIN TIME/PT Lab STAT Personal history of DVT (deep vein thrombosis) Single subsegmental pulmonary embolism without acute cor pulmonale (HCC) Once per month for 99 Occurrences starting 04/11/2022 until 04/11/2023 [facility] Work Phone: Comment on above: Once per month for 99 Occurrences starti ng 04/11/2022 until 04/11/2023 End: 04-08-2023 PT panel - Platelet poor plasma by Coagulation assay PROTHROMBIN TIME/PT Lab Routine Acute deep vein thrombosis (DVT) of tibial vein of left lower extremity (HCC) Once per month for 99 Occurrences starting 04/08/2022 until 04/08/2023 [facility] Work Phone: Comment on above: Once per month for 99 Occurrences starti ng 04/08/2022 until 04/08/2023 Urinalysis complete panel - Urine URINALYSIS, WITH MICROSCOPIC Lab Routine Petechiae 07/04/2022 3:38 PM EDT [facility] Work Phone: US SALIVARY GLAND (POC) HNI USE ONLY US SALIVARY GLAND (POC) HNI USE ONLY Imaging Diagnostic Routine Mass of right parotid gland Ordered: 09/25/2024 [facility] Work Phone: Comment on above: Ordered: 09/25/2024 [facility] Immunizations Immunization Date Immunization Notes Care Provider [facility] 12-25-2023 influenza virus vaccine, unspecified formulation Thien Rivera MD Work Phone: [facility] 03-20-2023 COVID-19 vaccine, ag e 12+ yr, season (MODERNA) Beverley Jorgensen MD Work Phone: [facility] 12-07-2022 influenza (HD-IIV4) vaccine, age 65+ yr, high dose, quadrivalent, PF (FLUZONE HIGH-DOSE) Abhinav Bolden MD Work Phone: [facility] 12-07-2022 influenza virus vaccine, unspecified formulation Abhinav Bolden MD Work Phone: [facility] 01-01-2022 influenza, high-dose , quadrivalent vaccine (FLUZONE HIGH DOSE QUADRIVALENT) Immunization Nora Work Phone: [facility] 01-01-2022 influenza virus vaccine, unspecified formulation Lilian Debbie BOWENMOTION DESIGNER Work Phone: [facility] 01-02-2021 influenza, high-dose , quadrivalent vaccine (FLUZONE HIGH DOSE QUADRIVALENT) Abhinav Bolden MD Work Phone: [facility] Work Phone: 01-16-2020 zoster vaccine recombinant Abhinav Bolden MD Work Phone: [facility] 01-04-2020 influenza, high-dose , quadrivalent vaccine (FLUZONE HIGH DOSE QUADRIVALENT) Abhinav Bolden MD Work Phone: [facility] 09-04-2019 zoster vaccine recombinant Abhinav Bolden MD Work Phone: [facility] Work Phone: 01-10-2019 Influenza virus vaccine [facility] 01-10-2019 influenza, seasonal, injectable, preservative free Abhinav Bolden MD Work Phone: [facility] Work Phone: 04-06-2018 pneumococcal polysaccharide vaccine, 23 valent Abhinav Bolden MD Work Phone: [facility] 04-04-2017 pneumococcal conjuga te vaccine, 13 valent Abhinav Bolden MD Work Phone: [facility] 12-26-2016 influenza, high dose seasonal, preservative-free Abhinav Bolden MD Work Phone: [facility] 06-15-2016 tetanus toxoid, redu ellyn diphtheria toxoid, and acellular pertussis vaccine, adsorbed Abhinav Bolden MD Work Phone: [facility] Work Phone: 12-25-2013 influenza, seasonal, injectable Abhinav Bolden MD Work Phone: [facility] 12-12-2011 influenza virus vaccine, unspecified formulation Abhinav Bolden MD Work Phone: [facility] 12-08-2009 influenza virus vaccine, unspecified formulation Abhinav Bolden MD Work Phone: [facility] Work Phone: 01-14-2009 novel [id number], preservative-free, injectable Abhinav Bolden MD Work Phone: [facility] Work Phone: 08-11-2005 tetanus toxoid, redu ellyn diphtheria toxoid, and acellular pertussis vaccine, adsorbed Abhinav Bolden MD Work Phone: [facility] Payers Date Payer Category Payer Self-pay [id number] 2017 Medicare MEDICARE MEDICAR E A AND B [id number] 2017-Present [phone] [address] [address] [place] [address] Medicare [id number] 2017 Medicare [id number] 2017 Private Health Insurance [facility] AARP SUPPLEMENT [id number] 2017-Present [phone] [address] [place] [address] Indemnity [id number] 2017 Private Health Insurance [id number] 2017 Medicare [id number] 2017 Unknown [id number] 2005 Unknown MMO [employer] SUPER MED PLUS [id number] 2005-2013 [address] [place] [address] PPO [id number] Unknown [facility] [id number] Unknown [id number] Unknown [id number] Unknown [id number] Unknown [id number] Unknown [id number] Unknown [id number] Social History Date Type Detail Facility Start: 08-16-2011 End: 02-14-2022 Tobacco smoking status NHIS Never smoked tobacco [facility] Start: 01-18-2021 End: 11-08-2024 Alcohol intake Current drinker of alcohol (finding) [facility] Start: 09-15-2020 End: 06-26-2022 History SDOH Alcohol Frequency 3 [facility] Start: 09-15-2020 End: 06-26-2022 History SDOH Alcohol Std Drinks 1 [facility] Start: 09-16-2020 History SDOH Alcohol Comment 1-2 times per month [facility] Start: 09-15-2020 End: 06-26-2022 History SDOH Social Connections Phone 5 [facility] Start: 09-15-2020 End: 06-26-2022 History SDOH Social Connections Get Together 2 [facility] Start: 09-15-2020 End: 06-26-2022 History SDOH Physical Activity DPW 6 [facility] Start: 09-01-2019 Education 17 [facility] Start: 1950 Sex Assigned At Not on file [facility] Start: 06-12-2021 End: 02-14-2022 Exposure to SARS-CoV-2 (event) Not sure [facility] Work Phone: Start: 08-16-2011 End: 02-14-2022 Tobacco use and exposure Smokeless tobacco non-user [facility] Start: 02-15-2019 End: 04-20-2022 Tobacco smoking status NHIS Unknown if ever smoked [facility] Start: 02-15-2019 Non-smoker [facility] Start: 1950 Sex Assigned At Female [facility] Start: 08-16-2011 Alcohol Comment very occasiona lly 2 per month [facility] Start: 09-23-2015 [facility] Start: 06-26-2022 History SDOH Physica l Activity MPS 4 [facility] Start: 06-26-2022 End: 08-09-2022 History of Social function [facility] Start: 06-26-2022 End: 08-09-2022 Social connection and isolation panel [facility] Do you belong to any clubs or organizations such as sikhism groups, unions, fraternal or athletic groups, or school groups? Yes [facility] Are you now , , , , never or living with a partner? [facility] How often to you hav e a drink containing alcohol? Monthly or less [facility] Start: 02-12-2012 Average Number of Drinks Not on file [facility] How often do you hav e 6 or more drinks on 1 occasion? Never [facility] Do you feel stress - tense, restless, nervous, or anxious, or unable to sleep at night because your mind is troubled all the time - these days [OSQ] Not at all [facility] (I/We) worried wheuvaldo er (my/our) food would run out before (I/we) got money to buy more. Never true [facility] In the past 12 month s, was there a time when you were not able to pay the mortgage or rent on time? No [facility] Start: 09-14-2020 Gender identity Identifies as female gender (finding) [facility] Start: 09-14-2020 Sexual orientation Heterosexual (isaias santiago) [facility] How often to you hav e a drink containing alcohol? 2-4 times a month [facility] How many standard drinks containing alcohol do you have on a typical day? 1 or 2 [facility] Do you feel stress - tense, restless, nervous, or anxious, or unable to sleep at night because your mind is troubled all the time - these days [OSQ] Only a little [facility] NEGATED: Highlighted row [facility] Goals Date Patient Goal Desired Activity /State Functional Status Date Assessment Result Facility 10-01-2024 Are you deaf, or do you have serious difficulty hearing No 10/01/2024 2:42 PM Supriya Mata RN No [facility] 10-01-2024 Are you blind, or do you have serious difficulty seeing, even when wearing glasses No 10/01/2024 2:42 PM Supriya Mata RN No [facility] 10-01-2024 Do you have serious difficulty walking or climbing stairs No 10/01/2024 2:42 PM Supriya Mata, MARIA LUISA No [facility] 10-01-2024 Do you have difficul ty dressing or bathing No 10/01/2024 2:42 PM Supriya Mata, MARIA LUISA [facility] 10-01-2024 Because of a physica l, mental, or emotional condition, do you have difficulty doing errands alone such as visiting a physician's office or shopping No 10/01/2024 2:42 PM Supriya Mata RN No [facility] 09-10-2014 Are you deaf, or do you have serious difficulty hearing No 09/10/2014 10:44 AM Natasha Palma Ma No [facility] 09-10-2014 Are you blind, or do you have serious difficulty seeing, even when wearing glasses No 09/10/2014 10:44 AM Natasha Palma Ma No [facility] 09-10-2014 Do you have serious difficulty walking or climbing stairs No 09/10/2014 10:44 AM Natasha Palma Ma No [facility] 09-10-2014 Do you have difficul ty dressing or bathing No 09/10/2014 10:44 AM EDT Natasha Viera Ma [facility] 09-10-2014 Because of a physica l, mental, or emotional condition, do you have difficulty doing errands alone such as visiting a physician's office or shopping No 09/10/2014 10:44 AM EDT Natasha Viera Ma Yamila [facility] Mental Status Date Assessment Result Facility 10-01-2024 Because of a physica l, mental, or emotional condition, do you have serious difficulty concentrating, remembering, or making decisions No 10/01/2024 2:42 PM EDT Supriya Grayson, MARIA LUISA No [facility] 04-07-2022 Cognitive function Level Of Cons ciousness Awake;Alert;Appropriate;Fol lows Commands [facility] Work Phone: 03-29-2022 Cognitive function Voice/Name [facility] Work Phone: 09-10-2014 Because of a physica l, mental, or emotional condition, do you have serious difficulty concentrating, remembering, or making decisions No 09/10/2014 10:44 AM EDT Natasha Viera Ma [facility] Clinical Notes 10-15-2013 to 12-02-2024 Jihan Acosta APRN.[facility] - 11/08/2024 12:22 PM EDTTelephone Encounter - Dai Garcia LPN - 10/07/2024 8:57 AM EDTTelephone Encounter - Dai Garcia LPN - 10/07/2024 8:57 AM EDT Note Date & Type Note Facility 12-02-2024 Note HNO ID: [id number] Author: AYDEE HUMPHREY MA Service: ? Author Type: Continuity Coordinator Type: Progress Notes Filed: 12/02/2024 16:01 Note Text: POPULATION HEALTH NAVIGATION OUTREACH Action/FYI updated appointment notes Topic Due (Y or N) Comments Medicare Wellness yy PCP Follow up Colorectal Cancer Screening y Controlling Blood Pressure A1C HCC Flu Vaccine Care Everywhere Reviewed MyChart Activation Updated Appointment Note Reason for Outreach Care Gap/HCC or Scheduling Wellness Visits Care Gaps due: Medicare Annual Wellness Visit Colorectal Cancer Screening Patient Contacted: Unable or unnecessary to reach patient: Patient already scheduled Updated appointment notes Navigation Signature: Aydee Humphrey MA December 02, 2024 3:59 PM [facility] 12-02-2024 Note Patient Outreach (NE TNAV) YAKELIN HUYNH ([id number]) 1950 F Date Time Provider Department 12/02/24 AYDEE HUMPHREY NETNAV During your visit today, we recorded the following information about you: Aydee Humphrey MA 12/02/2024 4:01 PM Signed POPULATION HEALTH NAVIGATION OUTREACH Action/ updated appointment notes Topic Due (Y or N) Comments Medicare Wellness yy PCP Follow up Colorectal Cancer Screening y Controlling Blood Pressure A1C HCC Flu Vaccine Care Everywhere Reviewed MyChart Activation Updated Appointment Note Reason for Outreach Care Gap/HCC or Scheduling Wellness Visits Care Gaps due: Medicare Annual Wellness Visit Colorectal Cancer Screening Patient Contacted: Unable or unnecessary to reach patient: Patient already scheduled Updated appointment notes Navigation Signature: Aydee Humphrey MA December 02, 2024 3:59 PM Allergies As of Date: 12/02/2024 Noted Allergy Reaction AMOXICILLIN 07/15/2005 2 - Rash BACTRIM (SULFAMETHOXAZOLE-TRIMETH*07/16/19 06 Comments: stomatitis DEMEROL (MEPERIDINE) 12/07/2022 14 - Other: See Comments Comments: Urinary retention Date Reviewed: 11/08/2024 Reviewed by: Twin Reddy [facility] - Fully Assessed Reason for Visit: Population Health Navigation Outreach [3910] C[facility] Prescriptions as of 12/02/2024 - ciprofloxacin HCl (CIPRO) 500 mg tablet - atorvastatin (LIPITOR) 20 mg tablet Take 1 tablet by mouth daily at bedtime. For cholesterol. - ipratropium bromide (ATROVENT) 42 mcg (0.06 %) nasal spray Use 2 Sprays in the nose two times a day. - latanoprost (XALATAN) 0.005 % ophthalmic solution - acetaminophen (TYLENOL EXTRA STRENGTH ORAL) Take 2 tablets by mouth as needed. - diphenhydrAMINE (BENADRYL) 25 mg capsule Take 25 mg by mouth every 6 hours as needed. - fluticasone (FLONASE) 50 mcg/actuation nasal spray Use 2 Sprays in each nostril once daily. Rinse mouth after use. - docusate sodium (STOOL SOFTENER ORAL) Take by mouth. - CALCIUM CARBONATE/VITAMIN D3 (CALCIUM 600 + D,3, ORAL) Take by mouth twice daily. - PSYLLIUM SEED, WITH SUGAR, (METAMUCIL ORAL) Take by mouth. - POLYETHYLENE GLYCOL 3350 (MIRALAX ORAL) Take by mouth. 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 12/18/2008 Diffuse cystic mastopathy [N60.19] 09/26/2005 Routine general medical examination at [facility]*12/18/2008 08/16/2011 Class: Chronic Routine gynecological examination [Z01.419] 12/18/2008 08/16/2011 Class: Chronic SVT (supraventricular tachycardia) (HCC) [I47.1*12/18/2008 04/04/2017 Postmenopausal atrophic vaginitis [N95.2] 08/10/2010 Shingles [B02.9] 04/12/2012 Abnormal mammogram, unspecified [R92.8] 10/15/2013 04/04/2017 Vasomotor rhinitis [J30.0] 04/06/2018 Class 1 obesity due to excess calories without * Pure hypercholesterolemia [E78.00] Primary osteoarthritis of both knees [M17.0] 09/21/2021 Personal history of DVT (deep vein thrombosis) *04/11/2022 Single subsegmental pulmonary embolism without *04/11/2022 03/28/2023 Solitary pulmonary nodule on lung CT [R91.1] 04/07/2021 History of total hip arthroplasty, left [Z96.64*09/27/2024 History of partial knee replacement [Z96.659] 09/27/2024 Personal history of cardiac arrhythmia [Z86.79] 09/27/2024 Encounter Status:Closed by KAMAYDEE Ines on 12/02/24 [facility] 11-08-2024 Note HNO ID: [id number] Author: JIHAN ACOSTA APRN.MOTION DESIGNER Service: ? Author Type: Nurse Practitioner Type: Progress Notes Filed: 11/08/2024 12:58 Note Text: [facility] Note CC post op Patient of Dr Rivera Last clinic visit on: 09/30/2024 HPI : Patient is a 74 year old female with a history of HLD, obesity, osteoarthritis, prior PE in 2022, who 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 Was evaluated by PCP who ordered ultrasound which was inconclusive. CT scan revealed parotid gland mass. Saw [facility] who recommended biopsy but this was unable to be completed at [facility]. She was taken to the OR with Dr Rivera 09/30/2024 for parotidectomy questions/concerns today include: - Mild ear discomfort, rated 1/10, with occasional zing of discomfort. - No issues with hearing, jaw movement, or swallowing. - No pain along the incision line; initial scab took 2-3 weeks to soften and come off. - Using Aquaphor on the incision site. - noticed some swelling and numbness around the incision. - Denies any drainage from the incision. -reports a tender area in front of the ear. 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 Last 2 Encounter Wt Readings: Date: Wt: 11/08/2024 77.2 kg (170 lb 3.1 oz) 10/04/2024 76 kg (167 lb 8.8 oz) BP 124/71 Pulse 85 Wt 77.2 kg (170 lb 3.1 oz) LMP 07/12/2006 SpO2 96% BMI 31.13 kg/m? Current Outpatient Medications Medication Sig Dispense Refill ciprofloxacin HCl (CIPRO) 500 mg tablet atorvastatin (LIPITOR) 20 mg tablet Take 1 tablet by mouth daily at bedtime. For cholesterol. 90 tablet 1 ipratropium bromide (ATROVENT) 42 mcg (0.06 %) nasal spray Use 2 Sprays in the nose two times a day. 15 mL 2 latanoprost (XALATAN) 0.005 % ophthalmic solution acetaminophen (TYLENOL EXTRA STRENGTH ORAL) Take 2 tablets by mouth as needed. fluticasone (FLONASE) 50 mcg/actuation nasal spray Use 2 Sprays in each nostril once daily. Rinse mouth after use. 3 Bottle 3 CALCIUM CARBONATE/VITAMIN D3 (CALCIUM 600 + D,3, ORAL) Take by mouth twice daily. PSYLLIUM SEED, WITH SUGAR, (METAMUCIL ORAL) Take by mouth. diphenhydrAMINE (BENADRYL) 25 mg capsule Take 25 mg by mouth every 6 hours as needed. (Patient not taking: Reported on 11/08/2024) docusate sodium (STOOL SOFTENER ORAL) Take by mouth. (Patient not taking: Reported on 11/08/2024) POLYETHYLENE GLYCOL 3350 (MIRALAX ORAL) Take by mouth. As needed (Patient not taking: Reported on 11/08/2024) No current facility-administered medications for this visit. ALLERGIES Allergen Reactions Amoxicillin Rash Bactrim [Sulfametho* stomatitis Demerol [Meperidine] Other: See Comments Urinary retention EXAM: Constitutional - General Appearance: well developed, well nourished, without obvious deformities Communication: speaks with a strong voice without hoarseness Head AND Face - Overall: no obvious scars, lesions or masses Parotid and submandibular glands: right valentina incision well approximated minimal edema posteriorly Facial strength: normal and equal bilaterally Ear, Nose, Mouth AND Throat - Neck: appears symmetric, and on palpation is without masses or lymphadenopathy Thyroid: no asymmetry, thyromegaly, or thyroid nodules on palpation Neuro: CN III - CN XII grossly intact Latest Ref Rng AND Units 12/07/2022 08/29/2024 10/01/2024 CMP Sodium 136 - 144 mmol/L 140 135 Potassium 3.7 - 5.1 mmol/L 4.2 4.2 Chloride 98 - 107 mmol/L 107 105 CO2 22 - 30 mmol/L 23 19 Glucose 74 - 99 mg/dL 81 153 BUN 7 - 21 mg/dL 19 14 Creatinine 0.58 - 0.96 mg/dL 0.69 0.72 0.59 EGFR >=60 mL/min/1.73m? 93 89 96 Protein, Total 6.3 - 8.0 g/dL 7.2 Albumin 3.9 - 4.9 g/dL 4.5 Calcium 8.5 - 10.2 mg/dL 10.0 9.9 Bilirubin, Total 0.2 - 1.3 mg/dL 0.4 AST 13 - 35 U/L 25 ALT 7 - 38 U/L 23 Alkaline Phosphatase 34 - 123 U/L 92 Latest Ref Rng AND Units 08/29/2024 09/30/2024 10/01/2024 CBC WBC 3.70 - 11.00 k/uL 6.30 15.57 RBC 3.90 - 5.20 m/uL 4.74 4.79 Hemoglobin 11.5 - 15.5 g/dL 14.4 14.4 Hemoglobin Total, Whole Blood 11.5 - 15.5 g/dL 15.0 Hematocrit 36.0 - 46.0 % 43.9 42.7 MCV 80.0 - 100.0 fL 92.6 89.1 MCH 26.0 - 34.0 pg 30.4 30.1 MCHC 30.5 - 36.0 g/dL 32.8 33.7 RDW-CV 11.5 - 15.0 % 13.5 14.3 Platelet Count 150 - 400 k/uL 214 208 MPV 9.0 - 12.7 fL 11.5 10.5 Baso% % 1.0 0.1 Abs Neut (ANC) 1.45 - 7.50 k/uL 3.94 13.85 Abs Lymph 1.00 - 4.00 k/uL 1.61 0.88 Abs [place] <0.87 k/uL 0.62 0.72 Abs Eosin <0.46 k/uL 0.06 <0.03 Abs Baso <0.11 k/uL 0.06 <0.03 NRBC /100 WBC 0.0 0.0 ASSESSMENT: Yakelin Huynh is a 74 year old female with history of HLD, obesity, osteoarthritis, prior PE in 2022, who 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 Was evaluated by PCP who ordered ultrasound which was inconclusive. CT scan revealed parotid gland mass. Saw [facility] who recommended biopsy but this was unable to be completed at [facility]. (more content not included)... [facility] 11-08-2024 History of Present illness Narrative Images from the original note were not included. [facility] Note CC post op Patient of Dr Rivera Last clinic visit on: 09/30/2024 HPI : Patient is a 74 year old female with a history of HLD, obesity, osteoarthritis, prior PE in 2022, who 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 Was evaluated by PCP who ordered ultrasound which was inconclusive. CT scan revealed parotid gland mass. Saw [facility] who recommended biopsy but this was unable to be completed at [facility]. She was taken to the OR with Dr Rivera 09/30/2024 for parotidectomy questions/concerns today include: - Mild ear discomfort, rated 1/10, with occasional zing of discomfort. - No issues with hearing, jaw movement, or swallowing. - No pain along the incision line; initial scab took 2-3 weeks to soften and come off. - Using Aquaphor on the incision site. - noticed some swelling and numbness around the incision. - Denies any drainage from the incision. -reports a tender area in front of the ear. 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 Last 2 Encounter Wt Readings: Date: Wt: 11/08/2024 77.2 kg (170 lb 3.1 oz) 10/04/2024 76 kg (167 lb 8.8 oz) BP 124/71 Pulse 85 Wt 77.2 kg (170 lb 3.1 oz) LMP 07/12/2006 SpO2 96% BMI 31.13 kg/m Current Outpatient Medications Medication Sig Dispense Refill ciprofloxacin HCl (CIPRO) 500 mg tablet atorvastatin (LIPITOR) 20 mg tablet Take 1 tablet by mouth daily at bedtime. For cholesterol. 90 tablet 1 ipratropium bromide (ATROVENT) 42 mcg (0.06 %) nasal spray Use 2 Sprays in the nose two times a day. 15 mL 2 latanoprost (XALATAN) 0.005 % ophthalmic solution acetaminophen (TYLENOL EXTRA STRENGTH ORAL) Take 2 tablets by mouth as needed. fluticasone (FLONASE) 50 mcg/actuation nasal spray Use 2 Sprays in each nostril once daily. Rinse mouth after use. 3 Bottle 3 CALCIUM CARBONATE/VITAMIN D3 (CALCIUM 600 + D,3, ORAL) Take by mouth twice daily. PSYLLIUM SEED, WITH SUGAR, (METAMUCIL ORAL) Take by mouth. diphenhydrAMINE (BENADRYL) 25 mg capsule Take 25 mg by mouth every 6 hours as needed. (Patient not taking: Reported on 11/08/2024) docusate sodium (STOOL SOFTENER ORAL) Take by mouth. (Patient not taking: Reported on 11/08/2024) POLYETHYLENE GLYCOL 3350 (MIRALAX ORAL) Take by mouth. As needed (Patient not taking: Reported on 11/08/2024) No current facility-administered medications for this visit. ALLERGIES Allergen Reactions Amoxicillin Rash Bactrim [Sulfametho* stomatitis Demerol [Meperidine] Other: See Comments Urinary retention EXAM: Constitutional - General Appearance: well developed, well nourished, without obvious deformities Communication: speaks with a strong voice without hoarseness Head & Face - Overall: no obvious scars, lesions or masses Parotid and submandibular glands: right valentina incision well approximated minimal edema posteriorly Facial strength: normal and equal bilaterally Ear, Nose, Mouth & Throat - Neck: appears symmetric, and on palpation is without masses or lymphadenopathy Thyroid: no asymmetry, thyromegaly, or thyroid nodules on palpation Neuro: CN III - CN XII grossly intact Latest Ref Rng & Units 12/07/2022 08/29/2024 10/01/2024 CMP Sodium 136 - 144 mmol/L 140 135 Potassium 3.7 - 5.1 mmol/L 4.2 4.2 Chloride 98 - 107 mmol/L 107 105 CO2 22 - 30 mmol/L 23 19 Glucose 74 - 99 mg/dL 81 153 BUN 7 - 21 mg/dL 19 14 Creatinine 0.58 - 0.96 mg/dL 0.69 0.72 0.59 EGFR >=60 mL/min/1.73m 93 89 96 Protein, Total 6.3 - 8.0 g/dL 7.2 Albumin 3.9 - 4.9 g/dL 4.5 Calcium 8.5 - 10.2 mg/dL 10.0 9.9 Bilirubin, Total 0.2 - 1.3 mg/dL 0.4 AST 13 - 35 U/L 25 ALT 7 - 38 U/L 23 Alkaline Phosphatase 34 - 123 U/L 92 Latest Ref Rng & Units 08/29/2024 09/30/2024 10/01/2024 CBC WBC 3.70 - 11.00 k/uL 6.30 15.57 RBC 3.90 - 5.20 m/uL 4.74 4.79 Hemoglobin 11.5 - 15.5 g/dL 14.4 14.4 Hemoglobin Total, Whole Blood 11.5 - 15.5 g/dL 15.0 Hematocrit 36.0 - 46.0 % 43.9 42.7 MCV 80.0 - 100.0 fL 92.6 89.1 MCH 26.0 - 34.0 pg 30.4 30.1 MCHC 30.5 - 36.0 g/dL 32.8 33.7 RDW-CV 11.5 - 15.0 % 13.5 14.3 Platelet Count 150 - 400 k/uL 214 208 MPV 9.0 - 12.7 fL 11.5 10.5 Baso% % 1.0 0.1 Abs Neut (ANC) 1.45 - 7.50 k/uL 3.94 13.85 Abs Lymph 1.00 - 4.00 k/uL 1.61 0.88 Abs [place] <0.87 k/uL 0.62 0.72 Abs Eosin <0.46 k/uL 0.06 <0.03 Abs Baso <0.11 k/uL 0.06 <0.03 NRBC /100 WBC 0.0 0.0 ASSESSMENT: Yakelin Huynh is a 74 year old female with history of HLD, obesity, osteoarthritis, prior PE in 2022, who 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 Was evaluated by PCP who ordered ultrasound which was inconclusive. CT scan revealed parotid gland mass. Saw [facility] who recommended biopsy but this was unable to be completed at [facility]. She was taken to the OR with Dr Rivera 09/30/2024 for parotidectomy Pt is currently 6 weeks post op PLAN AND RECOMMENDATIONS: 1. Post-operative state (Z98.890) - Status post parotidectomy for pleomorphic adenoma; incision site healing well with minimal discomfort and no drainage. - Reviewed pathology report confirming encapsulated pleomorphic adenoma. - Educated patient on expected course of healing: swelling and numbness may persist for several months, with significant improvement typically around 3 months post-op and near-complete resolution by 1 year. - Follow-up in 6-9 months to assess incision site; consider repeat CT at 1-2 years to rule out recurrence Jihan Acosta APRN.MOTION DESIGNER Elements of this note, including HPI, ROS, Physical Exam, Assessment and Plan were copied and pasted from Dr Rivera last office visit on 09/30/2024. Updates have been made where needed and reflect current exam and medical decision making from 11/08/2024 I spent a total of 20 minutes on the date of the service which included preparing to see the patient, [id number] patient care, completing clinical documentation, obtaining and/or reviewing separately obtained history, performing a medically appropriate examination, counseling and educating the patient/family/caregiver, and communicating with other HCPs (not separately reported). Recording using [employer] software for draft documentation of the visit was discussed with the patient/authorized brand representative; all questions welcomed and answered. Patient/authorized brand representative agreed to proceed documented in this encounter [facility] 10-07-2024 Telephone encounter Note Patient calling asking to have Urology referral faxed to Dr Song office at [phone]. Printed office visit notes, urine results, face sheet, consult, insurance card copy and faxed as requested. [facility] 10-07-2024 Miscellaneous Notes Patient calling asking to have Urology referral faxed to Dr Song office at [phone]. Printed office visit notes, urine results, face sheet, consult, insurance card copy and faxed as requested. documented in this encounter [facility] 10-04-2024 Note HNO ID: [id number] Author: SORAIDA FELDMAN APRN.DIGITAL SALES EXECUTIVE Service: ? Author Type: Nurse Specialist Type: Progress Notes Filed: 10/04/2024 12:19 Note Text: Subjective Patient ID: Yaeklin is a 74 year old female who presents for Urinary Frequency (urinary frequency and pelvic pain). HPI Yakelin Huynh is a 74-year-old female presenting for evaluation of urinary retention and discomfort following recent parotid gland tumor removal. Urinary Retention and Discomfort: - Recent parotid gland tumor removal at [facility] on Monday. - History of urinary retention issues post-anesthesia; required straight catheterization once during hospital stay. - Reports incomplete bladder emptying post-surgery; experiencing a heavy sensation in the pelvic area. - Urinating throughout the day with some relief, but unsure if completely emptying bladder. - Nocturia noted during hospital stay, urinating every 1.5-2 hours. - Denies dysuria, urgency, or back pain; monitoring temperature regularly. - History of urinary retention with previous surgeries and anesthesia, including childbirth and a surgery in the 1980s. - Past treatment with Ditropan for suspected overactive bladder, discontinued due to lack of efficacy. - No current fever; managing post-surgical discomfort with Tylenol. ROS Constitutional: (-) fever Neck: (+) tight pulling sensation Genitourinary: (+) urinary frequency, (+) urinary retention, (+) suprapubic heaviness, (+) straining to void, (-) dysuria, (-) urinary urgency Musculoskeletal: (-) back pain Objective BP 116/80 Pulse 101 Resp 16 Wt 76 kg (167 lb 8.8 oz) LMP 07/12/2006 BMI 30.65 kg/m? Physical Exam Vitals and nursing note reviewed. Constitutional: Appearance: Normal appearance. HENT: Head: Normocephalic and atraumatic. Eyes: Conjunctiva/sclera: Conjunctivae normal. Cardiovascular: Rate and Rhythm: Normal rate and regular rhythm. Heart sounds: Normal heart sounds. Pulmonary: Effort: Pulmonary effort is normal. Breath sounds: Normal breath sounds. Abdominal: General: Bowel sounds are normal. Palpations: Abdomen is soft. Tenderness: There is abdominal tenderness (mild mid low abdomen). Skin: General: Skin is warm and dry. Neurological: General: No focal deficit present. Mental Status: She is alert and oriented to person, place, and time. 1. Urinary retention (R33.9) 2. UTI symptoms (R39.9) 3. Postprocedural urinary retention (N99.89) - Recent parotidectomy with subsequent urinary retention requiring straight catheterization; ongoing incomplete bladder emptying and pelvic heaviness. - Urinalysis obtained to evaluate for UTI. Culture sent - Start empiric antibiotic therapy. - Refer to urology for further evaluation, including bladder ultrasound to assess post-void residual volume. - Advised to seek emergency care if unable to void. 4. H/O parotidectomy (Z90.49) - Recent parotid gland tumor removal; no current surgical complications reported. Soraida Feldman, TEJINDER.DIGITAL SALES EXECUTIVE Medical Decision Making: Problems: Low: Acute, uncomplicated illness or injury Data: Unique test(s) ordered: 2 Risk: Moderate: Drug management Medical Decision Making Level: 3 - Low [facility] 10-04-2024 History of Present illness Narrative Subjective Patient ID: Yakelin is a 74 year old female who presents for Urinary Frequency (urinary frequency and pelvic pain). HPI Yakelin Huynh is a 74-year-old female presenting for evaluation of urinary retention and discomfort following recent parotid gland tumor removal. Urinary Retention and Discomfort: - Recent parotid gland tumor removal at [facility] on Monday. - History of urinary retention issues post-anesthesia; required straight catheterization once during hospital stay. - Reports incomplete bladder emptying post-surgery; experiencing a heavy sensation in the pelvic area. - Urinating throughout the day with some relief, but unsure if completely emptying bladder. - Nocturia noted during hospital stay, urinating every 1.5-2 hours. - Denies dysuria, urgency, or back pain; monitoring temperature regularly. - History of urinary retention with previous surgeries and anesthesia, including childbirth and a surgery in the 1980s. - Past treatment with Ditropan for suspected overactive bladder, discontinued due to lack of efficacy. - No current fever; managing post-surgical discomfort with Tylenol. ROS Constitutional: (-) fever Neck: (+) tight pulling sensation Genitourinary: (+) urinary frequency, (+) urinary retention, (+) suprapubic heaviness, (+) straining to void, (-) dysuria, (-) urinary urgency Musculoskeletal: (-) back pain Objective BP 116/80 Pulse 101 Resp 16 Wt 76 kg (167 lb 8.8 oz) LMP 07/12/2006 BMI 30.65 kg/m Physical Exam Vitals and nursing note reviewed. Constitutional: Appearance: Normal appearance. HENT: Head: Normocephalic and atraumatic. Eyes: Conjunctiva/sclera: Conjunctivae normal. Cardiovascular: Rate and Rhythm: Normal rate and regular rhythm. Heart sounds: Normal heart sounds. Pulmonary: Effort: Pulmonary effort is normal. Breath sounds: Normal breath sounds. Abdominal: General: Bowel sounds are normal. Palpations: Abdomen is soft. Tenderness: There is abdominal tenderness (mild mid low abdomen). Skin: General: Skin is warm and dry. Neurological: General: No focal deficit present. Mental Status: She is alert and oriented to person, place, and time. 1. Urinary retention (R33.9) 2. UTI symptoms (R39.9) 3. Postprocedural urinary retention (N99.89) - Recent parotidectomy with subsequent urinary retention requiring straight catheterization; ongoing incomplete bladder emptying and pelvic heaviness. - Urinalysis obtained to evaluate for UTI. Culture sent - Start empiric antibiotic therapy. - Refer to urology for further evaluation, including bladder ultrasound to assess post-void residual volume. - Advised to seek emergency care if unable to void. 4. H/O parotidectomy (Z90.49) - Recent parotid gland tumor removal; no current surgical complications reported. Soraida Feldman APRN.CNS Medical Decision Making: Problems: Low: Acute, uncomplicated illness or injury Data: Unique test(s) ordered: 2 Risk: Moderate: Drug management Medical Decision Making Level: 3 - Low documented in this encounter [facility] 10-04-2024 Telephone encounter Note Reason for Disposition Urinating more frequently than usual (i.e., frequency) OR new-onset of the feeling of an urgent need to urinate (i.e., urgency) Answer Assessment - Initial Assessment Questions 1. SYMPTOM: Patient reports frequency every 2 hours and pelvic pressure. Patient had parotidectomy completed and started having symptoms while at hospital but then they went away. At that point she was having abdominal distention and had to have a straight cath. Recommended if symptoms were the same and she thought she was retaining urine then we would recommend the ER. Patient reports that they don't feel the same and she is concerned for UTI. Patient is wanting testing to make sure she is not starting with a UTI as she has had them in the past and aware that is what appt is for and that we don't offer bladder scanning or catheterization. Nurse triage recommendation is to be seen within 24 hrs. Patient in town and able to come in right away. Prefers not to do EC. Scheduled per request. 2. ONSET: Yesterday. 3. PAIN: No 4. CAUSE: Patient has history of UTI. 5. OTHER SYMPTOMS: No blood in urine, fever, flank pain, pain with urination. Protocols used: Urinary [id number] [facility] 10-04-2024 Miscellaneous Notes Reason for Disposition Urinating more frequently than usual (i.e., frequency) OR new-onset of the feeling of an urgent need to urinate (i.e., urgency) Answer Assessment - Initial Assessment Questions 1. SYMPTOM: Patient reports frequency every 2 hours and pelvic pressure. Patient had parotidectomy completed and started having symptoms while at hospital but then they went away. At that point she was having abdominal distention and had to have a straight cath. Recommended if symptoms were the same and she thought she was retaining urine then we would recommend the ER. Patient reports that they don't feel the same and she is concerned for UTI. Patient is wanting testing to make sure she is not starting with a UTI as she has had them in the past and aware that is what appt is for and that we don't offer bladder scanning or catheterization. Nurse triage recommendation is to be seen within 24 hrs. Patient in town and able to come in right away. Prefers not to do EC. Scheduled per request. 2. ONSET: Yesterday. 3. PAIN: No 4. CAUSE: Patient has history of UTI. 5. OTHER SYMPTOMS: No blood in urine, fever, flank pain, pain with urination. Protocols used: Urinary [id number] documented in this encounter [facility] 10-01-2024 Note HNO ID: [id number] Author: STEVE SCHAEFFER MD Service: Otolaryngology Author Type: Resident Type: Progress Notes Filed: 10/01/2024 09:33 Note Text: [facility] OT[facility] - HEAD AND NECK SURGERY PROGRESS NOTE PAGE [id number] AFTER 1700 AND ON WEEKENDS Patient Name: Yakelin Huynh Age: [age] year old Sex: female Date: October 01, 2024 Admission Date: 09/30/2024 Hospital Day: 0 ASSESSMENT/PLAN: Yakelin Huynh is a 74 year old female s/p right parotidectoim - FEN: tolerating regular diet - Wound Care: Bacitracin to incisions BID until POD7 - Drain Care: Strip drains q4h, record output q8h, may remove drain later this afternoon - Dispo: continue RNF, possible DC this afternoon Steve Schaeffer MD PGY-4 Otolaryngology/Head and Neck Surgery [phone] Service Pager [phone] - please page after 5pm and on weekends SUBJECTIVE: No acute events overnight. Pain well-controlled with current regimen. Breathing well on RA. Tolerating diet. OBJECTIVE: Vitals: 09/30/24 1807 09/30/24 2111 10/01/24 0040 10/01/24 0432 BP: 148/73 131/67 159/82 156/69 Pulse: 98 82 87 80 Resp: 16 16 18 16 Temp: 36.6 ?C (97.8 ?F) 36.4 ?C (97.6 ?F) 36.8 ?C (98.3 ?F) 36.5 ?C (97.7 ?F) TempSrc: Oral Oral Temporal Oral SpO2: 95% 94% 95% 95% Ins AND Outs: Date 09/30/24699 - 10/01/24 0659 10/01/24699 - 10/02/24 0659 Shift 4213-5375 2059-2585 7876-2617 24 Hour Total 3336-0411 1579-1157 6445-7816 24 Hour Total INTAKE PO 495 272 5181 400 400 PO 309 893 0185 400 400 IV 300 6661 604 5071 Volume (mL) (vancomycin 1.5 g in NaCl 0.9% 300 mL) 300 300 Volume (mL) (clindamycin iv piggyback 600 mg in D5W 50 mL (CLEOCIN)) 50 50 Volume (mL) (lactated ringers iv infusion) 500 500 Volume (mL) (lactated ringers iv infusion) 400 400 Volume (mL) (dextrose 5% in NaCl 0.45% with 20 mEq/L KCl iv infusion) 315 106 5290 Volume (mL) (lactated ringers iv infusion) 30 30 Shift Total 300 2140 1170 3610 400 400 OUTPUT Urine 200 1800 2000 700 700 Void (ml) 200 1800 2000 Straight cath (ml) 700 700 Urine Not Saved. 1 x 1 x Tubes 25 20 45 Drain/Tube Output (Drain/Tube 09/30/[address] [facility] Right Cheek Drain #1) 25 45 Shift Total 225 1820 2045 700 700 Weight (kg) Physical Examination: General: No acute distress Neuro: following commands, appropriate Cardiopulm: Well perfused, breathing non-labored, no hoarseness Face: Full and symmetric facial motion, no weakness Neck: soft, incisions c/d/i, no signs of hematoma, seroma Drains: RN ONEL x 1, serosanguinous and holding suction LABS: Blood: Recent Labs 10/01/24 0625 WBC 15.57* HB 14.4 HCT 42.7 PLT 208 MCV 89.1 MCH 30.1 MCHC 33.7 RDWCV 14.3 MPV 10.5 NEUTP 89.0 LYMPHP 5.7 MONOP 4.6 EODINP 0.0 BASOP 0.1 ABSNEUT 13.85* ABSMONO 0.72 ABSEOSIN <0.03 ABSBASO <0.03 Recent Labs 10/01/24 0634 NA 135* K 4.2 CHLOR 105 CO2 19* BUN 14 CREAT 0.59 GLUC 153* CA 9.9 No results for input(s): PCGLUCOSE in the last 72 hours. No results for input(s): CK, CKMB, MB, TROPT in the last 72 hours. No results for input(s): PTSEC, INR, APTT in the last 72 hours. No results for input(s): TBILI, CBILI, AST, ALT, ALKPHOS, TPROT, ALB, AMYLASE, LIPASE in the last 72 hours. Recent Labs 09/30/24 1356 LACT 1.4 Medications: Current Facility-Administered Medications Medication Dose Route Frequency dextrose 5% in NaCl 0.45% with 20 mEq/L KCl iv infusion 100 mL/hr INTRAVENOUS CONTINUOUS acetaminophen 325 mg CUP (TYLENOL) 325 mg ORAL q 6 H PRN morphine 2 mg injection 2 mg INTRAVENOUS q 2 H PRN ondansetron (PF) 4 mg injection (ZOFRAN) 4 mg INTRAVENOUS q 6 H PRN bacitracin 500 unit/gram topical ointment TOPICAL BID enoxaparin 40 mg injection (LOVENOX) 40 mg SUBCUTANEOUS q 24 HR oxyCODONE 5-10 mg oral liquid (ROXICODONE) 5-10 mg ORAL q 4 H PRN clindamycin iv piggyback 600 mg in D5W 50 mL (CLEOCIN) 600 mg INTRAVENOUS q 8 H hydrALAZINE 10 mg injection (APRESOLINE) 10 mg INTRAVENOUS q 6 H PRN labetalol 5 mg injection syringe (NORMODYNE) 5 mg INTRAVENOUS q 6 H PRN Active Problems: * No active hospital problems. * Active Problems: * No active hospital problems. * Right parotid mass POA: Yes: Plan: surgery [facility] 09-30-2024 Note HNO ID: [id number] Author: PURNIMA BUSTOS MD Service: ? Author Type: Resident Type: Anesthesia Procedure Notes Filed: 09/30/2024 14:26 Note Text: ANESTHESIOLOGY PROCEDURE NOTE PIV General Information Procedure Start Time/Medication Administration: 09/30/2024 1:29 PM Procedure End Time: 09/30/2024 1:29 PM Patient Location: OR Staffing Resident: Purnima Bustos MD Performed by: resident Preparation Sterility Preparation: hand hygiene performed prior to procedure, surgical cap used, mask used, skin prep agent completely dried prior to procedure Site Prep: alcohol Procedure Details Indication: need for IV access Needle Size/Type: 20 gauge angiocath Orientation: Left Location: Forearm Imaging Guidance Used: Yes Image in Chart: No SIGNATURE: Purnima Bustos MD PATIENT NAME: Yakelin Huynh DATE: September 30, 2024 TIME: 2:25 PM CSN: [id number] [facility] 09-30-2024 Note HNO ID: [id number] Author: PURNIMA BUSTOS MD Service: ? Author Type: Resident Type: Anesthesia Procedure Notes Filed: 09/30/2024 14:25 Note Text: ANESTHESIOLOGY PROCEDURE NOTE PIV General Information Procedure Start Time/Medication Administration: 09/30/2024 1:59 PM Procedure End Time: 09/30/2024 1:59 PM Patient Location: OR Staffing Anesthesiologist: Kristian Granados MD Resident: Purnima Bustos MD Performed by: anesthesiologist Preparation Sterility Preparation: hand hygiene performed prior to procedure, surgical cap used, mask used, skin prep agent completely dried prior to procedure Site Prep: alcohol Procedure Details Indication: need for IV access Needle Size/Type: 20 gauge angiocath Orientation: Right Location: Wrist Imaging Guidance Used: No SIGNATURE: Purnima Bustos MD PATIENT NAME: Yakelin Huynh DATE: September 30, 2024 TIME: 2:24 PM CSN: [id number] [facility] 09-30-2024 Note HNO ID: [id number] Author: PURNIMA BUSTOS MD Service: ? Author Type: Resident Type: Anesthesia Procedure Notes Filed: 09/30/2024 14:24 Note Text: ANESTHESIOLOGY PROCEDURE NOTE Airway General Information Procedure Start Time/Medication Administration: 09/30/2024 1:46 PM Procedure End Time: 09/30/2024 1:40 PM Patient location during procedure: OR Timeout Performed Pre-procedure: timeout performed Consent Obtained: Yes Patient identity confirmed: arm band Staffing Anesthesiologist: Kristian Granados MD Resident: Purnima Bustos MD Performed by: resident Indications and Patient Condition Indications for airway management: anesthesia Preoxygenated: yes anesthesia circuit Patient position: sniffing Method: sleep Cricoid Pressure: No Manual In-Line Stabilization: No Difficult Mask: No Final Airway Details Final airway type: endotracheal airway Final Endotracheal Airway: ETT Cuffed: yes Successful intubation technique: video laryngoscopy Devices used: SoftArt Endotracheal tube insertion site: oral Blade: Lyle Blade size: #3 ETT size (mm): 7.0 Measured from: lips Measurement (cm): 2 Placement verified by: capnometry Cormack-Lehane Classification: grade I - full view of glottis Number of attempts at approach: 1 Failed airway: no Unrecognized esophageal intubation: no Airway not difficult SIGNATURE: Purnima Bustos MD PATIENT NAME: Yakelin Huynh DATE: September 30, 2024 TIME: 2:24 PM CSN: [id number] [facility] 09-27-2024 Telephone encounter Note Scanned into [employer]. Palma Hernandez LPN [facility] 09-27-2024 Miscellaneous Notes Scanned into [employer]. Palma Hernandez LPN Can we get her EKG from [facility] scanned into [facility], surgery is Monday. Thank you documented in this encounter [facility] 09-27-2024 Telephone encounter Note Can we get her EKG from [facility] scanned into [facility], surgery is Monday. Thank you [facility] 09-27-2024 Instructions Jose Valles APRN.BINH - 09/27/2024 9:13 AM EDT Images from the original note were not included. [facility] PATIENT PREOPERATIVE INSTRUCTIONS No ref. provider found has scheduled you for your procedure at this surgery center: [facility] [place] Scheduling Office: [phone] --[address] [place] [address]. Please read below carefully for your personalized instructions. Dietary Restrictions: - No solid food after midnight. - You may have 12 ounces of clear liquids (water, clear juices such as apple juice or gatorade, carbonated beverages, clear tea, black coffee, jello) until 2 hours before scheduled arrival at facility. No red/purple coloring and no creamer/sugar Medications: Unless instructed differently below, stay on all of your medications until your surgery. If you start any new medications after today's visit, please contact your surgeon. Pre-Surgery Med Instructions Medication Instructions atorvastatin (LIPITOR) 20 mg tablet If you normally take this medication in the morning, take the morning of surgery. ipratropium bromide (ATROVENT) 42 mcg (0.06 %) nasal spray Continue as needed latanoprost (XALATAN) 0.005 % ophthalmic solution If you normally take this medication in the morning, take the morning of surgery. acetaminophen (TYLENOL EXTRA STRENGTH ORAL) Continue as needed diphenhydrAMINE (BENADRYL) 25 mg capsule Continue as needed fluticasone (FLONASE) 50 mcg/actuation nasal spray Continue as needed docusate sodium (STOOL SOFTENER ORAL) Continue as needed CALCIUM CARBONATE/VITAMIN D3 (CALCIUM 600 + D,3, ORAL) Hold 7 days before surgery. Last dose 09/27/24. PSYLLIUM SEED, WITH SUGAR, (METAMUCIL ORAL) Hold 7 days before surgery. Last dose 09/27/24. POLYETHYLENE GLYCOL 3350 (MIRALAX ORAL) Continue as needed If you start any new medications after today's visit, please contact the surgeon's office. If you are currently using a [id number] injectable or oral medication for diabetes or weight loss such as Dulaglutide (Trulicity), Exenatide (Byetta, Bydureon), Liraglutide (Victoza, Saxenda), Semaglutide (Ozempic, Wegovy, Rybelsus), or Tirzepatide (Mounjaro), the medicine should be stopped at least 7 days before surgery. These medicines can cause food to remain in your stomach for a very long time and increase the risks from surgery and anesthesia. Not stopping the medication for a long enough time may result in your surgery being rescheduled. Blood Thinning Medications: - Stop NSAIDS (Ibuprofen, Advil, Aleve, Motrin, Celebrex, Mobic, etc.) 7 days before surgery, as directed by your surgeon. - Stop Aspirin 7 days before surgery, as directed by your surgeon. - Stop ALL herbal and dietary supplements 7 days before surgery. - You may take Tylenol (Acetaminophen) or any of your pain medications that do not contain aspirin or NSAIDS as needed. Important Reminders: - Candy, mints, and tobacco products are NOT permitted the morning of surgery. - Hearing aids, dentures and glasses may be worn the morning of surgery. - NO jewelry, body piercings, makeup, hairpins or contacts are to be worn the day of surgery. If you develop symptoms such as a fever, cold, or flu, or have other changes to your health within TWO DAYS of scheduled surgery or the morning of surgery, please contact the surgery center above. Personal Belongings: -Please have photo ID and insurance cards. -If you do not have a copy of advance directives on file with us, please bring a copy with you on the day of surgery. - Leave ALL valuables and money at home or with family members. - Please bring high-quality footwear, such as sneakers, to the hospital for ambulating post-surgery. For Outpatient Procedures: - YOU MUST HAVE A RESPONSIBLE FEDERAL DISTRICT CLERK TAKE YOU HOME. A ELECTROENCEPHALOGRAPHIC TECHNICIAN OR SPECIAL PROCEDURE TECHNOLOGIST CANNOT BE MADE A RESPONSIBLE FEDERAL DISTRICT CLERK. - We recommend that a responsible person stays with you overnight to take care of you. - You cannot stay in a hotel alone after outpatient surgery. You will not be permitted to have your surgery, if you do not have someone to take care of you. Arrival Time for Surgery: - To obtain your arrival time for surgery, call your physician's office the day before your surgery. - If you have received different instructions about finding out your arrival time from your surgeon, please follow those instructions. - If your surgery is scheduled for Monday, call the Monday before. Your surgeon s nursing scheduler will tell you what time to call the office. - If you have not reached the departmental nursing scheduler by 5 P.M., call [phone] after 5 P.M. the day before your surgery. Please be aware that emergency situations arise, which may delay or change your surgical time. If this happens, we will notify you as soon as possible and regret any inconvenience. If you already have an Advance Directive, please fax a copy to [phone] or email to for it to be added to your chart. If you do not have an Advance Directive, you can find the appropriate form and more information at [email or web address]. We recommend that you complete the Advance Directive form found on the website and bring it with you the day of your surgery. It can be witnessed and scanned into your chart that day. Jose Valles APRN.BINH documented in this encounter [facility] 09-27-2024 History and physical note Images from the original note were not included. [facility] Pre[facility]est[facility] HISTORY AND PHYSICAL EXAMINATION SERVICE DATE: 09/27/2024 SERVICE TIME: 9:35 AM PRIMARY CARE PHYSICIAN: Abhinav Bolden MD Assessment Patient has the following medical conditions which may affect eriberto-operative course: Pure hypercholesterolemia Assessment: c/w statin Solitary pulmonary nodule on lung CT Assessment: repeat serial imaging stable, following pulmonary Office Visit on 06/10/2024 Chronic constipation Assessment: controlled on rx Personal history of DVT (deep vein thrombosis) Assessment: hx provoked DVT/PE, tx wit OAC for 6 mos, 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 Vasomotor rhinitis Assessment: rx as needed ANESTHESIA FINDINGS: Intubation History: No history of difficult intubation Significant Anesthesia Considerations: none Airway History: No history of difficult airway Bloom Activity Status Index: METS: Climb a flight of stairs or walk up a hill (5.50 METs) DASI Score: 5.5 Patient denies any chest pain or undue shortness of breath with the above physical activity. Clinical Frailty Scale: 2. Well STOP-Bang Score: Snores loudly Patient over 50 years old Has a large neck Denies feeling tired, fatigued, or sleepy during the daytime Has not been observed to stop breathing or choking/gasping during sleep Denies having high blood pressure BMI less than or equal to 35 kg/m^2 Non-male patient STOP-Bang Score: 3 [id number] Score: Age: 65-74 Sex: female CHF history: No Hypertension history: No Stroke/TIA/thromboembolism history: No Vascular disease history: No Diabetes history: No [id number] Score: 2 ARISCAT Score: Age: 51-80 Preoperative SpO2: >=96% Respiratory infection in the last month: No Preoperative anemia: No Surgical incision: peripheral Duration of surgery: >3 hrs Emergency procedure: No ARISCAT Score: 26 I - PHYSICAL EVALUATION AIRWAY Patient intubated: No. Tracheostomy tube not present Mallampati: III. TM distance: >3 FB. Neck ROM: full ROM without neurological symptoms. Mouth opening: adequate. Short neck: no. Thick neck: yes Sparrow present: no Lip Bite Test: I Microretrognathia/Micronagthia/Rec essed Chin: No DENTAL Dental findings: teeth intact. II - ANESTHESIA PLAN Anesthetic Plan: other Beta Madi Monitoring Plan Post Procedure Analgesic Plan Prepared for Surgery: optimally prepared for surgery. CONSULTS: Patient does not require consults for optimization at this time Planned Anesthetic: other anesthesia choice The Following Tests/Procedures Have Been Initiated: No orders of the defined types were placed in this encounter. REASON FOR VISIT: Yakelin Huynh is a 74 year old female who is scheduled for Procedure(s): PAROTIDECTOMY (Right) at the request of Thien Rosas MD for consultation. My final recommendation will be communicated back to the requesting physician by way of shared medical record or letter. Subjective The patient has the following: COVID-19 Immunization Status Current Care Gaps Covid-19 Vaccine () Overdue since 06/03/2024 12/05/2023 Outside Immunization: COVID-19, mRNA, LNP-S, PF, 50 mcg/0.5 mL 03/20/2023 Imm Admin: COVID-19 vaccine, age 12+ yr (MODERNA) 09/26/2022 Imm Admin: COVID-19 vaccine, age 12+ yr, bivalent (MODERNA) Only the first 3 history entries have been loaded, but more history exists. CHIEF COMPLAINT: Pre-op exam HPI: Yakelin Huynh is a 74 year old seen for PAC due to scheduled above surgery because mass of right parotid gland. 09/25/24, Thien Rosas MD HPI: Patient is a 74 year old female with PMHx of HLD, obesity, osteoarthritis, prior PE in 2022, who 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 Was evaluated by PCP who ordered ultrasound which was inconclusive. CT scan revealed parotid gland mass. Saw [facility] ENT who recommended biopsy but this was unable to be completed at [facility]. Patient reports mass present for one month, stable size of mass, no pain, mildly tender to palpation, some right neck tightness, no overlying skin changes, no facial numbness or tingling, no reported facial asymmetry. No history of skin cancer or radiation exposure. No history of head or neck cancer, No family history of head or neck cancer. No prior head and neck surgery. No blood thinners. No tobacco history, occasional EtOH use. REVIEW OF SYSTEMS: General: No weight loss, malaise or fevers. Neurological: No history of TIA's, stroke, DIGITAL SALES EXECUTIVE tumor, impaired sensorium, hemiplegia, paraplegia or quadraplegia. No neurological symptoms or problems. Respiratory: +pulmonary nodule. No history of current cough or dyspnea, or pneumonia in the past 6 weeks. No history of respiratory/pulmonary symptoms or problems. Cardiovascular: Positive for: arrhythmia (hx SVT, 20 years ago), DVT/PE (provoked, tx AC) and hyperlipidemia (on rx) Negative for: abdominal aortic aneurysm, AICD/PPM, angina, anticoagulation therapy, atrial fibrillation, CAD, chest pain, CHF, congenital heart defect, hypertension, recent [place], murmur/valvular heart disease, PTCA, PVD, open heart surgery and valve surgery. GI: +constipation on rx . No history of GI symptoms or problems. No history of esophageal varices, recent ascites, or ETOH greater than 2 drinks per day. : No history of dysuria, frequency or incontinence, stones or chronic kidney disease. No difficulty urinating, nocturia > 1 time per night or hematuria. 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 Endocrine: No history of diabetes. Has not taken steroids within the past 30 days. No history of endocrinological symptoms or problems. Hematology: No history of bleeding or clotting disorder. Patient is not taking anti-coagulation or platelet medications. No history of hematological symptoms or problems. Oncology: No history of CA metastasis, chemo within 30 days, or radiotherapy within 90 days. No history of oncological symptoms or problems. Psych: No history of psychiatric symptoms or problems. Musculoskeletal: +hx partial right knee replacement +hx left TITO Skin: Negative for lesions, rash and itching. Implanted Devices: No implanted devices. PAST MEDICAL HISTORY Diagnosis Date Bursitis of left hip Class 1 obesity due to excess calories without serious comorbidity with body mass index (BMI) of 30.0 to 30.9 in adult DVT (deep venous thrombosis) (HCC) 04/03/2022 after D&C Glaucoma 2023 right eye change Hemorrhage of gastrointestinal tract, unspecified From hemorrhoids only Internal hemorrhoids without mention of complication Irregular menstrual cycle Irregular periods Resolved Osteoarthritis knee Primary osteoarthritis of both knees Dr. Garcia Pulmonary embolism (HCC) 04/08/2022 After D&C Pure hypercholesterolemia Shingles 04/12/2012 Solitary pulmonary nodule on lung CT 04/07/2021 Stable. no further imaging needed 06/2024 SVT (supraventricular tachycardia) ([facility]) 2004 Symptomatic menopausal or female climacteric states With atrophic vaginitis Unspecified constipation PAST SURGICAL HISTORY Procedure Laterality Date APPENDECTOMY 1986 CATARACT SURGERY, COMPLEX Left 04/2016 CATARACT SURGERY, COMPLEX Right 2018 [facility] ANTERPOST COLPORRAPHY W/CYSTO 02/21/2019 A&P repair COLONOSCOPY FLX DX W/COLLJ SPEC WHEN PFRMD 01/05/05 [facility] Colonoscopy COLONOSCOPY FLX DX W/COLLJ SPEC WHEN PFRMD 01/30/2015 Colonoscopy DILATION & CURETTAGE DX&/THER NONOBSTETRIC Dilation & curettage HYSTEROSCOPY BX ENDOMETRIUM&/POLYPC W/WO D&C 03/29/2022 D&C w/ polyp resection HYSTEROSCOPY, DIAGNOSTIC (SEPARATE 2001 Hysteroscopy LAPS ABD PRTM&OMENTUM DX W/WO SPEC BR/WA SPX Laparoscopy LIG/TRNSXJ FLP TUBE ABDL/VAG APPR UNI/BI 1982 Tubal ligation 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 ANY AREA UPW/15 08/17/2005 Removal skin tags TOTAL HIP REPLACEMENT Left 04/25/2024 TOTAL KNEE REPLACEMENT Right 12/23/2022 parital knee replacement FAMILY HISTORY Problem Relation Age of Onset Diabetes Mother Fatty liver; esophageal vaices Non- alcohol Ischemic Heart Disease Mother bypass age 72 Lipids Mother Coronary Artery Disease Mother other (Parkinson's) Mother Parkinskinson's= Cancer Father PROSTATE other (Parkinson's) Father Lipids Sister Prostate Cancer Brother other (polymyalgia rheumatica) Brother Lymphoma Brother Cancer Maternal Grandmother UTERINE Ischemic Heart Disease Maternal Grandfather and many others on that side of the family Social History Tobacco Use Smoking status: Never Smokeless tobacco: Never Vaping Use Vaping status: Never Used Substance Use Topics Alcohol use: Yes Comment: 1-2 times per month Drug use: No Prior to Admission medications as of 09/27/24 0998 Medication Sig Last Dose Taking atorvastatin (LIPITOR) 20 mg tablet Take 1 tablet by mouth daily at bedtime. For cholesterol. Yes ipratropium bromide (ATROVENT) 42 mcg (0.06 %) nasal spray Use 2 Sprays in the nose two times a day. Yes latanoprost (XALATAN) 0.005 % ophthalmic solution Yes acetaminophen (TYLENOL EXTRA STRENGTH ORAL) Take 2 tablets by mouth as needed. Yes diphenhydrAMINE (BENADRYL) 25 mg capsule Take 25 mg by mouth every 6 hours as needed. Yes fluticasone (FLONASE) 50 mcg/actuation nasal spray Use 2 Sprays in each nostril once daily. Rinse mouth after use. Yes docusate sodium (STOOL SOFTENER ORAL) Take by mouth. Yes CALCIUM CARBONATE/VITAMIN D3 (CALCIUM 600 + D,3, ORAL) Take by mouth twice daily. Yes PSYLLIUM SEED, WITH SUGAR, (METAMUCIL ORAL) Take by mouth. Yes POLYETHYLENE GLYCOL 3350 (MIRALAX ORAL) Take by mouth. As needed Yes Medication Comments documented by Thien Joaquin on 10/15/2013 at 1619. ALLERGIES Allergen Reactions Amoxicillin Rash Bactrim [Sulfametho* stomatitis Demerol [Meperidine] Other: See Comments Urinary retention Objective PHYSICAL EXAM: General: alert and oriented (x3), healthy appearance and obese. Pertinent negatives noted - not distressed. Skin: normal color, no rash or lesions. HEENT: EOM intact and pupils equal round. Pertinent negatives noted - no carotid bruit. Cardiovascular: regular rate and rhythm, normal S1 and S2, no rub, murmurs, or gallop. Respiratory: normal breath sounds, no wheezes or crackles. No chest wall deformity or tenderness. Abdomen: soft. Pertinent negatives noted - not tender. Extremities: no deformity, no edema or tenderness, no joint swelling or clubbing. Neurological: normal cognition and motor skills. Gait normal. No weakness or sensory deficit. PAIN ASSESSMENT: VITALS: BP 134/80 Pulse 96 Temp (Src) 97.3 (Temporal) Resp 14 Ht 5' 2 (1.58m) Wt 168 lb (76.2kg) SpO2 96% LMP 07/12/2006 BMI 30.72 kg/(m^2). Diagnostic tests reviewed for today's visit: Lab Value Units Date High Low HB 14.4 g/dL 08/29/2024 15.5 11.5 HCT 43.9 % 08/29/2024 46.0 36.0 WBC 6.30 k/uL 08/29/2024 11.00 3.70 PLT 214 k/uL 08/29/2024 400 150 NA No results within date range. K No results within date range. GLUC No results within date range. BUN No results within date range. CREAT 0.72 mg/dL 08/29/2024 0.96 0.58 PTSEC No results within date range. INR No results within date range. APTT No results within date range. ALT No results within date range. AST No results within date range. TBILI No results within date range. TSH No results within date range. Lab Value Units Date High Low HCGQT No results within date range. UHCG No results within date range. HCG, BODY* No results within date range. Lab Value Units Date High Low ABORHD No results within date range. ABSCREEN No results within date range. Hemoglobin A1C (%) Date Value 03/28/2022 5.7 No results found for this or any previous visit (from the past 8760 hours). No results found for this or any previous visit (from the past 99612 hours). Instructions Given to Patient: Instructions located in the after visit summary. Patient given verbal and written preop instructions and voices comprehension and compliance. SIGNATURE: Jose Valles APRN.CNP PATIENT NAME: Yakelin Huynh DATE: September 27, 2024 TIME: 9:11 AM PAGER/CONTACT #: [facility] 09-27-2024 History and physical note Images from the original note were not included. [facility] Pre[facility]Anesthesia Consultation Clinic HISTORY AND PHYSICAL EXAMINATION SERVICE DATE: 09/27/2024 SERVICE TIME: 9:35 AM PRIMARY CARE PHYSICIAN: Abhinav Bolden MD Assessment Patient has the following medical conditions which may affect eriberto-operative course: Pure hypercholesterolemia Assessment: c/w statin Solitary pulmonary nodule on lung CT Assessment: repeat serial imaging stable, following pulmonary Office Visit on 06/10/2024 Chronic constipation Assessment: controlled on rx Personal history of DVT (deep vein thrombosis) Assessment: hx provoked DVT/PE, tx wit OAC for 6 mos, 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 Vasomotor rhinitis Assessment: rx as needed ANESTHESIA FINDINGS: Intubation History: No history of difficult intubation Significant Anesthesia Considerations: none Airway History: No history of difficult airway Bloom Activity Status Index: METS: Climb a flight of stairs or walk up a hill (5.50 METs) DASI Score: 5.5 Patient denies any chest pain or undue shortness of breath with the above physical activity. Clinical Frailty Scale: 2. Well STOP-Bang Score: Snores loudly Patient over 50 years old Has a large neck Denies feeling tired, fatigued, or sleepy during the daytime Has not been observed to stop breathing or choking/gasping during sleep Denies having high blood pressure BMI less than or equal to 35 kg/m^2 Non-male patient STOP-Bang Score: 3 [id number] Score: Age: 65-74 Sex: female CHF history: No Hypertension history: No Stroke/TIA/thromboembolism history: No Vascular disease history: No Diabetes history: No [id number] Score: 2 ARISCAT Score: Age: 51-80 Preoperative SpO2: >=96% Respiratory infection in the last month: No Preoperative anemia: No Surgical incision: peripheral Duration of surgery: >3 hrs Emergency procedure: No ARISCAT Score: 26 I - PHYSICAL EVALUATION AIRWAY Patient intubated: No. Tracheostomy tube not present Mallampati: III. TM distance: >3 FB. Neck ROM: full ROM without neurological symptoms. Mouth opening: adequate. Short neck: no. Thick neck: yes Sparrow present: no Lip Bite Test: I Microretrognathia/Micronagthia/Rec essed Chin: No DENTAL Dental findings: teeth intact. II - ANESTHESIA PLAN Anesthetic Plan: other Beta Madi Monitoring Plan Post Procedure Analgesic Plan Prepared for Surgery: optimally prepared for surgery. CONSULTS: Patient does not require consults for optimization at this time Planned Anesthetic: other anesthesia choice The Following Tests/Procedures Have Been Initiated: No orders of the defined types were placed in this encounter. REASON FOR VISIT: Yakelin Huynh is a 74 year old female who is scheduled for Procedure(s): PAROTIDECTOMY (Right) at the request of Thien Rosas MD for consultation. My final recommendation will be communicated back to the requesting physician by way of shared medical record or letter. Subjective The patient has the following: COVID-19 Immunization Status Current Care Gaps Covid-19 Vaccine ( season) Overdue since 06/03/2024 12/05/2023 Outside Immunization: COVID-19, mRNA, LNP-S, PF, 50 mcg/0.5 mL 03/20/2023 Imm Admin: COVID-19 vaccine, age 12+ yr (MODERNA) 09/26/2022 Imm Admin: COVID-19 vaccine, age 12+ yr, bivalent (MODERNA) Only the first 3 history entries have been loaded, but more history exists. CHIEF COMPLAINT: Pre-op exam HPI: Yakelin Huynh is a 74 year old seen for PAC due to scheduled above surgery because mass of right parotid gland. 09/25/24, Thien Rosas MD HPI: Patient is a 74 year old female with PMHx of HLD, obesity, osteoarthritis, prior PE in 2022, who 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 Was evaluated by PCP who ordered ultrasound which was inconclusive. CT scan revealed parotid gland mass. Saw [facility] who recommended biopsy but this was unable to be completed at [facility]. Patient reports mass present for one month, stable size of mass, no pain, mildly tender to palpation, some right neck tightness, no overlying skin changes, no facial numbness or tingling, no reported facial asymmetry. No history of skin cancer or radiation exposure. No history of head or neck cancer, No family history of head or neck cancer. No prior head and neck surgery. No blood thinners. No tobacco history, occasional EtOH use. REVIEW OF SYSTEMS: General: No weight loss, malaise or fevers. Neurological: No history of TIA's, stroke, DIGITAL SALES EXECUTIVE tumor, impaired sensorium, hemiplegia, paraplegia or quadraplegia. No neurological symptoms or problems. Respiratory: +pulmonary nodule. No history of current cough or dyspnea, or pneumonia in the past 6 weeks. No history of respiratory/pulmonary symptoms or problems. Cardiovascular: Positive for: arrhythmia (hx SVT, 20 years ago), DVT/PE (provoked, tx AC) and hyperlipidemia (on rx) Negative for: abdominal aortic aneurysm, AICD/PPM, angina, anticoagulation therapy, atrial fibrillation, CAD, chest pain, CHF, congenital heart defect, hypertension, recent [place], murmur/valvular heart disease, PTCA, PVD, open heart surgery and valve surgery. GI: +constipation on rx . No history of GI symptoms or problems. No history of esophageal varices, recent ascites, or ETOH greater than 2 drinks per day. : No history of dysuria, frequency or incontinence, stones or chronic kidney disease. No difficulty urinating, nocturia > 1 time per night or hematuria. 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 Endocrine: No history of diabetes. Has not taken steroids within the past 30 days. No history of endocrinological symptoms or problems. Hematology: No history of bleeding or clotting disorder. Patient is not taking anti-coagulation or platelet medications. No history of hematological symptoms or problems. Oncology: No history of CA metastasis, chemo within 30 days, or radiotherapy within 90 days. No history of oncological symptoms or problems. Psych: No history of psychiatric symptoms or problems. Musculoskeletal: +hx partial right knee replacement +hx left TITO Skin: Negative for lesions, rash and itching. Implanted Devices: No implanted devices. PAST MEDICAL HISTORY Diagnosis Date Bursitis of left hip Class 1 obesity due to excess calories without serious comorbidity with body mass index (BMI) of 30.0 to 30.9 in adult DVT (deep venous thrombosis) ([facility]) 04/03/2022 after D&C Glaucoma 2023 right eye change Hemorrhage of gastrointestinal tract, unspecified From hemorrhoids only Internal hemorrhoids without mention of complication Irregular menstrual cycle Irregular periods Resolved Osteoarthritis knee Primary osteoarthritis of both knees Dr. Garcia Pulmonary embolism ([facility]) 04/08/2022 After D&C Pure hypercholesterolemia Shingles 04/12/2012 Solitary pulmonary nodule on lung CT 04/07/2021 Stable. no further imaging needed 06/2024 SVT (supraventricular tachycardia) ([facility]) 2004 Symptomatic menopausal or female climacteric states With atrophic vaginitis Unspecified constipation PAST SURGICAL HISTORY Procedure Laterality Date APPENDECTOMY 1986 CATARACT SURGERY, COMPLEX Left 04/2016 CATARACT SURGERY, COMPLEX Right 2018 [facility] ANTERPOST COLPORRAPHY W/CYSTO 02/21/2019 A&P repair COLONOSCOPY FLX DX W/COLLJ SPEC WHEN PFRMD 01/05/05 [facility] Colonoscopy COLONOSCOPY FLX DX W/COLLJ SPEC WHEN PFRMD 01/30/2015 Colonoscopy DILATION & CURETTAGE DX&/THER NONOBSTETRIC Dilation & curettage HYSTEROSCOPY BX ENDOMETRIUM&/POLYPC W/WO D&C 03/29/2022 D&C w/ polyp resection HYSTEROSCOPY, DIAGNOSTIC (SEPARATE 2002 Hysteroscopy LAPS ABD PRTM&OMENTUM DX W/WO SPEC BR/WA SPX Laparoscopy LIG/TRNSXJ FLP TUBE ABDL/VAG APPR /1982 Tubal ligation 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 ANY AREA UP08/17/2005 Removal skin tags TOTAL HIP REPLACEMENT Left 04/25/2024 TOTAL KNEE REPLACEMENT Right 12/23/2022 parital knee replacement FAMILY HISTORY Problem Relation Age of Onset Diabetes Mother Fatty liver; esophageal vaices Non- alcohol Ischemic Heart Disease Mother bypass age 72 Lipids Mother Coronary Artery Disease Mother other (Parkinson's) Mother Parkinskinson's= Cancer Father PROSTATE other (Parkinson's) Father Lipids Sister Prostate Cancer Brother other (polymyalgia rheumatica) Brother Lymphoma Brother Cancer Maternal Grandmother UTERINE Ischemic Heart Disease Maternal Grandfather and many others on that side of the family Social History Tobacco Use Smoking status: Never Smokeless tobacco: Never Vaping Use Vaping status: Never Used Substance Use Topics Alcohol use: Yes Comment: 1-2 times per month Drug use: No Prior to Admission medications as of 09/27/24 0928 Medication Sig Last Dose Taking atorvastatin (LIPITOR) 20 mg tablet Take 1 tablet by mouth daily at bedtime. For cholesterol. Yes ipratropium bromide (ATROVENT) 42 mcg (0.06 %) nasal spray Use 2 Sprays in the nose two times a day. Yes latanoprost (XALATAN) 0.005 % ophthalmic solution Yes acetaminophen (TYLENOL EXTRA STRENGTH ORAL) Take 2 tablets by mouth as needed. Yes diphenhydrAMINE (BENADRYL) 25 mg capsule Take 25 mg by mouth every 6 hours as needed. Yes fluticasone (FLONASE) 50 mcg/actuation nasal spray Use 2 Sprays in each nostril once daily. Rinse mouth after use. Yes docusate sodium (STOOL SOFTENER ORAL) Take by mouth. Yes CALCIUM CARBONATE/VITAMIN D3 (CALCIUM 600 + D,3, ORAL) Take by mouth twice daily. Yes PSYLLIUM SEED, WITH SUGAR, (METAMUCIL ORAL) Take by mouth. Yes POLYETHYLENE GLYCOL 3350 (MIRALAX ORAL) Take by mouth. As needed Yes Medication Comments documented by Thien Joaquin on 10/15/2013 at 1619. ALLERGIES Allergen Reactions Amoxicillin Rash Bactrim [Sulfametho* stomatitis Demerol [Meperidine] Other: See Comments Urinary retention Objective PHYSICAL EXAM: General: alert and oriented (x3), healthy appearance and obese. Pertinent negatives noted - not distressed. Skin: normal color, no rash or lesions. HEENT: EOM intact and pupils equal round. Pertinent negatives noted - no carotid bruit. Cardiovascular: regular rate and rhythm, normal S1 and S2, no rub, murmurs, or gallop. Respiratory: normal breath sounds, no wheezes or crackles. No chest wall deformity or tenderness. Abdomen: soft. Pertinent negatives noted - not tender. Extremities: no deformity, no edema or tenderness, no joint swelling or clubbing. Neurological: normal cognition and motor skills. Gait normal. No weakness or sensory deficit. PAIN ASSESSMENT: VITALS: BP 134/80 Pulse 96 Temp (Src) 97.3 (Temporal) Resp 14 Ht 5' 2 (1.58m) Wt 168 lb (76.2kg) SpO2 96% LMP 07/12/2006 BMI 30.72 kg/(m^2). Diagnostic tests reviewed for today's visit: Lab Value Units Date High Low HB 14.4 g/dL 08/29/2024 15.5 11.5 HCT 43.9 % 08/29/2024 46.0 36.0 WBC 6.30 k/uL 08/29/2024 11.00 3.70 PLT 214 k/uL 08/29/2024 400 150 NA No results within date range. K No results within date range. GLUC No results within date range. BUN No results within date range. CREAT 0.72 mg/dL 08/29/2024 0.96 0.58 PTSEC No results within date range. INR No results within date range. APTT No results within date range. ALT No results within date range. AST No results within date range. TBILI No results within date range. TSH No results within date range. Lab Value Units Date High Low HCGQT No results within date range. UHCG No results within date range. HCG, BODY* No results within date range. Lab Value Units Date High Low ABORHD No results within date range. ABSCREEN No results within date range. Hemoglobin A1C (%) Date Value 03/28/2022 5.7 No results found for this or any previous visit (from the past 8760 hours). No results found for this or any previous visit (from the past 47281 hours). Instructions Given to Patient: Instructions located in the after visit summary. Patient given verbal and written preop instructions and voices comprehension and compliance. SIGNATURE: Jose Valles APRN.CNP PATIENT NAME: Yakelin Huynh DATE: September 27, 2024 TIME: 9:11 AM PAGER/CONTACT #: documented in this encounter [facility] 09-26-2024 Note Addended by: TWIN FULLER on: 09/26/2024 01:16 PM Modules accepted: Orders [facility] 09-26-2024 Miscellaneous Notes Addended by: TWIN REDDY on: 09/26/2024 01:16 PM Modules accepted: Orders documented in this encounter [facility] 09-25-2024 Note HNO ID: [id number] Author: THIEN RIVERA MD Service: ? Author Type: Physician Type: Progress Notes Filed: 09/26/2024 08:47 Note Text: CC: Yakelin Huynh is a 74 year old female seen at the request of Tony Giron APRN.CNP for right parotid mass. HPI: Patient is a 74 year old female with PMHx of HLD, obesity, osteoarthritis, prior PE in 2022, who 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 Was evaluated by PCP who ordered ultrasound which was inconclusive. CT scan revealed parotid gland mass. Saw [facility] who recommended biopsy but this was unable to be completed at [facility]. Patient reports mass present for one month, stable size of mass, no pain, mildly tender to palpation, some right neck tightness, no overlying skin changes, no facial numbness or tingling, no reported facial asymmetry. No history of skin cancer or radiation exposure. No history of head or neck cancer, No family history of head or neck cancer. No prior head and neck surgery. No blood thinners. No tobacco history, occasional EtOH use. ALLERGIES Allergen Reactions Amoxicillin Rash Bactrim [Sulfametho* stomatitis Demerol [Meperidine] Other: See Comments Urinary retention Current Outpatient Medications Medication Sig atorvastatin (LIPITOR) 20 mg tablet Take 1 tablet by mouth daily at bedtime. For cholesterol. ipratropium bromide (ATROVENT) 42 mcg (0.06 %) nasal spray Use 2 Sprays in the nose two times a day. latanoprost (XALATAN) 0.005 % ophthalmic solution acetaminophen (TYLENOL EXTRA STRENGTH ORAL) Take 2 tablets by mouth as needed. diphenhydrAMINE (BENADRYL) 25 mg capsule Take 25 mg by mouth every 6 hours as needed. fluticasone (FLONASE) 50 mcg/actuation nasal spray Use 2 Sprays in each nostril once daily. Rinse mouth after use. docusate sodium (STOOL SOFTENER ORAL) Take by mouth. CALCIUM CARBONATE/VITAMIN D3 (CALCIUM 600 + D,3, ORAL) Take by mouth twice daily. PSYLLIUM SEED, WITH SUGAR, (METAMUCIL ORAL) Take by mouth. POLYETHYLENE GLYCOL 3350 (MIRALAX ORAL) Take by mouth. As needed ergocalciferol, vitamin D2, (VITAMIN D2 ORAL) Take by mouth. (Patient not taking: Reported on 07/17/2024) No current facility-administered medications for this visit. PAST MEDICAL HISTORY Diagnosis Date Bursitis of left hip Class 1 obesity due to excess calories without serious comorbidity with body mass index (BMI) of 30.0 to 30.9 in adult DVT (deep venous thrombosis) ([facility]) 04/03/2022 after DANDC Glaucoma 2023 right eye change Hemorrhage of gastrointestinal tract, unspecified From hemorrhoids only Internal hemorrhoids without mention of complication Irregular menstrual cycle Irregular periods Resolved Osteoarthritis knee Primary osteoarthritis of both knees Dr. Garcia Pulmonary embolism (HCC) 04/08/2022 After DANDC Pure hypercholesterolemia Shingles 04/12/2012 Solitary pulmonary nodule on lung CT 04/07/2021 Stable. no further imaging needed 06/2024 SVT (supraventricular tachycardia) ([facility]) 2004 Symptomatic menopausal or female climacteric states With atrophic vaginitis Unspecified constipation PAST SURGICAL HISTORY Procedure Laterality Date APPENDECTOMY 1986 CATARACT SURGERY, COMPLEX Left 04/2016 CATARACT SURGERY, COMPLEX Right 2018 [facility] ANTERPOST COLPORRAPHY W/CYSTO 02/21/2019 [facility] repair COLONOSCOPY FLX DX W/COLLJ SPEC WHEN PFRMD 01/05/05 [facility] Colonoscopy COLONOSCOPY FLX DX W/COLLJ SPEC WHEN PFRMD 01/30/2015 Colonoscopy DILATION AND CURETTAGE DXAND/THER NONOBSTETRIC Dilation AND curettage HYSTEROSCOPY BX ENDOMETRIUMAND/POLYPC W/WO DANDC 03/29/2022 DANDC w/ polyp resection HYSTEROSCOPY, DIAGNOSTIC (SEPARATE 2002 Hysteroscopy LAPS ABD PRTMANDOMENTUM DX W/WO SPEC BR/WA SPX Laparoscopy LIG/TRNSXJ FLP TUBE ABDL/VAG APPR UNI/BI 1982 Tubal ligation 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 Eyes: The pt denies having blurred vision or double vision. Respiratory: Denies symptoms of shortness of breath, noisy breathing, hoarseness, or chronic cough. GI: Denies symptoms of heartburn or acid regurgitation. PHYSICAL EXAM: On physical examination Yakelin Huynh is a well-developed, well nourished female. Her voice is strong and clear. HEAD AND FACE: Physical examination of the head, neck, external nose, external ears, mouth and face fails to demonstrate any significant abnormality or asymmetry to critical face to face observation. SALIVARY GLANDS: approximately 2x2cm (more content not included)... [place] [id number] History of Present illness Narrative CC: Yakelin Huynh is a 74 year old female seen at the request of Tony Giron APRN.CNP for right parotid mass. HPI: Patient is a 74 year old female with PMHx of HLD, obesity, osteoarthritis, prior PE in 2022, who 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 Was evaluated by PCP who ordered ultrasound which was inconclusive. CT scan revealed parotid gland mass. Saw [facility] who recommended biopsy but this was unable to be completed at [facility]. Patient reports mass present for one month, stable size of mass, no pain, mildly tender to palpation, some right neck tightness, no overlying skin changes, no facial numbness or tingling, no reported facial asymmetry. No history of skin cancer or radiation exposure. No history of head or neck cancer, No family history of head or neck cancer. No prior head and neck surgery. No blood thinners. No tobacco history, occasional EtOH use. ALLERGIES Allergen Reactions Amoxicillin Rash Bactrim [Sulfametho* stomatitis Demerol [Meperidine] Other: See Comments Urinary retention Current Outpatient Medications Medication Sig atorvastatin (LIPITOR) 20 mg tablet Take 1 tablet by mouth daily at bedtime. For cholesterol. ipratropium bromide (ATROVENT) 42 mcg (0.06 %) nasal spray Use 2 Sprays in the nose two times a day. latanoprost (XALATAN) 0.005 % ophthalmic solution acetaminophen (TYLENOL EXTRA STRENGTH ORAL) Take 2 tablets by mouth as needed. diphenhydrAMINE (BENADRYL) 25 mg capsule Take 25 mg by mouth every 6 hours as needed. fluticasone (FLONASE) 50 mcg/actuation nasal spray Use 2 Sprays in each nostril once daily. Rinse mouth after use. docusate sodium (STOOL SOFTENER ORAL) Take by mouth. CALCIUM CARBONATE/VITAMIN D3 (CALCIUM 600 + D,3, ORAL) Take by mouth twice daily. PSYLLIUM SEED, WITH SUGAR, (METAMUCIL ORAL) Take by mouth. POLYETHYLENE GLYCOL 3350 (MIRALAX ORAL) Take by mouth. As needed ergocalciferol, vitamin D2, (VITAMIN D2 ORAL) Take by mouth. (Patient not taking: Reported on 07/17/2024) No current facility-administered medications for this visit. PAST MEDICAL HISTORY Diagnosis Date Bursitis of left hip Class 1 obesity due to excess calories without serious comorbidity with body mass index (BMI) of 30.0 to 30.9 in adult DVT (deep venous thrombosis) ([facility]) 04/03/2022 after D&C Glaucoma 2023 right eye change Hemorrhage of gastrointestinal tract, unspecified From hemorrhoids only Internal hemorrhoids without mention of complication Irregular menstrual cycle Irregular periods Resolved Osteoarthritis knee Primary osteoarthritis of both knees Dr. Garcia Pulmonary embolism ([facility]) 04/08/2022 After D&C Pure hypercholesterolemia Shingles 04/12/2012 Solitary pulmonary nodule on lung CT 04/07/2021 Stable. no further imaging needed 06/2024 SVT (supraventricular tachycardia) ([facility]) 2004 Symptomatic menopausal or female climacteric states With atrophic vaginitis Unspecified constipation PAST SURGICAL HISTORY Procedure Laterality Date APPENDECTOMY 1986 CATARACT SURGERY, COMPLEX Left 04/2016 CATARACT SURGERY, COMPLEX Right 2018 [facility] ANTERPOST COLPORRAPHY W/CYSTO 02/21/2019 A&P repair COLONOSCOPY FLX DX W/COLLJ SPEC WHEN PFRMD 01/05/05 [facility] Colonoscopy COLONOSCOPY FLX DX W/COLLJ SPEC WHEN PFRMD 01/30/2015 Colonoscopy DILATION & CURETTAGE DX&/THER NONOBSTETRIC Dilation & curettage HYSTEROSCOPY BX ENDOMETRIUM&/POLYPC W/WO D&C 03/29/2022 D&C w/ polyp resection HYSTEROSCOPY, DIAGNOSTIC (SEPARATE 2001 Hysteroscopy LAPS ABD PRTM&OMENTUM DX W/WO SPEC BR/WA SPX Laparoscopy LIG/TRNSXJ FLP TUBE ABDL/VAG APPR UNI/BI 1982 Tubal ligation 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 ANY AREA UP08/17/2005 Removal skin tags TOTAL HIP REPLACEMENT Left 04/25/2024 TOTAL KNEE REPLACEMENT Right 12/23/2022 parital knee replacement Social History Tobacco Use Smoking status: Never Smokeless tobacco: Never Vaping Use Vaping status: Never Used Substance Use Topics Alcohol use: Yes Comment: 1-2 times per month Drug use: No ROS: Constitutional: Denies having night sweats, constant fatigue, loss of appetite, or recent substantial weight loss. Eyes: The pt denies having blurred vision or double vision. Respiratory: Denies symptoms of shortness of breath, noisy breathing, hoarseness, or chronic cough. GI: Denies symptoms of heartburn or acid regurgitation. PHYSICAL EXAM: On physical examination Yakelin Huynh is a well-developed, well nourished female. Her voice is strong and clear. HEAD AND FACE: Physical examination of the head, neck, external nose, external ears, mouth and face fails to demonstrate any significant abnormality or asymmetry to critical face to face observation. SALIVARY GLANDS: approximately 2x2cm firm, mobile, nontender mass of right parotid gland over angle of the mandible EARS: RT Canal: patent RT Drum: intact LT Canal: patent LT Drum: intact NOSE: Examination of the nasal cavity revealed a septum which is deviated to left. The mucosa is pink, and the visible turbinates are normal on anterior rhinoscopy. MASTICATION: The teeth appear in good condition. The lips and gums are without lesions. ORAL CAVITY AND OROPHARYNX: The oral mucosa, hard and soft palates, tongue, tonsil area, and posterior pharyngeal wall are without lesions. The tonsils are 1+. NECK: The neck appears symmetric without scars. On palpation, there are no masses or lymphadenopathy. The thyroid is free of palpable masses. CRANIAL NERVE EXAM: II: Pupillary reflexes normal III, IV, : EOM normal V: 1,2,3: normal sensation VII: Normal strength in all divisions. VIII: Hearing intact to finger rub bilaterally IX, X: Normal voice, palatal elevation and sensation XI: Shoulder strength normal XII: Tongue mobility normal REVIEW OF RADIOLOGICAL FILMS AND RECORDS: 09/02/24 CT NECK: IMPRESSION: Axial image 92 and sagittal image 32, 1.7 x 1.5 x 1.3 cm inhomogeneously enhancing mass anterior superficial portion of the right parotid gland. Tissue sampling is recommended to differentiate benign versus malignant lesion, especially in view of right-sided cervical lymphadenopathy Prominent right level IIa 3 and 4 lymph nodes. 12 by 21 mm right level 4 large lymph node Axial image 78, slightly asymmetric prominence right side tongue base/lingual tonsils PROCEDURE: none IMPRESSION: 74 year old female with one month history of right parotid gland mass. Physical exam with 2 x 2 cm mobile, firm mass of right parotid gland. Facial nerve intact. No palpable cervical lymphadenopathy. CT scan with 1.7 x 1.5 x 1.3 cm inhomogeneously enhancing mass anterior superficial portion of the right parotid gland as well as prominent right level 2a, 3 and 4 lymph nodes. Given her lymphadenopathy, I will proceed with image guided biopsy of her parotid mass to determine if it is benign or malignant. We discussed various options, including close monitoring vs surgical excision. Surgery is recommended for the following purposes: 1) definitive diagnosis (possible false negative of FNA of salivary gland masses for malignancy), 2) small, but real risk of possible malignant transformation (1% per year), and 3) therapeutic purpose by excising the mass in its entirety. We discussed the risks of surgery, including bleeding, pain, infection, numbness, scarring, earlobe numbness, seroma, temporary or permanent facial weakness, Christel's Syndrome, First Bite Syndrome, cosmetic deformity, lower lip weakness, and recurrence. We also discussed the possibility of performing a right neck dissection if the biopsy shows a high grade malignancy. Discussed the likely need for surgical drains. The patient wishes to proceed with surgery. PLANS and RECOMMENDATIONS: - Image guided biopsy of right parotid gland mass - Return to clinic after biopsy results to discuss surgical removal-- patient would like this removed Procedure: FNA right parotid lesion Indication -- abnormal right parotid lesion Procedure-- after timeout and safety huddle, the overlying skin on right parotid was cleaned and injected with 1% lidocaine with [id number] epinephrine and after appropriate time elasped, Multiple passes made with 23 and 25 gauge needles . They were placed on slides and in cytolyte. No complications Ang Shirley MD for the service of Thien Rivera MD September 26, 2024 I participated in the history and physical exam of Yakelin Huynh. I discussed the management of Yakelin Huynh with the resident. I reviewed the resident's note and agree with the documented findings and plan of care. Thien Rivera MD Tobacco Use: Never Was smoking cessation packet given? N/A - Patient is a non-smoker or quit >1 year ago. Was a referral initiated?N/A Patient is a non-smoker documented in this encounter [facility] 09-25-2024 Note HNO ID: [id number] Author: TWIN REDDY OCCA Service: ? Author Type: Continuity Coordinator Type: Progress Notes Filed: 09/26/2024 08:47 Note Text: Tobacco Use: Never Was smoking cessation packet given? N/A - Patient is a non-smoker or quit >1 year ago. Was a referral initiated?N/A Patient is a non-smoker [facility] 09-03-2024 Telephone encounter Note Patient calling and is asking if ENT orders can be faxed to [facility]. Orders, face sheet, office notes, CT Scan results faxed to [facility] as requested. [facility] 09-03-2024 Miscellaneous Notes Patient calling and is asking if ENT orders can be faxed to [facility]. Orders, face sheet, office notes, CT Scan results faxed to [facility] as requested. Please let patient know her CT shows mass to right parotid gland and recommends biopsy to determine cause. I have placed a referral to ENT for Biopsy. Pt active on [employer]- message sent Patrizia Ratliff MA Please let patient know their labs are normal. documented in this encounter [facility] 09-02-2024 Telephone encounter Note Please let patient know her CT shows mass to right parotid gland and recommends biopsy to determine cause. I have placed a referral to ENT for Biopsy. [facility] 09-02-2024 History of Present illness Narrative Radiology Service Progress Note DATE OF SERVICE: September 02, 2024 TIME: 2:19 PM PATIENT IDENTITY VERIFICATION COMPLETED USING TWO (2) STANDARD IDENTIFIERS: Name and Date of confirmed by patient verbally. FALL SCREENING: Has the patient had 2 falls in the last year or 1 fall with injury or currently using an Ambulatory Assistive Device (Walker, Cane, Wheelchair, Crutches, etc.)? No PATIENT GENDER DATA: Assigned female at . status: : No status: NO. PATIENT RELEVANT IMPLANT DATA REVIEWED: Yes PATIENT PRESENTS WITH AN IMPLANTABLE OR ATTACHED PRECINCT I POLICE SERGEANT: No ALLERGIES: Reviewed and unchanged CONTRAST ALLERGY: NO. EXAM: CT -CONTRAST INDUCED NEPHROPATHY RISK FACTORS: Patient age > 60 years CREATININE: Creatinine Date Value Ref Range Status 08/29/2024 0.72 0.58 - 0.96 mg/dL Final 12/07/2022 0.69 0.58 - 0.96 mg/dL Final 07/04/2022 0.83 0.58 - 0.96 mg/dL Final Estimated Glomerular Filtration Rate Date Value Ref Range Status 08/29/2024 89 >=60 mL/min/1.73m Final Comment: Estimated Glomerular Filtration Rate (eGFR) is calculated using the 2020 CKD-EPI creatinine equation. This equation utilizes serum creatinine, sex, and age as parameters. The creatinine assay has traceable calibration to isotope dilution-mass spectrometry. Refer to KDIGO guidelines for clinical interpretation. In patients with unstable renal function, e.g. those with acute kidney injury, the eGFR may not accurately reflect actual GFR. eGFR- Date Value Ref Range Status 09/16/2020 >60 Final P.O.C.T. RESULTS: POC done: Yes, See Lab Tab September 02, 2024 TREATMENT: N/A PERIPHERAL IV DATA: Ambulatory: A peripheral IV was started in the Left antecubital site with a Angio cath: 22 gauge. RADIOLOGY DEPARTMENT: CT; Exam(s) Completed: Neck SIGNATURE: BOWEN Hernández) PATIENT NAME: Yakelin Huynh DATE: September 02, 2024 TIME: 2:19 PM documented in this encounter [facility] 09-02-2024 Note HNO ID: [id number] Author: MELI NEWBY RT (R) Service: Radiology Author Type: Fuse Cup Expander Type: Progress Notes Filed: 09/02/2024 14:20 Note Text: Radiology Service Progress Note DATE OF SERVICE: September 02, 2024 TIME: 2:19 PM PATIENT IDENTITY VERIFICATION COMPLETED USING TWO (2) STANDARD IDENTIFIERS: Name and Date of confirmed by patient verbally. FALL SCREENING: Has the patient had 2 falls in the last year or 1 fall with injury or currently using an Ambulatory Assistive Device (Walker, Cane, Wheelchair, Crutches, etc.)? No PATIENT GENDER DATA: Assigned female at . status: : No status: NO. PATIENT RELEVANT IMPLANT DATA REVIEWED: Yes PATIENT PRESENTS WITH AN IMPLANTABLE OR ATTACHED PRECINCT I POLICE SERGEANT: No ALLERGIES: Reviewed and unchanged CONTRAST ALLERGY: NO. EXAM: CT -CONTRAST INDUCED NEPHROPATHY RISK FACTORS: Patient age > 60 years CREATININE: Creatinine Date Value Ref Range Status 08/29/2024 0.72 0.58 - 0.96 mg/dL Final 12/07/2022 0.69 0.58 - 0.96 mg/dL Final 07/04/2022 0.83 0.58 - 0.96 mg/dL Final Estimated Glomerular Filtration Rate Date Value Ref Range Status 08/29/2024 89 >=60 mL/min/1.73m? Final Comment: Estimated Glomerular Filtration Rate (eGFR) is calculated using the 2020 CKD-EPI creatinine equation. This equation utilizes serum creatinine, sex, and age as parameters. The creatinine assay has traceable calibration to isotope dilution-mass spectrometry. Refer to KDIGO guidelines for clinical interpretation. In patients with unstable renal function, e.g. those with acute kidney injury, the eGFR may not accurately reflect actual GFR. eGFR- Date Value Ref Range Status 09/16/2020 >60 Final P.O.C.T. RESULTS: POC done: Yes, See Lab Tab September 02, 2024 TREATMENT: N/A PERIPHERAL IV DATA: Ambulatory: A peripheral IV was started in the Left antecubital site with a Angio cath: 22 gauge. RADIOLOGY DEPARTMENT: CT; Exam(s) Completed: Neck SIGNATURE: RT Edgar(R) PATIENT NAME: Yakelin Huynh DATE: September 02, 2024 TIME: 2:[address] [facility] 08-29-2024 Telephone encounter Note Pt active on Sojern- message sent Patrizia Ratliff MA [facility] 08-29-2024 Telephone encounter Note Please let patient know their labs are normal. [facility] 08-29-2024 Telephone encounter Note Patient calls and notified of results and providers instructions. Patient verbalizes understanding. Transferred to schedule US. Will walk in this afternoon for labs. Mary Lou Vergara RN [facility] 08-29-2024 Miscellaneous Notes Patient calls and notified of results and providers instructions. Patient verbalizes understanding. Transferred to schedule US. Will walk in this afternoon for labs. Mary Lou Vergara RN US inconclusive. Please notify patient CT recommended and ordered. Please assist patient with scheduling. documented in this encounter [facility] 08-29-2024 Telephone encounter Note US inconclusive. Please notify patient CT recommended and ordered. Please assist patient with scheduling. [facility] 08-29-2024 History of Present illness Narrative Radiology Service Progress Note PATIENT NAME: Yakelin Huynh DATE OF SERVICE: August 29, 2024 TIME: 11:46 AM PATIENT IDENTITY VERIFICATION COMPLETED USING TWO (2) IDENTIFIERS: Name and Date of confirmed by patient verbally. FALL SCREENING: Has the patient had 2 falls in the last year or 1 fall with injury or currently using an Ambulatory Assistive Device (Walker, Cane, Wheelchair, Crutches, etc.)? No PATIENT GENDER DATA: Assigned female at . status: : No status: NO. PATIENT RELEVANT IMPLANT DATA REVIEWED: Yes PATIENT PRESENTS WITH AN IMPLANTABLE OR ATTACHED PRECINCT I POLICE SERGEANT: No RADIOLOGY DEPARTMENT: Ultrasound PERIPHERAL IV DATA: Not applicable SIGNED BY: TECHNOLOGIST Wendy August 29, 2024 11:46 AM documented in this encounter [facility] 08-29-2024 Note HNO ID: [id number] Author: WENDI FIELDS TECHNOLOGIST Service: ? Author Type: Technologist Type: Progress Notes Filed: 08/29/2024 11:46 Note Text: Radiology Service Progress Note PATIENT NAME: Yakelin Huynh DATE OF SERVICE: August 29, 2024 TIME: 11:46 AM PATIENT IDENTITY VERIFICATION COMPLETED USING TWO (2) IDENTIFIERS: Name and Date of confirmed by patient verbally. FALL SCREENING: Has the patient had 2 falls in the last year or 1 fall with injury or currently using an Ambulatory Assistive Device (Walker, Cane, Wheelchair, Crutches, etc.)? No PATIENT GENDER DATA: Assigned female at . status: : No status: NO. PATIENT RELEVANT IMPLANT DATA REVIEWED: Yes PATIENT PRESENTS WITH AN IMPLANTABLE OR ATTACHED PRECINCT I POLICE SERGEANT: No RADIOLOGY DEPARTMENT: Ultrasound PERIPHERAL IV DATA: Not applicable SIGNED BY: TECHNOLOGIST Wendy August 29, 2024 11:[address] [facility] 08-29-2024 Note HNO ID: [id number] Author: TONY GIRON APRN.CNP Service: ? Author Type: Nurse Practitioner Type: Progress Notes Filed: 08/29/2024 08:49 Note Text: Chief Complaint Patient presents with: lump on jaw: X 6 days HPI Yakelin Huynh is a 74 year old female who presents here today for right sided nodule on jaw, she noticed it Monday. Denies pain, slightly tender to palpation. No changes in her routine and she has not been around anyone that was sick, she did have a dental cleaning x3 weeks ago but did not have any other changes in her routine. The nodule is constantly there and does not change. Nodule feels firm, slightly moveable. Denies sore throat, has some nasal congestion related to her vasomotor rhinits, this has been ongoing. Past medical history, appointments, medications, allergies reviewed. Previous Medical History PAST MEDICAL HISTORY Diagnosis Date Bursitis of left hip Class 1 obesity due to excess calories without serious comorbidity with body mass index (BMI) of 30.0 to 30.9 in adult DVT (deep venous thrombosis) ([facility]) 04/03/2022 after DANDC Glaucoma 2023 right eye change Hemorrhage of gastrointestinal tract, unspecified From hemorrhoids only Internal hemorrhoids without mention of complication Irregular menstrual cycle Irregular periods Resolved Osteoarthritis knee Primary osteoarthritis of both knees Dr. Garcia Pulmonary embolism ([facility]) 04/08/2022 After DANDC Pure hypercholesterolemia Shingles 04/12/2012 Solitary pulmonary nodule on lung CT 04/07/2021 Stable. no further imaging needed 06/2024 SVT (supraventricular tachycardia) ([facility]) 2004 Symptomatic menopausal or female climacteric states With atrophic vaginitis Unspecified constipation Previous Surgical History PAST SURGICAL HISTORY Procedure Laterality Date APPENDECTOMY 1986 CATARACT SURGERY, COMPLEX Left 04/2016 CATARACT SURGERY, COMPLEX Right 2018 [facility] ANTERPOST COLPORRAPHY W/CYSTO 02/21/2019 AANDP repair COLONOSCOPY FLX DX W/COLLJ SPEC WHEN PFRMD 01/05/05 [facility] Colonoscopy COLONOSCOPY FLX DX W/COLLJ SPEC WHEN PFRMD 01/30/2015 Colonoscopy DILATION AND CURETTAGE DXAND/THER NONOBSTETRIC Dilation AND curettage HYSTEROSCOPY BX ENDOMETRIUMAND/POLYPC W/WO DANDC 03/29/2022 DANDC w/ polyp resection HYSTEROSCOPY, DIAGNOSTIC (SEPARATE 2002 Hysteroscopy LAPS ABD PRTMANDOMENTUM DX W/WO SPEC BR/WA SPX Laparoscopy LIG/TRNSXJ FLP TUBE ABDL/VAG APPR UNI/BI 1982 Tubal ligation 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 ANY AREA UPW/15 08/17/2005 Removal skin tags TOTAL HIP REPLACEMENT Left 04/25/2024 TOTAL KNEE REPLACEMENT Right 12/23/2022 parital knee replacement Family History FAMILY HISTORY Problem Relation Age of Onset Diabetes Mother Fatty liver; esophageal vaices Non- alcohol Ischemic Heart Disease Mother bypass age 72 Lipids Mother Coronary Artery Disease Mother other (Parkinson's) Mother China's= Cancer Father PROSTATE other (Parkinson's) Father Cancer Maternal Grandmother UTERINE Ischemic Heart Disease Maternal Grandfather and many others on that side of the family Prostate Cancer Brother other (polymyalgia rheumatica) Brother Lipids Sister Patient Allergies ALLERGIES Allergen Reactions Amoxicillin Rash Bactrim [Sulfametho* stomatitis Demerol [Meperidine] Other: See Comments Urinary retention Current Medications Current Outpatient Medications on File Prior to Visit Medication Sig atorvastatin (LIPITOR) 20 mg tablet Take 1 tablet by mouth daily at bedtime. For cholesterol. ipratropium bromide (ATROVENT) 42 mcg (0.06 %) nasal spray Use 2 Sprays in the nose two times a day. latanoprost (XALATAN) 0.005 % ophthalmic solution ergocalciferol, vitamin D2, (VITAMIN D2 ORAL) Take by mouth. (Patient not taking: Reported on 07/17/2024) acetaminophen (TYLENOL EXTRA STRENGTH ORAL) Take 2 tablets by mouth as needed. diphenhydrAMINE (BENADRYL) 25 mg capsule Take 25 mg by mouth every 6 hours as needed. fluticasone (FLONASE) 50 mcg/actuation nasal spray Use 2 Sprays in each nostril once daily. Rinse mouth after use. docusate sodium (STOOL SOFTENER ORAL) Take by mouth. CALCIUM CARBONATE/VITAMIN D3 (CALCIUM 600 + D,3, ORAL) Take by mouth twice daily. PSYLLIUM SEED, WITH SUGAR, (METAMUCIL ORAL) Take by mouth. POLYETHYLENE GLYCOL 3350 (MIRALAX ORAL) Take by mouth. As needed No current facility-administered medications on file prior to visit. Social History Social History Tobacco Use Smoking status: Never Smokeless tobacco: Never Vaping Use Vaping status: Never Used Substance Use Topics Alcohol use: Yes Comment: 1-2 times per month Drug use: No Review of Symptoms REVIEW OF SYSTEMS SEE HPI EXAM: BP 120/76 Pulse 88 Wt 77 kg (169 lb 12.1 oz) LMP 07/12/2006 SpO2 98% BMI 31.05 kg/m? General Appearance: Well appearing, alert, in no acute distress, well-hydrated, well nourished.. Hea (more content not included)... [facility] 08-29-2024 History of Present illness Narrative Chief Complaint Patient presents with: lump on jaw: X 6 days HPI Yakelin Huynh is a 74 year old female who presents here today for right sided nodule on jaw, she noticed it Monday. Denies pain, slightly tender to palpation. No changes in her routine and she has not been around anyone that was sick, she did have a dental cleaning x3 weeks ago but did not have any other changes in her routine. The nodule is constantly there and does not change. Nodule feels firm, slightly moveable. Denies sore throat, has some nasal congestion related to her vasomotor rhinits, this has been ongoing. Past medical history, appointments, medications, allergies reviewed. Previous Medical History PAST MEDICAL HISTORY Diagnosis Date Bursitis of left hip Class 1 obesity due to excess calories without serious comorbidity with body mass index (BMI) of 30.0 to 30.9 in adult DVT (deep venous thrombosis) ([facility]) 04/03/2022 after D&C Glaucoma 2023 right eye change Hemorrhage of gastrointestinal tract, unspecified From hemorrhoids only Internal hemorrhoids without mention of complication Irregular menstrual cycle Irregular periods Resolved Osteoarthritis knee Primary osteoarthritis of both knees Dr. Garcia Pulmonary embolism ([facility]) 04/08/2022 After D&C Pure hypercholesterolemia Shingles 04/12/2012 Solitary pulmonary nodule on lung CT 04/07/2021 Stable. no further imaging needed 06/2024 SVT (supraventricular tachycardia) ([facility]) 2004 Symptomatic menopausal or female climacteric states With atrophic vaginitis Unspecified constipation Previous Surgical History PAST SURGICAL HISTORY Procedure Laterality Date APPENDECTOMY 1987 CATARACT SURGERY, COMPLEX Left 04/2016 CATARACT SURGERY, COMPLEX Right 2018 [facility] ANTERPOST COLPORRAPHY W/CYSTO 02/21/2019 A&P repair COLONOSCOPY FLX DX W/COLLJ SPEC WHEN PFRMD 01/05/05 [facility] Colonoscopy COLONOSCOPY FLX DX W/COLLJ SPEC WHEN PFRMD 01/30/2015 Colonoscopy DILATION & CURETTAGE DX&/THER NONOBSTETRIC Dilation & curettage HYSTEROSCOPY BX ENDOMETRIUM&/POLYPC W/WO D&C 03/29/2022 D&C w/ polyp resection HYSTEROSCOPY, DIAGNOSTIC (SEPARATE 2001 Hysteroscopy LAPS ABD PRTM&OMENTUM DX W/WO SPEC BR/WA SPX Laparoscopy LIG/TRNSXJ FLP TUBE ABDL/VAG APPR UNI/BI 1982 Tubal ligation 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 ANY AREA UPW08/17/2005 Removal skin tags TOTAL HIP REPLACEMENT Left 04/25/2024 TOTAL KNEE REPLACEMENT Right 12/23/2022 parital knee replacement Family History FAMILY HISTORY Problem Relation Age of Onset Diabetes Mother Fatty liver; esophageal vaices Non- alcohol Ischemic Heart Disease Mother bypass age 72 Lipids Mother Coronary Artery Disease Mother other (Parkinson's) Mother Parkinskinson's= Cancer Father PROSTATE other (Parkinson's) Father Cancer Maternal Grandmother UTERINE Ischemic Heart Disease Maternal Grandfather and many others on that side of the family Prostate Cancer Brother other (polymyalgia rheumatica) Brother Lipids Sister Patient Allergies ALLERGIES Allergen Reactions Amoxicillin Rash Bactrim [Sulfametho* stomatitis Demerol [Meperidine] Other: See Comments Urinary retention Current Medications Current Outpatient Medications on File Prior to Visit Medication Sig atorvastatin (LIPITOR) 20 mg tablet Take 1 tablet by mouth daily at bedtime. For cholesterol. ipratropium bromide (ATROVENT) 42 mcg (0.06 %) nasal spray Use 2 Sprays in the nose two times a day. latanoprost (XALATAN) 0.005 % ophthalmic solution ergocalciferol, vitamin D2, (VITAMIN D2 ORAL) Take by mouth. (Patient not taking: Reported on 07/17/2024) acetaminophen (TYLENOL EXTRA STRENGTH ORAL) Take 2 tablets by mouth as needed. diphenhydrAMINE (BENADRYL) 25 mg capsule Take 25 mg by mouth every 6 hours as needed. fluticasone (FLONASE) 50 mcg/actuation nasal spray Use 2 Sprays in each nostril once daily. Rinse mouth after use. docusate sodium (STOOL SOFTENER ORAL) Take by mouth. CALCIUM CARBONATE/VITAMIN D3 (CALCIUM 600 + D,3, ORAL) Take by mouth twice daily. PSYLLIUM SEED, WITH SUGAR, (METAMUCIL ORAL) Take by mouth. POLYETHYLENE GLYCOL 3350 (MIRALAX ORAL) Take by mouth. As needed No current facility-administered medications on file prior to visit. Social History Social History Tobacco Use Smoking status: Never Smokeless tobacco: Never Vaping Use Vaping status: Never Used Substance Use Topics Alcohol use: Yes Comment: 1-2 times per month Drug use: No Review of Symptoms REVIEW OF SYSTEMS SEE HPI EXAM: BP 120/76 Pulse 88 Wt 77 kg (169 lb 12.1 oz) LMP 07/12/2006 SpO2 98% BMI 31.05 kg/m General Appearance: Well appearing, alert, in no acute distress, well-hydrated, well nourished.. Head: Normocephalic, no masses, lesions, tenderness or abnormalities, Positive findings: Nodule on right side of jaw below ear, directly over posterior mandible. No redness or warmth noted. Lungs: Lungs clear to auscultation. No wheezing, rhonchi, rales.. Heart: RRR without murmur, gallop, or rubs. No ectopy. Health Maintenance List Medicare Annual Wellness Visit Never done Advance Directive Discussion Never done Covid-19 Vaccine( season) due on 06/03/2024 Mammogram Screening due on 02/21/2025 Colorectal Cancer Screening due on 01/30/2025 Depression Screening due on 02/06/2025 Anxiety Screening due on 02/06/2025 Diabetes Screening due on 12/07/2025 DTaP,Tdap,Td Vaccine(3 - Td or Tdap) due on 06/15/2026 RSV Vaccine(1 - 1-dose 75+ series) due on 2027 Lipid Screening due on 03/28/2028 Bone Density Screening Completed Influenza Vaccine Completed Hepatitis C Screening Completed Shingrix Vaccine Completed Pneumococcal Vaccine: 50+ Completed ASSESSMENT/PLAN: 1. Mass of jaw - ICD9: 526.89, ICD10: M27.8 - US HEAD/NECK SOFT TISSUE OTHER - COMPLETE BLOOD COUNT AND DIFFERENTIAL Tony Giron APRN.MOTION DESIGNER documented in this encounter [facility] 07-17-2024 Note HNO ID: [id number] Author: BEVERLEY JORGENSEN MD Service: ? Author Type: Physician Type: Progress Notes Filed: 07/17/2024 11:35 Note Text: Yakelin is a 74 year old who presents for an annual gynecologic exam without complaints. HRT use: No- Hx PE and DVT Still get period: No LMP: N/A Menopause symptoms: Vaginal dryness Contraception frequency: N/A HPV vaccine: No; Last pap smear: 2016 History of abnormal pap: No, all prior PAP smears have been normal Bothersome pelvic pain: No Last mammogram: 2023 normal History of abnormal mammogram: Yes OB History Gravida3 Para3 Term3 Preterm0 AB0 Living3 SAB0 IAB0 Ectopic0 Multiple0 Live Births0 FAMILY HISTORY Problem Relation Age of Onset Diabetes Mother Fatty liver; esophageal vaices Non- alcohol Ischemic Heart Disease Mother bypass age 72 Lipids Mother Coronary Artery Disease Mother other (Parkinson's) Mother China's= Cancer Father PROSTATE other (Parkinson's) Father Cancer Maternal Grandmother UTERINE Ischemic Heart Disease Maternal Grandfather and many others on that side of the family Prostate Cancer Brother other (polymyalgia rheumatica) Brother Lipids Sister SOCIAL HISTORY Social History Tobacco Use Smoking status: Never Smokeless tobacco: Never Vaping Use Vaping status: Never Used Substance Use Topics Alcohol use: Yes Comment: 1-2 times per month Drug use: No REVIEW OF SYSTEMS Abdomen: No abdominal pain, nausea, vomiting, diarrhea, or constipation. No bloating, early satiety, indigestion, or increased flatulence. Bladder: No dysuria, gross hematuria, urinary frequency, urinary urgency, or incontinence Breast: No breast lumps, nipple d/c, overlying skin changes, redness or skin retraction Allergies and current medication updated:Yes SENSITIVE EXAM: The sensitive examination was discussed with the Patient or Patient's Authorized Cost Accountant. As applicable, any other physician, advance practice provider, medical student, or other health professional student that will be observing or involved in the sensitive examination for educational or training purposes was discussed with the Patient or Authorized Cost Accountant. The Patient or Authorized Cost Accountant has agreed to proceed with the sensitive examination. (Sensitive examination includes inspection and/or palpation of the breasts, pelvis, prostate and anorectal regions). EXAM: BP 114/78 Ht 5' 2 (1.58m) Wt 168 lb (76.2kg) LMP 07/12/2006 BMI 30.72 kg/(m2). GENERAL: pleasant, female in no apparent distress HEENT: Normocephalic, atraumatic, mucus membranes moist, and no lesions NECK: Supple, full range of motion, no adenopathy, and thyroid normal DERMATOLOGY: Normal, without lesions, non-icteric, and non-hirsute BREAST: soft, non-tender, symmetric, no dominant mass, normal nipple-areolar complex, no lymphadenopathy, and no nipple discharge CHEST: Normal inspiratory effort ABDOMEN: soft, non-tender, and no masses PELVIC: external genitalia normal, normal Bartholin's glands, urethra, [place]'s glands, no vulvar lesions, no cervical lesions, good vaginal support, physiologic discharge present, normal appearing perineal body and perianal region, atrophic flattened epithelium BIMANUAL: uterus normal size, shape and consistency, no adnexal masses, and non-tender RECTOVAGINAL: deferred. NEURO: alert and oriented x3,exam grossly non-focal EXTREMITIES: normal ASSESSMENT/PLAN: 1) Health maintenance: Pap/HPV screening no longer needed Mammogram ordered 2) Follow up one year or sooner as needed Beverley Jorgensen MD [facility] 07-17-2024 History of Present illness Narrative Yakelin is a 74 year old who presents for an annual gynecologic exam without complaints. HRT use: No- Hx PE and DVT Still get period: No LMP: N/A Menopause symptoms: Vaginal dryness Contraception frequency: N/A HPV vaccine: No; Last pap smear: 2016 History of abnormal pap: No, all prior PAP smears have been normal Bothersome pelvic pain: No Last mammogram: 2023 normal History of abnormal mammogram: Yes OB History Gravida3 Para3 Term3 Preterm0 AB0 Living3 SAB0 IAB0 Ectopic0 Multiple0 Live Births0 FAMILY HISTORY Problem Relation Age of Onset Diabetes Mother Fatty liver; esophageal vaices Non- alcohol Ischemic Heart Disease Mother bypass age 72 Lipids Mother Coronary Artery Disease Mother other (Parkinson's) Mother Parkinskinson's= Cancer Father PROSTATE other (Parkinson's) Father Cancer Maternal Grandmother UTERINE Ischemic Heart Disease Maternal Grandfather and many others on that side of the family Prostate Cancer Brother other (polymyalgia rheumatica) Brother Lipids Sister SOCIAL HISTORY Social History Tobacco Use Smoking status: Never Smokeless tobacco: Never Vaping Use Vaping status: Never Used Substance Use Topics Alcohol use: Yes Comment: 1-2 times per month Drug use: No REVIEW OF SYSTEMS Abdomen: No abdominal pain, nausea, vomiting, diarrhea, or constipation. No bloating, early satiety, indigestion, or increased flatulence. Bladder: No dysuria, gross hematuria, urinary frequency, urinary urgency, or incontinence Breast: No breast lumps, nipple d/c, overlying skin changes, redness or skin retraction Allergies and current medication updated:Yes SENSITIVE EXAM: The sensitive examination was discussed with the Patient or Patient's Authorized Cost Accountant. As applicable, any other physician, advance practice provider, medical student, or other health professional student that will be observing or involved in the sensitive examination for educational or training purposes was discussed with the Patient or Authorized Cost Accountant. The Patient or Authorized Cost Accountant has agreed to proceed with the sensitive examination. (Sensitive examination includes inspection and/or palpation of the breasts, pelvis, prostate and anorectal regions). EXAM: BP 114/78 Ht 5' 2 (1.58m) Wt 168 lb (76.2kg) LMP 07/12/2006 BMI 30.72 kg/(m^2). GENERAL: pleasant, female in no apparent distress HEENT: Normocephalic, atraumatic, mucus membranes moist, and no lesions NECK: Supple, full range of motion, no adenopathy, and thyroid normal DERMATOLOGY: Normal, without lesions, non-icteric, and non-hirsute BREAST: soft, non-tender, symmetric, no dominant mass, normal nipple-areolar complex, no lymphadenopathy, and no nipple discharge CHEST: Normal inspiratory effort ABDOMEN: soft, non-tender, and no masses PELVIC: external genitalia normal, normal Bartholin's glands, urethra, [place]'s glands, no vulvar lesions, no cervical lesions, good vaginal support, physiologic discharge present, normal appearing perineal body and perianal region, atrophic flattened epithelium BIMANUAL: uterus normal size, shape and consistency, no adnexal masses, and non-tender RECTOVAGINAL: deferred. NEURO: alert and oriented x3,exam grossly non-focal EXTREMITIES: normal ASSESSMENT/PLAN: 1) Health maintenance: Pap/HPV screening no longer needed Mammogram ordered 2) Follow up one year or sooner as needed Beverley L Thomas, MD documented in this encounter [facility] 06-24-2024 Telephone encounter Note Prescription Refill Information The patient has been identified by name and date of : Yes Caregiver verified no other encounters exist for this prescription request: Yes Caregiver confirmed with patient/requestor that no other refills are due, in the near future, with this provider at this time: Yes The last office visit in the department: 04/01/24 /Does the patient have a future office visit with this provider/department: Yes 02/10/25 Requested Prescriptions Pending Prescriptions Disp Refills atorvastatin (LIPITOR) 20 mg tablet 90 tablet 1 Sig: Take 1 tablet by mouth daily at bedtime. For cholesterol. Monico Moreno LPN June 24, 2024 9:45 AM [facility] 06-24-2024 Miscellaneous Notes Prescription Refill Information The patient has been identified by name and date of : Yes Caregiver verified no other encounters exist for this prescription request: Yes Caregiver confirmed with patient/requestor that no other refills are due, in the near future, with this provider at this time: Yes The last office visit in the department: 04/01/24 /Does the patient have a future office visit with this provider/department: Yes 02/10/25 Requested Prescriptions Pending Prescriptions Disp Refills atorvastatin (LIPITOR) 20 mg tablet 90 tablet 1 Sig: Take 1 tablet by mouth daily at bedtime. For cholesterol. Monico Moreno LPN June 24, 2024 9:45 AM documented in this encounter [facility] 06-10-2024 Lilian Yates APRN.MOTION DESIGNER - 06/10/2024 12:18 PM EDT Images from the original note were not included. Plan for follow-up: No further follow up is recommended. Contact your clinician if you: Have a change or increase in cough, shortness of breath, wheezing or cough up blood. Have a CT scan before your next follow up with our team. Experience unintended weight loss of 10 pounds or more. Frequently Asked Questions: How common are lung nodules? Nodules are found in up to half of adults who get a chest x-ray or CT scan. Do nodules cause any symptoms? In general, small nodules don t cause any noticeable problems. They re too small to cause pain or breathing problems. Should I worry that I have a nodule? Most nodules are not cancer, but for a small number of people the nodule may turning sander operator to be an early cancer. Your doctor can tell if your nodule is lung cancer by: Seeing how it looks on the CT scan. Seeing whether it grows over time. A nodule that grows larger over time is a sign that it could be a cancer. Taking a sample of the nodule with a needle or surgery. Most people with a nodule will NOT need to have this test. What is the chance that the nodule is an early lung cancer? Fewer than 5% of all nodules turning sander operator to be cancer What if my nodule is lung cancer? Even if a nodule turns out to be lung cancer, it is likely to be an early stage lung cancer. People with early stage lung cancer that is treated are less likely to than people who are diagnosed at a later stage when the cancer has started to cause symptoms. What will happen next? Your healthcare team will probably recommend getting more CT scans to keep a close eye on the nodule to see if it changes. We call this active surveillance. ? If a nodule is not cancer, it usually won t grow. If the nodule doesn t grow over a 2-year period, it is very unlikely to be cancer. Most of the time, it is safe to stop watching nodules if there is no growth over a 2-year period. ? On the other hand, if the nodule is getting bigger, it should be looked at more closely to see if it is lung cancer. Nodules can be viewed more closely using different radiology studies or by biopsy (using a needle or surgery to take a sample of the nodule to look at under a microscope). Your healthcare team will determine which is best for you. Why shouldn t I get a biopsy now? ? A biopsy means removing a piece of your lung in order to look at it under a microscope. Biopsies are usually not recommended when nodules are small because it is very difficult to biopsy them safely. ? Doing a biopsy when a nodule is small can cause harm such as collapse of the lung, bleeding, or infection. Is it really safe to wait for the next CT scan? Most cancers grow fairly slowly, and it takes several months for them to get bigger. So even if the nodule is lung cancer, it will likely still be small in a few months. Even if the nodule is lung cancer that is growing, there is a very good chance that surgery or radiation will cure you. Waiting a few months for the next CT scan is very safe and should not affect the treatment you receive or your chances for cure if the nodule turns out to be cancer. How does my clinician decide when to do the next CT scan? There are several guidelines for how to decide when to get the next CT scan. These guidelines are based on the chance the nodule is lung cancer and how big the nodule might be at the time of the next scan. Your healthcare provider will determine the best time for your next CT scan based on these guidelines. Your healthcare provider may choose to discuss the CT results with other specialists to determine the best plan for you. What if I m a smoker? Quitting now will decrease your chance of getting lung cancer in the future, as well as many other serious health problems like emphysema and heart disease. Some people think that if they already have lung cancer, they might as well keep smoking. THAT IS WRONG. documented in this encounter [facility] 06-10-2024 History of Present illness Narrative Images from the original note were not included. [facility] INCIDENTAL LUNG NODULE PROGRAM (Follow Up) Impression / Recommendations 1. Multiple lung nodules on CT (Primary) Multiple lung nodules on 06/07/2024 CT Chest, up to 10 mm in size, are stable dating back to 04/07/2022. No further follow up is recommended. Pending final radiology review[place] may develop new lung nodules related to exposure. Over the last 2 years she has not developed any new nodules. If further CT imaging is done and she would like an additional review she was encouraged to reach out. History of Present Illness Yakelin Huynh is a 74 year old female with a pertinent past medical history significant for No history of tobacco abuse who is being seen as a follow up for evaluation of a lung nodule(s). Accompanied by her . Yakelin Huynh had a CT Chest on 10/21/2022 for the indication of PE. >5 nodules were detected Incidentally. The nodule of greatest concern is a Solid 9 mm nodule with a Smooth border in the Right upper lobe of the lung. Prior imaging: (Yes What type of prior imaging? CT Scan 04/07/2022 at [facility] Was the nodule of concern seen on prior imaging? Yes Has the nodule of concern remained stable? Stable) Subsequent imaging 04/11/2023 and 06/07/2024. The nodule of concern has remained stable and no new nodules noted. Respiratory symptoms include: SOB: No Chest tightness: No Coughing: Yes: Without mucus Hemoptysis: No Wheezing: No Fever/Chills: No Recent Respiratory Infection: No Unintentional weight loss: No Last 6 Encounter Wt Readings: Date: Wt: 04/01/2024 76.7 kg (169 lb) 02/07/2024 76.8 kg (169 lb 5 oz) 04/24/2023 76.7 kg (169 lb) 04/11/2023 74.2 kg (163 lb 9.6 oz) 03/28/2023 74.6 kg (164 lb 6.4 oz) 12/07/2022 73.5 kg (162 lb) Modified Medical [employer] Lime Dyspnea Scale (MMRC) I only get breathless with strenous exercise 0 Problem List, History, Medications and allergies have been reviewed from the [facility] electronic medical record and any appropriate up-dates have been made. Physical Exam LMP 07/12/2006 General Appearance: Well appearing, alert, in no acute distress, well-hydrated, well nourished.. Neck: Supple, no adenopathy; thyroid symmetric, normal size Lungs: Lungs clear to auscultation. No wheezing, rhonchi, rales.. Heart: RRR without murmur, gallop, or rubs. No ectopy. Neurologic: Oriented X 3. Diagnostic Data I have personally visualized, reviewed and analyzed the findings on pulmonary function testing and radiographs. 06/07/2024 CT Chest, 04/11/2023 CT Chest and 04/07/2022 CT Chest stable RLL partially calcified nodule * * *Final Report* * * DATE OF EXAM: Apr 11 2023 9:00AM [facility] 0541 - CT CHEST WO IVCON / PROCEDURE REASON: Lung nodules * * * * Physician Interpretation * * * * EXAMINATION: CHEST CT WITHOUT CONTRAST CLINICAL HISTORY: Lung nodules. Technique: Spiral CT acquisition of the chest from the thoracic inlet to the upper abdomen without contrast. MQ: CTCWO_6 CT Radiation dose: Integrated Dose-length product (DLP) for this visit = 257 mGy*cm CT Dose Reduction Employed: Automated exposure control(AEC) and iterative recon Comparison: CT chest on 10/21/2022 RESULT: Limitations: None. Lines, tubes, and devices: None. Lung parenchyma and airways: The central airways are patent. Multiple solid nodules are visualized in the bilateral lungs. For example, there are nodules in the right lung measuring up to 1 cm, series 6 images 88, 117, 127, 134, 146 and 153. There are nodules in the left lung measuring up to 5 mm, series 6 images 42, 65, 84, 94 and 105. No new nodules identified. No masses. Biapical scarring is again noted. There are scattered calcified granulomas in the right lung. The bilateral lungs are clear of consolidations. Pleural space: No pleural effusion. No pleural thickening. Lower neck, lymph nodes, and mediastinum: The imaged thyroid gland is normal. No lymphadenopathy in the supraclavicular, axillary, mediastinal, or hilar regions. Calcified lymph nodes again noted in the mediastinum and bilateral hilar region, likely related to remote granulomatous disease. Heart, pericardium, and thoracic vessels: The thoracic aorta and main pulmonary artery are normal in caliber. The cardiac chambers are normal in size. Punctate coronary artery atherosclerotic calcifications are noted, although the study is not optimized for coronary assessment. No pericardial effusion or thickening. Bones and soft tissues: The spine shows osteophyte formation. No destructive bone lesion. Chest wall subcutaneous is unremarkable. Upper abdomen: No abnormality in the imaged upper abdomen. Metal Fabricator Helper (topogram) images: No additional findings. Impression / Recommendations To optimize physician communication via the electronic health record, the Impression & Recommendations section has been placed at the beginning of this note. ----- Lilian Lewis APRN.CNP Pulmonary & Critical Care Medicine June 10, 2024 10:32 AM Follow Up Diagnosis: Lung Nodule Enrolled in Lung Nodule program: Completed Lung Nodule Program Location: [facility] documented in this encounter [facility] 06-10-2024 Note HNO ID: [id number] Author: LILIAN LEWIS APRN.CNP Service: ? Author Type: Nurse Practitioner Type: Progress Notes Filed: 06/10/2024 12:18 Note Text: [facility] INCIDENTAL LUNG NODULE PROGRAM (Follow Up) Impression / Recommendations 1. Multiple lung nodules on CT (Primary) Multiple lung nodules on 06/07/2024 CT Chest, up to 10 mm in size, are stable dating back to 04/07/2022. No further follow up is recommended. Pending final radiology review[place] and may develop new lung nodules related to exposure. Over the last 2 years she has not developed any new nodules. If further CT imaging is done and she would like an additional review she was encouraged to reach out. - History of Present Illness Yakelin Huynh is a 74 year old female with a pertinent past medical history significant for No history of tobacco abuse who is being seen as a follow up for evaluation of a lung nodule(s). Accompanied by her . Yakelin Huynh had a CT Chest on 10/21/2022 for the indication of PE. >5 nodules were detected Incidentally. The nodule of greatest concern is a Solid 9 mm nodule with a Smooth border in the Right upper lobe of the lung. Prior imaging: (Yes What type of prior imaging? CT Scan 04/07/2022 at [facility] Was the nodule of concern seen on prior imaging? Yes Has the nodule of concern remained stable? Stable) Subsequent imaging 04/11/2023 and 06/07/2024. The nodule of concern has remained stable and no new nodules noted. Respiratory symptoms include: SOB: No Chest tightness: No Coughing: Yes: Without mucus Hemoptysis: No Wheezing: No Fever/Chills: No Recent Respiratory Infection: No Unintentional weight loss: No Last 6 Encounter Wt Readings: Date: Wt: 04/01/2024 76.7 kg (169 lb) 02/07/2024 76.8 kg (169 lb 5 oz) 04/24/2023 76.7 kg (169 lb) 04/11/2023 74.2 kg (163 lb 9.6 oz) 03/28/2023 74.6 kg (164 lb 6.4 oz) 12/07/2022 73.5 kg (162 lb) Modified Medical Research Lime Dyspnea Scale (MMRC) I only get breathless with strenous exercise 0 Problem List, History, Medications and allergies have been reviewed from the [facility] electronic medical record and any appropriate up-dates have been made. Physical Exam LMP 07/12/2006 General Appearance: Well appearing, alert, in no acute distress, well-hydrated, well nourished.. Neck: Supple, no adenopathy; thyroid symmetric, normal size Lungs: Lungs clear to auscultation. No wheezing, rhonchi, rales.. Heart: RRR without murmur, gallop, or rubs. No ectopy. Neurologic: Oriented X 3. Diagnostic Data I have personally visualized, reviewed and analyzed the findings on pulmonary function testing and radiographs. 06/07/2024 CT Chest, 04/11/2023 CT Chest and 04/07/2022 CT Chest stable RLL partially calcified nodule * * *Final Report* * * DATE OF EXAM: Apr 11 2023 9:00AM [facility] 0541 - CT CHEST WO IVCON / PROCEDURE REASON: Lung nodules * * * * Physician Interpretation * * * * EXAMINATION: CHEST CT WITHOUT CONTRAST CLINICAL HISTORY: Lung nodules. Technique: Spiral CT acquisition of the chest from the thoracic inlet to the upper abdomen without contrast. MQ: CTCWO_6 CT Radiation dose: Integrated Dose-length product (DLP) for this visit = 257 mGy*cm CT Dose Reduction Employed: Automated exposure control(AEC) and iterative recon Comparison: CT chest on 10/21/2022 RESULT: Limitations: None. Lines, tubes, and devices: None. Lung parenchyma and airways: The central airways are patent. Multiple solid nodules are visualized in the bilateral lungs. For example, there are nodules in the right lung measuring up to 1 cm, series 6 images 88, 117, 127, 134, 146 and 153. There are nodules in the left lung measuring up to 5 mm, series 6 images 42, 65, 84, 94 and 105. No new nodules identified. No masses. Biapical scarring is again noted. There are scattered calcified granulomas in the right lung. The bilateral lungs are clear of consolidations. Pleural space: No pleural effusion. No pleural thickening. Lower neck, lymph nodes, and mediastinum: The imaged thyroid gland is normal. No lymphadenopathy in the supraclavicular, axillary, mediastinal, or hilar regions. Calcified lymph nodes again noted in the mediastinum and bilateral hilar region, likely related to remote granulomatous disease. Heart, pericardium, and thoracic vessels: The thoracic aorta and main pulmonary artery are normal in caliber. The cardiac chambers are normal in size. Punctate coronary artery atherosclerotic calcifications are noted, although the study is not optimized for coronary assessment. No pericardial effusion or thickening. Bones and soft tissues: The spine shows osteophyte formation. No destructive bone lesion. Chest wall subcutaneous is unremarkab (more content not included)... [facility] 06-07-2024 History of Present illness Narrative Radiology Service Progress Note PATIENT NAME: Yakelin Huynh DATE OF SERVICE: June 07, 2024 TIME: 12:22 PM PATIENT IDENTITY VERIFICATION COMPLETED USING TWO (2) IDENTIFIERS: Name and Date of confirmed by patient verbally. FALL SCREENING: Has the patient had 2 falls in the last year or 1 fall with injury or currently using an Ambulatory Assistive Device (Walker, Cane, Wheelchair, Crutches, etc.)? No PATIENT GENDER DATA: Assigned female at . status: : No status: NO. PATIENT RELEVANT IMPLANT DATA REVIEWED: Yes PATIENT PRESENTS WITH AN IMPLANTABLE OR ATTACHED PRECINCT I POLICE SERGEANT: No RADIOLOGY DEPARTMENT: CT; Exam(s) Completed: Chest PERIPHERAL IV DATA: Not applicable SIGNED BY: RT Jack(R) June 07, 2024 12:22 PM documented in this encounter [facility] 06-07-2024 Note HNO ID: [id number] Author: LESLIE BERNAL RT(R) Service: ? Author Type: Fuse Cup Expander Type: Progress Notes Filed: 06/07/2024 12:22 Note Text: Radiology Service Progress Note PATIENT NAME: Yakelin Huynh DATE OF SERVICE: June 07, 2024 TIME: 12:22 PM PATIENT IDENTITY VERIFICATION COMPLETED USING TWO (2) IDENTIFIERS: Name and Date of confirmed by patient verbally. FALL SCREENING: Has the patient had 2 falls in the last year or 1 fall with injury or currently using an Ambulatory Assistive Device (Walker, Cane, Wheelchair, Crutches, etc.)? No PATIENT GENDER DATA: Assigned female at . status: : No status: NO. PATIENT RELEVANT IMPLANT DATA REVIEWED: Yes PATIENT PRESENTS WITH AN IMPLANTABLE OR ATTACHED PRECINCT I POLICE SERGEANT: No RADIOLOGY DEPARTMENT: CT; Exam(s) Completed: Chest PERIPHERAL IV DATA: Not applicable SIGNED BY: RT Jack(R) June 07, 2024 12:22 PM [facility] 05-08-2024 Telephone encounter Note Pt notified. She verbalized understanding. Yoni Gregg LPN [facility] 05-08-2024 Miscellaneous Notes Pt notified. She verbalized understanding. Yoni Gregg LPN I would take it for 2 more weeks and then stop. Let us know if symptoms return. Patient calling she had left hip replacement done per Dr Garcia 2 weeks ago, she had problem with gastritis after eating pasta dish. He had her add Nexium 20 mg once daily in pm, she continues taking Pepcid 20 mg in the am. She said the gastritis has resolved. She had her 2 week follow up with Dr Garcia today and he wanted her to check with PCP on how long to continue taking the Nexium rx? Please advise documented in this encounter [facility] 05-08-2024 Telephone encounter Note I would take it for 2 more weeks and then stop. Let us know if symptoms return. [facility] 05-08-2024 Telephone encounter Note Patient calling she had left hip replacement done per Dr Garcia 2 weeks ago, she had problem with gastritis after eating pasta dish. He had her add Nexium 20 mg once daily in pm, she continues taking Pepcid 20 mg in the am. She said the gastritis has resolved. She had her 2 week follow up with Dr Garcia today and he wanted her to check with PCP on how long to continue taking the Nexium rx? Please advise [facility] 04-23-2024 Note HNO ID: [id number] Author: CAITLYN WHELAN HUC Service: ? Author Type: Engraver Seals Type: Progress Notes Filed: 04/23/2024 11:55 Note Text: Follow Up Diagnosis: Lung Nodule Recommendation: CT Scan Follow up Date: 06/10/2024 Follow-Up Scheduled: Yes Pulmonary Follow-Up Type: Lung Nodule Surveillance Enrolled in Lung Nodule program: Yes Lung Nodule Program Location: [facility] 04-23-2024 History of Present illness Narrative Follow Up Diagnosis: Lung Nodule Recommendation: CT Scan Follow up Date: 06/10/2024 Follow-Up Scheduled: Yes Pulmonary Follow-Up Type: Lung Nodule Surveillance Enrolled in Lung Nodule program: Yes Lung Nodule Program Location: [facility] documented in this encounter [facility] 04-23-2024 Note Patient Outreach ([facility]MM[facility]) YAKELIN HYUNH ([id number]) 1950 F Date Time Provider Department 04/23/24 CAITLYN WHELAN During your visit today, we recorded the following information about you: Caitlyn Whelan [facility]UC 04/23/2024 11:55 AM Signed Follow Up Diagnosis: Lung Nodule Recommendation: CT Scan Follow up Date: 06/10/2024 Follow-Up Scheduled: Yes Pulmonary Follow-Up Type: Lung Nodule Surveillance Enrolled in Lung Nodule program: Yes Lung Nodule Program Location: [facility] Allergies As of Date: 04/23/2024 Noted Allergy Reaction AMOXICILLIN 07/15/2005 2 - Rash BACTRIM (SULFAMETHOXAZOLE-TRIMETH*07/16/19 06 Comments: stomatitis DEMEROL (MEPERIDINE) 12/07/2022 14 - Other: See Comments Comments: Urinary retention Date Reviewed: 04/01/2024 Reviewed by: Benito Ta LPN - Fully Assessed Prescriptions as of 04/23/2024 - ipratropium bromide (ATROVENT) 42 mcg (0.06 %) nasal spray Use 2 Sprays in the nose two times a day. - atorvastatin (LIPITOR) 20 mg tablet Take 1 tablet by mouth daily at bedtime. For cholesterol. - latanoprost (XALATAN) 0.005 % ophthalmic solution - ergocalciferol, vitamin D2, (VITAMIN D2 ORAL) Take by mouth. - acetaminophen (TYLENOL EXTRA STRENGTH ORAL) Take 2 tablets by mouth as needed. - diphenhydrAMINE (BENADRYL) 25 mg capsule Take 25 mg by mouth every 6 hours as needed. - fluticasone (FLONASE) 50 mcg/actuation nasal spray Use 2 Sprays in each nostril once daily. Rinse mouth after use. - docusate sodium (STOOL SOFTENER ORAL) Take by mouth. - CALCIUM CARBONATE/VITAMIN D3 (CALCIUM 600 + D,3, ORAL) Take by mouth twice daily. - PSYLLIUM SEED, WITH SUGAR, (METAMUCIL ORAL) Take by mouth. - POLYETHYLENE GLYCOL 3350 (MIRALAX ORAL) Take by mouth. 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 12/18/2008 Diffuse cystic mastopathy [N60.19] 09/26/2005 Routine general medical examination at [facility]*12/18/2008 08/16/2011 Class: Chronic Routine gynecological examination [Z01.419] 12/18/2008 08/16/2011 Class: Chronic SVT (supraventricular tachycardia) (HCC) [I47.1*12/18/2008 04/04/2017 Postmenopausal atrophic vaginitis [N95.2] 08/10/2010 Shingles [B02.9] 04/12/2012 Abnormal mammogram, unspecified [R92.8] 10/15/2013 04/04/2017 Vasomotor rhinitis [J30.0] 04/06/2018 Class 1 obesity due to excess calories without * Pure hypercholesterolemia [E78.00] Primary osteoarthritis of both knees [M17.0] 09/21/2021 Personal history of DVT (deep vein thrombosis) *04/11/2022 Single subsegmental pulmonary embolism without *04/11/2022 03/28/2023 Solitary pulmonary nodule on lung CT [R91.1] 04/07/2021 Encounter Status:Closed by CAITLYN WHELAN on 04/23/24 [facility] 04-01-2024 Telephone encounter Note Paperwork faxed to [phone]. Benito Ta LPN [facility] 04-01-2024 Miscellaneous Notes Paperwork faxed to [phone]. Benito Ta LPN Please fax surgical clearance form om my outbox to Dr. Garcia. Meli Reyna APRN.MOTION DESIGNER documented in this encounter [facility] 04-01-2024 Telephone encounter Note Please fax surgical clearance form om my outbox to Dr. Garcia. Meli Reyna APRN.MOTION DESIGNER [facility] 04-01-2024 History of Present illness Narrative CC: Patient presents with: Pre-Op Exam HPI Yakelin Hyunh is a 74 year old female who presents today for pre-op evaluation. Surgical Procedure: anterior left total hip arthroplasty Date of Procedure: 04/25/2024 Surgeon: Dr. Garcia PAT date: 04/17/2024 Patient reports had EKG METS: Walk indoors, such as around the house (1.75 METs): YES Do light work around the house, such as dusting or washing dishes (2.70 METs): YES Take care of self; that is eating, dressing, bathing, using the toilet (2.75 METs): YES Walk a block or two on level ground (2.75 METs): YES Do moderate work around the house such as vacuuming, sweeping floors, or carrying in groceries (3.50 METs): YES Do yardwork, such as raking leaves, weeding,or pushing a power mower (4.50 METs): YES Climb a flight of stairs or walk up a hill (5.50 METs): YES Participate in moderate recreational activities, such as golf, bowling, dancing, doubles tennis, or throwing a baseball or football (6.00 METs): YES Participate in strenuous sport, such as swimming, singles tennis, football, basketball, or skiing (7.50 METs): NO Do heavy work around the house, such as scrubbing floors, lifting or moving heavy furniture (8.00 METs): YES Run a short distance (8.00 METs): NO Patient denies any chest pain or undue shortness of breath with the above physical activity. Diabetes No Hypertension requiring medication No Congestive Heart Failure No Current Smoker within 1 Year No COPD/asthma No ITALIA No Dialysis No Acute renal failure No Steroid use for chronic condition No Disseminated cancer No REVIEW OF SYSTEMS GENERAL: No weight loss, malaise or fevers NECK: Negative for lumps, goiter, pain and significant neck swelling RESPIRATORY: Negative for cough, hemoptysis, wheezing, COPD, dyspnea or shortness of breath CARDIOVASCULAR: Negative for chest pain, leg swelling, hypertension, CHF or palpitations SKIN: Negative for lesions, rash, and itching PAST MEDICAL HISTORY Diagnosis Date Bursitis of left hip Class 1 obesity due to excess calories without serious comorbidity with body mass index (BMI) of 30.0 to 30.9 in adult DVT (deep venous thrombosis) ([facility]) 04/03/2022 after D&C Glaucoma 2023 right eye change Hemorrhage of gastrointestinal tract, unspecified From hemorrhoids only Internal hemorrhoids without mention of complication Irregular menstrual cycle Irregular periods Resolved Osteoarthritis knee Primary osteoarthritis of both knees Dr. Garcia Pulmonary embolism ([facility]) 04/08/2022 After D&C Pure hypercholesterolemia Shingles 04/12/2012 Solitary pulmonary nodule on lung CT 04/07/2021 SVT (supraventricular tachycardia) ([facility]) 2004 Symptomatic menopausal or female climacteric states With atrophic vaginitis Unspecified constipation PAST SURGICAL HISTORY Procedure Laterality Date APPENDECTOMY 1986 CATARACT SURGERY, COMPLEX Left 04/2016 CATARACT SURGERY, COMPLEX Right 2018 [facility] ANTERPOST COLPORRAPHY W/CYSTO 02/21/2019 A&P repair COLONOSCOPY FLX DX W/COLLJ SPEC WHEN PFRMD 01/05/05 [facility] Colonoscopy COLONOSCOPY FLX DX W/COLLJ SPEC WHEN PFRMD 01/30/2015 Colonoscopy DILATION & CURETTAGE DX&/THER NONOBSTETRIC Dilation & curettage HYSTEROSCOPY BX ENDOMETRIUM&/POLYPC W/WO D&C 03/29/2022 D&C w/ polyp resection HYSTEROSCOPY, DIAGNOSTIC (SEPARATE 2001 Hysteroscopy LAPS ABD PRTM&OMENTUM DX W/WO SPEC BR/WA SPX Laparoscopy LIG/TRNSXJ FLP TUBE ABDL/VAG APPR UNI/BI 1982 Tubal ligation 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 atorvastatin (LIPITOR) 20 mg tablet Take 1 tablet by mouth daily at bedtime. For cholesterol. latanoprost (XALATAN) 0.005 % ophthalmic solution ergocalciferol, vitamin D2, (VITAMIN D2 ORAL) Take by mouth. acetaminophen (TYLENOL EXTRA STRENGTH ORAL) Take 2 tablets by mouth as needed. diphenhydrAMINE (BENADRYL) 25 mg capsule Take 25 mg by mouth every 6 hours as needed. fluticasone (FLONASE) 50 mcg/actuation nasal spray Use 2 Sprays in each nostril once daily. Rinse mouth after use. (Patient taking differently: Use 2 Sprays in each nostril once daily. Rinse mouth after use. Uses as needed) docusate sodium (STOOL SOFTENER ORAL) Take by mouth. CALCIUM CARBONATE/VITAMIN D3 (CALCIUM 600 + D,3, ORAL) Take by mouth twice daily. PSYLLIUM SEED, WITH SUGAR, (METAMUCIL ORAL) Take by mouth. POLYETHYLENE GLYCOL 3350 (MIRALAX ORAL) Take by mouth. As needed FAMILY HISTORY Problem Relation Age of Onset Diabetes Mother Fatty liver; esophageal vaices Non- alcohol Ischemic Heart Disease Mother bypass age 72 Lipids Mother Coronary Artery Disease Mother other (Parkinson's) Mother [place]'s= Cancer Father PROSTATE other (Parkinson's) Father Cancer Maternal Grandmother UTERINE Ischemic Heart Disease Maternal Grandfather and many others on that side of the family Prostate Cancer Brother other (polymyalgia rheumatica) Brother Lipids Sister Social History Tobacco Use Smoking status: Never Smokeless tobacco: Never Vaping Use Vaping status: Never Used Substance Use Topics Alcohol use: Yes Comment: 1-2 times per month Drug use: No LMP 07/12/2006 Physical Exam BP 134/76 Pulse 83 Resp 18 Wt 76.7 kg (169 lb) LMP 07/12/2006 SpO2 98% BMI 30.28 kg/m PHYSICAL EXAMINATION: General appearance: Well appearing, alert, in no acute distress, well-hydrated, well nourished. Skin: Skin color, texture, turgor normal, no suspicious rashes or lesions Head: Normocephalic, no masses, lesions, tenderness or abnormalities Eyes: Anicteric sclera. Pupils are equally round and reactive to light. Extraocular movements are intact. Ears: External ears normal, canals clear Oropharynx: Lips, mucosa, and tongue normal, teeth and gums normal, oropharynx normal Neck: Supple, no adenopathy Lungs: Lungs clear to auscultation. No wheezing, rhonchi, rales. Heart: RRR without murmur, gallop, or rubs. No ectopy Extremities: No deformities, edema, skin discoloration, clubbing or cyanosis. Good capillary refill. ASSESSMENT/PLAN: 1. Preop examination - ICD9: V72.84, ICD10: Z01.818 - labs and CMP, CBC with diff, lipid panel and EKG just completed at [facility]- reviewed and WNL There is no known pertinent medical condition which may affect eriberto-operative course JENNINGS risk: Patient is scheduled for a intermediate-risk procedure. ASA class: ASA 1- Normal healthy patient Functional status: Independent - 0.4% chance of complication of [place], PE,ventricular fibrillation cardiac arrest and complete heart utilizing Bobby's Simple Cardiac Risk index The patient is cleared for surgery Meli Podlogjaneen, TEJINDER.MOTION DESIGNER Prescription instructions reviewed with patient as applicable. Patient advised if symptoms do not improve or if symptoms worsen sooner, to contact their primary care physician. Potential red flag symptoms discussed with the patient. Reviewed appropriate action plan to take if red flag symptoms occur. Patient agreeable to treatment plan. I spent a total of 30 minutes on the date of the service which included preparing to see the patient, [id number] patient care, completing clinical documentation, obtaining and/or reviewing separately obtained history, performing a medically appropriate examination, and counseling and educating the patient/family/caregiver. documented in this encounter [facility] 04-01-2024 Note HNO ID: [id number] Author: MELI REYNA APRN.CNP Service: ? Author Type: Nurse Practitioner Type: Progress Notes Filed: 04/01/2024 13:00 Note Text: CC: Patient presents with: Pre-Op Exam HPI Yakelin Huynh is a 74 year old female who presents today for pre-op evaluation. Surgical Procedure: anterior left total hip arthroplasty Date of Procedure: 04/25/2024 Surgeon: Dr. Jose WERNER date: 04/17/2024 Patient reports had EKG METS: Walk indoors, such as around the house (1.75 METs): YES Do light work around the house, such as dusting or washing dishes (2.70 METs): YES Take care of self; that is eating, dressing, bathing, using the toilet (2.75 METs): YES Walk a block or two on level ground (2.75 METs): YES Do moderate work around the house such as vacuuming, sweeping floors, or carrying in groceries (3.50 METs): YES Do yardwork, such as raking leaves, weeding,or pushing a power mower (4.50 METs): YES Climb a flight of stairs or walk up a hill (5.50 METs): YES Participate in moderate recreational activities, such as golf, bowling, dancing, doubles tennis, or throwing a baseball or football (6.00 METs): YES Participate in strenuous sport, such as swimming, singles tennis, football, basketball, or skiing (7.50 METs): NO Do heavy work around the house, such as scrubbing floors, lifting or moving heavy furniture (8.00 METs): YES Run a short distance (8.00 METs): NO Patient denies any chest pain or undue shortness of breath with the above physical activity. Diabetes No Hypertension requiring medication No Congestive Heart Failure No Current Smoker within 1 Year No COPD/asthma No ITALIA No Dialysis No Acute renal failure No Steroid use for chronic condition No Disseminated cancer No REVIEW OF SYSTEMS GENERAL: No weight loss, malaise or fevers NECK: Negative for lumps, goiter, pain and significant neck swelling RESPIRATORY: Negative for cough, hemoptysis, wheezing, COPD, dyspnea or shortness of breath CARDIOVASCULAR: Negative for chest pain, leg swelling, hypertension, CHF or palpitations SKIN: Negative for lesions, rash, and itching PAST MEDICAL HISTORY Diagnosis Date Bursitis of left hip Class 1 obesity due to excess calories without serious comorbidity with body mass index (BMI) of 30.0 to 30.9 in adult DVT (deep venous thrombosis) ([facility]) 04/03/2022 after BELTX Glaucoma 2023 right eye change Hemorrhage of gastrointestinal tract, unspecified From hemorrhoids only Internal hemorrhoids without mention of complication Irregular menstrual cycle Irregular periods Resolved Osteoarthritis knee Primary osteoarthritis of both knees Dr. Garcia Pulmonary embolism ([facility]) 04/08/2022 After DANTX Pure hypercholesterolemia Shingles 04/12/2012 Solitary pulmonary nodule on lung CT 04/07/2021 SVT (supraventricular tachycardia) ([facility]) 2004 Symptomatic menopausal or female climacteric states With atrophic vaginitis Unspecified constipation PAST SURGICAL HISTORY Procedure Laterality Date APPENDECTOMY 1987 CATARACT SURGERY, COMPLEX Left 04/2016 CATARACT SURGERY, COMPLEX Right 2018 [facility] ANTERPOST COLPORRAPHY W/CYSTO 02/21/2019 AANDP repair COLONOSCOPY FLX DX W/COLLJ SPEC WHEN PFRMD 01/05/05 [facility] Colonoscopy COLONOSCOPY FLX DX W/COLLJ SPEC WHEN PFRMD 01/30/2015 Colonoscopy DILATION AND CURETTAGE DXAND/THER NONOBSTETRIC Dilation AND curettage HYSTEROSCOPY BX ENDOMETRIUMAND/POLYPC W/WO DANDC 03/29/2022 DANDC w/ polyp resection HYSTEROSCOPY, DIAGNOSTIC (SEPARATE 2002 Hysteroscopy LAPS ABD PRTMANDOMENTUM DX W/WO SPEC BR/WA SPX Laparoscopy LIG/TRNSXJ FLP TUBE ABDL/VAG APPR UNI/BI 1982 Tubal ligation 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 atorvastatin (LIPITOR) 20 mg tablet Take 1 tablet by mouth daily at bedtime. For cholesterol. latanoprost (XALATAN) 0.005 % ophthalmic solution ergocalciferol, vitamin D2, (VITAMIN D2 ORAL) Take by mouth. acetaminophen (TYLENOL EXTRA STRENGTH ORAL) Take 2 tablets by mouth as needed. diphenhydrAMINE (BENADRYL) 25 mg capsule Take 25 mg by mouth every 6 hours as needed. fluticasone (FLONASE) 50 mcg/actuation nasal spray Use 2 Sprays in each nostril once daily. Rinse mouth after use. (Patient taking differently: Use 2 Sprays in each nostril once daily. Rinse mouth after use. Uses as needed) docusate sodium (STOOL SOFTENER ORAL) Take by mouth. CALCIUM CARBONATE/VITAMIN D3 (CALCIUM 600 + D,3, ORAL) Take by mouth twice daily. PSYLLIUM SEED, WITH SUGAR, (METAMUCIL ORAL) Take by mouth. POLYETHYLENE GLYCOL 3350 (MIRALAX ORAL) Take by mouth. As needed FAMILY HISTORY Problem Re (more content not included)... [facility] 02-07-2024 Note HNO ID: [id number] Author: MELI REYNA APRN.MOTION DESIGNER Service: ? Author Type: Nurse Practitioner Type: Progress Notes Filed: 02/07/2024 10:19 Note Text: 02/07/2024 Patient presents with: Yearly Exam SUBJECTIVE: This is a 73 year old that is here today for Above Complaints. Since last office visit has been in good health without ER visits or hospitalizations. Following with Dr. Garcia for bursitis in hips. Is currently in physical therapy HYPERLIPIDEMIA: Patient is taking medications: Yes. Patient is watching diet: Yes. Patient denies myalgias: Yes. Patient denies gi upset: Yes Follows with pulmonology for hx of lung nodules. Last chest CT on 10/11/2023 which showed stable bilateral lung nodules. Follow-units CT scheduled in April. Would like refill on Atrovent nasal spray. Reports she will develop runny nose which triggers her to cough. Used this in the past which worked well. PAST MEDICAL HISTORY Diagnosis Date Bursitis of left hip Class 1 obesity due to excess calories without serious comorbidity with body mass index (BMI) of 30.0 to 30.9 in adult DVT (deep venous thrombosis) ([facility]) 04/03/2022 after [facility] Glaucoma 2023 right eye change Hemorrhage of gastrointestinal tract, unspecified From hemorrhoids only Internal hemorrhoids without mention of complication Irregular menstrual cycle Irregular periods Resolved Osteoarthritis knee Primary osteoarthritis of both knees Dr. Garcia Pulmonary embolism ([facility]) 04/08/2022 After [facility] Pure hypercholesterolemia Shingles 04/12/2012 Solitary pulmonary nodule on lung CT 04/07/2021 SVT (supraventricular tachycardia) ([facility]) 2004 Symptomatic menopausal or female climacteric states With atrophic vaginitis Unspecified constipation ALLERGIES Amoxicillin, Bactrim [Sulfamethoxazole-Trimethoprim], and Demerol [Meperidine] MEDICATIONS Current Outpatient Medications Medication Sig atorvastatin (LIPITOR) 20 mg tablet Take 1 tablet by mouth daily at bedtime. For cholesterol. latanoprost (XALATAN) 0.005 % ophthalmic solution ergocalciferol, vitamin D2, (VITAMIN D2 ORAL) Take by mouth. acetaminophen (TYLENOL EXTRA STRENGTH ORAL) Take 2 tablets by mouth as needed. diphenhydrAMINE (BENADRYL) 25 mg capsule Take 25 mg by mouth every 6 hours as needed. ipratropium bromide (ATROVENT NASAL) Use in the nose once daily. fluticasone (FLONASE) 50 mcg/actuation nasal spray Use 2 Sprays in each nostril once daily. Rinse mouth after use. (Patient taking differently: Use 2 Sprays in each nostril once daily. Rinse mouth after use. Uses as needed) docusate sodium (STOOL SOFTENER ORAL) Take by mouth. CALCIUM CARBONATE/VITAMIN D3 (CALCIUM 600 + D,3, ORAL) Take by mouth twice daily. PSYLLIUM SEED, WITH SUGAR, (METAMUCIL ORAL) Take by mouth. POLYETHYLENE GLYCOL 3350 (MIRALAX ORAL) Take by mouth. As needed No current facility-administered medications for this visit. Medications and allergies reviewed by this provider. SOCIAL HISTORY Social History Tobacco Use Smoking status: Never Smokeless tobacco: Never Vaping Use Vaping status: Never Used Substance Use Topics Alcohol use: Yes Comment: 1-2 times per month Drug use: No REVIEW OF SYSTEMS GENERAL: No weight loss, malaise or fevers RESPIRATORY: Negative for cough, hemoptysis, wheezing, COPD, dyspnea or shortness of breath CARDIOVASCULAR: Negative for chest pain, leg swelling, hypertension, CHF or palpitations All other reviewed and negative other than HPI. OBJECTIVE: BP 126/78 Pulse 86 Resp 18 Ht 159.1 cm (5' 2.64) Wt 76.8 kg (169 lb 5 oz) LMP 07/12/2006 SpO2 98% BMI 30.34 kg/m? . Vital signs reviewed by this provider. APPEARANCE Well appearing, alert, in no acute distress, well-hydrated, well nourished. EYES PERRLA, conjunctiva and sclera normal. EARS External ears normal, canals clear NECK Supple, no adenopathy; thyroid symmetric, normal size, no bruits HEART RRR with normal S1 and S2, no murmurs, no gallops, no JVD appreciated LUNG clear to auscultation. No wheezes, rhonchi or rales EXTREMITIES Extremities normal, No deformities, No skin discoloration, and No edema SKIN Skin color, texture, turgor normal, no suspicious rashes or lesions to exposed skin Latest Ref Rng 03/28/2023 Cholesterol, Total <200 mg/dL 142 Triglyceride <150 mg/dL 135 HDL Cholesterol >39 mg/dL 51 Non HDL Cholesterol <130 mg/dL 91 Fasting Time hrs 14 VLDL Cholesterol <30 mg/dL 27 TC:HDL Ratio <5.10 2.78 LDL Cholesterol <100 mg/dL 64 LDL:HDL Ratio <2.54 1.25 Latest Ref Rng 12/07/2022 WBC 3.70 - 11.00 k/uL 6.72 RBC 3.90 - 5.20 m/uL 4.57 Hemoglobin 11.5 - 15.5 g/dL 14.7 Hematocrit 36.0 - 46.0 % 43.8 MCV 80.0 - 100.0 fL 95.8 MCH 26.0 - 34.0 pg 32.2 MCHC 30.5 - 36.0 g/dL 33.6 RDW-CV 11.5 - 15.0 % 12.7 Platelet Count 150 - 400 k/uL 218 MPV 9.0 - 12.7 fL 10.7 Neut% % 57.5 Abs Neut (ANC) 1.45 - 7.50 k/uL 3.86 Lymph% % 31.5 Abs (more content not included)... [facility] 02-07-2024 History of Present illness Narrative 02/07/2024 Patient presents with: Yearly Exam SUBJECTIVE: This is a 73 year old that is here today for Above Complaints. Since last office visit has been in good health without ER visits or hospitalizations. Following with Dr. Garcia for bursitis in hips. Is currently in physical therapy HYPERLIPIDEMIA: Patient is taking medications: Yes. Patient is watching diet: Yes. Patient denies myalgias: Yes. Patient denies gi upset: Yes Follows with pulmonology for hx of lung nodules. Last chest CT on 10/11/2023 which showed stable bilateral lung nodules. Follow-units CT scheduled in April. Would like refill on Atrovent nasal spray. Reports she will develop runny nose which triggers her to cough. Used this in the past which worked well. PAST MEDICAL HISTORY Diagnosis Date Bursitis of left hip Class 1 obesity due to excess calories without serious comorbidity with body mass index (BMI) of 30.0 to 30.9 in adult DVT (deep venous thrombosis) ([facility]) 04/03/2022 after D&C Glaucoma 2023 right eye change Hemorrhage of gastrointestinal tract, unspecified From hemorrhoids only Internal hemorrhoids without mention of complication Irregular menstrual cycle Irregular periods Resolved Osteoarthritis knee Primary osteoarthritis of both knees Dr. Garcia Pulmonary embolism ([facility]) 04/08/2022 After D&C Pure hypercholesterolemia Shingles 04/12/2012 Solitary pulmonary nodule on lung CT 04/07/2021 SVT (supraventricular tachycardia) ([facility]) 2004 Symptomatic menopausal or female climacteric states With atrophic vaginitis Unspecified constipation ALLERGIES Amoxicillin, Bactrim [Sulfamethoxazole-Trimethoprim], and Demerol [Meperidine] MEDICATIONS Current Outpatient Medications Medication Sig atorvastatin (LIPITOR) 20 mg tablet Take 1 tablet by mouth daily at bedtime. For cholesterol. latanoprost (XALATAN) 0.005 % ophthalmic solution ergocalciferol, vitamin D2, (VITAMIN D2 ORAL) Take by mouth. acetaminophen (TYLENOL EXTRA STRENGTH ORAL) Take 2 tablets by mouth as needed. diphenhydrAMINE (BENADRYL) 25 mg capsule Take 25 mg by mouth every 6 hours as needed. ipratropium bromide (ATROVENT NASAL) Use in the nose once daily. fluticasone (FLONASE) 50 mcg/actuation nasal spray Use 2 Sprays in each nostril once daily. Rinse mouth after use. (Patient taking differently: Use 2 Sprays in each nostril once daily. Rinse mouth after use. Uses as needed) docusate sodium (STOOL SOFTENER ORAL) Take by mouth. CALCIUM CARBONATE/VITAMIN D3 (CALCIUM 600 + D,3, ORAL) Take by mouth twice daily. PSYLLIUM SEED, WITH SUGAR, (METAMUCIL ORAL) Take by mouth. POLYETHYLENE GLYCOL 3350 (MIRALAX ORAL) Take by mouth. As needed No current facility-administered medications for this visit. Medications and allergies reviewed by this provider. SOCIAL HISTORY Social History Tobacco Use Smoking status: Never Smokeless tobacco: Never Vaping Use Vaping status: Never Used Substance Use Topics Alcohol use: Yes Comment: 1-2 times per month Drug use: No REVIEW OF SYSTEMS GENERAL: No weight loss, malaise or fevers RESPIRATORY: Negative for cough, hemoptysis, wheezing, COPD, dyspnea or shortness of breath CARDIOVASCULAR: Negative for chest pain, leg swelling, hypertension, CHF or palpitations All other reviewed and negative other than HPI. OBJECTIVE: BP 126/78 Pulse 86 Resp 18 Ht 159.1 cm (5' 2.64) Wt 76.8 kg (169 lb 5 oz) LMP 07/12/2006 SpO2 98% BMI 30.34 kg/m . Vital signs reviewed by this provider. APPEARANCE Well appearing, alert, in no acute distress, well-hydrated, well nourished. EYES PERRLA, conjunctiva and sclera normal. EARS External ears normal, canals clear NECK Supple, no adenopathy; thyroid symmetric, normal size, no bruits HEART RRR with normal S1 and S2, no murmurs, no gallops, no JVD appreciated LUNG clear to auscultation. No wheezes, rhonchi or rales EXTREMITIES Extremities normal, No deformities, No skin discoloration, and No edema SKIN Skin color, texture, turgor normal, no suspicious rashes or lesions to exposed skin Latest Ref Rng 03/28/2023 Cholesterol, Total <200 mg/dL 142 Triglyceride <150 mg/dL 135 HDL Cholesterol >39 mg/dL 51 Non HDL Cholesterol <130 mg/dL 91 Fasting Time hrs 14 VLDL Cholesterol <30 mg/dL 27 TC:HDL Ratio <5.10 2.78 LDL Cholesterol <100 mg/dL 64 LDL:HDL Ratio <2.54 1.25 Latest Ref Rng 12/07/2022 WBC 3.70 - 11.00 k/uL 6.72 RBC 3.90 - 5.20 m/uL 4.57 Hemoglobin 11.5 - 15.5 g/dL 14.7 Hematocrit 36.0 - 46.0 % 43.8 MCV 80.0 - 100.0 fL 95.8 MCH 26.0 - 34.0 pg 32.2 MCHC 30.5 - 36.0 g/dL 33.6 RDW-CV 11.5 - 15.0 % 12.7 Platelet Count 150 - 400 k/uL 218 MPV 9.0 - 12.7 fL 10.7 Neut% % 57.5 Abs Neut (ANC) 1.45 - 7.50 k/uL 3.86 Lymph% % 31.5 Abs Lymph 1.00 - 4.00 k/uL 2.12 [place]% % 8.5 Abs [place] <0.87 k/uL 0.57 Eosin% % 1.2 Abs Eosin <0.46 k/uL 0.08 Baso% % 1.2 Abs Baso <0.11 k/uL 0.08 Immature Gran % % 0.1 IMMATURE GRANS (ABS) <0.10 k/uL <0.03 NRBC /100 WBC 0.0 Absolute nRBC <0.01 k/uL <0.01 DTYPE Auto Protein, Total 6.3 - 8.0 g/dL 7.2 Albumin 3.9 - 4.9 g/dL 4.5 Calcium 8.5 - 10.2 mg/dL 10.0 Bilirubin, Total 0.2 - 1.3 mg/dL 0.4 Alkaline Phosphatase 34 - 123 U/L 92 AST 13 - 35 U/L 25 ALT 7 - 38 U/L 23 Glucose 74 - 99 mg/dL 81 BUN 7 - 21 mg/dL 19 Creatinine 0.58 - 0.96 mg/dL 0.69 Sodium 136 - 144 mmol/L 140 Potassium 3.7 - 5.1 mmol/L 4.2 Chloride 97 - 105 mmol/L 107 (H) CO2 22 - 30 mmol/L 23 Anion Gap 9 - 18 mmol/L 10 eGFR >=60 mL/min/1.73m 93 Legend: (H) High ASSESSMENT/PLAN: 1. Pure hypercholesterolemia - ICD9: 272.0, ICD10: E78.00 (primary diagnosis) - continue medication - LIPID PANEL BASIC - COMPREHENSIVE METABOLIC PANEL 2. Screening for depression - ICD9: V79.0, ICD10: Z13.31 - DEPRESSION SCREENING 3. Encounter for screening examination for other mental health and behavioral disorders - ICD9: V79.8, ICD10: Z13.39 - ANXIETY SCREENING 4. Vasomotor rhinitis - ICD9: 477.9, ICD10: J30.0 - IPRATROPIUM BROMIDE 42 MCG (0.06 %) NASAL SPRAY 5. Bursitis of other bursa of left hip - ICD9: 726.5, ICD10: M70.72 - follow-up with orthopedics as recommended 6. Lung nodules - ICD9: 793.19, ICD10: R91.8 - stable - follow-up with pulmonology as scheduled Meli Reyna APRN.CNP Prescription instructions reviewed with patient as applicable. Patient advised if symptoms do not improve or if symptoms worsen sooner, to contact their primary care physician. Potential red flag symptoms discussed with the patient. Reviewed appropriate action plan to take if red flag symptoms occur. Patient agreeable to treatment plan. Medical Decision Making: Problems: Low: Stable chronic illness Moderate: 1+ chronic illnesses with change Data: Unique test(s) ordered: 2 Risk: Moderate: Moderate risk from testing/treatment Medical Decision Making Level: 4 - Moderate documented in this encounter [facility] 12-22-2023 Telephone encounter Note Prescription Refill Information The patient has been identified by name and date of : Yes Caregiver verified no other encounters exist for this prescription request: Yes Caregiver confirmed with patient/requestor that no other refills are due, in the near future, with this provider at this time: Yes The last office visit in the department: 04/24/2023 Does the patient have a future office visit with this provider/department: Yes Requested Prescriptions Pending Prescriptions Disp Refills atorvastatin (LIPITOR) 20 mg tablet 90 tablet 1 Sig: Take 1 tablet by mouth daily at bedtime. For cholesterol. Benito Ta LPN December 22, 2023 9:48 AM [facility] 12-22-2023 Miscellaneous Notes Prescription Refill Information The patient has been identified by name and date of : Yes Caregiver verified no other encounters exist for this prescription request: Yes Caregiver confirmed with patient/requestor that no other refills are due, in the near future, with this provider at this time: Yes The last office visit in the department: 04/24/2023 Does the patient have a future office visit with this provider/department: Yes Requested Prescriptions Pending Prescriptions Disp Refills atorvastatin (LIPITOR) 20 mg tablet 90 tablet 1 Sig: Take 1 tablet by mouth daily at bedtime. For cholesterol. Benito Ta LPN December 22, 2023 9:48 AM documented in this encounter [facility] 06-26-2023 Miscellaneous Notes Patient MyChart message requesting the following refill Refill(s) Requested: Requested Prescriptions Pending Prescriptions Disp Refills atorvastatin (LIPITOR) 20 mg tablet 90 tablet 1 Sig: Take 1 tablet by mouth daily at bedtime. For cholesterol. ALLERGIES Allergen Reactions Amoxicillin Rash Bactrim [Sulfametho* stomatitis Demerol [Meperidine] Other: See Comments Urinary retention (home) [phone] (cell) Last Office Visit Date: 03/28/2023 Last Distance Health Visit: Visit date not found Future Appointment: 02/07/2024 The patients preferred pharmacy has been captured for this encounter? yes Request is for script(s) to be escript to pharmacy. Sulema Caal LPN documented in this encounter [facility] 04-24-2023 History of Present illness Narrative Yakelin is a 73 year old who presents for an annual gynecologic exam without complaints. Stopped vaginal estrogen after PE and DVT. 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 History LMP: 07/12/2006, Postmenopausal Age at Menarche: Age at First : Age at Menopause: Culvert Installer History Comments: Sexual Activity: Yes; Male Contraception: Surgical, Tubal Ligation PAST MEDICAL HISTORY Diagnosis Date Bursitis of left hip Class 1 obesity due to excess calories without serious comorbidity with body mass index (BMI) of 30.0 to 30.9 in adult DVT (deep venous thrombosis) (HCC) 04/03/2022 after D&C Glaucoma 2023 right eye change Hemorrhage of gastrointestinal tract, unspecified From hemorrhoids only Internal hemorrhoids without mention of complication Irregular menstrual cycle Irregular periods Resolved Osteoarthritis knee Primary osteoarthritis of both knees Dr. Garcia Pulmonary embolism (HCC) 04/08/2022 After D&C Pure hypercholesterolemia Shingles 04/12/2012 Solitary pulmonary nodule on lung CT 04/07/2021 SVT (supraventricular tachycardia) 2004 Symptomatic menopausal or female climacteric states With atrophic vaginitis Unspecified constipation PAST SURGICAL HISTORY Procedure Laterality Date APPENDECTOMY 1986 CATARACT SURGERY, COMPLEX Left 04/2016 CATARACT SURGERY, COMPLEX Right 2018 [facility] ANTERPOST COLPORRAPHY W/CYSTO 02/21/2019 A&P repair COLONOSCOPY FLX DX W/COLLJ SPEC WHEN PFRMD 01/05/05 [facility] Colonoscopy COLONOSCOPY FLX DX W/COLLJ SPEC WHEN PFRMD 01/30/2015 Colonoscopy DILATION & CURETTAGE DX&/THER NONOBSTETRIC Dilation & curettage HYSTEROSCOPY BX ENDOMETRIUM&/POLYPC W/WO D&C 03/29/2022 D&C w/ polyp resection HYSTEROSCOPY, DIAGNOSTIC (SEPARATE 2001 Hysteroscopy LAPS ABD PRTM&OMENTUM DX W/WO SPEC BR/WA SPX Laparoscopy LIG/TRNSXJ FLP TUBE ABDL/VAG APPR UNI/BI 1982 Tubal ligation 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 ANY AREA UPW/15 08/17/2005 Removal skin tags TOTAL KNEE REPLACEMENT Right 12/23/2022 parital knee replacement FAMILY HISTORY Problem Relation Age of Onset Diabetes Mother Fatty liver; esophageal vaices Non- alcohol Ischemic Heart Disease Mother bypass age 72 Lipids Mother Coronary Artery Disease Mother other (Parkinson's) Mother [place]'s= Cancer Father PROSTATE other (Parkinson's) Father Cancer Maternal Grandmother UTERINE Ischemic Heart Disease Maternal Grandfather and many others on that side of the family Prostate Cancer Brother other (polymyalgia rheumatica) Brother Lipids Sister SOCIAL HISTORY Social History Tobacco Use Smoking status: Never Smokeless tobacco: Never Vaping Use Vaping Use: Never used Substance Use Topics Alcohol use: Yes Comment: 1-2 times per month Drug use: No REVIEW OF SYSTEMS Abdomen: No abdominal pain, nausea, vomiting, diarrhea, or constipation. No bloating, early satiety, indigestion, or increased flatulence. Bladder: No dysuria, gross hematuria, urinary frequency, urinary urgency, or incontinence Breast: No breast lumps, nipple d/c, overlying skin changes, redness or skin retraction Allergies and current medication updated:Yes EXAM: BP 122/78 Ht 5' 2 (1.58m) Wt 169 lb (76.7kg) LMP 07/12/2006 BMI 30.90 kg/(m^2). GENERAL: pleasant, female in no apparent distress HEENT: Normocephalic, atraumatic, mucus membranes moist, and no lesions NECK: Supple, full range of motion, no adenopathy, and thyroid normal DERMATOLOGY: Normal, without lesions, non-icteric, and non-hirsute BREAST: soft, non-tender, symmetric, no dominant mass, normal nipple-areolar complex, no lymphadenopathy, and no nipple discharge CHEST: Normal inspiratory effort ABDOMEN: soft, non-tender, and no masses PELVIC: external genitalia normal, normal Bartholin's glands, urethra, [place]'s glands, no vulvar lesions, no cervical lesions, good vaginal support, physiologic discharge present, normal appearing perineal body and perianal region, atrophic flattened epithelium BIMANUAL: uterus normal size, shape and consistency, no adnexal masses, and non-tender RECTOVAGINAL: deferred. NEURO: alert and oriented x3,exam grossly non-focal EXTREMITIES: normal ASSESSMENT/PLAN: 1) Health maintenance: Pap/HPV screening no longer needed Mammogram ordered atrophic vaginitis- off of vaginal estrogen and doing ok, if recurrent UTIs restart 2) Follow up one year or sooner as needed Beverley Jorgensen MD documented in this encounter [facility] 12-07-2022 History of Present illness Narrative Chief Complaint Patient presents with: Pre-Op Exam: 12/23/22 - R knee partial vs TKA at [facility] Yakelin Huynh is a 72 year old female who presents here today for Above Complaints. Patient scheduled for robotic assisted right partial vs total knee arthroplasty with Dr. Garcia on 12/23 for history of right knee OA and pain. No complications with anesthesia in the past. Aside from recent COVID infection, has been in good health. Able to climb flight of stairs without chest pain or SOB (METS 5.5). Denies chest pain, SOB, palpitations, LE swelling/Edema, cough/wheezing, fever/chills, claudication. Patient completed 6 month course of anticoagulation in October for PE and DVT shortly after D&C back in March. No recurrent symptoms of provoked PE or new DVT today. Past medical history, appointments, medications, allergies reviewed. Previous Medical History PAST MEDICAL HISTORY Diagnosis Date Bursitis of left hip Class 1 obesity due to excess calories without serious comorbidity with body mass index (BMI) of 30.0 to 30.9 in adult DVT (deep venous thrombosis) ([facility]) 04/03/2022 after D&C Hemorrhage of gastrointestinal tract, unspecified From hemorrhoids only Internal hemorrhoids without mention of complication Irregular menstrual cycle Irregular periods Resolved Osteoarthritis knee Primary osteoarthritis of both knees Dr. Garcia Pulmonary embolism ([facility]) 04/08/2022 After D&C Pure hypercholesterolemia Shingles 04/12/2012 Solitary pulmonary nodule on lung CT 04/07/2021 SVT (supraventricular tachycardia) ([facility]) 2004 Symptomatic menopausal or female climacteric states With atrophic vaginitis Unspecified constipation Previous Surgical History PAST SURGICAL HISTORY Procedure Laterality Date APPENDECTOMY 1987 CATARACT SURGERY, COMPLEX Left 04/2016 CATARACT SURGERY, COMPLEX Right 2018 [facility] ANTERPOST COLPORRAPHY W/CYSTO 02/21/2019 A&P repair COLONOSCOPY FLX DX W/COLLJ SPEC WHEN PFRMD 01/05/05 [facility] Colonoscopy COLONOSCOPY FLX DX W/COLLJ SPEC WHEN PFRMD 01/30/2015 Colonoscopy DILATION & CURETTAGE DX&/THER NONOBSTETRIC Dilation & curettage HYSTEROSCOPY BX ENDOMETRIUM&/POLYPC W/WO D&C 03/29/2022 D&C w/ polyp resection HYSTEROSCOPY, DIAGNOSTIC (SEPARATE 2002 Hysteroscopy LAPS ABD PRTM&OMENTUM DX W/WO SPEC BR/WA SPX Laparoscopy LIG/TRNSXJ FLP TUBE ABDL/VAG APPR UNI/BI 1982 Tubal ligation 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 ANY AREA UP08/17/2005 Removal skin tags Family History FAMILY HISTORY Problem Relation Age of Onset Diabetes Mother Fatty liver; esophageal vaices Non- alcohol Ischemic Heart Disease Mother bypass age 72 Lipids Mother Coronary Artery Disease Mother other (Parkinson's) Mother Parkinskinson's= Cancer Father PROSTATE other (Parkinson's) Father Cancer Maternal Grandmother UTERINE Ischemic Heart Disease Maternal Grandfather and many others on that side of the family Prostate Cancer Brother other (polymyalgia rheumatica) Brother Lipids Sister Patient Allergies ALLERGIES Allergen Reactions Amoxicillin Rash Bactrim [Sulfametho* stomatitis Current Medications Current Outpatient Medications on File Prior to Visit Medication Sig acetaminophen (TYLENOL EXTRA STRENGTH ORAL) Take 2 tablets by mouth as needed. diphenhydrAMINE (BENADRYL) 25 mg capsule Take 25 mg by mouth every 6 hours as needed. ipratropium bromide (ATROVENT NASAL) Use in the nose once daily. fluticasone (FLONASE) 50 mcg/actuation nasal spray Use 2 Sprays in each nostril once daily. Rinse mouth after use. CALCIUM CARBONATE/VITAMIN D3 (CALCIUM 600 + D,3, ORAL) Take by mouth twice daily. PSYLLIUM SEED, WITH SUGAR, (METAMUCIL ORAL) Take by mouth. POLYETHYLENE GLYCOL 3350 (MIRALAX ORAL) Take by mouth. As needed atorvastatin (LIPITOR) 20 mg tablet Take 1 tablet by mouth daily at bedtime. For cholesterol. warfarin (COUMADIN) 5 mg tablet 5mg Mon,Tues and 7.5mg all other days or as directed EVENING PRIMROSE OIL ORAL Take by mouth. miSOPROStol (CYTOTEC) 200 mcg tablet Take 2 tablets by mouth as directed. The night before the procedure and the morning of the procedure. estradiol (ESTRACE) 0.01 % (0.1 mg/gram) vaginal cream APPLY APROX. 1/2 INCH VAGINALLY AT BEDTIME TWICE WEEKLY docusate sodium (STOOL SOFTENER ORAL) Take by mouth. No current facility-administered medications on file prior to visit. Social History Social History Tobacco Use Smoking status: Never Smokeless tobacco: Never Vaping Use Vaping Use: Never used Substance Use Topics Alcohol use: Yes Comment: 1-2 times per month Drug use: No Review of Symptoms REVIEW OF SYSTEMS GENERAL: No weight loss, malaise or fevers RESPIRATORY: Negative for cough, hemoptysis, wheezing, COPD, dyspnea or shortness of breath CARDIOVASCULAR: Negative for chest pain, leg swelling, hypertension, CHF or palpitations GI: No nausea, vomiting, or diarrhea SKIN: Negative for lesions, rash, and itching EXAM: BP 128/80 Pulse 79 Resp 16 Ht 157.5 cm (5' 2) Wt 73.5 kg (162 lb) LMP 07/12/2006 SpO2 98% BMI 29.63 kg/m General Appearance: Well appearing, alert, in no acute distress, well-hydrated, well nourished.. Skin: Skin color, texture, turgor normal, no suspicious rashes or lesions. Lungs: Lungs clear to auscultation. No wheezing, rhonchi, rales.. Heart: RRR without murmur, gallop, or rubs. No ectopy. Abdomen: Normal abdominal exam, Abdomen soft, non-tender. Bowel sounds normal. No masses, organomegaly. Extremities: No deformities, edema, skin discoloration, clubbing or cyanosis. Good capillary refill. . Health Maintenance List Advance Directive Discussion Never done Influenza Vaccine(1) due on 11/11/2022 Mammogram Screening due on 02/15/2023 Colorectal Cancer Screening due on 01/30/2025 Diabetes Screening due on 07/04/2025 Lipid Screening due on 12/25/2025 DTaP,Tdap,Td Vaccine(3 - Td or Tdap) due on 06/15/2026 Bone Density Screening Completed Depression Assessment Completed Hepatitis C Screening Completed Shingrix Vaccine Completed Covid-19 Vaccine Completed Pneumococcal Vaccine: 65+ Completed Data reviewed EKG: NSR at 69 BPM ASSESSMENT/PLAN: 1. Pre-op evaluation - ICD9: V72.84, ICD10: Z01.818 (primary diagnosis) Based on the patient's history, physical, functional status, and ACS risk score, he has an 0.4% chance of a serious adverse cardiac event. This is average risk for his age an the planned operation. The risk is below the recommended threshold for further evaluation. Therefore, I do not recommend further preoperative testing and he may proceed with the planned operation. I recommend this risk assessment be incorporated into the overall discussion on risks and benefits of this operation. - ECG COMPLETE - CBC + DIFF - COMP METABOLIC PANEL 2. Primary osteoarthritis of both knees - ICD9: 715.16, ICD10: M17.0 See above. F/u with ortho as scheduled. 3. History of pulmonary embolism - ICD9: V12.55, ICD10: Z86.711 Symptoms resolved after 6 months of anticoagulation. Would not recommend repeat imaging at this time. 4. History of DVT (deep vein thrombosis) - ICD9: V12.51, ICD10: Z86.718 Symptoms resolved after 6 months of anticoagulation. Would not recommend repeat imaging at this time. 5. Encounter for immunization - ICD9: V03.89, ICD10: Z23 - INFLUENZA VACCINE, PRSV FREE, AGE 65+ YR, HIGH DOSE, QUADRIVALENT (FLUZONE HIGH-DOSE) Abhinav Bolden MD documented in this encounter [facility] 12-07-2022 Miscellaneous Notes Surgical clearance form received from Nora SIMI. Pt scheduled for robotic assisted partial vs TKA, R on 12/23/[address] Garcia. Pt does have PAT scheduled on 12/14/22 at [facility], requesting this form be faxed back prior to. Pt scheduled for OV with PCP today. Form attached to encounter form for OV. Once reviewed and signed, please fax to [phone]. Roberta Antonio MA documented in this encounter [facility] 11-22-2022 Miscellaneous Notes Phone call to patient: Radiologist was able to review and compare both scans. 9 mm nodule RLL is stable 6-7 mos. 12 mos interval scan is recommended. Pt agrees. Yakelin called. She saw Lilian on 11/01/22 and at that time, Lilian advised that she was going to have radiology compare the CT scan that was performed at [facility] on 04/07/2022 and the one from [facility] 11/16/2022. Yakelin advised that she had not heard anything and wanted to know the status of that review and what the next steps are. Yakelin can be reached at [phone]. If she does not answer, a detailed voicemail can be left. Claribel Hoff RN documented in this encounter [facility] 10-26-2022 Miscellaneous Notes Patient calling to ask for results of CT had gotten notice on her my chart. Went over results, notes from Dr Bolden with understanding. Assisted with transfer to nursing scheduler to get appt set up. Chest CT shows multiple subcentimeter lung nodules with 1 nodule in right lower lobe measuring 9 mm in size. Being more than 8 mm, would recommend referral to lung nodule clinic for further evaluation of this finding. Also noted signs of previous granulomatous exposure which does not need further workup or evaluation. documented in this encounter [facility] 10-21-2022 History of Present illness Narrative Radiology Service Progress Note PATIENT NAME: Yakelin Huynh DATE OF SERVICE: October 21, 2022 TIME: 4:01 PM PATIENT IDENTITY VERIFICATION COMPLETED USING TWO (2) IDENTIFIERS: Name and Date of confirmed by patient verbally. FALL SCREENING: Has the patient had 2 falls in the last year or 1 fall with injury or currently using an Ambulatory Assistive Device (Walker, Cane, Wheelchair, Crutches, etc.)? No PATIENT GENDER DATA: Female. status: : No status: NO. PATIENT RELEVANT IMPLANT DATA REVIEWED: Yes RADIOLOGY DEPARTMENT: CT; Exam(s) Completed: Chest PERIPHERAL IV DATA: Not applicable SIGNED BY: RT Jack(R) October 21, 2022 4:01 PM documented in this encounter [facility] 09-27-2022 History of Present illness Narrative PATIENT NOTIFIED OF INFORMATION via detailed message Noted, would decrease dose to 5 mg on Mon and Fridays and continue 7.5 mg every additional day of the week otherwise. Continue as recommended for 1 week after return from travel Emanuel Santos DO patient had inr completed at [facility] patients inr is 3.2 (patients inr range is 2.0-3.0) patient is currently taking 5mg Mon and 7.5mg all other days patients last dose change was on 06/14/22 due to a low level of 1.6 (dose at that time was 5mg Mon, and 7.5mg all other days) patient has had a change in medication as patients has been steroid pack for 3 days now and will finish on Monday and no change in diet FYI - patient is leaving for vacation on Monday and will not return for 2 weeks, also patient has been on therapy for 6 months and is only staying on medication at this time due to travel and will be stopping medication after returning home after 1 week Advised patient that they would be contacted regarding medication dose and when to follow up after information is reviewed by provider. After provider review please contact the patient with information and schedule follow up appointment with coumadin clinic. ok to leave a detailed message if no answer documented in this encounter [facility] 09-20-2022 History of Present illness Narrative Chief Complaint Patient presents with: Follow Up HPI Yakelin Huynh is a 72 year old female who presents here today for 6 month follow up. Patient has been on anticoagulation since 04/03 for DVT with subsequent PE which is thought to be provoked by her D&C. Taking coumadin as prescribed without bleeding or bruising and does not have any recurrent symptoms of DVT and PE. Wearing compression stockings when she is sitting or standing for long periods of time. Going on long trip and will stop anticoagulation when she returns. Feels like her left leg is slightly larger than the right sinced DVT without pitting edema, pain or redness. Taking statin as prescribed without side effects. Due for repeat CT chest at the end of this month to f/u 6 mm nodule. Treated for UTI 3 months ago without recurrent symptoms of urinary frequency. PHQ-2 / Depression screen He in the past two weeks denies having felt down, depressed, hopeless or with little interest or pleasure in doing things. Notes increased stress with infection in 's knee replacement which will require abx spacer. Past medical history, appointments, medications, allergies reviewed. Previous Medical History PAST MEDICAL HISTORY Diagnosis Date Bursitis of left hip Class 1 obesity due to excess calories without serious comorbidity with body mass index (BMI) of 30.0 to 30.9 in adult DVT (deep venous thrombosis) (HCC) 04/03/2022 after D&C Hemorrhage of gastrointestinal tract, unspecified From hemorrhoids only Internal hemorrhoids without mention of complication Irregular menstrual cycle Irregular periods Resolved Osteoarthritis knee Primary osteoarthritis of both knees Dr. Garcia Pulmonary embolism ([facility]) 04/08/2022 Pure hypercholesterolemia Shingles 04/12/2012 Solitary pulmonary nodule on lung CT 04/07/2021 SVT (supraventricular tachycardia) ([facility]) 2004 Symptomatic menopausal or female climacteric states With atrophic vaginitis Unspecified constipation Previous Surgical History PAST SURGICAL HISTORY Procedure Laterality Date APPENDECTOMY 1987 CATARACT SURGERY, COMPLEX Left 04/2016 CATARACT SURGERY, COMPLEX Right 2018 [facility] ANTERPOST COLPORRAPHY W/CYSTO 02/21/2019 A&P repair COLONOSCOPY FLX DX W/COLLJ SPEC WHEN PFRMD 01/05/05 [facility] Colonoscopy COLONOSCOPY FLX DX W/COLLJ SPEC WHEN PFRMD 01/30/2015 Colonoscopy DILATION & CURETTAGE DX&/THER NONOBSTETRIC Dilation & curettage HYSTEROSCOPY BX ENDOMETRIUM&/POLYPC W/WO D&C 03/29/2022 D&C w/ polyp resection HYSTEROSCOPY, DIAGNOSTIC (SEPARATE 2001 Hysteroscopy LAPS ABD PRTM&OMENTUM DX W/WO SPEC BR/WA SPX Laparoscopy LIG/TRNSXJ FLP TUBE ABDL/VAG APPR /1982 Tubal ligation 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 ANY AREA UP08/17/2005 Removal skin tags Family History FAMILY HISTORY Problem Relation Age of Onset Diabetes Mother Fatty liver; esophageal vaices Non- alcohol Ischemic Heart Disease Mother bypass age 72 Lipids Mother Coronary Artery Disease Mother other (Parkinson's) Mother Parkinskinson's= Cancer Father PROSTATE other (Parkinson's) Father Cancer Maternal Grandmother UTERINE Ischemic Heart Disease Maternal Grandfather and many others on that side of the family Prostate Cancer Brother other (polymyalgia rheumatica) Brother Lipids Sister Patient Allergies ALLERGIES Allergen Reactions Amoxicillin Rash Bactrim [Sulfametho* stomatitis Current Medications Current Outpatient Medications on File Prior to Visit Medication Sig atorvastatin (LIPITOR) 20 mg tablet Take 1 tablet by mouth daily at bedtime. For cholesterol. acetaminophen (TYLENOL EXTRA STRENGTH ORAL) Take 2 tablets by mouth as needed. diphenhydrAMINE (BENADRYL) 25 mg capsule Take 25 mg by mouth every 6 hours as needed. warfarin (COUMADIN) 5 mg tablet 5mg Mon,Tues and 7.5mg all other days or as directed (Patient taking differently: Take 5 mg by mouth once daily. 5mg Mon and 7.5mg all other days or as directed) ipratropium bromide (ATROVENT NASAL) Use in the nose once daily. fluticasone (FLONASE) 50 mcg/actuation nasal spray Use 2 Sprays in each nostril once daily. Rinse mouth after use. docusate sodium (STOOL SOFTENER ORAL) Take by mouth. CALCIUM CARBONATE/VITAMIN D3 (CALCIUM 600 + D,3, ORAL) Take by mouth twice daily. PSYLLIUM SEED, WITH SUGAR, (METAMUCIL ORAL) Take by mouth. POLYETHYLENE GLYCOL 3350 (MIRALAX ORAL) Take by mouth. As needed EVENING PRIMROSE OIL ORAL Take by mouth. (Patient not taking: Reported on 04/08/2022) miSOPROStol (CYTOTEC) 200 mcg tablet Take 2 tablets by mouth as directed. The night before the procedure and the morning of the procedure. (Patient not taking: Reported on 04/08/2022) estradiol (ESTRACE) 0.01 % (0.1 mg/gram) vaginal cream APPLY APROX. 1/2 INCH VAGINALLY AT BEDTIME TWICE WEEKLY (Patient not taking: Reported on 04/08/2022) No current facility-administered medications on file prior to visit. Social History Social History Tobacco Use Smoking status: Never Smokeless tobacco: Never Vaping Use Vaping Use: Never used Substance Use Topics Alcohol use: Yes Comment: 1-2 times per month Drug use: No Review of Symptoms REVIEW OF SYSTEMS GENERAL: No weight loss, malaise or fevers HEENT: Negative for frequent or significant headaches, No changes in hearing or vision, no nose bleeds or other nasal problems NECK: Negative for lumps, goiter, pain and significant neck swelling RESPIRATORY: Negative for cough, hemoptysis, wheezing, COPD, dyspnea or shortness of breath CARDIOVASCULAR: Negative for chest pain, leg swelling, hypertension, CHF or palpitations GI: No nausea, vomiting, or diarrhea : No history of dysuria, frequency or incontinence SKIN: Negative for lesions, rash, and itching EXAM: BP 122/70 Pulse 81 Resp 16 Wt 72.8 kg (160 lb 9.6 oz) LMP 07/12/2006 SpO2 98% BMI 28.45 kg/m General Appearance: Well appearing, alert, in no acute distress, well-hydrated, well nourished.. Skin: Skin color, texture, turgor normal, no suspicious rashes or lesions. Lungs: Lungs clear to auscultation. No wheezing, rhonchi, rales.. Heart: RRR without murmur, gallop, or rubs. No ectopy. Abdomen: Normal abdominal exam, Abdomen soft, non-tender. Bowel sounds normal. No masses, organomegaly. Extremities: No deformities, edema, skin discoloration, clubbing or cyanosis. Good capillary refill. Negative ralph's. Each calf measuring 36 cm with compression stockings in place. Health Maintenance List ADVANCE DIRECTIVE DISCUSSION Never done DEPRESSION ASSESSMENT Never done COVID-19 VACCINE(6 - Moderna series) due on 04/08/2022 INFLUENZA(1) due on 11/11/2022 MAMMOGRAM due on 02/15/2023 COLORECTAL CANCER SCREENING due on 01/30/2025 DIABETES SCREEN due on 07/04/2025 LIPID SCREEN due on 12/25/2025 DTAP,TDAP,TD(3 - Td or Tdap) due on 06/15/2026 BONE DENSITY Completed HEPATITIS C SCREENING Completed SHINGRIX VACCINE Completed PNEUMOCOCCAL: 65+ Completed Data reviewed Component Latest Ref Rng & Units 07/04/2022 WBC 3.70 - 11.00 k/uL 9.10 RBC 3.90 - 5.20 m/uL 4.56 Hemoglobin 11.5 - 15.5 g/dL 14.0 Hematocrit 36.0 - 46.0 % 41.5 MCV 80.0 - 100.0 fL 91.0 MCH 26.0 - 34.0 pg 30.7 MCHC 30.5 - 36.0 g/dL 33.7 RDW-CV 11.5 - 15.0 % 13.9 Platelet Count 150 - 400 k/uL 232 MPV 9.0 - 12.7 fL 10.3 Neut% % 72.1 Abs Neut (ANC) 1.45 - 7.50 k/uL 6.56 Lymph% % 18.8 Abs Lymph 1.00 - 4.00 k/uL 1.71 [place]% % 7.5 Abs [place] <0.87 k/uL 0.68 Eosin% % 0.4 Abs Eosin <0.46 k/uL 0.04 Baso% % 0.9 Abs Baso <0.11 k/uL 0.08 Immature Gran % % 0.3 IMMATURE GRANS (ABS) <0.10 k/uL 0.03 NRBC /100 WBC 0.0 Absolute nRBC <0.01 k/uL <0.01 DTYPE Auto Protein, Total 6.3 - 8.0 g/dL 7.0 Albumin 3.9 - 4.9 g/dL 4.4 Calcium 8.5 - 10.2 mg/dL 9.8 Bilirubin, Total 0.2 - 1.3 mg/dL 0.3 Alkaline Phosphatase 34 - 123 U/L 96 AST 13 - 35 U/L 26 ALT 7 - 38 U/L 31 Glucose 74 - 99 mg/dL 96 BUN 7 - 21 mg/dL 14 Creatinine 0.58 - 0.96 mg/dL 0.83 Sodium 136 - 144 mmol/L 142 Potassium 3.7 - 5.1 mmol/L 4.0 Chloride 97 - 105 mmol/L 106 (H) CO2 22 - 30 mmol/L 26 Anion Gap 9 - 18 mmol/L 10 eGFR >=60 mL/min/1.73m 76 PT Sec <13.1 sec 25.9 (H) PT INR 0.9 - 1.3 2.7 (H) Component Latest Ref Rng & Units 07/11/2022 08/09/2022 09/06/2022 INR (POCT) 0.8 - 1.2 2.1 (H) 2.2 (H) 2.7 (H) Internal Quality Check Acceptable Acceptable Acceptable Component Latest Ref Rng & Units 12/25/2020 Total Cholesterol, Nonfasting <200 mg/dL 131 Triglycerides, Nonfasting <150 mg/dL 119 HDL Cholesterol, Nonfasting >39 mg/dL 49 LDL Cholesterol, Nonfasting <100 mg/dL 58 Non HDL Cholesterol, Nonfasting <130 mg/dL 82 VLDL Cholesterol, Nonfasting <30 mg/dL 24 Total Chol/HDL Ratio, Nonfasting <5.10 mg/dL 2.67 LDL/HDL Ratio, Nonfasting <2.54 mg/dL 1.18 ASSESSMENT/PLAN: 1. Lung nodules - ICD9: 793.19, ICD10: R91.8 (primary diagnosis) Repeat CT scan at the end of the month. If stable, recheck in 18-24 months. - CT CHEST WO IVCON 2. Single subsegmental pulmonary embolism without acute cor pulmonale (HCC) - ICD9: 415.19, ICD10: I26.93 Provoked. No recurrent symptoms since starting anticoagulation. Will have her discontinue anticoagulation after her trip to [place] at the end of this month. 3. Personal history of DVT (deep vein thrombosis) - ICD9: V12.51, ICD10: Z86.718 See above. 4. Pure hypercholesterolemia - ICD9: 272.0, ICD10: E78.00 Continue statin. Recheck at future OV. Abhinav Bolden MD documented in this encounter [facility] 09-06-2022 History of Present illness Narrative INR therapeutic. Continue current coumadin dosage and follow up in 3 weeks. patient had inr completed at [facility] patients inr is 2.7 (patients inr range is 2.0-3.0) patient is currently taking 5mg Mon and 7.5mg all other days patients last dose change was on 06/14/22 due to a low level of 1.6 (dose at that time was 5mg Mon,Tues and 7.5mg all other days) patient has had no changes in medication and no missed doses and no change in diet Advised patient to continue on the same dose(s) and that they would only be contacted regarding dosage and follow up instructions after review with provider, if a change is needed. Written instructions given and patient verbalized understanding. Presently scheduled in 3 weeks (09/27/22) for follow up INR due to the cc will be closed at the 4 and 5 week fuentes documented in this encounter [facility] 07-11-2022 History of Present illness Narrative INR therapeutic. Continue current coumadin dosage and follow up in 4 weeks. patient had inr completed at [facility] patients inr is 2.1 (patients inr range is 2.0-3.0) patient is currently taking 5mg Mon and 7.5mg all other days patients last dose change was on 06/14/22 due to a low level of 1.6 (dose at that time was 5mg Mon Tues and 7.5mg all other days) patient has had no changes in medication and no missed doses and no change in diet Advised patient to continue on the same dose(s) and that they would only be contacted regarding dosage and follow up instructions after review with provider, if a change is needed. Written instructions given and patient verbalized understanding. Presently scheduled in 4 weeks (08/09/22) for follow up INR. documented in this encounter [facility] 07-09-2022 Miscellaneous Notes Patient notified of results and provider's instructions. Patient verbalizes understanding. Meghan Feng LPN Yes, needs to start on rx as below Emanuel Santos DO The following approved medication requests have been transmitted electronically. Requested Prescriptions Signed Prescriptions Disp Refills nitrofurantoin monohydrate and macrocrystal (MACROBID) 100 mg capsule 14 capsule 0 Sig: Take 1 capsule by mouth twice daily with meals for 7 days. Authorizing Provider: EMANUEL SANTOS DO Pt calling to reports she has reviewed the results of her urine culture by my chart If an antibiotic is needed please call it to [facility]. She report the urine micro showed blood and nitrites so culture was completed. She is not having any symptoms. Call pt back with response. documented in this encounter [facility] 07-06-2022 Miscellaneous Notes Patient notified. Will be in today to complete. Benito Ta LPN Urine culture added. Please let patient know. Meli Reyna APRN.BINH No burning, pain or urgency. Patient states she has always had to get up and go frequently at night. And at times has trouble going at first and then at times doesn't feel like she has emptied her bladder all the way. Agreeable to a culture if you suggest it. Ordered pended. Can come in and complete on 07/06/2022. Benito Ta LPN If she is having symptoms we can order urine culture or if she would like to come in for one. Mlei Reyna APRN.BINH Before calling patient, if she is having symptoms do you want her to come in for a urine culture? Lab was unable to add it on. Benito Ta LPN ----- Message from Meli Reyna APRN.BINH sent at 07/05/2022 8:01 AM EDT ----- Please call patient and let her no her blood work is normal. Urine specimen showed nitrate, elevated WBC's suggestive of UTI. I will see if culture can be added- no blood in UA. Does she have any symptoms or UTI? Urgency, frequency or burning? Meli Reyna APRN.MOTION DESIGNER documented in this encounter [facility] 07-04-2022 History of Present illness Narrative 07/04/2022 Patient presents with: Bleeding/Bruising: Petechiae noted to bilateral legs today around the knees, more so on the right knee area SUBJECTIVE: This is a 72 year old that is here today for Above Complaints. Developed petechia to bilateral knees, more so on the right. Taking coumadin as prescribed. Used some Voltaren gel to hips otherwise not using any other NSAID products. Reports uses a pillow between her legs at night when sleeping. Denies any other bleeding symptoms such as: bleeding gums, melana, hematochezia, hematuria, trauma to area, or headaches. Component Latest Ref Rng & Units 07/04/2022 GLUCOSE UA (POCT) Negative mg/dL Negative BILIRUBIN UA (POCT) Negative Negative KETONE UA (POCT) Negative mg/dL Negative SPECIFIC GRAVITY UA (POCT) 1.005 - 1.030 1.015 HEMOGLOBIN/BLOOD UA (POCT) Negative Small (A) PH UA (POCT) 4.5 - 8.0 6.0 PROTEIN UA (POCT) Negative mg/dL Negative UROBILINOGEN UA (POCT) Normal E.U./dL 0.2 NITRITE UA (POCT) Negative Negative LEUKOCYTES UA (POCT) Negative Small (A) COLOR UA (POCT) Yellow CLARITY UA (POCT) Clear PAST MEDICAL HISTORY Diagnosis Date Bursitis of left hip Class 1 obesity due to excess calories without serious comorbidity with body mass index (BMI) of 30.0 to 30.9 in adult DVT (deep venous thrombosis) ([facility]) 04/03/2022 after D&C Hemorrhage of gastrointestinal tract, unspecified From hemorrhoids only Internal hemorrhoids without mention of complication Irregular menstrual cycle Irregular periods Resolved Osteoarthritis knee Primary osteoarthritis of both knees Dr. Garcia Pulmonary embolism ([facility]) 04/08/2022 Pure hypercholesterolemia Shingles 04/12/2012 Solitary pulmonary nodule on lung CT 04/07/2021 SVT (supraventricular tachycardia) ([facility]) 2004 Symptomatic menopausal or female climacteric states With atrophic vaginitis Unspecified constipation ALLERGIES Amoxicillin and Bactrim [Sulfamethoxazole-Trimethoprim] MEDICATIONS Current Outpatient Medications Medication Sig atorvastatin (LIPITOR) 20 mg tablet Take 1 tablet by mouth daily at bedtime. For cholesterol. acetaminophen (TYLENOL EXTRA STRENGTH ORAL) Take 2 tablets by mouth as needed. diphenhydrAMINE (BENADRYL) 25 mg capsule Take 25 mg by mouth every 6 hours as needed. warfarin (COUMADIN) 5 mg tablet 5mg Mon,Tues and 7.5mg all other days or as directed ipratropium bromide (ATROVENT NASAL) Use in the nose once daily. EVENING PRIMROSE OIL ORAL Take by mouth. (Patient not taking: Reported on 04/08/2022) miSOPROStol (CYTOTEC) 200 mcg tablet Take 2 tablets by mouth as directed. The night before the procedure and the morning of the procedure. (Patient not taking: Reported on 04/08/2022) estradiol (ESTRACE) 0.01 % (0.1 mg/gram) vaginal cream APPLY APROX. 1/2 INCH VAGINALLY AT BEDTIME TWICE WEEKLY (Patient not taking: Reported on 04/08/2022) fluticasone (FLONASE) 50 mcg/actuation nasal spray Use 2 Sprays in each nostril once daily. Rinse mouth after use. docusate sodium (STOOL SOFTENER ORAL) Take by mouth. CALCIUM CARBONATE/VITAMIN D3 (CALCIUM 600 + D,3, ORAL) Take by mouth twice daily. PSYLLIUM SEED, WITH SUGAR, (METAMUCIL ORAL) Take by mouth. POLYETHYLENE GLYCOL 3350 (MIRALAX ORAL) Take by mouth. As needed No current facility-administered medications for this visit. Medications and allergies reviewed by this provider. SOCIAL HISTORY Social History Tobacco Use Smoking status: Never Smokeless tobacco: Never Vaping Use Vaping Use: Never used Substance Use Topics Alcohol use: Yes Comment: 1-2 times per month Drug use: No REVIEW OF SYSTEMS All other reviewed and negative other than HPI. OBJECTIVE: BP 118/80 Pulse 104 Resp 18 Wt 74.8 kg (164 lb 12.8 oz) LMP 07/12/2006 SpO2 96% BMI 29.19 kg/m . Vital signs reviewed by this provider. General appearance: Well appearing, alert, in no acute distress, well-hydrated, well nourished. Skin: petechia to bilateral knees and small amount to upper thighs, worse on right knee. No other petechia noted to exposed skin Head: Eyes: Anicteric sclera. Oropharynx: Lips, mucosa, and tongue normal, teeth and gums normal, oropharynx normal ADVANCE DIRECTIVE DISCUSSION Never done DEPRESSION ASSESSMENT Never done MAMMOGRAM due on 02/15/2023 COLORECTAL CANCER SCREENING due on 01/30/2025 DIABETES SCREEN due on 03/28/2025 LIPID SCREEN due on 12/25/2025 DTAP,TDAP,TD(3 - Td or Tdap) due on 06/15/2026 BONE DENSITY Completed INFLUENZA Completed HEPATITIS C SCREENING Completed SHINGRIX VACCINE Completed COVID-19 VACCINE Completed PNEUMOCOCCAL: 65+ Completed ASSESSMENT/PLAN: 1. Petechiae - ICD9: 782.7, ICD10: R23.3 - no red flag symptoms or exam findings - red flag symptoms discussed, verbalizes understanding - PROTHROMBIN TIME/PT - CBC + DIFF - COMP METABOLIC PANEL - UA DIP, URINE (POC) - possible due to pressure from using pillow between legs - follow-up pending blood work to ER with red flag symptoms Meli Reyna APRN.CNP Prescription instructions reviewed with patient as applicable. Patient advised if symptoms do not improve or if symptoms worsen sooner, to contact their primary care physician. Potential red flag symptoms discussed with the patient. Reviewed appropriate action plan to take if red flag symptoms occur. Patient agreeable to treatment plan. I spent a total of 30 minutes on the date of the service which included preparing to see the patient, [id number] patient care, completing clinical documentation, obtaining and/or reviewing separately obtained history, performing a medically appropriate examination, counseling and educating the patient/family/caregiver, and ordering medications, tests, or procedures. documented in this encounter [facility] 06-27-2022 Instructions Meli Reyna APRN.CNP - 06/27/2022 10:48 AM EDT Follow-up as scheduled in September documented in this encounter [facility] 06-27-2022 History of Present illness Narrative 06/27/2022 Patient presents with: F/U 3 Month: PE and DVT SUBJECTIVE: This is a 72 year old that is here today for Above Complaints. Developed left leg blood clot and PE after surgery in March. Started on coumadin. Taking coumadin as prescribed without side effects. INR last checked today. Still with some mild lower leg swelling on the left. Denies bleeding symptoms, leg redness, SOB, dyspnea, chest pain or palpitations PAST MEDICAL HISTORY Diagnosis Date Bursitis of left hip Class 1 obesity due to excess calories without serious comorbidity with body mass index (BMI) of 30.0 to 30.9 in adult DVT (deep venous thrombosis) (HCC) 04/03/2022 after D&C Hemorrhage of gastrointestinal tract, unspecified From hemorrhoids only Internal hemorrhoids without mention of complication Irregular menstrual cycle Irregular periods Resolved Osteoarthritis knee Primary osteoarthritis of both knees Dr. Garcia Pulmonary embolism ([facility]) 04/08/2022 Pure hypercholesterolemia Shingles 04/12/2012 Solitary pulmonary nodule on lung CT 04/07/2021 SVT (supraventricular tachycardia) ([facility]) 2004 Symptomatic menopausal or female climacteric states With atrophic vaginitis Unspecified constipation ALLERGIES Amoxicillin and Bactrim [Sulfamethoxazole-Trimethoprim] MEDICATIONS Current Outpatient Medications Medication Sig atorvastatin (LIPITOR) 20 mg tablet Take 1 tablet by mouth daily at bedtime. For cholesterol. acetaminophen (TYLENOL EXTRA STRENGTH ORAL) Take 2 tablets by mouth as needed. diphenhydrAMINE (BENADRYL) 25 mg capsule Take 25 mg by mouth every 6 hours as needed. warfarin (COUMADIN) 5 mg tablet 5mg Mon,Tues and 7.5mg all other days or as directed ipratropium bromide (ATROVENT NASAL) Use in the nose once daily. docusate sodium (STOOL SOFTENER ORAL) Take by mouth. CALCIUM CARBONATE/VITAMIN D3 (CALCIUM 600 + D,3, ORAL) Take by mouth twice daily. PSYLLIUM SEED, WITH SUGAR, (METAMUCIL ORAL) Take by mouth. POLYETHYLENE GLYCOL 3350 (MIRALAX ORAL) Take by mouth. As needed EVENING PRIMROSE OIL ORAL Take by mouth. (Patient not taking: Reported on 04/08/2022) miSOPROStol (CYTOTEC) 200 mcg tablet Take 2 tablets by mouth as directed. The night before the procedure and the morning of the procedure. (Patient not taking: Reported on 04/08/2022) estradiol (ESTRACE) 0.01 % (0.1 mg/gram) vaginal cream APPLY APROX. 1/2 INCH VAGINALLY AT BEDTIME TWICE WEEKLY (Patient not taking: Reported on 04/08/2022) fluticasone (FLONASE) 50 mcg/actuation nasal spray Use 2 Sprays in each nostril once daily. Rinse mouth after use. No current facility-administered medications for this visit. Medications and allergies reviewed by this provider. SOCIAL HISTORY Social History Tobacco Use Smoking status: Never Smokeless tobacco: Never Vaping Use Vaping Use: Never used Substance Use Topics Alcohol use: Yes Comment: 1-2 times per month Drug use: No REVIEW OF SYSTEMS All other reviewed and negative other than HPI. OBJECTIVE: BP 122/82 Pulse 95 Resp 16 Wt 75 kg (165 lb 6.4 oz) LMP 07/12/2006 SpO2 97% BMI 29.30 kg/m . Vital signs reviewed by this provider. APPEARANCE Well appearing, alert, in no acute distress, well-hydrated, well nourished. EYES PERRLA, conjunctiva and sclera normal. HEART RRR with normal S1 and S2, no murmurs, no gallops, no JVD appreciated LUNG clear to auscultation EXTREMITIES Compression stocking intact SKIN Skin color, texture, turgor normal, no suspicious rashes or lesions to exposed skin Component Latest Ref Rng & Units 06/27/2022 INR (POCT) 0.8 - 1.2 2.5 (H) Internal Quality Check Acceptable ADVANCE DIRECTIVE DISCUSSION Never done DEPRESSION ASSESSMENT Never done MAMMOGRAM due on 02/15/2023 COLORECTAL CANCER SCREENING due on 01/30/2025 DIABETES SCREEN due on 03/28/2025 LIPID SCREEN due on 12/25/2025 DTAP,TDAP,TD(3 - Td or Tdap) due on 06/15/2026 BONE DENSITY Completed INFLUENZA Completed HEPATITIS C SCREENING Completed SHINGRIX VACCINE Completed COVID-19 VACCINE Completed PNEUMOCOCCAL: 65+ Completed ASSESSMENT/PLAN: 1. Personal history of DVT (deep vein thrombosis) - ICD9: V12.51, ICD10: Z86.718 (primary diagnosis) - continue coumadin and INR checks - no red flag symptoms or exam findings - red flag symptoms discussed, verbalizes understanding - follow-up as scheduled in September, sooner if needed 2. Single subsegmental pulmonary embolism without acute cor pulmonale (HCC) - ICD9: 415.19, ICD10: I26.93 - plan as in #1 3. Anticoagulation goal of INR 2 to 3 - ICD9: V58.83, V58.61, ICD10: Z51.81, Z79.01 - plan as in #1 Meli PodlogTEJINDER vernon.MOTION DESIGNER Prescription instructions reviewed with patient as applicable. Patient advised if symptoms do not improve or if symptoms worsen sooner, to contact their primary care physician. Potential red flag symptoms discussed with the patient. Reviewed appropriate action plan to take if red flag symptoms occur. Patient agreeable to treatment plan. I spent a total of 20 minutes on the date of the service which included preparing to see the patient, [id number] patient care, completing clinical documentation, obtaining and/or reviewing separately obtained history, performing a medically appropriate examination, and counseling and educating the patient/family/caregiver. documented in this encounter [facility] 06-14-2022 History of Present illness Narrative PATIENT NOTIFIED OF INFORMATION via detailed message INR low on this dosage. Increase coumadin to 5 mg Mon, 7.5 mg all other days. Recheck INR in 2 weeks. patient had inr completed at [facility] patients inr is 1.6 (patients inr range is 2.0-3.0) patient is currently taking 5mg Mon,Tues and 7.5mg all other days patients last dose change was on 04/28/22 due to a low level of 1.9 (dose at that time was 7.5mg Mon,Wed,Fri and 5mg all other days) patient has had no changes in medication and no missed doses and no change in diet Advised patient that they would be contacted regarding medication dose and when to follow up after information is reviewed by provider. After provider review please contact the patient with information and schedule follow up appointment with coumadin clinic. 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 For cholesterol. MERON 05/09/22 NOV 06/27/22 Please review and advise. Rosa Parker LPN documented in this encounter [facility] 05-23-2022 History of Present illness Narrative INR therapeutic. Continue current coumadin dosage and follow up in 3 weeks. patient had inr completed at [facility] patients inr is 2.3 (patients inr range is 2.0-3.0) patient is currently taking 5mg Mon,Tues and 7.5mg all other days patients last dose change was on 04/28/22 due to a low level of 1.9 (dose at that time was lovenox twcie daily and coumadin 7.5mg Mon,Wed,Fri and 5mg all other days) patient has had no changes in medication and no missed doses and no change in diet Advised patient to continue on the same dose(s) and that they would only be contacted regarding dosage and follow up instructions after review with provider, if a change is needed. Written instructions given and patient verbalized understanding. Presently scheduled in 3 weeks (06/14/22) for follow up INR. documented in this encounter [facility] 05-09-2022 History of Present illness Narrative Chief Complaint Patient presents with: Follow Up: DVT -Today's INR 2.0 and recheck 2 weeks cont same regimen. HPI Yakelin Huynh is a 72 year old female who presents here today for Above Complaints.. History of DVT and PE discovered 04/03. Patient states that she has been taking her coumadin as prescribed without bleeding or bruising symptoms. States that her left left is not bothering her at all at this time. Still has some elevated HR with activity with readings in the low 100's to 110's. Denies chest pain, SOB, palpitations, lower extremity swelling, hemoptysis. Discussed I would likely have her on anticoagulation for 6 months instead of 3 months due to PE. Travelling to [place] for 12 days on 09/21 and is worried about being on anticoagulation for her trip. Past medical history, appointments, medications, allergies reviewed. Previous Medical History PAST MEDICAL HISTORY Diagnosis Date Bursitis of left hip Class 1 obesity due to excess calories without serious comorbidity with body mass index (BMI) of 30.0 to 30.9 in adult DVT (deep venous thrombosis) ([facility]) 03/2022 after D&C Hemorrhage of gastrointestinal tract, unspecified From hemorrhoids only Internal hemorrhoids without mention of complication Irregular menstrual cycle Irregular periods Resolved Osteoarthritis knee Primary osteoarthritis of both knees Dr. Garcia Pulmonary embolism ([facility]) 04/08/2022 Pure hypercholesterolemia Shingles 04/12/2012 Solitary pulmonary nodule on lung CT 04/07/2021 SVT (supraventricular tachycardia) ([facility]) 2004 Symptomatic menopausal or female climacteric states With atrophic vaginitis Unspecified constipation Previous Surgical History PAST SURGICAL HISTORY Procedure Laterality Date APPENDECTOMY 1986 CATARACT SURGERY, COMPLEX Left 04/2016 CATARACT SURGERY, COMPLEX Right 2018 [facility] ANTERPOST COLPORRAPHY W/CYSTO 02/21/2019 A&P repair COLONOSCOPY FLX DX W/COLLJ SPEC WHEN PFRMD 01/05/05 [facility] Colonoscopy COLONOSCOPY FLX DX W/COLLJ SPEC WHEN PFRMD 01/30/2015 Colonoscopy DILATION & CURETTAGE DX&/THER NONOBSTETRIC Dilation & curettage HYSTEROSCOPY BX ENDOMETRIUM&/POLYPC W/WO D&C 03/29/2022 D&C w/ polyp resection HYSTEROSCOPY, DIAGNOSTIC (SEPARATE 2001 Hysteroscopy LAPS ABD PRTM&OMENTUM DX W/WO SPEC BR/WA SPX Laparoscopy LIG/TRNSXJ FLP TUBE ABDL/VAG APPR UNI/BI 1982 Tubal ligation 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 ANY AREA UPW/15 08/17/2005 Removal skin tags Family History FAMILY HISTORY Problem Relation Age of Onset Diabetes Mother Fatty liver; esophageal vaices Non- alcohol Ischemic Heart Disease Mother bypass age 72 Lipids Mother Coronary Artery Disease Mother other (Parkinson's) Mother Parkinskinson's= Cancer Father PROSTATE other (Parkinson's) Father Cancer Maternal Grandmother UTERINE Ischemic Heart Disease Maternal Grandfather and many others on that side of the family Prostate Cancer Brother other (polymyalgia rheumatica) Brother Lipids Sister Patient Allergies ALLERGIES Allergen Reactions Amoxicillin Rash Bactrim [Sulfametho* stomatitis Current Medications Current Outpatient Medications on File Prior to Visit Medication Sig acetaminophen (TYLENOL EXTRA STRENGTH ORAL) Take 2 tablets by mouth as needed. diphenhydrAMINE (BENADRYL) 25 mg capsule Take 25 mg by mouth every 6 hours as needed. warfarin (COUMADIN) 5 mg tablet 5mg Mon,Tues and 7.5mg all other days or as directed ipratropium bromide (ATROVENT NASAL) Use in the nose once daily. atorvastatin (LIPITOR) 20 mg tablet Take 1 tablet by mouth daily at bedtime. For cholesterol. fluticasone (FLONASE) 50 mcg/actuation nasal spray Use 2 Sprays in each nostril once daily. Rinse mouth after use. CALCIUM CARBONATE/VITAMIN D3 (CALCIUM 600 + D,3, ORAL) Take by mouth twice daily. PSYLLIUM SEED, WITH SUGAR, (METAMUCIL ORAL) Take by mouth. POLYETHYLENE GLYCOL 3350 (MIRALAX ORAL) Take by mouth. As needed EVENING PRIMROSE OIL ORAL Take by mouth. (Patient not taking: Reported on 04/08/2022) miSOPROStol (CYTOTEC) 200 mcg tablet Take 2 tablets by mouth as directed. The night before the procedure and the morning of the procedure. (Patient not taking: Reported on 04/08/2022) estradiol (ESTRACE) 0.01 % (0.1 mg/gram) vaginal cream APPLY APROX. 1/2 INCH VAGINALLY AT BEDTIME TWICE WEEKLY (Patient not taking: Reported on 04/08/2022) docusate sodium (STOOL SOFTENER ORAL) Take by mouth. No current facility-administered medications on file prior to visit. Social History Social History Tobacco Use Smoking status: Never Smokeless tobacco: Never Vaping Use Vaping Use: Never used Substance Use Topics Alcohol use: Yes Comment: 1-2 times per month Drug use: No Review of Symptoms REVIEW OF SYSTEMS See HPI EXAM: BP 122/72 Pulse 98 Resp 16 Wt 75.7 kg (166 lb 12.8 oz) LMP 07/12/2006 SpO2 97% BMI 29.55 kg/m General Appearance: Well appearing, alert, in no acute distress, well-hydrated, well nourished.. Skin: Skin color, texture, turgor normal, no suspicious rashes or lesions. Lungs: Lungs clear to auscultation. No wheezing, rhonchi, rales.. Heart: RRR without murmur, gallop, or rubs. No ectopy. Abdomen: Normal abdominal exam, Abdomen soft, non-tender. Bowel sounds normal. No masses, organomegaly. Extremities: No deformities, edema, skin discoloration, clubbing or cyanosis. Good capillary refill. . Health Maintenance List ADVANCE DIRECTIVE DISCUSSION Never done DEPRESSION ASSESSMENT Never done MAMMOGRAM due on 02/15/2023 COLORECTAL CANCER SCREENING due on 01/30/2025 DIABETES SCREEN due on 03/28/2025 LIPID SCREEN due on 12/25/2025 DTAP,TDAP,TD(3 - Td or Tdap) due on 06/15/2026 BONE DENSITY Completed INFLUENZA Completed HEPATITIS C SCREENING Completed SHINGRIX VACCINE Completed COVID-19 VACCINE Completed PNEUMOCOCCAL: 65+ Completed ASSESSMENT/PLAN: 1. Acute deep vein thrombosis (DVT) of tibial vein of left lower extremity (HCC) - ICD9: 453.42, ICD10: I82.442 (primary diagnosis) DVT and PE likely 2/2 surgery on 03/29. Leg swelling, and pain has resolved. Wearing compression stockings daily. Compliant with coumadin and is therapeutic. With PE will continue for 6 months. Discussed it may be beneficial to continue coumadin during her trip in September due to prolonged time on air plane. Red flags for re-assessment reviewed with patient in detail. Keep scheduled follow up. 2. Single subsegmental pulmonary embolism without acute cor pulmonale (HCC) - ICD9: 415.19, ICD10: I26.93 See above. 3. Anticoagulation goal of INR 2 to 3 - ICD9: V58.83, V58.61, ICD10: Z51.81, Z79.01 INR 2 today. Continue current regimen. Recheck in 2 weeks. Abhinav Bolden MD documented in this encounter [facility] 05-09-2022 History of Present illness Narrative INR therapeutic. Continue current coumadin dosage and follow up in 2 weeks. patient had inr completed at [facility] patients inr is 2.0 (patients inr range is 2.0-3.0) patient is currently taking 5mg Mon,Tues and 7.5mg all other days patients last dose change was on 05/03/22 due to level became therapeutic (dose at that time was lovenox twice daily and coumadin 5mg Mon,Tues and 7.5mg all other days) patient has had no changes in medication and no missed doses and no change in diet Advised patient to continue on the same dose(s) and that they would only be contacted regarding dosage and follow up instructions after review with provider, if a change is needed. Written instructions given and patient verbalized understanding. Presently scheduled in 2 weeks (05/23/22) for follow up INR. documented in this encounter [facility] 05-03-2022 History of Present illness Narrative PATIENT NOTIFIED OF INFORMATION INR therapeutic. Continue current coumadin dosage and follow up in 1 weeks. May stop her Lovenox. patient had inr completed at [facility] patients inr is 2.0 (patients inr range is 2.0-3.0) patient is currently taking lovenox twice daily and 5mg Mon,Tues and 7.5mg all other days patients last dose change was on 04/28/22 due to a low level of 1.9 (dose at that time was lovenox twice daily and 7.5mg Mon,Wed,Fri and 5mg all other days) patient has had no changes in medication except for coumadin and no missed doses and no change in diet Advised patient that they would be contacted regarding medication dose and when to follow up after information is reviewed by provider. After provider review please contact the patient with information and schedule follow up appointment with coumadin clinic. ok to leave a detailed message if no answer FYI- patient has been scheduled for a 1 week follow up inr on 05/09/22 (pt has appt with pcp also this day) documented in this encounter [facility] 04-28-2022 History of Present illness Narrative PATIENT NOTIFIED OF INFORMATION INR is still low. Increase coumadin to 5 mg Mon, Tues and 7.5 mg all other days. Will need to continue Lovenox until therapeutic. Recheck INR on Wednesday 05/03. Will send in refill for Lovenox to his pharmacy. patient had inr completed at [facility] patients inr is 1.9 (patients inr range is 2.0-3.0) patient is currently taking lovenox twice daily and 7.5mg Mon,Wed,Fri and 5mg all other days patients last dose change was on 04/21/22 due to a low level of 1.9 (dose at that time was lovenox twice daily and 7.5mg Mon,Wed and 5mg all other days) patient has had no changes in medication except for coumadin and no missed doses and no change in diet FYI- patient has been on lovenox for 3 week and took her last injection this morning. If patient is to continue on the injections she will need a new rx sent to [facility] Advised patient that they would be contacted regarding medication dose and when to follow up after information is reviewed by provider. After provider review please contact the patient with information and schedule follow up appointment with coumadin clinic. documented in this encounter [facility] 04-28-2022 Miscellaneous Notes Patient has been identified by name and date of : Yes, Provider Kimi Date 04/28/22 Time 415p Patient phones for refill(s): Requested Prescriptions Pending Prescriptions Disp Refills warfarin (COUMADIN) 5 mg tablet 60 tablet 11 Simg Mon,Tues and 7.5mg all other days or as directed Date of last office visit in primary care: Last 2 Encounter Wt Readings: Date: Wt: 04/08/2022 74.6 kg (164 lb 6.4 oz) 03/28/2022 73.9 kg (163 lb) Previous labs/tests for medication: Not applicable Please advise. Thank you. Benito Lama RN documented in this encounter [facility] 04-21-2022 History of Present illness Narrative Pt notified and voiced understanding. Rescheduled with Coumadin Clinic 03/28/22. Tracker and med list updated Jolly Posadas Ma Go to 7.5 mg Mon, Weds, Fri; 5 mg all other days Continue Lovenox Recheck in 1 week Fuentes Madrid MD patient had inr completed at [facility] patients inr is 1.9 (patients inr range is 2.0-3.0) patient is currently taking lovenox twice daily and 7.5mg Mon Wed and 5mg all other days patients last dose change was on 04/18/22 due to a low level of 1.6 (dose at that time was lovenox twice daily and 7.5mg Wed and 5mg all other days) patient has had no changes in medication except for coumadin dose and no missed doses and no change in diet Advised patient that they would be contacted regarding medication dose and when to follow up after information is reviewed by provider. After provider review please contact the patient with information and schedule follow up appointment with coumadin clinic. FYI- patient has been scheduled for an inr follow up in 4 days on 04/25/22 documented in this encounter [facility] 04-18-2022 History of Present illness Narrative Patient notified and voiced understanding. Alyssa Porter MA Advise patient to change dosing to 7.5 mg today and Wed and cont 5 mg all other days. Repeat INR this 04/21/2022 patient had inr completed at [facility] patients inr is 1.6 (patients inr range is 2.0-3.0) patient is currently taking lovenox twice daily and coumadin 7.5mg Wed and 5mg all other days) patients last dose change was on 04/13/22 due to a low level of 1.5 (dose at that time was lovenox twice daily and coumadin 5mg daily) patient has had no changes in medication except for coumadin and no missed doses and no change in diet Advised patient that they would be contacted regarding medication dose and when to follow up after information is reviewed by provider. After provider review please contact the patient with information and schedule follow up appointment with coumadin clinic. documented in this encounter [facility] 04-18-2022 Miscellaneous Notes The following approved medication requests have been transmitted electronically. Requested Prescriptions Signed Prescriptions Disp Refills enoxaparin (LOVENOX) 80 mg/0.8 mL 16 mL 1 Sig: Inject 0.8 mL subcutaneously every 12 hours for 10 days. Authorizing Provider: NEIL LANDAVERDE MD Patient has been identified by name and date of : Yes, Provider Kimi Date 04/18/22 Time 1015 Patient phones for refill(s): Requested Prescriptions Pending Prescriptions Disp Refills enoxaparin (LOVENOX) 80 mg/0.8 mL 16 mL 0 Sig: Inject 0.8 mL subcutaneously every 12 hours for 10 days. Date of last office visit in primary care: Last 2 Encounter Wt Readings: Date: Wt: 04/08/2022 74.6 kg (164 lb 6.4 oz) 03/28/2022 73.9 kg (163 lb) Previous labs/tests for medication: Not applicable Patient has not reach 2.0-3.0 inr fuentes at this time Please advise. Thank you. Benito Lama RN documented in this encounter [facility] 04-13-2022 Miscellaneous Notes Patient notified and scheduled with coumadin clinic Orquidea Beard Ma INR is still low. Recommend she take 7.5 mg of coumadin today and tomorrow, 5 mg all other days. I don't think we will see change in INR if we check on Monday, so I would have her come in Monday instead. Continue Lovenox. Last INR: INR (POCT) 1.5 04/13/2022 Current dose of coumadin is: 5mg daily. Last date of dose change: N/A. Previous INR (date and result): N/A Additional Clinical Information or narrative: no documented in this encounter [facility] 04-13-2022 Hospital Discharge instructions Additional Instructions Moderate pulmonary embolism right side middle and lower lobe. There is no heart strain. 6 mm left upper lobe pulmonary nodule. Will need to follow with your PCP imaging again in the future. Consideration discussed with possible failure of your Xarelto. You clinically have more symptoms currently. You are given Lovenox. Discussed with Dr. Bolden with your visit in the morning if you she can continue with the Lovenox for bridging and starting Coumadin. Attempted to get a hold of your doctor prior to your discharge. Return if worsening symptoms. [facility] Work Phone: 04-11-2022 History of Past i llness Narrative Problem Noted Date Diagnosed Date Resolved Date Single subsegmental pulmonar y embolism without acute cor pulmonale 04/11/2022 03/28/2023 Abnormal mammogram, unspecified 10/15/2013 04/04/2017 Routine general medical exam ination at a health care facility 12/18/2008 08/16/2011 Overview: 12/18/2008, from Dr. Grady (retired) 02/18/2010, yearly check 04/12/2011, yearly check Routine gynecological examination 12/18/2008 08/16/2011 Overview: [facility] SVT (supraventricular tachycardia) 12/18/2008 04/04/2017 Overview: Dr. 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 Grady (retired) 02/18/2010, yearly check 04/12/2011, yearly check Routine gynecological examination 12/18/2008 08/16/2011 Overview: [facility] SVT (supraventricular tachycardia) 12/18/2008 04/04/2017 Overview: Dr. 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 Coumadin clinic closed on Mon. Patient will have INR drawn in lab. Benito Ta LPN * Abhinav Bolden MD - 04/11/2022 10:53 AM EST INR is still low after 3 days of coumadin. Continue current regimen and recheck in 2 days instead of 4 days. Continue Lovenox. * Benito Lama RN - 04/11/2022 10:39 AM EST patient had inr completed at [facility] patients inr is 1.1 (patients inr range is 2.0-3.0) patient is currently taking lovenox injection twice daily and 5mg coumadin daily patients last dose change - patient is new to coumadin therapy patient has had no changes in medication except for coumadin and lovenox and no change in diet Advised patient that they would be contacted regarding medication dose and when to follow up after information is reviewed by provider. After provider review please contact the patient with information and schedule follow up appointment with coumadin clinic. FYI- patient has been scheduled for an inr follow up in 4 days (04/15/22) [facility] Miscellaneous Notes* Telephone Encounter - Abhinav Bolden MD - 04/11/2022 10:53 AM EST Approved. * Telephone Encounter - Benito Lama RN - 04/11/2022 10:42 AM EST Patient is a new patient to the [facility] and we are needing new standing orders for testing. Orders have been pended for review and file if able. CC only needs called if orders cannot be filed. Thanks [facility] History of Present illness Narrative* Abhinav Bolden MD - 04/08/2022 11:20 AM EST Chief Complaint Patient presents with: ER F/U: [facility] 04/03 for DVT HPI Yakelin Huynh is a 72 year old female who presents here today for ER Follow Up.. Patient initially evaluated at [facility] ED on 04/03 for complaint of left leg and foot swelling which started a couple days prior after D&C. Found to have DVT on US and we initiated her on Xarelto which she has been taking the day it was prescribed. Returned to the ED last night with not feeling welland elevated HR with ambulation up to 110. EKG was normal and labs were stable. CTA chest confirmedPE on the right with 6 mm nodule on left upper lobe. No heart strain on CT. Given lovenox in the EDand discharged home with recommendation to follow up with our office to discuss treatment of DVT/PEafter failing Xarelto. Today, patient states that she felt the same way on 04/03 that she did last night and they did not check CTA chest to rule out PE on her initial visit to the ER. HR was elevated to 109 on her first evaluation. . Pulse ox was normal yesterday. States that she was more active yesterday and could feel her HR was higher than usual. Was not sent home with rx for lovenox last night. Took Xarelto this morning. Denies bleeding or bruising symptoms. Her leg swelling and pain is improving with the Xarelto. Past medical history, appointments, medications, allergies reviewed. Previous Medical History PAST MEDICAL HISTORY Diagnosis Date Bursitis of left hip Class 1 obesity due to excess calories without serious comorbidity with body mass index (BMI) of 30.0 to 30.9 in adult Hemorrhage of gastrointestinal tract, unspecified From hemorrhoids only Internal hemorrhoids without mention of complication Irregular menstrual cycle Irregular periods Resolved Osteoarthritis knee Primary osteoarthritis of both knees Dr. Garcia Pure hypercholesterolemia Shingles 04/12/2012 SVT (supraventricular tachycardia) (HCC) 2004 Symptomatic menopausal or female climacteric states With atrophic vaginitis Unspecified constipation Previous Surgical History PAST SURGICAL HISTORY Procedure Laterality Date APPENDECTOMY 1986 CATARACT SURGERY, COMPLEX Left 04/2016 CATARACT SURGERY, COMPLEX Right 2018 CMBND ANTERPOST COLPORRAPHY W/CYSTO 02/21/2019 A&P repair COLONOSCOPY FLX DX W/COLLJ SPEC WHEN PFRMD 01/05/05 [facility] Colonoscopy COLONOSCOPY FLX DX W/COLLJ SPEC WHEN PFRMD 01/30/2015 Colonoscopy DILATION & CURETTAGE DX&/THER NONOBSTETRIC Dilation & curettage HYSTEROSCOPY BX ENDOMETRIUM&/POLYPC W/WO D&C 03/29/2022 D&C w/ polyp resection HYSTEROSCOPY, DIAGNOSTIC (SEPARATE 2001 Hysteroscopy LAPS ABD PRTM&OMENTUM DX W/WO SPEC BR/WA SPX Laparoscopy LIG/TRNSXJ FLP TUBE ABDL/VAG APPR UNI/BI 1982 Tubal ligation 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 ANY AREA UP08/17/2005 Removal skin tags Family History FAMILY HISTORY Problem Relation Age of Onset Diabetes Mother Fatty liver; esophageal vaices Non- alcohol Ischemic Heart Disease Mother bypass age 72 Lipids Mother Coronary Artery Disease Mother other (Parkinson's) Mother Parkingitainson's= Cancer Father PROSTATE other (Parkinson's) Father Cancer Maternal Grandmother UTERINE Ischemic Heart Disease Maternal Grandfather and many others on that side of the family Prostate Cancer Brother other (polymyalgia rheumatica) Brother Lipids Sister Patient Allergies ALLERGIES Allergen Reactions Amoxicillin Rash Bactrim [Sulfametho* stomatitis Current Medications Current Outpatient Medications on File Prior to Visit Medication Sig rivaroxaban (XARELTO) 20 mg tablet Take 1 tablet by mouth daily with dinner. Start after [id number] day starter pack rivaroxaban (XARELTO DVT-PE TREAT 30D START) 15 mg (42)- 20 mg (9) DsPk Take 1 tablet (15 mg) by mouth twice daily with food for 21 days. Then take 1 tablet (20 mg) by mouth once daily with food for 9 days. EVENING PRIMROSE OIL ORAL Take by mouth. miSOPROStol (CYTOTEC) 200 mcg tablet Take 2 tablets by mouth as directed. The night before the procedure and the morning of the procedure. atorvastatin (LIPITOR) 20 mg tablet Take 1 tablet by mouth daily at bedtime. For cholesterol. estradiol (ESTRACE) 0.01 % (0.1 mg/gram) vaginal cream APPLY APROX. 1/2 INCH VAGINALLY AT BEDTIME TWICE WEEKLY fluticasone (FLONASE) 50 mcg/actuation nasal spray Use 2 Sprays in each nostril once daily. Rinse mouth after use. docusate sodium (STOOL SOFTENER ORAL) Take by mouth. CALCIUM CARBONATE/VITAMIN D3 (CALCIUM 600 + D,3, ORAL) Take by mouth twice daily. PSYLLIUM SEED, WITH SUGAR, (METAMUCIL ORAL) Take by mouth. POLYETHYLENE GLYCOL 3350 (MIRALAX ORAL) Take by mouth. As needed No current facility-administered medications on file prior to visit. Social History Social History Tobacco Use Smoking status: Never Smokeless tobacco: Never Vaping Use Vaping Use: Never used Substance Use Topics Alcohol use: Yes Comment: 1-2 times per month Drug use: No Review of Symptoms REVIEW OF SYSTEMS GENERAL: No weight loss, malaise or fevers RESPIRATORY: Negative for cough, hemoptysis, wheezing, COPD, dyspnea or shortness of breath CARDIOVASCULAR: Negative for chest pain, leg swelling, hypertension, CHF or palpitations GI: No nausea, vomiting, or diarrhea SKIN: Negative for lesions, rash, and itching EXAM: BP 138/72 Pulse 105 Temp 37.2 C (98.9 F) Resp 16 Wt 74.6 kg (164 lb 6.4 oz) LMP 07/12/2006 SpO2 97% BMI 29.12 kg/m General Appearance: Well appearing, alert, in no acute distress, well-hydrated, well nourished.. Skin: Skin color, texture, turgor normal, no suspicious rashes or lesions. Lungs: Lungs clear to auscultation. No wheezing, rhonchi, rales.. Heart: Negative findings: no murmurs, clicks, or gallops, Positive findings: tachycardia. Extremities: Swelling over left distal calf and ankle with TTP. Peripheral pulses normal. Health Maintenance List ADVANCE DIRECTIVE DISCUSSION Never done DEPRESSION ASSESSMENT Never done MAMMOGRAM due on 02/15/2023 COLORECTAL CANCER SCREENING due on 01/30/2025 DIABETES SCREEN due on 03/28/2025 LIPID SCREEN due on 12/25/2025 DTAP,TDAP,TD(3 - Td or Tdap) due on 06/15/2026 BONE DENSITY Completed INFLUENZA Completed HEPATITIS C SCREENING Completed SHINGRIX VACCINE Completed COVID-19 VACCINE Completed PNEUMOCOCCAL: 65+ Completed ASSESSMENT/PLAN: 1. Acute deep vein thrombosis (DVT) of tibial vein of left lower extremity (HCC) - ICD9: 453.42, ICD10: I82.442 (primary diagnosis) I suspect this is related to her recent surgical procedure despite it being minor. Up to date on cancer screening. No history of DVT or PE. No family history of DVT or PE. With finding of PE after starting Xarelto, I have recommended she switch to Lovenox and coumadin until therapeutic with INR 2-3. Will continue for 3-6 months. Patient agreeable. Will check INR on Tuesday 04/11. Start compression stockings daily. Red flags for re-assessment reviewed with patient in detail. - WARFARIN 5 MG TABLET - PROTHROMBIN TIME/PT - ENOXAPARIN 80 MG/0.8 ML SUBCUTANEOUS SYRINGE - COMPRESSION STOCKINGS 2. Acute pulmonary embolism without acute cor pulmonale, unspecified pulmonary embolism type (HCC) - ICD9: 415.19, ICD10: I26.99 See above. - COMPRESSION STOCKINGS 3. Lung nodule seen on imaging study - ICD9: 793.11, ICD10: R91.1 6 mm solitary nodule on CT chest. Will repeat imaging 6-12 months to check for stability. I spent a total of 35 minutes on the date of the service which included preparing to see the patient, [id number] patient care, completing clinical documentation, obtaining and/or reviewing separately obtained history, performing a medically appropriate examination, counseling and educating the pat ient/family/caregiver, and ordering medications, tests, or procedures. Abhinav Bolden MD [facility] [facility] April 08, 2022 12:29am Note Date/Time April 07, 2022 8 :29pm [facility] Medical Records Department [address] [place] [address] Emergency Department Summary 04/07/22 MR#: [id number] Acct: [id number] Name: YAKELIN HUYNH Rep #:[id number] : 1950 72 From: Yovani Hwang PCP: Dr. Abel Bolden MD Status :REG ER Location: ED HPI History of Present Illness Chief Complaint: General Illness Informant: patient Narrative Narrative: Patient presents with sickle allergies states she does not feel well today. Shewas diagnosed to left lower extremity 3 days ago. She noted swelling on Monday. She came in Monday swelling outpatient ultrasound the next morning was positive. Her PCP was contacted started on Xarelto she has been taking this. She had a D&C under MAC anesthesia 9 days ago. No history of PE or DVT. She denies chest pains or shortness of breath. States she is walking she no heart rate 110. Denies fevers headaches cough recent vomiting or diarrhea. Denies urinary symptoms. She reports 3 weeks ago she had a viral upper respiratory illness that resolved. Reports leg swelling is improving. [facility] Medical History Arthritis Bladder disease Chronic constipation Chronic cough High cholesterol History of edema History of pain when walking History of steroid therapy History of stress test History of supraventricular tachycardia Leg cramps Non-smoker Post-menopausal Wears glasses Home Medications calcium carbonate 500 mg-vitamin D3 10 mcg (400 unit) chewable tablet 1 ea PO BID 02/15/19 [History Last Taken Unknown] acetaminophen 325 mg tablet (Tylenol) 325 mg PO Q6H PRN Pain 03/22/22 [History Last Taken Unknown] atorvastatin 20 mg tablet 20 mg PO QHS 03/22/22 [History Last Taken Unknown] cholecalciferol (vitamin D3) 25 mcg (1,000 unit) capsule (Vitamin D3) 25 mcg PO DAILY 03/22/22 [History Last Taken Unknown] estradiol 0.01% (0.1 mg/gram) vaginal cream 1 g vaginal SUWE 03/22/22 [History Last Taken Unknown] evening primrose oil-linoleic acid-gamolenic acid 1,000 mg capsule (Stem Oil) 1 cap PO BID 03/22/22 [History Last Taken Unknown] ipratropium bromide 42 mcg (0.06 %) nasal spray 2 spray intranasal DAILY 03/22/22 [History Last Taken Unknown] meloxicam 7.5 mg tablet 7.5 mg PO PRN PRN Pain 03/22/22 [History Last Taken Unknown] misoprostol 200 mcg tablet (Cytotec) 400 mcg sublingual PRN PRN PREOP 03/22/22 [History Last Taken Unknown] Allergy/AdvReac Type Severity Reaction Status Date / Time amoxicillin Allergy Rash Verified 04/07/22 19:50 sulfamethoxazole Allergy Other Verified 04/07/22 19:50 [From Bactrim] trimethoprim [From Bactrim] Allergy Other Verified 04/07/22 19:50 Surgical History History of cystoscopy History of hysteroscopy Hx of colonoscopy Hx of exploratory laparotomy Hx of exploratory laparotomy Hx of tubal ligation Social History Smoking Status: Never smoker ROS ROS ED Constitutional Constitutional ED: Denies chills, fever(s) or sweats Eyes Eyes: Denies change in vision ENT ENT ED: Denies dysphagia or sore throat Cardiovascular Cardiovascular: Denies chest pain, leg edema, palpitations or racing heartbeat Respiratory/Chest Respiratory/Chest: Denies cough, dyspnea or dyspnea on exertion Gastrointestinal Gastrointestinal: Denies abdominal pain, diarrhea, nausea or vomiting Genitourinary Genitourinary ED: Denies dysuria, hematuria or urinary frequency Musculoskeletal Musculoskeletal: Denies back pain, extremity pain or neck pain Integumentary Denies rash or wounds Neurologic Neurologic: Denies headache(s), paresthesias or weakness EXAM Physical Exam Const Vital Signs: 04/07/22 19:50 04/07/22 20:02 04/07/22 21:49 Temperature 96.7 F L Temperature Source Temporal Pulse Rate 100 94 Respiratory Rate 18 19 H Respiratory Effort Normal Non-Labored Respiratory Pattern Normal Blood Pressure 145/77 H Blood Pressure Mean 99 Pulse Ox 97 95 Oxygen Delivery Method Room Air Room Air Positive well nourished and well developed General Appearance ED: well developed and NAD HEENT Reports moist mucous membranes normocephalic and atraumatic Eyes PERRL, EOMs intact bilaterally and conjunctivae normal General Eye ED: Yes normal appearance of both eyes Neck no lymphadenopathy and supple General: Negative for tenderness Chest Wall Chest: Negative for tenderness Resp normal respiratory effort and normal air movement Effort and Inspection: symmetric chest movement; Negative for respiratory distress Cardio regular rate, regular rhythm and no murmurs Peripheral Pulses: pulses 2+ throughout GI normal to inspection, nondistended, normoactive bowel sounds and non-tender Palpation: Negative for guarding or rebound tenderness present Back/Spine no CVA tenderness and no thoracic nor lumbar tenderness Extremity normal to inspection General Extremety ED: Negative for edema or tenderness General Extremity: Negative for edema Neuro oriented x3 and no sensory deficits noted Sensorium / Orientation: awake and alert Skin no rashes or lesions noted and no wounds MDM MDM MDM Narrative Medical decision making narrative: Patient presented with vague symptoms of just not feeling well. she states her heart rate was 110 at home. She states no significant dyspnea. She reports shewas working harder today. She states she did have mild symptoms on Monday however not as significant. EKG normal labs were stable. Normal hemoglobin. White count 8.8. She is not tachycardic not hypoxic in ED. However with her tachycardia and her concerns, CT of the chest obtained for further evaluation. Results and discussion with radiology the PE right mid no right lower there is no right also noted pulmonary nodule left upper lobe is 6 mm. Consideration due to pulmonary embolism on Xarelto that she is failing her anticoagulation at this time. Multiple discussion with the patient she states she had mild symptoms on Monday when she initially came for evaluation of her leg pain she is not hypoxic she states minimal and resolved. She been taking her Xarelto she has had less activity over the last couple days she has been more active today she states. However these are more noticeable symptoms today compared to Monday. She ambulated pulse ox 93% clinically denied any symptoms. During monitoring she states she had weird sensation of symptoms which shakes and felt something was off. She was normal sinus rhythm on the monitor she is not hypoxic she is in no respiratory distress. I attempted to reach out to her physicians and on-call doctor multiple times no callback, discussed extensively with patient if she is concerned that we should start Lovenox. She has appointment with her doctor in the morning at 11 AM. Discussed that she can discuss with her PCP tomorrow for continued Lovenox bridging and starting warfarin if she has continued concerns. Without hypoxia or tachycardia, there is no indication for admission at this time. There is no heart strain on CT. She will be given Lovenox in the ED therapeutic dose. She will keep her appointment tomorrow. Return precautions. All questions were answered. Lab Data Attestation: I reviewed the patient's lab results. Labs: Laboratory Results - last 24 hr 04/07/22 04/07/22 20:32 20:32 WBC 8.8 RBC 4.58 Hgb 13.4 Hct 42.3 MCV 92.4 MCH 29.3 MCHC 31.7 L RDW Std Deviation 49.7 H RDW Coeff of Birgit 14.7 H Plt Count 307 MPV 9.5 Immature Gran % (Auto) 0.700 Neut % (Auto) 73.5 H Lymph % (Auto) 15.6 L [place] % (Auto) 8.6 Eos % (Auto) 0.9 Baso % (Auto) 0.7 Absolute Neuts (auto) 6.5 Absolute Lymphs (auto) 1.37 Nucleated RBC % 0 Sodium 144 Potassium 3.7 Chloride 108 H Carbon Dioxide 29.0 Anion Gap 7 BUN 17 Creatinine 0.65 Estim Creat Clear Calc 41.40 Est GFR (MDRD) Af Amer 116 Est GFR (MDRD) Non-Af 96 BUN/Creatinine Ratio 26.2 H Glucose 136 H Calcium 9.5 Radiography Diagnostic Testing: Clinical Impression(s) from Imaging Studies Chest CTA 04/07/22 21:34 IMPRESSION: 1. Moderate PE. No right heart strain. 2. Left upper lobe pulmonary nodule, nonspecific. Fleischner Society Guidelines (MacMahon, et al. Radiology 2017; 284(1):228-43) suggest the following. For low-risk patients recommend follow-up chest CT at 6-12 months. If unchanged consider an additional follow-up CT at 18-24 months. For high-risk patients initial follow-up chest CT at 6-12 months and if unchanged, 18-24 months. 3. Old granulomatous disease. Electronically Signed: Melissa Gonzalez MD at 22:16 EST Reading Location ID and State: [place] / Tel , Service support , ADDENDUM: 04/07/221 IMPRESSION: 1. Moderate PE. No right heart strain. 2. Left upper lobe pulmonary nodule, nonspecific. Fleischner Society Guidelines (MacMahon, et al. Radiology 2017; 284(1):228-43) suggest the following. For low-risk patients recommend follow-up chest CT at 6-12 months. If unchanged consider an additional follow-up CT at 18-24 months. For high-risk patients initial follow-up chest CT at 6-12 months and if unchanged, 18-24 months. 3. Old granulomatous disease. N.B. : The above Results were Read Back by Melissa Gonzalez MD to Yovani Arellano AA, and understanding confirmed on 04/07/2022 22:24:39 (ET). Electronically Signed: Melissa Gonzalez MD at 22:16 EST , EKG Initial EKG: Attestation: I personally reviewed and interpreted this EKG as follows: Comments: Sinus rhythm 92, no ST or T wave changes. Normal axis. QTC 413 Discharge Plan Triage Chief Complaint: General Illness ED Provider: Yovani Arellano Dx/Rx/DC Orders Clinical Impression: Pulmonary embolism on right, Left upper lobe pulmonary nodule Instructions: Pulmonary Embolism, ED Pulmonary Nodule, Solitary Prescriptions: No Action calcium carbonate-vitamin D3 1 EACH tablet,chewable 1 ea PO BID acetaminophen [Tylenol] 325 mg Tablet 325 mg PO Q6H PRN (Reason: Pain) atorvastatin 20 mg Tablet 20 mg PO QHS meloxicam [Mobic] 7.5 mg Tablet 7.5 mg PO PRN PRN (Reason: Pain) misoprostol [Cytotec] 200 mcg Tablet 400 mcg SUBLINGUAL PRN PRN (Reason: PREOP) estradiol 0.01 % (0.1 mg/gram) Cream 1 g VAGINAL SUWE ipratropium bromide 42 mcg (0.06 %) Crocker,Non-Aerosol 2 spray INTRANASAL DAILY Rx Instructions: administer into each nostril cholecalciferol (vitamin D3) [Vitamin D3] 25 mcg (1,000 unit) Capsule 25 mcg PO DAILY Stem Oil 1,000 mg Capsule 1 cap PO BID Rx Instructions: administer with meals Primary Care Provider: Abel Bolden Referrals: Abel Bolden MD [Primary Care Provider] - Keep Umberto appointment Activity Restrictions/Additional Instructions: Moderate pulmonary embolism right side middle and lower lobe. There is no heartstrain. 6 mm left upper lobe pulmonary nodule. Will need to follow with your PCP imaging again in the future. Consideration discussed with possible failure of your Xarelto. You clinically have more symptoms currently. You are given Lovenox. Discussed with Dr. Bolden with your visit in the morning if you she can continue with the Lovenox for bridging and starting Coumadin. Attempted to get a hold of your doctor prior to your discharge. Return if worsening symptoms. Disposition Disposition: Home, Self Care What to do if you have Problems For any increased pain, shortness of breath, bleeding, nausea or vomiting, chestpain, or any unexpected problems, contact your Primary Care Provider. Call [facility] ([phone]) or report to the closest Emergency Room. Call 911 if necessary. 04/08/2228 <Electronically signed by Yovani Hwang> Cosigner Signature (if applicable): CC: Dr. Abel Bolden MD ~ Signed [facility] Work Phone: [phone]) 116-567501-26-2023 Hospital Discharge instructions Additional Instructions Moderate pulmonary embolism right side middle and lower lobe. There is no heart strain. 6 mm left upper lobe pulmonary nodule. Will need to follow with your PCP imaging again in the future. Consideration discussed with possible failure of your Xarelto. You clinically have more symptoms currently. You are given Lovenox. Discussed with Dr. Bolden with your visit in the morning if you she can continue with the Lovenox for bridging and starting Coumadin. Attempted to get a hold of your doctor prior to your discharge. Return if worsening symptoms.[facility] Work Phone: 1(215) 406-116001-23-2023 Miscellaneous Notes* Telephone Encounter - Rosa Parker LPN - 04/04/2022 5:02 PM EST Phoned patient and updated her with message. She reports she already picked up Rx and started it. * Telephone Encounter - Abhinav Bolden MD - 04/04/2022 3:54 PM EST I have discontinued the Eliquis and sent Xarelto over for her. She should start this rx today. Let me know if she needs anything else. * Telephone Encounter - Ila Nevarez RN - 04/04/2022 3:35 PM EST Patient calling to let PCP know she was able to locate Xarelto starter pack at [facility]. [facility] transferred the script for her to this pharmacy for the starter pack only. She says it is less expensive than Eliquis. Ila Nevarez RN documented in this encounterWexner [facility] Center01-23-2023 Miscellaneous Notes* Telephone Encounter - Abhinav Bolden MD - 04/04/2022 2:58 PM EST Called patient who states she is getting very light spotting today. I discussed with her DOAC vs coumadin and differences in reversing anticoagulation if she were to have bleeding. She would like to try the DOACs. Her pharmacy does not have the Xarelto starting pack. Discussed sending rx for Eliquis instead. Rx sent to [facility]. Patient will call if she is unable to pick this up. * Telephone Encounter - Beverley Jorgensen MD - 04/04/2022 2:21 PM EST Noted. Thank you for the update. 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 Had a very smallpolyp so anticoagulation should not cause signif. risk of vaginal bleeding. I am sorry to hear this. Beverley Jorgensen MD * Telephone Encounter - Abhinav Bolden MD - 04/04/2022 1:48 PM EST Patient with new DVT in her left lower leg. If she is having symptoms of chest pain, SOB, palpitations or continued bleeding from having uterine polyp removed would recommend she return to the ED forfurther evaluation and treatment with coumadin. If not, I would have her start on xarelto 15 mg PO BID x 21 days and then 20 mg daily for total of 3 months to treat this DVT. She should hold NSAIDs such as meloxicam, ibuprofen, or aleve while on this regimen as they can increase risk for bleeding. Recommend OV later this week to go over treatment and see how she is doing on this regimen. Will forward to Dr. Jorgensen as FYI due to recent surgical procedure. * Telephone Encounter - Rosa Parker LPN - 04/04/2022 1:40 PM EST Doppler report received and placed on provider's desk for review. * Telephone Encounter - Rosa Parker LPN - 04/04/2022 1:30 PM EST Neyda calling to report patient was seen in ER over weekend for edema. Patient came in for dopplertoday and positive for clot in left posterior tibular vein extending up behind knee. Requested she forward report to our office so that PCP can address. She voiced understanding. Awaiting report and will forward to PCP once received. documented in this encounterWexner [facility] Center01-20-2023 Miscellaneous Notes* Telephone Encounter - Vikki Noland RN - 04/01/2022 10:36 AM EST Patient returned the office's call. Notified of below information. Voiced understanding. Agreeable to cancelling of next weeks office visit. Vikki Noland RN * Telephone Encounter - Leslie Birmingham LPN - 04/01/2022 10:34 AM EST Pt notified and appt for next week cancelled. Leslie Valencia HICKEY * Telephone Encounter - Beverley Jorgensen MD - 04/01/2022 10:13 AM EST Please notify patient that her polyp is benign. No abnormal cells on pathology. No follow up neededfor this. She does not have to keep her office visit next week for follow up and I wish well on herknee replacement surgery. Beverley Jorgensen MD documented in this encounterWexner Medical Center01-17-2023 History of Present illness Narrative* Beverley Jorgensen MD - 03/29/2022 4:47 PM EST Patient underwent hysteroscopy D&C with polyp resection at [facility] today without complication was discharged home with routine instructions. She did have a very stenotic cervical os but it was able to be dilated after injection with vasopressin solution and use of small dilators. Pathology is pending. Beverley Jorgensen MD documented in this encounterWexner Medical Center01-17-[address] Jorgensen [facility] March 29, 2022 1:19pm Note Date/Time March 29, 2022 1 2:28pm [facility] Medical Records Department [address] [place] [address] Instructions for Home/Discharge Instructions 03/29/22 1227 MR#: [id number] Acct: [id number] Name: YAKELIN HUYNH Rep #:[id number] : 1950 72 From: Beverley Jorgensen MD PCP: Dr. Abel Bolden MD [place] [facility] Discharge Instructions Diet Discharge Diet: No restrictions Activity May resume sexual activity in: 1 week Lifting Restrictions: none Dressing / Incision Call your doctor if your incision/area has: Sudden Increased Bleeding and Foul Smelling Discharge Call your doctor if you observe: Fever of 101 or Higher and Using more than 1 pad per hour (for 2 hrs in a row) Follow Up Care Please Follow Up With: Beverley Jorgensen MD When: 2-4 weeks or as needed. Call [phone] to make an appointment or with any concerns. Test Results: Test results from this visit will be discussed in further detail at your follow- up appointment, if applicable. Discharge Plan Admission Primary Reason for Your Visit: Hysteroscopy dilation and curettage Attending Provider: Beverley Jorgensen Primary Care Provider: Abel Bolden Consulting Providers: Paulina Ramirez Discharge Orders/Prescriptions Prescriptions: No Action calcium carbonate-vitamin D3 1 EACH tablet,chewable 1 ea PO BID acetaminophen [Tylenol] 325 mg Tablet 325 mg PO Q6H PRN (Reason: Pain) atorvastatin 20 mg Tablet 20 mg PO QHS meloxicam [Mobic] 7.5 mg Tablet 7.5 mg PO PRN PRN (Reason: Pain) misoprostol [Cytotec] 200 mcg Tablet 400 mcg SUBLINGUAL PRN PRN (Reason: PREOP) estradiol 0.01 % (0.1 mg/gram) Cream 1 g VAGINAL SUWE ipratropium bromide 42 mcg (0.06 %) Crocker,Non-Aerosol 2 spray INTRANASAL DAILY Rx Instructions: administer into each nostril cholecalciferol (vitamin D3) [Vitamin D3] 25 mcg (1,000 unit) Capsule 25 mcg PO DAILY Stem Oil 1,000 mg Capsule 1 cap PO BID Rx Instructions: administer with meals Referrals / Follow Up: Abel Bolden MD [Primary Care Provider] - Disposition Disposition (needs filled in before D/C Order can be placed): Home, Self Care 03/29/22 1319<Electronically signed by Beverley Jorgensen MD>Beverley Jorgensen MD CC: M Dr. Paulina Ramirez; Dr. Abel Bolden MD ~ Signed [facility] Work Phone: 1(456) 859-151001-17-2023 History and physical note Author Dr. [facility] March 29, 2022 12:25pm Note Date/Time March 22, 2022 4 :54pm [facility] Medical Records Department [address] [place] [address] History & Physical Exam 03/22/22 165 MR#: [id number] Acct: [id number] Name: YAKELIN HUYNH Rep #:[id number] : 1950 71 From: Paulina Allison MD PCP: Dr. Abel Bolden MD Status :[facility] Location: [place] [address] History and Physical Date of Admission: 03/24/22 Pre-Op History and Physical ? HPI: The patient is a 71 year old female presenting for question regarding postmenopausal bleeding and endocervical polyp. Patient was previously seen by nurse practitioner Melanie Zamora and had a stenotic cervix unable to obtain endometrial biopsy for postmenopausal bleeding. I was asked to see her in the room and again I was unable to penetrate through the cervix. Decision was made to perform a hysteroscopy, D&C, polypectomy under anesthesia. Patient had a ultrasound done which showed a 1 cm endocervical polyp and a thickened endometrial lining. Patient is scheduled for a knee replacement and would like the surgery done prior to that. ? Pre-operative visit. She is scheduled for Hysteroscopy D&C and polypectomy, for PMB, Thickened Endometrium, Endocervical polyp, stenotic cervix on 03/24/22. Procedure discussed along with risks, benefits and complications. Other alternatives discussed for management. Consent form signed? Yes. ? ? PAST MEDICAL HISTORY PAST MEDICAL HISTORY Diagnosis Date ? Bursitis of left hip ? ? Class 1 obesity due to excess calories without serious comorbidity with bodymass index (BMI) of 30.0 to 30.9 in adult ? ? Hemorrhage of gastrointestinal tract, unspecified ? ? From hemorrhoids only ? Internal hemorrhoids without mention of complication ? ? Irregular menstrual cycle ? ? Irregular periods Resolved ? Osteoarthritis ? ? knee ? Primary osteoarthritis of both knees ? ? Dr. Garcia ? Pure hypercholesterolemia ? ? Shingles 04/12/2012 ? SVT (supraventricular tachycardia) (HCC) 2004 ? Symptomatic menopausal or female climacteric states ? ? With atrophic vaginitis ? Unspecified constipation ? ? ? PAST SURGICAL HISTORY PAST SURGICAL HISTORY Procedure Laterality Date ? APPENDECTOMY ? 87 ? CATARACT SURGERY, COMPLEX Left 04/2016 ? CATARACT SURGERY, COMPLEX Right 2018 ? CMBND ANTERPOST COLPORRAPHY W/CYSTO ? 02/21/2019 ? A&P repair ? COLONOSCOPY FLX DX W/COLLJ SPEC WHEN PFRMD ? 01/05/05 [facility] ? Colonoscopy ? COLONOSCOPY FLX DX W/COLLJ SPEC WHEN PFRMD ? 01/30/2015 ? Colonoscopy ? DILATION & CURETTAGE DX&/THER NONOBSTETRIC ? ? ? Dilation & curettage ? HYSTEROSCOPY, DIAGNOSTIC (SEPARATE ? 2002 ? Hysteroscopy ? LAPS ABD PRTM&OMENTUM DX W/WO SPEC BR/WA SPX ? ? ? Laparoscopy ? LIG/TRNSXJ FLP TUBE ABDL/VAG APPR UNI/BI ? 83 ? Tubal ligation ? 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 ANY AREA UP ? 08/17/05 ? Removal skin tags ? ? ? CURRENT MEDICATIONS Current Outpatient Medications Medication Sig Dispense Refill ? EVENING PRIMROSE OIL ORAL Take by mouth. ? ? ? miSOPROStol (CYTOTEC) 200 mcg tablet Take 2 tablets by mouth as directed. The night before the procedure and the morning of the procedure. 4 tablet 0 ? meloxicam (MOBIC) 7.5 mg tablet ? atorvastatin (LIPITOR) 20 mg tablet Take 1 tablet by mouth daily at bedtime. For cholesterol. 90 tablet 1 ? estradiol (ESTRACE) 0.01 % (0.1 mg/gram) vaginal cream APPLY APROX. 1/2 INCH VAGINALLY AT BEDTIME TWICE WEEKLY 85 g 1 ? fluticasone (FLONASE) 50 mcg/actuation nasal spray Use 2 Sprays in each nostril once daily. Rinse mouth after use. 3 Bottle 3 ? docusate sodium (STOOL SOFTENER ORAL) Take by mouth. ? ? ? CALCIUM CARBONATE/VITAMIN D3 (CALCIUM 600 + D,3, ORAL) Take by mouth twicedaily. ? ? ? PSYLLIUM SEED, WITH SUGAR, (METAMUCIL ORAL) Take by mouth. ? ? ? POLYETHYLENE GLYCOL 3350 (MIRALAX ORAL) Take by mouth. As needed ? ? ? No current facility-administered medications for this visit. ? ? ALLERGIES: Amoxicillin and Bactrim [Sulfamethoxazole-Trimethoprim] ? PERSONAL HISTORY: SOCIAL HISTORY Social History ? Tobacco Use ? Smoking status: Never ? Smokeless tobacco: Never Vaping Use ? Vaping Use: Never used Substance Use Topics ? Alcohol use: Yes ? ? Comment: 1-2 times per month ? Drug use: No ? FAMILY HISTORY: FAMILY HISTORY FAMILY HISTORY Problem Relation Age of Onset ? Diabetes Mother ? ? Fatty liver; esophageal vaices Non- alcohol ? Ischemic Heart Disease Mother ? ? bypass age 72 ? Lipids Mother ? ? Coronary Artery Disease Mother ? ? other (Parkinson's) Mother ? ? Parkinskinson's= ? Cancer Father ? ? PROSTATE ? other (Parkinson's) Father ? ? Cancer Maternal Grandmother ? ? UTERINE ? Ischemic Heart Disease Maternal Grandfather ? ? and many others on that side of the family ? Prostate Cancer Brother ? ? other (polymyalgia rheumatica) Brother ? ? Lipids Sister ? ? ? REVIEW OF SYMPTOMS: negative except as noted above PHYSICAL EXAMINATION: ? VITALS: Blood pressure 138/72, weight 168 lb (76.2 kg), last menstrual period 07/12/2006. ? GENERAL: The patient is well nourished, well hydrated in no acute distress. , The patient is oriented to time, place, and person. NECK: full range of motion LUNGS: Clear to auscultation bilaterally. no wheezes, rhonchi or rales HEART: Regular rate and rhythm, Normal heart sounds, and No murmurs or gallops GENITALIA: not performed today ? IMPRESSION: Postmenopausal bleeding, thickened endometrium, endocervical polyp, stenotic cervix ? PLAN: Hysteroscopy, dilation and curettage, polypectomy ? Pt has been counseled on risks/benefits and alternatives of surgery including but not limited to anesthesia, bleeding, infection, uterine perforation with subsequent injury to pelvic structures including bowel, bladder, ureters and vessels. Pt wishes to proceed with surgery at this time. ? Pre and post op instructions reviewed ? She will be having her preoperative medical clearance tomorrow with her family physician so blood work and EKG can be faxed over to [facility] on Monday or morning 03/24/2022 prior to surgery. ? ? I have reviewed and updated past medical and surgical history, medications and allergies Paulina Allison MD ?3:47 PM Office Visit on 03/22/2022 Office Visit on 03/22/2022 Note shared with patient 03/22/22 5064 <Electronically signed by Paulina Ramirez MD> Cosigner Signature (if applicable): CC: Pepper Ramirez; Dr. Abel Bolden MD; Dr. Beverley Jorgensen MD~ Signed ADDENDUM by Dr. Beverley Jorgensen MD on 03/29/22 at 1225 Addendum UPDATE- I have seen the patient and performed any clinically relevant updates to the history and physical exam. 03/29/22 1225<Electronically signed by Beverley Jorgensen MD> Cosigner Signature (if applicable): cc: Pepper Ramirez; Dr. Abel Bolden MD; Dr. Beverley Jorgensen MD ~* Signed [facility] Work Phone: 1(251) 507-295601-17-2023 Procedure [facility] 03-29-2022 Miscellaneous Notes* Telephone Encounter - Rosa Parker LPN - 03/29/2022 10:10 AM EST Phoned patient and updated her with results. Patient voiced understanding. Advised her surgical clearance form completed and forwarded to Dr Garcia. * Telephone Encounter - Abhinav Bolden MD - 03/29/2022 8:55 AM EST Surgical clearance signed to be faxed to Dr. Garcia's office. * Telephone Encounter - Meli Reyna APRN.CNP - 03/29/2022 8:36 AM EST Please call patient and let her know her blood sugar mild elevation I A1c which places her in the prediabetic range. Recommend lower carbohydrate diet and at least 150 minutes of exercise per week when she is able to start after her knee surgery. The rest of her blood work is in acceptable ranges. Meli Reyna APRN.CNP documented in this encounterWexner Medical Center01-16-2023 History of Present illness Narrative* Abhinav Bolden MD - 03/28/2022 11:17 AM EST Chief Complaint Patient presents with: Medical Clearance: For surgery HPI Yakelin Huynh is a 72 year old female who presents here today for Above Complaints. Patient has robotic assisted right partial knee vs total knee arthroplasty surgery scheduled with Dr. Garcia on 04/07/2021 for history of OA. Dr. Garcia's office requesting CBC with diff, BMP, albuminand A1c prior to procedure. No history of complications with general anesthesia. Able to climb flight of stairs without difficulty (METS 5.5). Notes that she had viral URI last week with fever and malaise and still has mild dry cough. Fever resolved on 03/24. Tested for COVID and home and was negative over several days with last test yesterday. Denies ear pain/fullness, sinus congestion, sinus pain, sore throat, lymphadenopathy, nausea, vomiting, diarrhea. Denies unintentional weight loss, dyspnea, wheezing, edema, angina, claudication. Past medical history, appointments, medications, allergies reviewed. Previous Medical History PAST MEDICAL HISTORY Diagnosis Date Bursitis of left hip Class 1 obesity due to excess calories without serious comorbidity with body mass index (BMI) of 30.0 to 30.9 in adult Hemorrhage of gastrointestinal tract, unspecified From hemorrhoids only Internal hemorrhoids without mention of complication Irregular menstrual cycle Irregular periods Resolved Osteoarthritis knee Primary osteoarthritis of both knees Dr. Garcia Pure hypercholesterolemia Shingles 04/12/2012 SVT (supraventricular tachycardia) (HCC) 2004 Symptomatic menopausal or female climacteric states With atrophic vaginitis Unspecified constipation Previous Surgical History PAST SURGICAL HISTORY Procedure Laterality Date APPENDECTOMY 87 CATARACT SURGERY, COMPLEX Left 04/2016 CATARACT SURGERY, COMPLEX Right 2018 [facility] ANTERPOST COLPORRAPHY W/CYSTO 02/21/2019 A&P repair COLONOSCOPY FLX DX W/COLLJ SPEC WHEN PFRMD 01/05/05 [facility] Colonoscopy COLONOSCOPY FLX DX W/COLLJ SPEC WHEN PFRMD 01/30/2015 Colonoscopy DILATION & CURETTAGE DX&/THER NONOBSTETRIC Dilation & curettage HYSTEROSCOPY, DIAGNOSTIC (SEPARATE 2001 Hysteroscopy LAPS ABD PRTM&OMENTUM DX W/WO SPEC BR/WA SPX Laparoscopy LIG/TRNSXJ FLP TUBE ABDL/VAG APPR UNI/BI 83 Tubal ligation 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 ANY AREA UPW/15 08/17/05 Removal skin tags Family History FAMILY HISTORY Problem Relation Age of Onset Diabetes Mother Fatty liver; esophageal vaices Non- alcohol Ischemic Heart Disease Mother bypass age 72 Lipids Mother Coronary Artery Disease Mother other (Parkinson's) Mother Keoinson's= Cancer Father PROSTATE other (Parkinson's) Father Cancer Maternal Grandmother UTERINE Ischemic Heart Disease Maternal Grandfather and many others on that side of the family Prostate Cancer Brother other (polymyalgia rheumatica) Brother Lipids Sister Patient Allergies ALLERGIES Allergen Reactions Amoxicillin Rash Bactrim [Sulfametho* stomatitis Current Medications Current Outpatient Medications on File Prior to Visit Medication Sig EVENING PRIMROSE OIL ORAL Take by mouth. miSOPROStol (CYTOTEC) 200 mcg tablet Take 2 tablets by mouth as directed. The night before the procedure and the morning of the procedure. meloxicam (MOBIC) 7.5 mg tablet Take 7.5 mg by mouth as needed. atorvastatin (LIPITOR) 20 mg tablet Take 1 tablet by mouth daily at bedtime. For cholesterol. estradiol (ESTRACE) 0.01 % (0.1 mg/gram) vaginal cream APPLY APROX. 1/2 INCH VAGINALLY AT BEDTIME TWICE WEEKLY fluticasone (FLONASE) 50 mcg/actuation nasal spray Use 2 Sprays in each nostril once daily. Rinse mouth after use. docusate sodium (STOOL SOFTENER ORAL) Take by mouth. CALCIUM CARBONATE/VITAMIN D3 (CALCIUM 600 + D,3, ORAL) Take by mouth twice daily. PSYLLIUM SEED, WITH SUGAR, (METAMUCIL ORAL) Take by mouth. POLYETHYLENE GLYCOL 3350 (MIRALAX ORAL) Take by mouth. As needed No current facility-administered medications on file prior to visit. Social History Social History Tobacco Use Smoking status: Never Smokeless tobacco: Never Vaping Use Vaping Use: Never used Substance Use Topics Alcohol use: Yes Comment: 1-2 times per month Drug use: No Review of Symptoms REVIEW OF SYSTEMS GENERAL: No weight loss, malaise or fevers RESPIRATORY: See HPI CARDIOVASCULAR: Negative for chest pain, leg swelling, hypertension, CHF or palpitations GI: No nausea, vomiting, or diarrhea SKIN: Negative for lesions, rash, and itching EXAM: BP 134/84 Pulse 102 Resp 16 Wt 73.9 kg (163 lb) LMP 07/12/2006 SpO2 98% BMI 28.87 kg/m General Appearance: Well appearing, alert, in no acute distress, well-hydrated, well nourished.. Skin: Skin color, texture, turgor normal, no suspicious rashes or lesions. Head: Normocephalic, no masses, lesions, tenderness or abnormalities. Eyes: Anicteric sclera. Pupils are equally round and reactive to light. Extraocular movements are intact. . Ears: External ears normal, canals clear. TMs normal. Nose/Sinuses:no sinus tenderness. Oropharynx: Lips, mucosa, and tongue normal, teeth and gums normal, oropharynx normal. Neck: Supple, no adenopathy; thyroid symmetric, normal size, no bruits. Lungs: Lungs clear to auscultation. No wheezing, rhonchi, rales.. Heart: RRR without murmur, gallop, or rubs. No ectopy. Abdomen: Normal abdominal exam, Abdomen soft, non-tender. Bowel sounds normal. No masses, organomegaly. Extremities: No deformities, edema, skin discoloration, clubbing or cyanosis. Good capillary refill. . Health Maintenance List ADVANCE DIRECTIVE DISCUSSION Never done DEPRESSION ASSESSMENT Never done MAMMOGRAM due on 02/15/2023 DIABETES SCREEN due on 09/21/2024 COLORECTAL CANCER SCREENING due on 01/30/2025 LIPID SCREEN due on 12/25/2025 DTAP,TDAP,TD(3 - Td or Tdap) due on 06/15/2026 BONE DENSITY Completed INFLUENZA Completed HEPATITIS C SCREENING Completed SHINGRIX VACCINE Completed COVID-19 VACCINE Completed PNEUMOCOCCAL: 65+ Completed Data reviewed Component Latest Ref Rng & Units 09/16/2020 12/25/2020 09/21/2021 Protein, Total 6.3 - 8.0 g/dL 7.3 7.1 Albumin 3.9 - 4.9 g/dL 4.3 4.2 Calcium 8.5 - 10.2 mg/dL 9.7 10.0 Bilirubin, Total 0.2 - 1.3 mg/dL 0.4 0.3 Alkaline Phosphatase 34 - 123 U/L 92 90 AST 13 - 35 U/L 19 22 Glucose 74 - 99 mg/dL 92 102 (H) BUN 7 - 21 mg/dL 17 17 Creatinine 0.58 - 0.96 mg/dL 0.75 0.78 Sodium 136 - 144 mmol/L 143 139 Potassium 3.7 - 5.1 mmol/L 4.4 4.1 Chloride 97 - 105 mmol/L 107 (H) 103 CO2 22 - 30 mmol/L 26 24 Anion Gap 9 - 18 mmol/L 10 12 ALT 7 - 38 U/L 13 18 eGFR- >60 eGFR-All Other Races . >60 eGFR >=60 mL/min/1.73m 82 WBC 3.70 - 11.00 k/uL 6.50 RBC 3.90 - 5.20 m/uL 4.47 Hemoglobin 11.5 - 15.5 g/dL 13.8 Hematocrit 36.0 - 46.0 % 42.0 MCV 80.0 - 100.0 fL 94.0 MCH 26.0 - 34.0 pG 30.9 MCHC 30.5 - 36.0 g/dL 32.9 RDW-CV 11.5 - 15.0 % 13.6 Platelet Count 150 - 400 k/uL 254 MPV 9.0 - 12.7 fL 11.0 Absolute nRBC <0.01 k/uL <0.01 Total Cholesterol, Nonfasting <200 mg/dL 202 (H) 131 Triglycerides, Nonfasting <150 mg/dL 122 119 HDL Cholesterol, Nonfasting >39 mg/dL 52 49 LDL Cholesterol, Nonfasting <100 mg/dL 126 (H) 58 Non HDL Cholesterol, Nonfasting <130 mg/dL 150 (H) 82 VLDL Cholesterol, Nonfasting <30 mg/dL 24 24 Total Chol/HDL Ratio, Nonfasting <5.10 mg/dL 3.88 2.67 LDL/HDL Ratio, Nonfasting <2.54 mg/dL 2.42 1.18 EKG: NSR at 91 bpm ASSESSMENT/PLAN: 1. Pre-op evaluation - ICD9: V72.84, ICD10: Z01.818 (primary diagnosis) Based on the patient's history, physical, functional status, and ACS risk score, he has an 0.4% chance of a serious adverse cardiac event. This is average risk for his age an the planned operation. The risk is below the recommended threshold for further evaluation. Therefore, I do not recommend further preoperative testing and he may proceed with the planned operation. I recommend this risk assessment be incorporated into the overall discussion on risks and benefits of this operation. - CBC + DIFF - COMP METABOLIC PANEL - ECG COMPLETE - HGB A1C 2. Primary osteoarthritis of both knees - ICD9: 715.16, ICD10: M17.0 F/u with planned surgery through Dr. Garcia's office. Will f/u in 3 months after procedure. 3. Viral URI with cough - ICD9: 465.9, ICD10: J06.9 - Discussed viral etiology and rationale for treatment. - Symptomatic treatment with prn analgesia - Supportive care with fluids and rest - Symptoms mostly resolved and appears in good health today. Would not repeat COVID or flu testing. Abhinav Bolden MD documented in this encounterWexner [facility] Center01-13-2023 Miscellaneous Notes* Telephone Encounter - Marva Strauss LPN - 03/25/2022 3:45 PM EST Left message for patient to stop by office Monday to sign consent for surgery. Consent to Dr. Jorgensen to complete. * Telephone Encounter - Beverley Jorgensen MD - 03/25/2022 1:04 PM EST If she is going to be in town sometime this next week to do it, that would be great. Please give meone. Thanks. RLR * Telephone Encounter - Paulina Allison MD - 03/25/2022 10:45 AM EST Just spoke to RR- She will do the surgery that day. It is her patient and she would like to performsurgery. Please notify patient. * Telephone Encounter - Paulina Allison MD - 03/25/2022 10:44 AM EST That should be fine. Thank you. * Telephone Encounter - Mayelin Julien RN - 03/24/2022 2:12 PM EST Patient called back to let nursing scheduler know that if she is unable to get in for surgery before 04/07/22, her knee surgeon told her she would have to wait at least 6 weeks after her knee surgery before she can have this surgery done with DM. Patient questioning if that does happen is it okay to wait that long for this surgery? Mayelin Julien RN * Telephone Encounter - Paulina Allison MD - 03/23/2022 5:06 PM EST Let's look at schedules- either RR or DM can try to do it over a lunch but ORs are full and staffing is tight at [facility] right now. * Telephone Encounter - Marva Strauss LPN - 03/23/2022 4:14 PM EST Patient called stating that she is feeling worse and has a fever and doesn't see herself feeling better by tomorrow morning. Patient wanting to reschedule her surgery and asking if it can be rescheduled before her knee surgery on 04/07/2022. * Telephone Encounter - Fatou Zavala RN - 03/23/2022 3:18 PM EST [facility] surgery notified and lab orders faxed. Fatou Zavala RN * Telephone Encounter - Paulina Allison MD - 03/23/2022 3:17 PM EST Noted. * Telephone Encounter - Fatou Zavala RN - 03/23/2022 1:26 PM EST Patient called and states knee surgery is on 04/07. She prefers to wait and see how she feels in themorning. Instructed patient to call office first thing in the morning with update. Order sheet for surgery to provider to order additional lab work. Fatou Zavala RN * Telephone Encounter - Paulina Allison MD - 03/23/2022 1:07 PM EST We can see how she feels tomorrow if she has a fever or is feeling worse we will need to be cancel and reschedule. What day is she scheduled for knee surgery? Does she prefer to reschedule regardless? Please notify AC that I will resend new orders so if her surgery does proceed tomorrow they will need to draw labs. * Telephone Encounter - Fatou Zavala RN - 03/23/2022 12:06 PM EST Patient is scheduled for surgery tomorrow at [facility] for Hysteroscopy, D&C, polypectomy. Patients states she is starting to feel a little under the weather. Voice is hoarse and has some nasal congestion. Current temp is 100.0. Denies any sore throat, body aches, nausea or vomiting. Patient states she has taken 2 at home COVID tests and both were negative. Patient was supposed to be seen today by PCP, Dr. Bolden however patient has rescheduled this to Monday. Patient was supposed to have CBC, BMP and EKG and results were supposed to be sent to [facility]. IGNACIOI. Fatou Zavala RN documented in this encounterWexner Medical Center01-05-2023 Instructions* Patient Instructions* Leslie Birmingham LPN - 03/17/2022 11:16 AM EST YOUR RECOVERY After your biopsy you may have: Vaginal bleeding (less than a normal menstrual period) Mild cramping Do NOT put anything in the vagina for 1 week after your endometrial biopsy. This includes: tampons douches and refraining from having sexual intercourse If you have any discomfort, you may take an over the counter pain medication (motrin, advil, ibuprofen, tylenol, etc). If this does not relieve your discomfort, contact the office. It is okay to wear a sanitary pad until the discharge and spotting stops. RISKS Although problems seldom occur with endometrial biopsies, there can be some complications. You may feel faint during and shortly after the procedure as well as have some bleeding after the procedure.There is also a risk of infection after the procedure. These complications are rare and can be easily treated. You should contact you doctor is you have any of the following: Heavy bleeding (more than your normal period) Bleeding with clots Severe abdominal pain Fever (more than 100.4F) Foul smelling vaginal discharge RESULTS We will have the results of your biopsy in 1-2 weeks. If you do not hear the results of your biopsyafter 2 weeks, please contact the office for the results. If you have any additional questions or concerns please do not hesitate to contact the office. 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 test: n/a UNIVERSAL PROTOCOL / SAFETY CHECKLIST Procedure to be Performed: Endometrial biopsy Sign In: A Moment of CARE was completed. Personnel directly involved with the procedure wore the appropriate PPE (Personal Protective Equipment). Patient/Surrogate Stated/Verified: PATIENT VERIFIED(optional for EMERGENT procedures): Patient name, Date of , Relevant allergies, and The intended procedure Time Out Communication: Intended patient and procedure match the source documents. Consent documented and matches the intended procedure. Sign Out: SIGN OUT (optional for EMERGENT procedures): No specimen collected. No instruments, equipment or retained foreign bodies applicable. PROCEDURE: EXTERNAL GENITALIA: Normal in appearance without lesions VAGINA: Normal in appearance without lesions BIOPSY: Unable to obtain biopsy due to stenotic os- Dr Allison also attempted without success Procedure Summary: Patient tolerated procedure well. ASSESSMENT: post menopausal bleeding PLAN: Will proceed with hysteroscopy per discuss with Dr Allison and pt. Pt will be called for appts. Cytotec and evening primrose oil discussed Melanie Zamora APRN.CNP documented in this encounterWexner Medical Center01-03-2023 History of Present illness Narrative* Palma West RDMS - 03/15/2022 2:30 PM EST Radiology Service Progress Note PATIENT NAME: Yakelin Huynh DATE OF SERVICE: March 15, 2022 TIME: 3:13 PM PATIENT IDENTITY VERIFICATION COMPLETED USING TWO (2) IDENTIFIERS: Name and Date of confirmedby patient verbally. FALL SCREENING: Has the patient had 2 falls in the last year or 1 fall with injury or currently using an Ambulatory Assistive Device (Walker, Cane, Wheelchair, Crutches, etc.)? No PATIENT GENDER DATA: Female. status: : No status: NO. PATIENT RELEVANT IMPLANT DATA REVIEWED: Not Applicable RADIOLOGY DEPARTMENT: Ultrasound PERIPHERAL IV DATA: Not applicable SIGNED BY: Palma West RDMS RVT March 15, 2022 3:13 PM documented in this encounterWexner Medical Center01-03-2023 Miscellaneous Notes* Addendum Note - Melanie Zamora APRN.CNP - 03/15/2022 2:24 PM ESTAddended by: MELANIE ZAMORA on: 03/15/2022 02:24 PM Modules accepted: Orders documented in this encounterWexner Medical Center01-03-2023 History of Present illness Narrative* Melanie Zamora APRN.CNP - 03/15/2022 1:21 PM EST Terrazzo Grinder offered: Patient declines. POST MENOPAUSAL BLEEDING Yakelin Huynh is a 71 year old who presents with post menopausal bleeding. She has been inmenopause for 18 years. SUBJECTIVE: The bleeding is described as Spotting which has been occurring today On HRT? Yes vaginal estrogen cream Sexually active? Last contact was Monday evening Last Pap: 10/20/2016 normal Prior history of : Prior Reproductive tract surgery: none Have there been any of the following procedures/diagnoses? D&C: No Hysteroscopy: No Endometrial Bx: Yes Fibroids/Polyps: No Uterine/Endometrial cancer: No Cervical dysplasia/cancer: No Ovarian cancer: No Family History: FAMILY HISTORY Problem Relation Age of Onset Diabetes Mother Fatty liver; esophageal vaices Non- alcohol Ischemic Heart Disease Mother bypass age 72 Lipids Mother Coronary Artery Disease Mother other (Parkinson's) Mother Parkinskinson's= Cancer Father PROSTATE other (Parkinson's) Father Cancer Maternal Grandmother UTERINE Ischemic Heart Disease Maternal Grandfather and many others on that side of the family Prostate Cancer Brother other (polymyalgia rheumatica) Brother Lipids Sister Last pelvic Ultrasound (year options, none, unknown, *) PHYSICAL EXAMINATION: EXAM: BP 120/70 Wt 169 lb (76.7kg) LMP 07/12/2006 GENERAL: pleasant, female in no apparent distress HEENT: Normocephalic, atraumatic, and no lesions NECK: Supple, full range of motion, no adenopathy, and thyroid normal CHEST: Normal inspiratory effort PELVIC: external genitalia normal, normal Bartholin's glands, urethra, [place]'s glands, no vulvar lesions, no cervical lesions, physiologic discharge present, normal appearing perineal body and perianal region, stenotic os BIMANUAL: uterus normal size, shape and consistency, no adnexal masses, non- tender, and no cervicalmotion tenderness RECTOVAGINAL: deferred. NEURO: alert and oriented x3,exam grossly non-focal EXTREMITIES: normal ASSESSMENT/PLAN: 1. PMB (postmenopausal bleeding) - ICD9: 627.1, ICD10: N95.0 - PELVIC US WHI - MISOPROSTOL 200 MCG TABLET - Pt to schedule for EMB Melanie Zamora APRN.CNP Medical Decision Making: Problems: Low: Acute, uncomplicated illness or injury Data: Unique test(s) ordered: 1 Risk: Low: Low risk from testing/treatment Moderate: Drug management Medical Decision Making Level: 3 - Low documented in this encounterWexner Medical Center12-05-2022 History of Present illness Narrative* Beverley Jorgensen MD - 02/14/2022 8:48 AM EST Yakelin is a 71 year old who presents for an annual gynecologic exam with left sided swellingbetween the left breast and axilla for the past 1-2 months. She denies pain or rashes, Denies trauma to the are or accidents. She indicates it has not really changed in the past 1-2 months and just feels like there is possibly more fat there. Hx of fibrocystic change and has been told she has dense breast tissue in the past. Postmenopausal: Yes since age 53 HRT use: No. 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 Garcia Pure hypercholesterolemia Shingles 04/12/2012 SVT (supraventricular tachycardia) (HCC) 2004 Symptomatic menopausal or female climacteric states With atrophic vaginitis Unspecified constipation PAST SURGICAL HISTORY Procedure Laterality Date APPENDECTOMY 87 CATARACT SURGERY, COMPLEX Left 04/2016 CATARACT SURGERY, COMPLEX Right 2018 [facility] ANTERPOST COLPORRAPHY W/CYSTO 02/21/2019 A&P repair COLONOSCOPY FLX DX W/COLLJ SPEC WHEN PFRMD 01/05/05 [facility] Colonoscopy COLONOSCOPY FLX DX W/COLLJ SPEC WHEN PFRMD 01/30/2015 Colonoscopy DILATION & CURETTAGE DX&/THER NONOBSTETRIC Dilation & curettage HYSTEROSCOPY, DIAGNOSTIC (SEPARATE 2002 Hysteroscopy LAPS ABD PRTM&OMENTUM DX W/WO SPEC BR/WA SPX Laparoscopy LIG/TRNSXJ FLP TUBE ABDL/VAG APPR UNI/BI 83 Tubal ligation 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 ANY AREA UP08/17/05 Removal skin tags FAMILY HISTORY Problem Relation Age of Onset Diabetes Mother Fatty liver; esophageal vaices Non- alcohol Ischemic Heart Disease Mother bypass age 72 Lipids Mother Coronary Artery Disease Mother other (Parkinson's) Mother Parkinskinson's= Cancer Father PROSTATE other (Parkinson's) Father Cancer Maternal Grandmother UTERINE Ischemic Heart Disease Maternal Grandfather and many others on that side of the family Prostate Cancer Brother other (polymyalgia rheumatica) Brother Lipids Sister SOCIAL HISTORY Social History Tobacco Use Smoking status: Never Smokeless tobacco: Never Vaping Use Vaping Use: Never used Substance Use Topics Alcohol use: Yes Comment: 1-2 times per month Drug use: No REVIEW OF SYSTEMS Abdomen: No abdominal pain, nausea, vomiting, diarrhea, or constipation. No bloating, early satiety, indigestion, or increased flatulence. Bladder: No dysuria, gross hematuria, urinary frequency, urinary urgency, or incontinence Breast: No nipple d/c, overlying skin changes, redness or skin retraction Allergies and current medication updated:Yes EXAM: BP 118/74 Ht 5' 3 (1.60m) Wt 167 lb (75.8kg) LMP 07/12/2006 BMI 29.59 kg/(m^2). GENERAL: pleasant, female in no apparent distress HEENT: Normocephalic, atraumatic, mucus membranes moist, and no lesions NECK: Supple, full range of motion, no adenopathy, and thyroid normal DERMATOLOGY: Normal, without lesions, non-icteric, and non-hirsute BREAST: soft, non-tender, symmetric, no dominant mass, normal nipple-areolar complex, no lymphadenopathy, and no nipple discharge CHEST: Normal inspiratory effort ABDOMEN: soft, non-tender, and no masses PELVIC: external genitalia normal, normal Bartholin's glands, urethra, [place]'s glands, no vulvar lesions, no cervical lesions, good vaginal support, physiologic discharge present, normal appearing perineal body and perianal region BIMANUAL: uterus normal size, shape and consistency, no adnexal masses, and non-tender RECTOVAGINAL: deferred. NEURO: alert and oriented x3,exam grossly non-focal EXTREMITIES: normal ASSESSMENT/PLAN: 1) Health maintenance: Pap/HPV screening no longer needed Mammogram ordered 2) Follow up one year or sooner as needed Compounded rx for vaginal estrogen. Beverley Jorgensen MD documented in this encounterWexner Medical Center11-14-2022 Miscellaneous Notes* Telephone Encounter - Mayelin Julien RN - 01/24/2022 9:28 AM EST Patient scheduled for annual with RR 02/14/22. Asking for mammogram order to be faxed to [facility]. Order to RR to sign. Will fax once completed. Mayelin Julien RN documented in this encounterWexner Medical Center09-27-2022 Miscellaneous Notes* Telephone Encounter - Fatou Fernandez - 12/07/2021 9:35 AM EDT Patient MyChart message requesting the following refill. Requested Prescriptions Pending Prescriptions Disp Refills atorvastatin (LIPITOR) 20 mg tablet 90 tablet 1 Sig: Take 1 tablet by mouth daily at bedtime. For cholesterol. Patient last appointment: 09/21/2021 Patient Phone numbers: [phone] (home) Request is for script(s) to be escript to pharmacy. Fatou Fernandez documented in this encounterWexner Medical Center07-12-2022 History of Present illness Narrative* Abhinav Bolden MD - 09/21/2021 2:47 PM EDT Chief Complaint Patient presents with: Follow Up: 1 year HPI Yakelin Huynh is a 71 year old female who presents here today for routine follow up. Has been in good health without hospitalizations or ER visits. Patient states that she had injection into her right knee for OA in August at Dr. Garcia's office. Told she has OA in both knees, but right is almost bone on bone. Pain improved. F/u PRN. Chronic constipation improved with stool softener, miralax, and metamucil. Still gets occasional symptoms depending on diet. Taking statin daily as prescribed without side effects. PHQ-2 / Depression screen He in the past two weeks denies having felt down, depressed, hopeless or with little interest or pleasure in doing things. Has forms at home for living will and DPOA, just needs to complete them. FULL CODE. Weight stable in obesity range. Walking a couple miles per day. Working on healthy diet and portioncontrol. Past medical history, appointments, medications, allergies reviewed. Previous Medical History PAST MEDICAL HISTORY Diagnosis Date Bursitis of left hip Class 1 obesity due to excess calories without serious comorbidity with body mass index (BMI) of 30.0 to 30.9 in adult Hemorrhage of gastrointestinal tract, unspecified From hemorrhoids only Internal hemorrhoids without mention of complication Irregular menstrual cycle Irregular periods Resolved Pure hypercholesterolemia Shingles 04/12/2012 SVT (supraventricular tachycardia) (HCC) 2004 Symptomatic menopausal or female climacteric states With atrophic vaginitis Unspecified constipation Previous Surgical History PAST SURGICAL HISTORY Procedure Laterality Date APPENDECTOMY 87 CATARACT SURGERY, COMPLEX Left 04/2016 CATARACT SURGERY, COMPLEX Right 2018 [facility] ANTERPOST COLPORRAPHY W/CYSTO 02/21/2019 A&P repair COLONOSCOPY FLX DX W/COLLJ SPEC WHEN PFRMD 01/05/05 [facility] Colonoscopy COLONOSCOPY FLX DX W/COLLJ SPEC WHEN PFRMD 01/30/2015 Colonoscopy DILATION & CURETTAGE DX&/THER NONOBSTETRIC Dilation & curettage HYSTEROSCOPY, DIAGNOSTIC (SEPARATE 2002 Hysteroscopy LAPS ABD PRTM&OMENTUM DX W/WO SPEC BR/WA SPX Laparoscopy LIG/TRNSXJ FLP TUBE ABDL/VAG APPR UNI/BI 83 Tubal ligation 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 ANY AREA UP08/17/05 Removal skin tags Family History FAMILY HISTORY Problem Relation Age of Onset Diabetes Mother Fatty liver; esophageal vaices Non- alcohol Ischemic Heart Disease Mother bypass age 72 Lipids Mother Coronary Artery Disease Mother other (Parkinson's) Mother [place]'s= Cancer Father PROSTATE other (Parkinson's) Father Cancer Maternal Grandmother UTERINE Ischemic Heart Disease Maternal Grandfather and many others on that side of the family Prostate Cancer Brother other (polymyalgia rheumatica) Brother Lipids Sister Patient Allergies ALLERGIES Allergen Reactions Amoxicillin Rash Bactrim [Sulfametho* stomatitis Current Medications Current Outpatient Medications on File Prior to Visit Medication Sig atorvastatin (LIPITOR) 20 mg tablet Take 1 tablet by mouth daily at bedtime. For cholesterol. estradiol (ESTRACE) 0.01 % (0.1 mg/gram) vaginal cream APPLY APROX. 1/2 INCH VAGINALLY AT BEDTIME TWICE WEEKLY fluticasone (FLONASE) 50 mcg/actuation nasal spray Use 2 Sprays in each nostril once daily. Rinse mouth after use. melatonin 3 mg cap Take by mouth. docusate sodium (STOOL SOFTENER ORAL) Take by mouth. CALCIUM CARBONATE/VITAMIN D3 (CALCIUM 600 + D,3, ORAL) Take by mouth twice daily. PSYLLIUM SEED, WITH SUGAR, (METAMUCIL ORAL) Take by mouth. POLYETHYLENE GLYCOL 3350 (MIRALAX ORAL) Take by mouth. As needed No current facility-administered medications on file prior to visit. Social History Social History Tobacco Use Smoking status: Never Smoker Smokeless tobacco: Never Used Vaping Use Vaping Use: Never used Substance Use Topics Alcohol use: Yes Comment: 1-2 times per month Drug use: No Review of Symptoms REVIEW OF SYSTEMS GENERAL: No weight loss, malaise or fevers RESPIRATORY: Admits to occasional dry cough when lying down at night or when eating. CARDIOVASCULAR: Negative for chest pain, leg swelling, hypertension, CHF or palpitations GI: No nausea, vomiting, or diarrhea SKIN: Negative for lesions, rash, and itching EXAM: BP 124/72 Pulse 91 Resp 16 Wt 76.4 kg (168 lb 6.4 oz) LMP 07/12/2006 SpO2 97% BMI 30.80kg/m General Appearance: Well appearing, alert, in no acute distress, well-hydrated, well nourished.. Skin: Skin color, texture, turgor normal, no suspicious rashes or lesions. Lungs: Lungs clear to auscultation. No wheezing, rhonchi, rales.. Heart: RRR without murmur, gallop, or rubs. No ectopy. Abdomen: Normal abdominal exam, Abdomen soft, non-tender. Bowel sounds normal. No masses, organomegaly. Extremities: No deformities, edema, skin discoloration, clubbing or cyanosis. Good capillary refill. . Health Maintenance List ADVANCE DIRECTIVE DISCUSSION Never done DEPRESSION SCREENING due on 09/14/2021 INFLUENZA(1) due on 11/11/2021 MAMMOGRAM due on 02/10/2022 DIABETES SCREEN due on 09/17/2023 COLORECTAL CANCER SCREENING due on 01/30/2025 LIPID SCREEN due on 12/25/2025 DTAP,TDAP,TD(3 - Td or Tdap) due on 06/15/2026 BONE DENSITY Completed HEPATITIS C SCREENING Completed SHINGRIX VACCINE Completed COVID-19 VACCINE Completed PNEUMOCOCCAL: 65+ Completed Data reviewed Component Latest Ref Rng & Units 09/16/2020 12/25/2020 Protein, Total 6.3 - 8.0 g/dL 7.3 Albumin 3.9 - 4.9 g/dL 4.3 Calcium 8.5 - 10.2 mg/dL 9.7 Bilirubin, Total 0.2 - 1.3 mg/dL 0.4 Alkaline Phosphatase 34 - 123 U/L 92 AST 13 - 35 U/L 19 Glucose 74 - 99 mg/dL 92 BUN 7 - 21 mg/dL 17 Creatinine 0.58 - 0.96 mg/dL 0.75 Sodium 136 - 144 mmol/L 143 Potassium 3.7 - 5.1 mmol/L 4.4 Chloride 97 - 105 mmol/L 107 (H) CO2 22 - 30 mmol/L 26 Anion Gap 9 - 18 mmol/L 10 ALT 7 - 38 U/L 13 eGFR- >60 eGFR-All Other Races . >60 WBC 3.70 - 11.00 k/uL 6.50 RBC 3.90 - 5.20 m/uL 4.47 Hemoglobin 11.5 - 15.5 g/dL 13.8 Hematocrit 36.0 - 46.0 % 42.0 MCV 80.0 - 100.0 fL 94.0 MCH 26.0 - 34.0 pG 30.9 MCHC 30.5 - 36.0 g/dL 32.9 RDW-CV 11.5 - 15.0 % 13.6 Platelet Count 150 - 400 k/uL 254 MPV 9.0 - 12.7 fL 11.0 Absolute nRBC <0.01 k/uL <0.01 Total Cholesterol, Nonfasting <200 mg/dL 202 (H) 131 Triglycerides, Nonfasting <150 mg/dL 122 119 HDL Cholesterol, Nonfasting >39 mg/dL 52 49 LDL Cholesterol, Nonfasting <100 mg/dL 126 (H) 58 Non HDL Cholesterol, Nonfasting <130 mg/dL 150 (H) 82 VLDL Cholesterol, Nonfasting <30 mg/dL 24 24 Total Chol/HDL Ratio, Nonfasting <5.10 mg/dL 3.88 2.67 LDL/HDL Ratio, Nonfasting <2.54 mg/dL 2.42 1.18 ASSESSMENT/PLAN: 1. Hyperlipidemia, mixed - ICD9: 272.2, ICD10: E78.2 (primary diagnosis) - improved control - Continue current medication. - Encouraged following a low fat, low cholesterol diet. - Discussed the benefits of regular aerobic exercise and weight loss. - COMP METABOLIC PANEL 2. Chronic constipation - ICD9: 564.00, ICD10: K59.09 Improved. Continue current regimen and push PO fluids. 3. Primary osteoarthritis of both knees - ICD9: 715.16, ICD10: M17.0 Improved after injection. F/u PRN with ortho. 4. Class 1 obesity due to excess calories without serious comorbidity with body mass index (BMI) of30.0 to 30.9 in adult - ICD9: 278.00, V85.30, ICD10: E66.09, Z68.30 Weight decreasing - Behavioral intervention 5. Advance directive discussed with patient - ICD9: V65.49, ICD10: Z71.89 Will complete forms and bring in copy for our records. Abhinav Bolden MD documented in this [facility]22 Miscellaneous Notes* Telephone Encounter - Melissa Serrato LPN - 06/22/2021 4:55 PM EDT Spoke with pt and apt booked. Melissa Serrato LPN * Telephone Encounter - Abhinav Bolden MD - 06/18/2021 12:16 PM EDT rx sent. Recommend 1 year follow up in September. * Telephone Encounter - Alissa Roberto Ma - 06/18/2021 11:55 AM EDT [facility] 09/16/2020 NOV not scheduled at this time Alissa Roberto Ma * Telephone Encounter - Ania Corbett - 06/18/2021 11:47 AM EDT Patient has been identified by name and date of : Yes Pending Prescriptions Disp Refills ATORVASTATIN 20 MG TABLET 90 tablet 0 Sig: Take 1 tablet by mouth daily at bedtime. For cholesterol. CRYSTAL: No RX INSTRUCTIONS: Patient aware RX will be sent to pharmacy. No need to notify patient. Ania Kelly Pss documented in this encounterW[facility]08-[facility]-2014 History of Past illness Narrative* Problem Noted Date Resolved Date Abnormal mammogram, unspecified 10/15/2013 04/04/2017 Routine general medical exam ination at a health care facility 12/18/2008 08/16/2011 Overview: 12/18/2008, from Dr. Grady (retired) 02/18/2010, yearly check 04/12/2011, yearly check Routine gynecological examination 12/18/2008 08/16/2011 Overview: [facility] [place] SVT (supraventricular tachycardia) 12/18/2008 04/04/2017 Overview: Dr. 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 Grady (retired) 02/18/2010, yearly check 04/12/2011, yearly check Routine gynecological examination 12/18/2008 08/16/2011 Overview: [facility], [facility] [place] SVT (supraventricular tachycardia) 12/18/2008 04/04/2017 Overview: Dr. Chairez -- one episode with adenosine; no regular f/u since 2007 (resolved) Other specified congenital anomaly of skin 07/1912/18/2008 Hemorrhage of gastrointestinal tract, unspecifie d 12/18/2008 documented as of this encounter (statuses as of 09/24/2021) [facility] of [facility] illness Narrative* Problem Noted Date Resolved Date Abnormal mammogram, unspecified 10/15/2013 04/04/2017 Routine general medical exam ination at a health care facility 12/18/2008 08/16/2011 Overview: 12/18/2008, from Dr. Grady (retired) 02/18/2010, yearly check 04/12/2011, yearly check Routine gynecological examination 12/18/2008 08/16/2011 Overview: [facility], [facility] [place] SVT (supraventricular tachycardia) 12/18/2008 04/04/2017 Overview: Dr. Chairez -- one episode with adenosine; no regular f/u since 2007 (resolved) Other specified congenital anomaly of skin 07/1912/18/2008 Hemorrhage of gastrointestinal tract, unspecifie d 12/18/2008 documented as of this encounter (statuses as of 12/07/2021) [facility] illness Narrative* Problem Noted Date Resolved Date Abnormal mammogram, unspecified 10/15/2013 04/04/2017 Routine general medical exam ination at a health care facility 12/18/2008 08/16/2011 Overview: 12/18/2008, from Dr. Grady (retired) 02/18/2010, yearly check 04/12/2011, yearly check Routine gynecological examination 12/18/2008 08/16/2011 Overview: [facility], [facility] [place] SVT (supraventricular tachycardia) 12/18/2008 04/04/2017 Overview: Dr. Chairez -- one episode with adenosine; no regular f/u since 2007 (resolved) Other specified congenital anomaly of skin 07/1912/18/2008 Hemorrhage of gastrointestinal tract, unspecifie d 12/18/2008 documented as of this encounter (statuses as of 01/01/2022) [facility] Narrative* Problem Noted Date Resolved Date Abnormal mammogram, unspecified 10/15/2013 04/04/2017 Routine general medical exam ination at a health care facility 12/18/2008 08/16/2011 Overview: 12/18/2008, from Dr. Grady (retired) 02/18/2010, yearly check 04/12/2011, yearly check Routine gynecological examination 12/18/2008 08/16/2011 Overview: [facility], [facility] [place] SVT (supraventricular tachycardia) 12/18/2008 04/04/2017 Overview: Dr. Chairez -- one episode with adenosine; no regular f/u since 2007 (resolved) Other specified congenital anomaly of skin 07/1912/18/2008 Hemorrhage of gastrointestinal tract, unspecifie d 12/18/2008 documented as of this encounter (statuses as of 01/24/2022) [facility] Narrative* Problem Noted Date Resolved Date Abnormal mammogram, unspecified 10/15/2013 04/04/2017 Routine general medical exam ination at a health care facility 12/18/2008 08/16/2011 Overview: 12/18/2008, from Dr. Grady (retired) 02/18/2010, yearly check 04/12/2011, yearly check Routine gynecological examination 12/18/2008 08/16/2011 Overview: [facility], [facility] [place] SVT (supraventricular tachycardia) 12/18/2008 04/04/2017 Overview: Dr. Chairez -- one episode with adenosine; no regular f/u since 2007 (resolved) Other specified congenital anomaly of skin 07/1912/18/2008 Hemorrhage of gastrointestinal tract, unspecifie d 12/18/2008 documented as of this encounter (statuses as of 02/14/2022) [facility] Narrative* Problem Noted Date Resolved Date Abnormal mammogram, unspecified 10/15/2013 04/04/2017 Routine general medical exam ination at a health care facility 12/18/2008 08/16/2011 Overview: 12/18/2008, from Dr. Grady (retired) 02/18/2010, yearly check 04/12/2011, yearly check Routine gynecological examination 12/18/2008 08/16/2011 Overview: [facility], [facility] [place] SVT (supraventricular tachycardia) 12/18/2008 04/04/2017 Overview: Dr. Chairez -- one episode with adenosine; no regular f/u since 2007 (resolved) Other specified congenital anomaly of skin 07/1912/18/2008 Hemorrhage of gastrointestinal tract, unspecifie d 12/18/2008 documented as of this encounter (statuses as of 03/17/2022) [facility] Narrative* Problem Noted Date Resolved Date Abnormal mammogram, unspecified 10/15/2013 04/04/2017 Routine general medical exam ination at a health care facility 12/18/2008 08/16/2011 Overview: 12/18/2008, from Dr. Grady (retired) 02/18/2010, yearly check 04/12/2011, yearly check Routine gynecological examination 12/18/2008 08/16/2011 Overview: [facility], [facility] [place] SVT (supraventricular tachycardia) 12/18/2008 04/04/2017 Overview: Dr. Chairez -- one episode with adenosine; no regular f/u since 2007 (resolved) Other specified congenital anomaly of skin 07/1912/18/2008 Hemorrhage of gastrointestinal tract, unspecifie d 12/18/2008 documented as of this encounter (statuses as of 03/18/2022) [facility] Narrative* Problem Noted Date Resolved Date Abnormal mammogram, unspecified 10/15/2013 04/04/2017 Routine general medical exam ination at a health care facility 12/18/2008 08/16/2011 Overview: 12/18/2008, from Dr. Grady (retired) 02/18/2010, yearly check 04/12/2011, yearly check Routine gynecological examination 12/18/2008 08/16/2011 Overview: [facility], [facility] [place] SVT (supraventricular tachycardia) 12/18/2008 04/04/2017 Overview: Dr. Chairez -- one episode with adenosine; no regular f/u since 2007 (resolved) Other specified congenital anomaly of skin 07/1912/18/2008 Hemorrhage of gastrointestinal tract, unspecifie d 12/18/2008 documented as of this encounter (statuses as of 03/29/2022) [facility] Narrative* Problem Noted Date Resolved Date Abnormal mammogram, unspecified 10/15/2013 04/04/2017 Routine general medical exam ination at a health care facility 12/18/2008 08/16/2011 Overview: 12/18/2008, from Dr. Grady (retired) 02/18/2010, yearly check 04/12/2011, yearly check Routine gynecological examination 12/18/2008 08/16/2011 Overview: [facility], [facility] [place] SVT (supraventricular tachycardia) 12/18/2008 04/04/2017 Overview: Dr. Chairez -- one episode with adenosine; no regular f/u since 2007 (resolved) Other specified congenital anomaly of skin 07/1912/18/2008 Hemorrhage of gastrointestinal tract, unspecifie d 12/18/2008 documented as of this encounter (statuses as of 03/29/2022) [facility] Narrative* Problem Noted Date Resolved Date Abnormal mammogram, unspecified 10/15/2013 04/04/2017 Routine general medical exam ination at a health care facility 12/18/2008 08/16/2011 Overview: 12/18/2008, from Dr. Grady (retired) 02/18/2010, yearly check 04/12/2011, yearly check Routine gynecological examination 12/18/2008 08/16/2011 Overview: [facility], [facility] [place] SVT (supraventricular tachycardia) 12/18/2008 04/04/2017 Overview: Dr. Chairez -- one episode with adenosine; no regular f/u since 2007 (resolved) Other specified congenital anomaly of skin 07/1912/18/2008 Hemorrhage of gastrointestinal tract, unspecifie d 12/18/2008 documented as of this encounter (statuses as of 03/29/2022) [facility] Narrative* Problem Noted Date Resolved Date Abnormal mammogram, unspecified 10/15/2013 04/04/2017 Routine general medical exam ination at a health care facility 12/18/2008 08/16/2011 Overview: 12/18/2008, from Dr. Grady (retired) 02/18/2010, yearly check 04/12/2011, yearly check Routine gynecological examination 12/18/2008 08/16/2011 Overview: [facility], [facility] [place] SVT (supraventricular tachycardia) 12/18/2008 04/04/2017 Overview: Dr. Chairez -- one episode with adenosine; no regular f/u since 2007 (resolved) Other specified congenital anomaly of skin 07/1912/18/2008 Hemorrhage of gastrointestinal tract, unspecifie d 12/18/2008 documented as of this encounter (statuses as of 03/29/2022) [facility] Narrative* Problem Noted Date Resolved Date Abnormal mammogram, unspecified 10/15/2013 04/04/2017 Routine general medical exam ination at a health care facility 12/18/2008 08/16/2011 Overview: 12/18/2008, from Dr. Grady (retired) 02/18/2010, yearly check 04/12/2011, yearly check Routine gynecological examination 12/18/2008 08/16/2011 Overview: [facility], [facility] [place] SVT (supraventricular tachycardia) 12/18/2008 04/04/2017 Overview: Dr. Chairez -- one episode with adenosine; no regular f/u since 2007 (resolved) Other specified congenital anomaly of skin 07/1912/18/2008 Hemorrhage of gastrointestinal tract, unspecifie d 12/18/2008 documented as of this encounter (statuses as of 03/29/2022) [facility] Narrative* Problem Noted Date Resolved Date Abnormal mammogram, unspecified 10/15/2013 04/04/2017 Routine general medical exam ination at a health care facility 12/18/2008 08/16/2011 Overview: 12/18/2008, from Dr. Grady (retired) 02/18/2010, yearly check 04/12/2011, yearly check Routine gynecological examination 12/18/2008 08/16/2011 Overview: [facility], [facility] [place] SVT (supraventricular tachycardia) 12/18/2008 04/04/2017 Overview: Dr. Chairez -- one episode with adenosine; no regular f/u since 2007 (resolved) Other specified congenital anomaly of skin 07/1912/18/2008 Hemorrhage of gastrointestinal tract, unspecifie d 12/18/2008 documented as of this encounter (statuses as of 04/01/2022) [facility] Narrative* Problem Noted Date Resolved Date Abnormal mammogram, unspecified 10/15/2013 04/04/2017 Routine general medical exam ination at a health care facility 12/18/2008 08/16/2011 Overview: 12/18/2008, from Dr. Grady (retired) 02/18/2010, yearly check 04/12/2011, yearly check Routine gynecological examination 12/18/2008 08/16/2011 Overview: [facility], [facility] [place] SVT (supraventricular tachycardia) 12/18/2008 04/04/2017 Overview: Dr. Chairez -- one episode with adenosine; no regular f/u since 2007 (resolved) Other specified congenital anomaly of skin 07/1912/18/2008 Hemorrhage of gastrointestinal tract, unspecifie d 12/18/2008 documented as of this encounter (statuses as of 04/05/2022) [facility] Narrative* Problem Noted Date Resolved Date Abnormal mammogram, unspecified 10/15/2013 04/04/2017 Routine general medical exam ination at a health care facility 12/18/2008 08/16/2011 Overview: 12/18/2008, from Dr. Grady (retired) 02/18/2010, yearly check 04/12/2011, yearly check Routine gynecological examination 12/18/2008 08/16/2011 Overview: [facility], [facility] [place] SVT (supraventricular tachycardia) 12/18/2008 04/04/2017 Overview: Dr. Chairez -- one episode with adenosine; no regular f/u since 2007 (resolved) Other specified congenital anomaly of skin 07/1912/18/2008 Hemorrhage of gastrointestinal tract, unspecifie d 12/18/2008 documented as of this encounter (statuses as of 04/11/2022) [facility] Narrative* Problem Noted Date Resolved Date Abnormal mammogram, unspecified 10/15/2013 04/04/2017 Routine general medical exam ination at a health care facility 12/18/2008 08/16/2011 Overview: 12/18/2008, from Dr. Grady (retired) 02/18/2010, yearly check 04/12/2011, yearly check Routine gynecological examination 12/18/2008 08/16/2011 Overview: [facility], [facility] [place] SVT (supraventricular tachycardia) 12/18/2008 04/04/2017 Overview: Dr. Chairez -- one episode with adenosine; no regular f/u since 2007 (resolved) Other specified congenital anomaly of skin 07/1912/18/2008 Hemorrhage of gastrointestinal tract, unspecifie d 12/18/2008 documented as of this encounter (statuses as of 04/12/2022) [facility] Narrative* Problem Noted Date Resolved Date Abnormal mammogram, unspecified 10/15/2013 04/04/2017 Routine general medical exam ination at a health care facility 12/18/2008 08/16/2011 Overview: 12/18/2008, from Dr. Grady (retired) 02/18/2010, yearly check 04/12/2011, yearly check Routine gynecological examination 12/18/2008 08/16/2011 Overview: [facility], [facility] [place] SVT (supraventricular tachycardia) 12/18/2008 04/04/2017 Overview: Dr. Chairez -- one episode with adenosine; no regular f/u since 2007 (resolved) Other specified congenital anomaly of skin 07/1912/18/2008 Hemorrhage of gastrointestinal tract, unspecifie d 12/18/2008 documented as of this encounter (statuses as of 04/12/2022) [facility] Narrative* Problem Noted Date Resolved Date Abnormal mammogram, unspecified 10/15/2013 04/04/2017 Routine general medical exam ination at a health care facility 12/18/2008 08/16/2011 Overview: 12/18/2008, from Dr. Grady (retired) 02/18/2010, yearly check 04/12/2011, yearly check Routine gynecological examination 12/18/2008 08/16/2011 Overview: [facility], [facility] [place] SVT (supraventricular tachycardia) 12/18/2008 04/04/2017 Overview: Dr. Chairez -- one episode with adenosine; no regular f/u since 2007 (resolved) Other specified congenital anomaly of skin 07/1912/18/2008 Hemorrhage of gastrointestinal tract, unspecifie d 12/18/2008 documented as of this encounter (statuses as of 04/13/2022) [facility] Narrative* Problem Noted Date Resolved Date Abnormal mammogram, unspecified 10/15/2013 04/04/2017 Routine general medical exam ination at a health care facility 12/18/2008 08/16/2011 Overview: 12/18/2008, from Dr. Grady (retired) 02/18/2010, yearly check 04/12/2011, yearly check Routine gynecological examination 12/18/2008 08/16/2011 Overview: [facility], [facility] [place] SVT (supraventricular tachycardia) 12/18/2008 04/04/2017 Overview: Dr. Chairez -- one episode with adenosine; no regular f/u since 2007 (resolved) Other specified congenital anomaly of skin 07/1912/18/2008 Hemorrhage of gastrointestinal tract, unspecifie d 12/18/2008 documented as of this encounter (statuses as of 04/18/2022) [facility] Narrative* Problem Noted Date Resolved Date Abnormal mammogram, unspecified 10/15/2013 04/04/2017 Routine general medical exam ination at a health care facility 12/18/2008 08/16/2011 Overview: 12/18/2008, from Dr. Grady (retired) 02/18/2010, yearly check 04/12/2011, yearly check Routine gynecological examination 12/18/2008 08/16/2011 Overview: [facility], [facility] [place] SVT (supraventricular tachycardia) 12/18/2008 04/04/2017 Overview: Dr. Chairez -- one episode with adenosine; no regular f/u since 2007 (resolved) Other specified congenital anomaly of skin 07/1912/18/2008 Hemorrhage of gastrointestinal tract, unspecifie d 12/18/2008 documented as of this encounter (statuses as of 04/18/2022) [facility] Narrative* Problem Noted Date Resolved Date Abnormal mammogram, unspecified 10/15/2013 04/04/2017 Routine general medical exam ination at a health care facility 12/18/2008 08/16/2011 Overview: 12/18/2008, from Dr. Grady (retired) 02/18/2010, yearly check 04/12/2011, yearly check Routine gynecological examination 12/18/2008 08/16/2011 Overview: [facility], [facility] Nora SVT (supraventricular tachycardia) 12/18/2008 04/04/2017 Overview: Dr. Chairez -- one episode with adenosine; no regular f/u since 2007 (resolved) Other specified congenital anomaly of skin 07/1912/18/2008 Hemorrhage of gastrointestinal tract, unspecifie d 12/18/2008 documented as of this encounter (statuses as of 04/21/2022) [facility]08-[facility]-2014 History of Past illness Narrative* Problem Noted Date Resolved Date Abnormal mammogram, unspecified 10/15/2013 04/04/2017 Routine general medical exam ination at a health care facility 12/18/2008 08/16/2011 Overview: 12/18/2008, from Dr. Grady (retired) 02/18/2010, yearly check 04/12/2011, yearly check Routine gynecological examination 12/18/2008 08/16/2011 Overview: [facility], [facility] Nora SVT (supraventricular tachycardia) 12/18/2008 04/04/2017 Overview: Dr. Chairez -- one episode with adenosine; no regular f/u since 2007 (resolved) Other specified congenital anomaly of skin 07/1912/18/2008 Hemorrhage of gastrointestinal tract, unspecifie d 12/18/2008 documented as of this encounter (statuses as of 04/28/2022) [facility] History of Past illness Narrative* Problem Noted Date Resolved Date Abnormal mammogram, unspecified 10/15/2013 04/04/2017 Routine general medical exam ination at a health care facility 12/18/2008 08/16/2011 Overview: 12/18/2008, from Dr. Grady (retired) 02/18/2010, yearly check 04/12/2011, yearly check Routine gynecological examination 12/18/2008 08/16/2011 Overview: [facility], [facility] Nora SVT (supraventricular tachycardia) 12/18/2008 04/04/2017 Overview: Dr. Chairez -- one episode with adenosine; no regular f/u since 2007 (resolved) Other specified congenital anomaly of skin 07/1912/18/2008 Hemorrhage of gastrointestinal tract, unspecifie d 12/18/2008 documented as of this encounter (statuses as of 04/29/2022) [facility] History of Past illness Narrative* Problem Noted Date Resolved Date Abnormal mammogram, unspecified 10/15/2013 04/04/2017 Routine general medical exam ination at a health care facility 12/18/2008 08/16/2011 Overview: 12/18/2008, from Dr. Grady (retired) 02/18/2010, yearly check 04/12/2011, yearly check Routine gynecological examination 12/18/2008 08/16/2011 Overview: [facility], [facility] Nora SVT (supraventricular tachycardia) 12/18/2008 04/04/2017 Overview: Dr. Chairez -- one episode with adenosine; no regular f/u since 2007 (resolved) Other specified congenital anomaly of skin 07/1912/18/2008 Hemorrhage of gastrointestinal tract, unspecifie d 12/18/2008 documented as of this encounter (statuses as of 05/04/2022) [facility] History of Past illness Narrative* Problem Noted Date Resolved Date Abnormal mammogram, unspecified 10/15/2013 04/04/2017 Routine general medical exam ination at a health care facility 12/18/2008 08/16/2011 Overview: 12/18/2008, from Dr. Grady (retired) 02/18/2010, yearly check 04/12/2011, yearly check Routine gynecological examination 12/18/2008 08/16/2011 Overview: [facility], [facility] Nora SVT (supraventricular tachycardia) 12/18/2008 04/04/2017 Overview: Dr. Chairez -- one episode with adenosine; no regular f/u since 2007 (resolved) Other specified congenital anomaly of skin 07/1912/18/2008 Hemorrhage of gastrointestinal tract, unspecifie d 12/18/2008 documented as of this encounter (statuses as of 05/05/2022) [facility] History of Past illness Narrative* Problem Noted Date Resolved Date Abnormal mammogram, unspecified 10/15/2013 04/04/2017 Routine general medical exam ination at a health care facility 12/18/2008 08/16/2011 Overview: 12/18/2008, from Dr. Grady (retired) 02/18/2010, yearly check 04/12/2011, yearly check Routine gynecological examination 12/18/2008 08/16/2011 Overview: [facility], [facility] Nora SVT (supraventricular tachycardia) 12/18/2008 04/04/2017 Overview: Dr. Chairez -- one episode with adenosine; no regular f/u since 2007 (resolved) Other specified congenital anomaly of skin 07/1912/18/2008 Hemorrhage of gastrointestinal tract, unspecifie d 12/18/2008 documented as of this encounter (statuses as of 05/09/2022) [facility] History of Past illness Narrative* Problem Noted Date Resolved Date Abnormal mammogram, unspecified 10/15/2013 04/04/2017 Routine general medical exam ination at a health care facility 12/18/2008 08/16/2011 Overview: 12/18/2008, from Dr. Grady (retired) 02/18/2010, yearly check 04/12/2011, yearly check Routine gynecological examination 12/18/2008 08/16/2011 Overview: [facility], [facility] Nora SVT (supraventricular tachycardia) 12/18/2008 04/04/2017 Overview: Dr. Chairez -- one episode with adenosine; no regular f/u since 2007 (resolved) Other specified congenital anomaly of skin 07/1912/18/2008 Hemorrhage of gastrointestinal tract, unspecifie d 12/18/2008 documented as of this encounter (statuses as of 05/09/2022) [facility] History of Past illness Narrative* Problem Noted Date Resolved Date Abnormal mammogram, unspecified 10/15/2013 04/04/2017 Routine general medical exam ination at a health care facility 12/18/2008 08/16/2011 Overview: 12/18/2008, from Dr. Grady (retired) 02/18/2010, yearly check 04/12/2011, yearly check Routine gynecological examination 12/18/2008 08/16/2011 Overview: [facility], [facility] Prince SVT (supraventricular tachycardia) 12/18/2008 04/04/2017 Overview: Dr. Chairez -- one episode with adenosine; no regular f/u since 2007 (resolved) Other specified congenital anomaly of skin 07/1912/18/2008 Hemorrhage of gastrointestinal tract, unspecifie d 12/18/2008 documented as of this encounter (statuses as of 05/23/2022) [facility] History of Past illness Narrative* Problem Noted Date Resolved Date Abnormal mammogram, unspecified 10/15/2013 04/04/2017 Routine general medical exam ination at a health care facility 12/18/2008 08/16/2011 Overview: 12/18/2008, from Dr. Grady (retired) 02/18/2010, yearly check 04/12/2011, yearly check Routine gynecological examination 12/18/2008 08/16/2011 Overview: [facility], [facility] Nora SVT (supraventricular tachycardia) 12/18/2008 04/04/2017 Overview: Dr. Chairez -- one episode with adenosine; no regular f/u since 2007 (resolved) Other specified congenital anomaly of skin 07/1912/18/2008 Hemorrhage of gastrointestinal tract, unspecifie d 12/18/2008 documented as of this encounter (statuses as of 06/03/2022) [facility] History of Past illness Narrative* Problem Noted Date Resolved Date Abnormal mammogram, unspecified 10/15/2013 04/04/2017 Routine general medical exam ination at a health care facility 12/18/2008 08/16/2011 Overview: 12/18/2008, from Dr. Grady (retired) 02/18/2010, yearly check 04/12/2011, yearly check Routine gynecological examination 12/18/2008 08/16/2011 Overview: [facility], [facility] Prince SVT (supraventricular tachycardia) 12/18/2008 04/04/2017 Overview: Dr. Chairez -- one episode with adenosine; no regular f/u since 2007 (resolved) Other specified congenital anomaly of skin 07/1912/18/2008 Hemorrhage of gastrointestinal tract, unspecifie d 12/18/2008 documented as of this encounter (statuses as of 06/15/2022) [facility] History of Past illness Narrative* Problem Noted Date Resolved Date Abnormal mammogram, unspecified 10/15/2013 04/04/2017 Routine general medical exam ination at a health care facility 12/18/2008 08/16/2011 Overview: 12/18/2008, from Dr. Grady (retired) 02/18/2010, yearly check 04/12/2011, yearly check Routine gynecological examination 12/18/2008 08/16/2011 Overview: [facility], [facility] Nora SVT (supraventricular tachycardia) 12/18/2008 04/04/2017 Overview: Dr. Chairez -- one episode with adenosine; no regular f/u since 2007 (resolved) Other specified congenital anomaly of skin 07/1912/18/2008 Hemorrhage of gastrointestinal tract, unspecifie d 12/18/2008 documented as of this encounter (statuses as of 06/27/2022) [facility] History of Past illness Narrative* Problem Noted Date Resolved Date Abnormal mammogram, unspecified 10/15/2013 04/04/2017 Routine general medical exam ination at a health care facility 12/18/2008 08/16/2011 Overview: 12/18/2008, from Dr. Grady (retired) 02/18/2010, yearly check 04/12/2011, yearly check Routine gynecological examination 12/18/2008 08/16/2011 Overview: [facility], [facility] Prince SVT (supraventricular tachycardia) 12/18/2008 04/04/2017 Overview: Dr. Chairez -- one episode with adenosine; no regular f/u since 2007 (resolved) Other specified congenital anomaly of skin 07/1912/18/2008 Hemorrhage of gastrointestinal tract, unspecifie d 12/18/2008 documented as of this encounter (statuses as of 07/05/2022) [facility] History of Past illness Narrative* Problem Noted Date Resolved Date Abnormal mammogram, unspecified 10/15/2013 04/04/2017 Routine general medical exam ination at a health care facility 12/18/2008 08/16/2011 Overview: 12/18/2008, from Dr. Grady (retired) 02/18/2010, yearly check 04/12/2011, yearly check Routine gynecological examination 12/18/2008 08/16/2011 Overview: [facility], [facility] Nora SVT (supraventricular tachycardia) 12/18/2008 04/04/2017 Overview: Dr. Chairez -- one episode with adenosine; no regular f/u since 2007 (resolved) Other specified congenital anomaly of skin 07/1912/18/2008 Hemorrhage of gastrointestinal tract, unspecifie d 12/18/2008 documented as of this encounter (statuses as of 07/06/2022) [facility] History of Past illness Narrative* Problem Noted Date Resolved Date Abnormal mammogram, unspecified 10/15/2013 04/04/2017 Routine general medical exam ination at a health care facility 12/18/2008 08/16/2011 Overview: 12/18/2008, from Dr. Grady (retired) 02/18/2010, yearly check 04/12/2011, yearly check Routine gynecological examination 12/18/2008 08/16/2011 Overview: [facility], [facility] Nora SVT (supraventricular tachycardia) 12/18/2008 04/04/2017 Overview: Dr. Chairez -- one episode with adenosine; no regular f/u since 2007 (resolved) Other specified congenital anomaly of skin 07/1912/18/2008 Hemorrhage of gastrointestinal tract, unspecifie d 12/18/2008 documented as of this encounter (statuses as of 07/09/2022) [facility] History of Past illness Narrative* Problem Noted Date Resolved Date Abnormal mammogram, unspecified 10/15/2013 04/04/2017 Routine general medical exam ination at a health care facility 12/18/2008 08/16/2011 Overview: 12/18/2008, from Dr. Grady (retired) 02/18/2010, yearly check 04/12/2011, yearly check Routine gynecological examination 12/18/2008 08/16/2011 Overview: [facility], [facility] Prince SVT (supraventricular tachycardia) 12/18/2008 04/04/2017 Overview: Dr. Chairez -- one episode with adenosine; no regular f/u since 2007 (resolved) Other specified congenital anomaly of skin 07/1912/18/2008 Hemorrhage of gastrointestinal tract, unspecifie d 12/18/2008 documented as of this encounter (statuses as of 07/11/2022) [facility] History of Past illness Narrative* Problem Noted Date Resolved Date Abnormal mammogram, unspecified 10/15/2013 04/04/2017 Routine general medical exam ination at a health care facility 12/18/2008 08/16/2011 Overview: 12/18/2008, from Dr. Grady (retired) 02/18/2010, yearly check 04/12/2011, yearly check Routine gynecological examination 12/18/2008 08/16/2011 Overview: [facility], [facility] Prince SVT (supraventricular tachycardia) 12/18/2008 04/04/2017 Overview: Dr. Chairez -- one episode with adenosine; no regular f/u since 2007 (resolved) Other specified congenital anomaly of skin 07/1912/18/2008 Hemorrhage of gastrointestinal tract, unspecifie d 12/18/2008 documented as of this encounter (statuses as of 09/07/2022) [facility] History of Past illness Narrative* Problem Noted Date Diagnosed Date Resolved Date Abnormal mammogram, unspecified 10/15/2013 04/04/2017 Routine general medical exam ination at a health care facility 12/18/2008 08/16/2011 Overview: 12/18/2008, from Dr. Grady (retired) 02/18/2010, yearly check 04/12/2011, yearly check Routine gynecological examination 12/18/2008 08/16/2011 Overview: [facility], [facility] Prince SVT (supraventricular tachycardia) 12/18/2008 04/04/2017 Overview: Dr. Chairez -- one episode with adenosine; no regular f/u since 2007 (resolved) Other specified congenital anomaly of skin 07/19/2005 12/18/2008 Hemorrhage of gastrointestin al tract, unspecified 12/18/2008 documented as of this encounter (statuses as of 09/20/2022) [facility] History of Past illness Narrative* Problem Noted Date Diagnosed Date Resolved Date Abnormal mammogram, unspecified 10/15/2013 04/04/2017 Routine general medical exam ination at a health care facility 12/18/2008 08/16/2011 Overview: 12/18/2008, from Dr. Grady (retired) 02/18/2010, yearly check 04/12/2011, yearly check Routine gynecological examination 12/18/2008 08/16/2011 Overview: [facility], [facility] Prince SVT (supraventricular tachycardia) 12/18/2008 04/04/2017 Overview: Dr. Chairez -- one episode with adenosine; no regular f/u since 2007 (resolved) Other specified congenital anomaly of skin 07/19/2005 12/18/2008 Hemorrhage of gastrointestin al tract, unspecified 12/18/2008 documented as of this encounter (statuses as of 09/28/2022) [facility] History of Past illness Narrative* Problem Noted Date Diagnosed Date Resolved Date Abnormal mammogram, unspecified 10/15/2013 04/04/2017 Routine general medical exam ination at a health care facility 12/18/2008 08/16/2011 Overview: 12/18/2008, from Dr. Grady (retired) 02/18/2010, yearly check 04/12/2011, yearly check Routine gynecological examination 12/18/2008 08/16/2011 Overview: [facility], [facility] Nora SVT (supraventricular tachycardia) 12/18/2008 04/04/2017 Overview: Dr. Chairez -- one episode with adenosine; no regular f/u since 2007 (resolved) Other specified congenital anomaly of skin 07/19/2005 12/18/2008 Hemorrhage of gastrointestin al tract, unspecified 12/18/2008 documented as of this encounter (statuses as of 10/26/2022) [facility] History of Past illness Narrative* Problem Noted Date Diagnosed Date Resolved Date Abnormal mammogram, unspecified 10/15/2013 04/04/2017 Routine general medical exam ination at a health care facility 12/18/2008 08/16/2011 Overview: 12/18/2008, from Dr. Grady (retired) 02/18/2010, yearly check 04/12/2011, yearly check Routine gynecological examination 12/18/2008 08/16/2011 Overview: [facility], [facility] Nora SVT (supraventricular tachycardia) 12/18/2008 04/04/2017 Overview: Dr. Chairez -- one episode with adenosine; no regular f/u since 2007 (resolved) Other specified congenital anomaly of skin 07/19/2005 12/18/2008 Hemorrhage of gastrointestin al tract, unspecified 12/18/2008 documented as of this encounter (statuses as of 11/22/2022) [facility] History of Past illness Narrative* Problem Noted Date Diagnosed Date Resolved Date Abnormal mammogram, unspecified 10/15/2013 04/04/2017 Routine general medical exam ination at a health care facility 12/18/2008 08/16/2011 Overview: 12/18/2008, from Dr. Grady (retired) 02/18/2010, yearly check 04/12/2011, yearly check Routine gynecological examination 12/18/2008 08/16/2011 Overview: [facility], [facility] Prince SVT (supraventricular tachycardia) 12/18/2008 04/04/2017 Overview: Dr. Chairez -- one episode with adenosine; no regular f/u since 2007 (resolved) Other specified congenital anomaly of skin 07/19/2005 12/18/2008 Hemorrhage of gastrointestin al tract, unspecified 12/18/2008 documented as of this encounter (statuses as of 12/10/2022) [facility] of Past illness Narrative* Problem Noted Date Diagnosed Date Resolved Date Abnormal mammogram, unspecified 10/15/2013 04/04/2017 Routine general medical exam ination at a health care facility 12/18/2008 08/16/2011 Overview: 12/18/2008, from Dr. Grady (retired) 02/18/2010, yearly check 04/12/2011, yearly check Routine gynecological examination 12/18/2008 08/16/2011 Overview: [facility], [facility] Nora SVT (supraventricular tachycardia) 12/18/2008 04/04/2017 Overview: Dr. Chairez -- one episode with adenosine; no regular f/u since 2007 (resolved) Other specified congenital anomaly of skin 07/19/2005 12/18/2008 Hemorrhage of gastrointestin al tract, unspecified 12/18/2008 documented as of this encounter (statuses as of 01/15/2023) [facility] of Past illness Narrative* Problem Noted Date Diagnosed Date Resolved Date Abnormal mammogram, unspecified 10/15/2013 04/04/2017 Routine general medical exam ination at a health care facility 12/18/2008 08/16/2011 Overview: 12/18/2008, from Dr. Grady (retired) 02/18/2010, yearly check 04/12/2011, yearly check Routine gynecological examination 12/18/2008 08/16/2011 Overview: [facility], [facility] Nora SVT (supraventricular tachycardia) 12/18/2008 04/04/2017 Overview: Dr. Chairez -- one episode with adenosine; no regular f/u since 2007 (resolved) Other specified congenital anomaly of skin 07/19/2005 12/18/2008 Hemorrhage of gastrointestin al tract, unspecified 12/18/2008 documented as of this encounter (statuses as of 01/15/2023) [facility] of Past illness Narrative* Problem Noted Date Diagnosed Date Resolved Date Abnormal mammogram, unspecified 10/15/2013 04/04/2017 Routine general medical exam ination at a health care facility 12/18/2008 08/16/2011 Overview: 12/18/2008, from Dr. Grady (retired) 02/18/2010, yearly check 04/12/2011, yearly check Routine gynecological examination 12/18/2008 08/16/2011 Overview: [facility], [facility] Nora SVT (supraventricular tachycardia) 12/18/2008 04/04/2017 Overview: Dr. Chairez -- one episode with adenosine; no regular f/u since 2007 (resolved) Other specified congenital anomaly of skin 07/19/2005 12/18/2008 Hemorrhage of gastrointestin al tract, unspecified 12/18/2008 documented as of this encounter (statuses as of 01/19/2023) [facility] Hyperlipidemia, mixed- Primary Mixed hyperlipidemia Chronic constipation Unspecified constipation Primary osteoarthritis of both knees Primary localized osteoarthrosis, lower leg Class 1 obesity due to excess calories without serious comorbidity with body mass index (BMI) of 30.0 to 30.9 in adult Advance directive discussed with patient Other specified counseling [facility] [place] [facility] Diagnosis Encounter for gynecological examination (general) (routine) without abnormal findings- Primary documented in this encounter [facility] noteNo assessment information [facility] Work [facility]: [facility] note* Diagnosis PMB (postmenopausal bleeding)- Primary Postmenopausal bleeding [facility] [place] [facility]* Diagnosis Postmenopausal bleeding- Primary documented in this encounter [facility] note* Diagnosis Pre-op evaluation- Primary Preoperative examination, unspecified Primary osteoarthritis of both knees Primary localized osteoarthrosis, lower leg Viral URI with cough Acute upper respiratory infections of unspecified site Class 1 obesity due to excess calories without serious comorbidity with body mass index (BMI) of 30.0 to 30.9 in adult documented in this encounter [facility] note* Diagnosis Onset Date Resolution Status PMB (postmenopausal bleeding) acute [employer] [facility] Work Phone: evaluation note* Diagnosis Acute deep vein thrombosis (DVT) of tibial vein of left lower extremity (HCC) documented in this encounter [facility] note* Diagnosis Onset Date Resolution Status PMB (postmenopausal bleeding) resolved [employer] [facility] Work Phone: evaluation note* Diagnosis Personal history of DVT (deep vein thrombosis) Personal history of venous thrombosis and embolism Single subsegmental pulmonary embolism without acute cor pulmonale (HCC) documented in this encounter [facility] note* Diagnosis Personal history of DVT (deep vein thrombosis)- Primary Personal history of venous thrombosis and embolism Single subsegmental pulmonary embolism without acute cor pulmonale (HCC) [facility] [place] [facility]* Diagnosis Acute deep vein thrombosis (DVT) of tibial vein of left lower extremity (HCC)- Primary Acute pulmonary embolism without acute cor pulmonale, unspecified pulmonary embolism type (HCC) Lung nodule seen on imaging study Solitary pulmonary nodule [facility] [place] [facility] Diagnosis Personal history of DVT (deep vein thrombosis) Personal history of venous thrombosis and embolism Single subsegmental pulmonary embolism without acute cor pulmonale (HCC) [facility] [place] [facility]* Diagnosis Acute deep vein thrombosis (DVT) of tibial vein of left lower extremity (HCC) [facility] Personal history of DVT (deep vein thrombosis) Personal history of venous thrombosis and embolism Single subsegmental pulmonary embolism without acute cor pulmonale (HCC) Acute deep vein thrombosis (DVT) of tibial vein of left lower extremity (HCC) [facility] Acute deep vein thrombosis (DVT) of tibial vein of left lower extremity (HCC) [facility] Acute deep vein thrombosis (DVT) of tibial vein of left lower extremity (HCC)- Primary [facility] Personal history of DVT (deep vein thrombosis) Personal history of venous thrombosis and embolism Single subsegmental pulmonary embolism without acute cor pulmonale (HCC) [facility] Acute deep vein thrombosis (DVT) of tibial vein of left lower extremity (HCC)- Primary Single subsegmental pulmonary embolism without acute cor pulmonale (HCC) Anticoagulation goal of INR 2 to 3 Encounter for therapeutic drug monitoring [facility] Personal history of DVT (deep vein thrombosis) Personal history of venous thrombosis and embolism Single subsegmental pulmonary embolism without acute cor pulmonale (HCC) [facility] Personal history of DVT (deep vein thrombosis)- Primary Personal history of venous thrombosis and embolism Single subsegmental pulmonary embolism without acute cor pulmonale (HCC) Anticoagulation goal of INR 2 to 3 Encounter for therapeutic drug monitoring [facility] Diagnosis Petechiae- Primary Spontaneous ecchymoses [facility] Diagnosis Abnormal urine- Primary Other nonspecific finding on examination of urine [facility] Personal history of DVT (deep vein thrombosis) Personal history of venous thrombosis and embolism Single subsegmental pulmonary embolism without acute cor pulmonale (HCC) [facility] Diagnosis Lung nodules- Primary Other nonspecific abnormal finding of lung field Single subsegmental pulmonary embolism without acute cor pulmonale (HCC) Personal history of DVT (deep vein thrombosis) Personal history of venous thrombosis and embolism Pure hypercholesterolemia [facility] Personal history of DVT (deep vein thrombosis)- Primary Personal history of venous thrombosis and embolism Single subsegmental pulmonary embolism without acute cor pulmonale (HCC) [facility] Diagnosis Lung nodule seen on imaging study- Primary Solitary pulmonary nodule [facility] Diagnosis Lung nodules- Primary Other nonspecific abnormal finding of lung field [facility] Diagnosis Pre-op evaluation- Primary Preoperative examination, unspecified Primary osteoarthritis of both knees Primary localized osteoarthrosis, lower leg History of pulmonary embolism Personal history of pulmonary embolism History of DVT (deep vein thrombosis) Personal history of venous thrombosis and embolism Encounter for immunization Need for other specified prophylactic vaccination against single bacterial disease [facility] [place] [facility] Diagnosis PMB (postmenopausal bleeding) Postmenopausal bleeding [facility] Diagnosis Lung nodules Other nonspecific abnormal finding of lung field [facility] Diagnosis Encounter for gynecological examination (general) (routine) without abnormal findings- Primary [facility] Diagnosis Pure hypercholesterolemia- Primary Screening for depression Encounter for screening examination for other mental health and behavioral disorders Vasomotor rhinitis Allergic rhinitis, cause unspecified Bursitis of other bursa of left hip Lung nodules Other nonspecific abnormal finding of lung field [facility] Diagnosis Preop examination- Primary Preoperative examination, unspecified [facility] Diagnosis Lung nodules- Primary Other nonspecific abnormal finding of lung field [facility] Diagnosis Lung nodules Other nonspecific abnormal finding of lung field [facility]* Diagnosis Multiple lung nodules on CT- Primary [facility] Diagnosis Encounter for gynecological examination (general) (routine) without abnormal findings- Primary History of postmenopausal bleeding Family history of uterine cancer Family history of malignant neoplasm of genital organ, other [facility] Diagnosis Mass of jaw- Primary Swelling, mass, or lump in head and neck Mass of jaw Swelling, mass, or lump in head and neck [facility]* Diagnosis Localized enlarged lymph nodes- Primary Enlargement of lymph nodes [facility] Diagnosis Mass of jaw Swelling, mass, or lump in head and neck [facility] [place] [facility] Diagnosis Localized enlarged lymph nodes Enlargement of lymph nodes [facility] [place] [facility]* Diagnosis Parotid mass- Primary Swelling, mass, or lump in head and neck [facility] [place] [facility]* Diagnosis Mass of right parotid gland- Primary [facility] [place] [facility] Diagnosis Pre-operative examination- Primary Preoperative examination, unspecified Pure hypercholesterolemia Solitary pulmonary nodule on lung CT Chronic constipation Unspecified constipation Personal history of DVT (deep vein thrombosis) Personal history of venous thrombosis and embolism History of total hip arthroplasty, left History of partial knee replacement Personal history of cardiac arrhythmia Personal history of other diseases of circulatory system Class 1 obesity due to excess calories without serious comorbidity with body mass index (BMI) of 30.0 to 30.9 in adult Vasomotor rhinitis Allergic rhinitis, cause unspecified Mass of right parotid gland * Assessment & Plan Note - Jose Valles APRN.CNP - 09/27/2024 9:35 AM EDT Associated Problem(s): Vasomotor rhinitis Assessment: rx as needed * Assessment & Plan Note - Jose Valles APRN.CNP - 09/27/2024 9:34 AM EDT Associated Problem(s): Class 1 obesity due to excess calories without serious comorbidity with bodymass index (BMI) of 30.0 to 30.9 in adult Assessment: Body mass index is 30.73 kg/m . * Assessment & Plan Note - Jose Valles APRN.CNP - 09/27/2024 9:34 AM EDT Associated Problem(s): Personal history of cardiac arrhythmia Assessment: remote hx 20+ years ago of SVT, converted with gtt, pt followed cardiology but then eventually discharged, no further reoccurrence, asymptomatic today * Assessment & Plan Note - Jose Valles APRN.CNP - 09/27/2024 9:32 AM EDT Associated Problem(s): History of partial knee replacement Assessment: hx, right * Assessment & Plan Note - Jose Valles APRN.CNP - 09/27/2024 9:32 AM EDT Associated Problem(s): History of total hip arthroplasty, left Assessment: hx * Assessment & Plan Note - Jose Valles APRN.CNP - 09/27/2024 9:31 AM EDT Associated Problem(s): Personal history of DVT (deep vein thrombosis) Assessment: hx provoked DVT/PE, tx wit OAC for 6 mos, 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 * Assessment & Plan Note - Jose Valles APRN.CNP - 09/27/2024 9:31 AM EDT Associated Problem(s): Chronic constipation Assessment: controlled on rx * Assessment & Plan Note - Jose Valles APRN.CNP - 09/27/2024 9:31 AM EDT Associated Problem(s): Solitary pulmonary nodule on lung CT Assessment: repeat serial imaging stable, following pulmonary Office Visit on 06/10/2024 * Assessment & Plan Note - Jose Valles APRN.CNP - 09/27/2024 9:29 AM EDT Associated Problem(s): Pure hypercholesterolemia Assessment: c/w statin documented in this encounter [facility]* Diagnosis Pre-operative examination- Primary Preoperative examination, unspecified Pure hypercholesterolemia Solitary pulmonary nodule on lung CT Chronic constipation Unspecified constipation Personal history of DVT (deep vein thrombosis) Personal history of venous thrombosis and embolism History of total hip arthroplasty, left History of partial knee replacement Personal history of cardiac arrhythmia Personal history of other diseases of circulatory system Class 1 obesity due to excess calories without serious comorbidity with body mass index (BMI) of 30.0 to 30.9 in adult Vasomotor rhinitis Allergic rhinitis, cause unspecified Urinary retention- Primary Retention of urine, unspecified UTI symptoms Other symptoms involving urinary system H/O parotidectomy Personal history of surgery to other organs Postprocedural urinary retention documented in this encounter [facility]* Diagnosis Pre-operative examination- Primary Preoperative examination, unspecified Pure hypercholesterolemia Solitary pulmonary nodule on lung CT Chronic constipation Unspecified constipation Personal history of DVT (deep vein thrombosis) Personal history of venous thrombosis and embolism History of total hip arthroplasty, left History of partial knee replacement Personal history of cardiac arrhythmia Personal history of other diseases of circulatory system Class 1 obesity due to excess calories without serious comorbidity with body mass index (BMI) of 30.0 to 30.9 in adult Vasomotor rhinitis Allergic rhinitis, cause unspecified Post-operative state- Primary Other postprocedural status documented in this encounter [facility] Discharge instructions Additional Instructions Implant Used?: [facility] Work Phone: Reason for referral (narrative)* Diagnostic Procedure Only (Routine) - Closed Specialty Diagnoses / Procedures Referred By Tina t Referred To Contact [facility] Diagnoses PMB (postmenopausal bleeding) Procedures US FEMALE PELVIS TRANSVAG US TRANSVAGINAL Melanie Zamora APRN.CNP [address] [place] [address] Us Imaging Referral ID Status Reason Start Date Expiration Date V isits Requested Visits Authorized [id number] Closed Auto-Generated Referral Patient Cleared - INN Insurance Found 03/15/2022 04/14/2023 1 1 * Outpatient Procedure (Routine) - Pending Review Specialty Diagnoses / Procedures Referred By Contac t Referred To Contact [facility] Diagnoses PMB (postmenopausal bleeding) Procedures ENDOMETRIAL BIOPSY ENDOMETRIAL BX W/WO ENDOCERVIX BX W/O DILAT SPX Melanie Zamora APRN.CNP [address] [place] [address] [address] [place] [address] Referral ID Status Reason Start Date Expiration Date Visits Requested Visits Authorized [id number] Pending Review Auto-Generat ed Referral 03/15/2022 03/15/2023 1 1 * Diagnostic Procedure Only (Routine) - Authorized Specialty Diagnoses / Procedures Referred By Contac t Referred To Contact [facility] Diagnoses PMB (postmenopausal bleeding) Procedures PELVIC US WHI US PELVIC NONOBSTETRIC REAL-TIME IMAGE COMPLETE Melanie Zamora APRN.MOTION DESIGNER [address] [place] [address] [id number] [place] [address] Referral ID Status Reason Start Date Expiration Date Visits Requested Visits Authorized [id number] Authorized Auto-Generat ed Referral 03/15/2022 03/15/2023 1 1 [facility] for referral (narrative)* Outpatient Procedure (Routine) - Closed Specialty Diagnoses / Procedures Referred By Contac t Referred [facility] Diagnoses Pre-op evaluation Procedures ECG COMPLETE ECG ROUTINE ECG W/LEAST 12 LDS W/I&R Abhinav Bolden MD [address] [place] [address] [facility] [address] [place] [address] Referral ID Status Reason Start Date Expiration Date V isits Requested Visits Authorized [id number] Closed Auto-Generate d Referral 03/28/2022 03/28/2023 1 1 [facility] for referral (narrative)* Outpatient Procedure (Routine) - Closed Specialty Diagnoses / Procedures [facility] Diagnoses Pre-op evaluation Procedures ECG COMPLETE ECG ROUTINE ECG W/LEAST 12 LDS W/I&R Abhinav Bolden MD [address] [place] [address] [facility] [address] [address] Referral ID Status Reason Start Date Expiration Date V isits Requested Visits Authorized [id number] Closed Auto-Generate d Referral 12/07/2022 12/07/2023 1 1 [facility] for referral (narrative)* Diagnostic Procedure Only (Routine) - Closed Specialty Diagnoses / Procedures Referred By Tina t Referred To Contact [facility] Diagnoses PMB (postmenopausal bleeding) Procedures US FEMALE PELVIS TRANSVAG US TRANSVAGINAL Melanie Zamora APRN.CNP [address] [place] [address] Us Imaging [id number] Referral ID Status Reason Start Date Expiration Date V isits Requested Visits Authorized [id number] Closed Auto-Generated Referral Patient Cleared - INN Insurance Found 03/15/2022 04/14/2023 1 1 [facility] for referral (narrative)No reason for referral [facility] Work Phone: Reason for visit Narrative* Diagnostic Procedure Only (Urgent) - Closed Specialty Diagnoses / Procedures [facility] Referred To Contact [facility] Diagnoses Mass of jaw Procedures US HEAD/NECK SOFT TISSUE OTHER US SOFT TISSUE HEAD & NECK REAL TIME IMGE DOCM oTny Giron, BINDERY MACHINE SETTER.MOTION DESIGNER [address] [place] [address] Phone: tel: fax: [place] [address] Referral ID Status Reason Start Date Expiration Date V isits Requested Visits Authorized [id number] Closed Auto-Generate d Referral 08/29/2024 09/28/2025 1 1 [facility]/CT (Urgent) - Closed Specialty Diagnoses / Procedures Referred By Contac t Referred To Contact CT IMAGING Diagnoses Localized enlarged lymph nodes Procedures CT NECK SOFT TISSUE W IVCON CT SOFT TISSUE NECK W/CONTRAST MATERIAL Tony Giron, BINDERY MACHINE SETTER.MOTION DESIGNER [address] [place] [address] Phone: tel: fax: [place] [address] Referral ID Status Reason Start Date Expiration Date V isits Requested Visits Authorized [id number] Closed Auto-Generate d Referral 08/29/2024 09/28/2025 1 1 [facility] Chief Complaint and Reason for Visit Chief Complaint SCREENING Chief Complaint SCREENING hyster d&c symphion Reason for Visit PMB (postmenopausal bleeding) Chief Complaint SCREENING hyster d&c symphion RT KNEE *KHARI PROTOCOL* LOWER EXTREMITY PAIN/SWELLING LEFT LEG general illness Reason for Visit PMB (postmenopausal bleeding) Chief Complaint RT KNEE *KHARI* Chief Complaint RT KNEE *KHARI* SCREENING Advance Directives No Advanced Directives Records Found Advance Directive Response Recorded Date/ Time Advance Directives No January 11:31am Living Will No February 21 4:41pm Power of Wire Rope Fabrication Supervisor No February 21, 2019 4:41pm Advance Directive Response Recorded Date/ Time Advance Directives No January 11:31am Living Will No March 22 9:09am Power of Wire Rope Fabrication Supervisor No March 22, 2022 9:09am Advance Directive Response Recorded Date/ Time Advance Directives No January 11:31am Living Will No April 07 8:02pm Power of Wire Rope Fabrication Supervisor No April 07, 2022 8:02pm Advance Directive Response Recorded Date/ Time Advance Directives No January 12:31pm Living Will No April 20 9:47pm Power of Wire Rope Fabrication Supervisor No April 20, 2022 9:47pm Advance Directive Response Recorded Date/ Time Advance Directives No January 11:31am Living Will No April 20 8:47pm Power of Wire Rope Fabrication Supervisor No April 20, 2022 8:47pm Advance Directive Response Recorded Date/ Time Advance Directives No January 12:31pm Reason for Referral Specialty Diagnoses / Procedures Referred By Contac t Referred To Contact CT IMAGING Diagnoses Lung nodules Procedures CT CHEST WO IVCON DIAGNOSTIC COMPUTED TOMOGRAPHY THORAX W/O CNTRST Abhinav Bolden MD [address] [place] [address] Ct Imaging Referral ID Status Reason Start Date Expiration Date Visits Requested Visits Authorized [id number] Authorized Auto-Generat ed Referral 09/20/2022 10/20/2023 1 1 Specialty Diagnoses / Procedures Referred By Contac t Referred To Contact Pulmonary Disease Diagnoses Lung nodule seen on imaging study Procedures CONSULT TO LUNG NODULE CLINIC OFFICE/OUTPATIENT [facility] 60-74 MINUTES Abhinav Bolden MD [facility] [place] [address] Referral ID Status Reason Start Date Expiration Date Visits Requested Visits Authorized [id number] Authorized PCP Requested Referral 10/25/2022 10/25/2023 1 1 Specialty Diagnoses / Procedures Referred By Contac t Referred To Contact CT IMAGING Diagnoses Lung nodules Procedures CT CHEST WO IVCON DIAGNOSTIC COMPUTED TOMOGRAPHY THORAX W/O CNTRST Lilian Lewis, TEJINDER.MOTION DESIGNER [id number] Imaging [id number] Referral ID Status Reason Start Date Expiration Date Visits Requested Visits Authorized [id number] Pending Review Auto-Generat ed Referral 11/22/2022 12/22/2023 1 1 Specialty Diagnoses / Procedures Referred By Contac t Referred To Contact CT IMAGING Diagnoses Lung nodules Procedures CT CHEST WO IVCON DIAGNOSTIC COMPUTED TOMOGRAPHY THORAX W/O CNTKOSTAT Abhinav Bolden MD [address] [place] [address] [place] [address] Referral ID Status Reason Start Date Expiration Date V isits Requested Visits Authorized [id number] Closed Auto-Generate d Referral 09/20/2022 10/20/2023 1 1 Referral ID Status Reason Start Date Expiration Date Visits Requested Visits Authorized [id number] New Request Auto-Generat ed Referral 04/15/2024 05/15/2025 1 1 Summary Purpose Family History No Family History Records FoundNo Family History Records FoundNo Family History Records Found Additional Source Comments Source Comments (unrecognize d section and content) In the event this informatio n is protected by the Federal Confidentiality of Alcohol and Drug Abuse Patient Records regulations: The Federal rules restrict any use of the information to criminally investigate or prosecute any alcohol or drug abuse patient.[facility] the event this information is protected by the Federal Confidentiality of Alcohol and Drug Abuse Patient Records regulations: The Federal rules restrict any use of the information to criminally investigate or prosecute any alcohol or drug abuse patient.[facility] the event this information is protected by the Federal Confidentiality of Alcohol and Drug Abuse Patient Records regulations: The Federal rules restrict any use of the information to criminally investigate or prosecute any alcohol or drug abuse patient.[facility] the event this information is protected by the Federal Confidentiality of Alcohol and Drug Abuse Patient Records regulations: The Federal rules restrict any use of the information to criminally investigate or prosecute any alcohol or drug abuse patient.[facility] the event this information is protected by the Federal Confidentiality of Alcohol and Drug Abuse Patient Records regulations: The Federal rules restrict any use of the information to criminally investigate or prosecute any alcohol or drug abuse patient.[facility] the event this information is protected by the Federal Confidentiality of Alcohol and Drug Abuse Patient Records regulations: The Federal rules restrict any use of the information to criminally investigate or prosecute any alcohol or drug abuse patient.[facility] the event this information is protected by the Federal Confidentiality of Alcohol and Drug Abuse Patient Records regulations: The Federal rules restrict any use of the information to criminally investigate or prosecute any alcohol or drug abuse patient.[facility] the event this information is protected by the Federal Confidentiality of Alcohol and Drug Abuse Patient Records regulations: The Federal rules restrict any use of the information to criminally investigate or prosecute any alcohol or drug abuse patient.[facility] the event this information is protected by the Federal Confidentiality of Alcohol and Drug Abuse Patient Records regulations: The Federal rules restrict any use of the information to criminally investigate or prosecute any alcohol or drug abuse patient.[facility] the event this information is protected by the Federal Confidentiality of Alcohol and Drug Abuse Patient Records regulations: The Federal rules restrict any use of the information to criminally investigate or prosecute any alcohol or drug abuse patient.[facility] the event this information is protected by the Federal Confidentiality of Alcohol and Drug Abuse Patient Records regulations: The Federal rules restrict any use of the information to criminally investigate or prosecute any alcohol or drug abuse patient.[facility] the event this information is protected by the Federal Confidentiality of Alcohol and Drug Abuse Patient Records regulations: The Federal rules restrict any use of the information to criminally investigate or prosecute any alcohol or drug abuse patient.[facility] the event this information is protected by the Federal Confidentiality of Alcohol and Drug Abuse Patient Records regulations: The Federal rules restrict any use of the information to criminally investigate or prosecute any alcohol or drug abuse patient.[facility] the event this information is protected by the Federal Confidentiality of Alcohol and Drug Abuse Patient Records regulations: The Federal rules restrict any use of the information to criminally investigate or prosecute any alcohol or drug abuse patient.[facility] the event this information is protected by the Federal Confidentiality of Alcohol and Drug Abuse Patient Records regulations: The Federal rules restrict any use of the information to criminally investigate or prosecute any alcohol or drug abuse patient.[facility] the event this information is protected by the Federal Confidentiality of Alcohol and Drug Abuse Patient Records regulations: The Federal rules restrict any use of the information to criminally investigate or prosecute any alcohol or drug abuse patient.[facility] the event this information is protected by the Federal Confidentiality of Alcohol and Drug Abuse Patient Records regulations: The Federal rules restrict any use of the information to criminally investigate or prosecute any alcohol or drug abuse patient.[facility] the event this information is protected by the Federal Confidentiality of Alcohol and Drug Abuse Patient Records regulations: The Federal rules restrict any use of the information to criminally investigate or prosecute any alcohol or drug abuse patient.[facility] Center[facility] the event this information is protected by the Federal Confidentiality of Alcohol and Drug Abuse Patient Records regulations: The Federal rules restrict any use of the information to criminally investigate or prosecute any alcohol or drug abuse patient.[facility] the event this information is protected by the Federal Confidentiality of Alcohol and Drug Abuse Patient Records regulations: The Federal rules restrict any use of the information to criminally investigate or prosecute any alcohol or drug abuse patient.[facility] the event this information is protected by the Federal Confidentiality of Alcohol and Drug Abuse Patient Records regulations: The Federal rules restrict any use of the information to criminally investigate or prosecute any alcohol or drug abuse patient.[facility] the event this information is protected by the Federal Confidentiality of Alcohol and Drug Abuse Patient Records regulations: The Federal rules restrict any use of the information to criminally investigate or prosecute any alcohol or drug abuse patient.[facility] the event this information is protected by the Federal Confidentiality of Alcohol and Drug Abuse Patient Records regulations: The Federal rules restrict any use of the information to criminally investigate or prosecute any alcohol or drug abuse patient.[facility] the event this information is protected by the Federal Confidentiality of Alcohol and Drug Abuse Patient Records regulations: The Federal rules restrict any use of the information to criminally investigate or prosecute any alcohol or drug abuse patient.[facility] Center[facility] the event this information is protected by the Federal Confidentiality of Alcohol and Drug Abuse Patient Records regulations: The Federal rules restrict any use of the information to criminally investigate or prosecute any alcohol or drug abuse patient.[facility] CenterIn the event this information is protected by the Federal Confidentiality of Alcohol and Drug Abuse Patient Records regulations: The Federal rules restrict any use of the information to criminally investigate or prosecute any alcohol or drug abuse patient.[facility] the event this information is protected by the Federal Confidentiality of Alcohol and Drug Abuse Patient Records regulations: The Federal rules restrict any use of the information to criminally investigate or prosecute any alcohol or drug abuse patient.[facility] the event this information is protected by the Federal Confidentiality of Alcohol and Drug Abuse Patient Records regulations: The Federal rules restrict any use of the information to criminally investigate or prosecute any alcohol or drug abuse patient.[facility] CenterIn the event this information is protected by the Federal Confidentiality of Alcohol and Drug Abuse Patient Records regulations: The Federal rules restrict any use of the information to criminally investigate or prosecute any alcohol or drug abuse patient.[facility] CenterIn the event this information is protected by the Federal Confidentiality of Alcohol and Drug Abuse Patient Records regulations: The Federal rules restrict any use of the information to criminally investigate or prosecute any alcohol or drug abuse patient.[facility] CenterIn the event this information is protected by the Federal Confidentiality of Alcohol and Drug Abuse Patient Records regulations: The Federal rules restrict any use of the information to criminally investigate or prosecute any alcohol or drug abuse patient.[facility] CenterIn the event this information is protected by the Federal Confidentiality of Alcohol and Drug Abuse Patient Records regulations: The Federal rules restrict any use of the information to criminally investigate or prosecute any alcohol or drug abuse patient.[facility] CenterIn the event this information is protected by the Federal Confidentiality of Alcohol and Drug Abuse Patient Records regulations: The Federal rules restrict any use of the information to criminally investigate or prosecute any alcohol or drug abuse patient.[facility] CenterIn the event this information is protected by the Federal Confidentiality of Alcohol and Drug Abuse Patient Records regulations: The Federal rules restrict any use of the information to criminally investigate or prosecute any alcohol or drug abuse patient.[facility] CenterIn the event this information is protected by the Federal Confidentiality of Alcohol and Drug Abuse Patient Records regulations: The Federal rules restrict any use of the information to criminally investigate or prosecute any alcohol or drug abuse patient.[facility] CenterIn the event this information is protected by the Federal Confidentiality of Alcohol and Drug Abuse Patient Records regulations: The Federal rules restrict any use of the information to criminally investigate or prosecute any alcohol or drug abuse patient.[facility] CenterIn the event this information is protected by the Federal Confidentiality of Alcohol and Drug Abuse Patient Records regulations: The Federal rules restrict any use of the information to criminally investigate or prosecute any alcohol or drug abuse patient.[facility] CenterIn the event this information is protected by the Federal Confidentiality of Alcohol and Drug Abuse Patient Records regulations: The Federal rules restrict any use of the information to criminally investigate or prosecute any alcohol or drug abuse patient.[facility] CenterIn the event this information is protected by the Federal Confidentiality of Alcohol and Drug Abuse Patient Records regulations: The Federal rules restrict any use of the information to criminally investigate or prosecute any alcohol or drug abuse patient.[facility] CenterIn the event this information is protected by the Federal Confidentiality of Alcohol and Drug Abuse Patient Records regulations: The Federal rules restrict any use of the information to criminally investigate or prosecute any alcohol or drug abuse patient.[facility] CenterIn the event this information is protected by the Federal Confidentiality of Alcohol and Drug Abuse Patient Records regulations: The Federal rules restrict any use of the information to criminally investigate or prosecute any alcohol or drug abuse patient.[facility] CenterIn the event this information is protected by the Federal Confidentiality of Alcohol and Drug Abuse Patient Records regulations: The Federal rules restrict any use of the information to criminally investigate or prosecute any alcohol or drug abuse patient.[facility] CenterIn the event this information is protected by the Federal Confidentiality of Alcohol and Drug Abuse Patient Records regulations: The Federal rules restrict any use of the information to criminally investigate or prosecute any alcohol or drug abuse patient.[facility] CenterIn the event this information is protected by the Federal Confidentiality of Alcohol and Drug Abuse Patient Records regulations: The Federal rules restrict any use of the information to criminally investigate or prosecute any alcohol or drug abuse patient.[facility] CenterIn the event this information is protected by the Federal Confidentiality of Alcohol and Drug Abuse Patient Records regulations: The Federal rules restrict any use of the information to criminally investigate or prosecute any alcohol or drug abuse patient.[facility] CenterIn the event this information is protected by the Federal Confidentiality of Alcohol and Drug Abuse Patient Records regulations: The Federal rules restrict any use of the information to criminally investigate or prosecute any alcohol or drug abuse patient.[facility] CenterIn the event this information is protected by the Federal Confidentiality of Alcohol and Drug Abuse Patient Records regulations: The Federal rules restrict any use of the information to criminally investigate or prosecute any alcohol or drug abuse patient.[facility] CenterIn the event this information is protected by the Federal Confidentiality of Alcohol and Drug Abuse Patient Records regulations: The Federal rules restrict any use of the information to criminally investigate or prosecute any alcohol or drug abuse patient.[facility] CenterIn the event this information is protected by the Federal Confidentiality of Alcohol and Drug Abuse Patient Records regulations: The Federal rules restrict any use of the information to criminally investigate or prosecute any alcohol or drug abuse patient.[facility] CenterIn the event this information is protected by the Federal Confidentiality of Alcohol and Drug Abuse Patient Records regulations: The Federal rules restrict any use of the information to criminally investigate or prosecute any alcohol or drug abuse patient.[facility] CenterIn the event this information is protected by the Federal Confidentiality of Alcohol and Drug Abuse Patient Records regulations: The Federal rules restrict any use of the information to criminally investigate or prosecute any alcohol or drug abuse patient.[facility] CenterIn the event this information is protected by the Federal Confidentiality of Alcohol and Drug Abuse Patient Records regulations: The Federal rules restrict any use of the information to criminally investigate or prosecute any alcohol or drug abuse patient.[facility] CenterIn the event this information is protected by the Federal Confidentiality of Alcohol and Drug Abuse Patient Records regulations: The Federal rules restrict any use of the information to criminally investigate or prosecute any alcohol or drug abuse patient.[facility] CenterIn the event this information is protected by the Federal Confidentiality of Alcohol and Drug Abuse Patient Records regulations: The Federal rules restrict any use of the information to criminally investigate or prosecute any alcohol or drug abuse patient.[facility] CenterIn the event this information is protected by the Federal Confidentiality of Alcohol and Drug Abuse Patient Records regulations: The Federal rules restrict any use of the information to criminally investigate or prosecute any alcohol or drug abuse patient.[facility] CenterIn the event this information is protected by the Federal Confidentiality of Alcohol and Drug Abuse Patient Records regulations: The Federal rules restrict any use of the information to criminally investigate or prosecute any alcohol or drug abuse patient.[facility] CenterIn the event this information is protected by the Federal Confidentiality of Alcohol and Drug Abuse Patient Records regulations: The Federal rules restrict any use of the information to criminally investigate or prosecute any alcohol or drug abuse patient.[facility] CenterIn the event this information is protected by the Federal Confidentiality of Alcohol and Drug Abuse Patient Records regulations: The Federal rules restrict any use of the information to criminally investigate or prosecute any alcohol or drug abuse patient.[facility] CenterIn the event this information is protected by the Federal Confidentiality of Alcohol and Drug Abuse Patient Records regulations: The Federal rules restrict any use of the information to criminally investigate or prosecute any alcohol or drug abuse patient.[facility] CenterIn the event this information is protected by the Federal Confidentiality of Alcohol and Drug Abuse Patient Records regulations: The Federal rules restrict any use of the information to criminally investigate or prosecute any alcohol or drug abuse patient.[facility] CenterIn the event this information is protected by the Federal Confidentiality of Alcohol and Drug Abuse Patient Records regulations: The Federal rules restrict any use of the information to criminally investigate or prosecute any alcohol or drug abuse patient.[facility] CenterIn the event this information is protected by the Federal Confidentiality of Alcohol and Drug Abuse Patient Records regulations: The Federal rules restrict any use of the information to criminally investigate or prosecute any alcohol or drug abuse patient.[facility] CenterIn the event this information is protected by the Federal Confidentiality of Alcohol and Drug Abuse Patient Records regulations: The Federal rules restrict any use of the information to criminally investigate or prosecute any alcohol or drug abuse patient.[facility] CenterIn the event this information is protected by the Federal Confidentiality of Alcohol and Drug Abuse Patient Records regulations: The Federal rules restrict any use of the information to criminally investigate or prosecute any alcohol or drug abuse patient.[facility] CenterIn the event this information is protected by the Federal Confidentiality of Alcohol and Drug Abuse Patient Records regulations: The Federal rules restrict any use of the information to criminally investigate or prosecute any alcohol or drug abuse patient.[facility] CenterIn the event this information is protected by the Federal Confidentiality of Alcohol and Drug Abuse Patient Records regulations: The Federal rules restrict any use of the information to criminally investigate or prosecute any alcohol or drug abuse patient.[facility] CenterIn the event this information is protected by the Federal Confidentiality of Alcohol and Drug Abuse Patient Records regulations: The Federal rules restrict any use of the information to criminally investigate or prosecute any alcohol or drug abuse patient.[facility] CenterIn the event this information is protected by the Federal Confidentiality of Alcohol and Drug Abuse Patient Records regulations: The Federal rules restrict any use of the information to criminally investigate or prosecute any alcohol or drug abuse patient.[facility] CenterIn the event this information is protected by the Federal Confidentiality of Alcohol and Drug Abuse Patient Records regulations: The Federal rules restrict any use of the information to criminally investigate or prosecute any alcohol or drug abuse patient.[facility] CenterIn the event this information is protected by the Federal Confidentiality of Alcohol and Drug Abuse Patient Records regulations: The Federal rules restrict any use of the information to criminally investigate or prosecute any alcohol or drug abuse patient.[facility] CenterIn the event this information is protected by the Federal Confidentiality of Alcohol and Drug Abuse Patient Records regulations: The Federal rules restrict any use of the information to criminally investigate or prosecute any alcohol or drug abuse patient.[facility] CenterIn the event this information is protected by the Federal Confidentiality of Alcohol and Drug Abuse Patient Records regulations: The Federal rules restrict any use of the information to criminally investigate or prosecute any alcohol or drug abuse patient.[facility] Reason for Visit (unrecogniz ed section and content) Reason Onset Date Comments Refill Request 06/18/2021 Reason Comments Follow Up 1 year Reason Onset Date Comments Refill Request 12/06/2021 Reason Comments Mammogram Order Reason Comments Yearly Exam Reason Comments Post Menopausal Bleeding Reason Comments Endometrial Biopsy Reason Comments Medical Clearance For surgery Reason Comments Results Reason Comments upcoming surgery Reason Comments Patient Update Reason Comments Anticoagulation Reason Comments Orders protime Reason Comments ER F/U [facility] 04/03 for DVT Reason Onset Date Comments Anticoagulation 04/13/2022 Reason Onset Date Comments Refill Request 04/18/2022 Reason Onset Date Comments Refill Request 04/28/2022 Reason Comments Follow Up DVT -Today's INR 2.0 and recheck 2 weeks cont same regimen. Reason Onset Date Comments Refill Request 06/02/2022 Reason Comments F/U 3 Month PE and DVT Reason Comments Bleeding/Bruising Petechiae noted to b ilateral legs today around the knees, more so on the right knee area Reason Comments Follow Up Reason Comments Results Reason Comments Patient Question Reason Comments Pre-Op Exam 12/23/22 - R knee pa rtial vs TKA at [facility] Reason Comments Radiology US Specialty Diagnoses / Procedures Referred By Contac t Referred To Contact US IMAGING Diagnoses PMB (postmenopausal bleeding) Procedures US FEMALE PELVIS TRANSVAG US TRANSVAGINAL Melanie Zamora, TEJINDER.MOTION DESIGNER [address] [place] [address] Us Imaging [place] [id number] Referral ID Status Reason Start Date Expiration Date V isits Requested Visits Authorized [id number] Closed Auto-Generated Referral Patient Cleared - INN Insurance Found 03/15/2022 04/14/2023 [address] Specialty Diagnoses / Procedures Referred By Contac t Referred To Contact CT IMAGING Diagnoses Lung nodules Procedures CT CHEST WO IVCON DIAGNOSTIC COMPUTED TOMOGRAPHY THORAX W/O Abhinav Goldman MD [address] [place] [address] [id number] Referral ID Status Reason Start Date Expiration Date V isits Requested Visits Authorized [id number] Closed Auto-Generate d Referral 09/20/2022 10/20/2023 1 1 Reason Comments Medical Clearance Reason Onset Date Comments Refill Request 06/26/2023 Reason Onset Date Comments Refill Request 12/21/2023 Reason Comments Pre-Op Exam Reason Comments Patient Question Reason Comments Radiology CT Specialty Diagnoses / Procedures Referred By Contamanda t Referred To Contact CT IMAGING Diagnoses Lung nodules Procedures CT CHEST WO IVCON DIAGNOSTIC COMPUTED TOMOGRAPHY THORAX W/O Lilian Aviles, TEJINDER.MOTION DESIGNER [address] [place] [address] Phone: tel: fax: [id number] Referral ID Status Reason Start Date Expiration Date V isits Requested Visits Authorized [id number] Closed Auto-Generate d Referral 04/15/2024 05/15/2025 1 1 Reason Comments Follow Up Reason Onset Date Comments Refill Request 06/24/2024 Reason Comments lump on jaw X 6 days Reason Comments New Patient Parotid mass Reason Comments Consult Reason Comments Request Outside Medical Records Reason Comments Urinary Symptoms Reason Comments Urinary Frequency urinary frequency an d pelvic pain Reason Comments fax Urology referral to Dr Song Reason Comments Follow Up POST OP Care Teams (unrecognized sec tion and content) Fountain Brush Assembler Relationship Specialty Start Date End Date Abhinav Bolden MD [address] [place] [id number] PCP - General Family Practice 09/16/20 Fountain Brush Assembler Relationship Specialty Start Date End Date Abhinav Bolden MD [address] [place] [id number] PCP - General Family Medicine 09/16/20 Fountain Brush Assembler Relationship Specialty Start Date End Date Abhinav Bolden MD [address] [place] [address] PCP - General Family Medicine 09/16/20 Fountain Brush Assembler Relationship Specialty Start Date End Date Abhinav Bolden MD [address] [place] [id number] PCP - General Family Medicine 09/16/20 Fountain Brush Assembler Relationship Specialty Start Date End Date Abhinav Bolden MD [address] [place] [address] PCP - General Family Medicine 09/16/20 Fountain Brush Assembler Relationship Specialty Start Date End Date Abhinav Bolden MD [address] [place], [place] [id number] PCP - General Family Medicine 09/16/20 Fountain Brush Assembler Relationship Specialty Start Date End Date Abhinav Bolden MD [address] [place] [address] PCP - General Family Medicine 09/16/20 Team Status: Active Member Role Status Dates Dr. Shiraz Mccauley III, MD Family Provider Active Dr. Abel Bolden MD Primary Care Provider Acti ve Team Status: Inactive Member Role Status Dates Dr. Abel Bolden MD Primary Care Provider Acti ve Dr. Beverley Jorgensen MD Attending Provider Active Team Status: Inactive Member Role Status Dates Dr. Abel Bolden MD Primary Care Provider Acti ve Dr. Paulina Ramirez MD Other Provider Active Dr. Beverley Jorgensen MD Attending Provider, Referring Provider Active Fountain Brush Assembler Relationship Specialty Start Date End Date Abhinav Bolden MD [address] [place] [address] PCP - General Family Medicine 09/16/20 Fountain Brush Assembler Relationship Specialty Start Date End Date Abhinav Bolden MD [address] [place] [address] PCP - General Family Medicine 09/16/20 Fountain Brush Assembler Relationship Specialty Start Date End Date Bolivar Pedroza MD PCP - General 12/18/08 03/06/12 Shiraz Mccauley III, MD PCP - General Family Medicine 03/07/12 09/15/20 Abhinav Bolden MD [address] [place] [address] PCP - General Family Medicine 09/16/20 Fountain Brush Assembler Relationship Specialty Start Date End Date Abhinav Bolden MD [address] [facility] [place], [place] [id number] PCP - General Family Medicine 09/16/20 Fountain Brush Assembler Relationship Specialty Start Date End Date Shiraz Mccauley III, MD PCP - General Family Medicine 03/07/12 09/15/20 Abhinav Bolden MD [address] [facility] [place], [place] [id number] PCP - General Family Medicine 09/16/20 Fountain Brush Assembler Relationship Specialty Start Date End Date Abhinav Bolden MD [address] [facility] [place], [place] [id number] PCP - General Family Medicine 09/16/20 Team Status: Active Member Role Status Dates Dr. Abel Bolden MD Primary Care Provider Acti ve Dr. Zeke Palomino MD Attending Provider Active Team Status: Active Member Role Status Dates Dr. Abel Bolden MD Primary Care Provider Acti ve Dr. Jose Juan Garcia MD Attending Provider Active Team Status: Inactive Member Role Status Dates Dr. Abel Bolden MD Primary Care Provider Acti ve Dr. Vikki Aly MD Emergency Provider Active Team Status: Active Member Role Status Dates Dr. Abel Bolden MD Primary Care Provider Acti ve Dr. Vikki Aly MD Attending Provider Active Team Status: Inactive Member Role Status Dates Dr. Abel Bolden MD Primary Care Provider Acti ve Dr. Yovani Arellano DO Emergency Provider Active Fountain Brush Assembler Relationship Specialty Start Date End Date Abhinav Bolden MD [address] [facility] [place], [place] [id number] PCP - General Family Medicine 09/16/20 Team Status: Inactive Member Role Status Dates Dr. Abel Bolden MD Primary Care Provider Acti ve Dr. Jose Juan Garcia MD Attending Provider Active Team Status: Inactive Member Role Status Dates Dr. Abel Bolden MD Primary Care Provider Acti ve Dr. Vikki Aly MD Attending Provider Active Fountain Brush Assembler Relationship Specialty Start Date End Date Abhinav Bolden MD [address] [facility] [place] [address] PCP - General Family Medicine 09/16/20 Fountain Brush Assembler Relationship Specialty Start Date End Date Abhinav Bolden MD [address] [facility] [place] [address] PCP - General Family Medicine 09/16/20 Fountain Brush Assembler Relationship Specialty Start Date End Date Abhinav Bolden MD [address] [facility] [place] [address] PCP - General Family Medicine 09/16/20 Fountain Brush Assembler Relationship Specialty Start Date End Date Abhinav Bolden MD [address] [facility] [place] [address] PCP - General Family Medicine 09/16/20 Fountain Brush Assembler Relationship Specialty Start Date End Date Abhinav Bolden MD [address] [facility] [place] [address] PCP - General Family Medicine 09/16/20 Fountain Brush Assembler Relationship Specialty Start Date End Date Abhinav Bolden MD [address] [facility] [place] [address] PCP - General Family Medicine 09/16/20 Fountain Brush Assembler Relationship Specialty Start Date End Date Abhinav Bolden MD [address] [facility] [place] [address] PCP - General Family Medicine 09/16/20 Fountain Brush Assembler Relationship Specialty Start Date End Date Abhinav Bolden MD [address] [facility] [place] [address] PCP - General Family Medicine 09/16/20 Fountain Brush Assembler Relationship Specialty Start Date End Date Abhinav Bolden MD [address] [place] [address] PCP - General Family Medicine 09/16/20 Fountain Brush Assembler Relationship Specialty Start Date End Date Abhinav Bolden MD [address] [place] [address] PCP - General Family Medicine 09/16/20 Team Status: Inactive Member Role Status Dates Dr. Abel Bolden MD Primary Care Provider Acti Dr. Jose Juan Garcia MD Attending Provider, Referring Asaf koenig Active Fountain Brush Assembler Relationship Specialty Start Date End Date Abhinav Bolden MD [address] [place] [address] PCP - General Family Medicine 09/16/20 Fountain Brush Assembler Relationship Specialty Start Date End Date Abhinav Bolden MD [address] [place] [address] PCP - General Family Medicine 09/16/20 Fountain Brush Assembler Relationship Specialty Start Date End Date Abhinav Bolden MD [address] [place] [address] PCP - General Family Medicine 09/16/20 Fountain Brush Assembler Relationship Specialty Start Date End Date Abhinav Bolden MD [address] [place] [address] PCP - General Family Medicine 09/16/20 Fountain Brush Assembler Relationship Specialty Start Date End Date Abhinav Bolden MD [address] [place] [address] PCP - General Family Medicine 09/16/20 Fountain Brush Assembler Relationship Specialty Start Date End Date Abhinav Bolden MD [address] [facility] [place] [address] PCP - General Family Medicine 09/16/20 Team Status: Inactive Member Role Status Dates Dr. Abel Bolden MD Primary Care Provider Acti Dr. Beverley Jorgensen MD Attending Provider, Referring Provider Active Fountain Brush Assembler Relationship Specialty Start Date End Date Abhinav Bolden MD [address] [place] [address] PCP - General Family Medicine 09/16/20 Podlogar, Meli, BINDERY MACHINE SETTER.MOTION DESIGNER [address] [place] [address] Insolvency Consultant Family Medicine 02/17/24 Fountain Brush Assembler Relationship Specialty Start Date End Date Abhinav Bolden MD [address] [place] [address] PCP - General Family Medicine 09/16/20 Podlogar, Meli, BINDERY MACHINE SETTER.MOTION DESIGNER [address] [place] [address] Insolvency Consultant Family Medicine 02/17/24 Fountain Brush Assembler Relationship Specialty Start Date End Date Abhinav Bolden MD [address] [place] [address] PCP - General Family Medicine 09/16/20 Podlogar, Meli, BINDERY MACHINE SETTER.MOTION DESIGNER [address] [place] [address] Insolvency Consultant Family Medicine 02/17/24 Fountain Brush Assembler Relationship Specialty Start Date End Date Abhinav Bolden MD [address] [place] [address] PCP - General Family Medicine 09/16/20 Podlogar, Meli, BINDERY MACHINE SETTER.MOTION DESIGNER [address] [place], [place] [address] Insolvency Consultant Family Medicine 02/17/24 Fountain Brush Assembler Relationship Specialty Start Date End Date Abhinav Bolden MD [address] [place], [place] [id number] PCP - General Family Medicine 09/16/20 Podlogar, Meli, BINDERY MACHINE SETTER.MOTION DESIGNER [address] [place] [address] [facility] 02/17/24 Fountain Brush Assembler Relationship Specialty Start Date End Date Abhinav Bolden MD [address] [place] [address] PCP - General Family Medicine 09/16/20 Podlogar, Meli, BINDERY MACHINE SETTER.MOTION DESIGNER [address] [place] [address] Insolvency Consultant Family Medicine 02/17/24 Tony Giron BINDERY MACHINE SETTER.MOTION DESIGNER [address] [place], [place] [id number] [facility] 06/03/24 Fountain Brush Assembler Relationship Specialty Start Date End Date Abhinav Bolden MD [address] [place], [place] [id number] PCP - General Family Medicine 09/16/20 Podlogar, Meli, BINDERY MACHINE SETTER.MOTION DESIGNER [address] [place] [address] Insolvency Consultant Family Medicine 02/17/24 Tony Giron APRN.MOTION DESIGNER [address] [place] [address] [facility] Medicine 06/03/24 Fountain Brush Assembler Relationship Specialty Start Date End Date Abhinav Bolden MD [address] [facility] [place] [address] PCP - General Family Medicine 09/16/20 PodlogarMeli BINDERY MACHINE SETTER.MOTION DESIGNER [address] [place] [address] [facility] 02/17/24 Tony Giron APRN.MOTION DESIGNER [address] [place] [address] [facility] Medicine 06/03/24 Fountain Brush Assembler Relationship Specialty Start Date End Date Abhinav Bolden MD [address] [place] [address] PCP - General Family Medicine 09/16/20 PodlogarMeli BINDERY MACHINE SETTER.MOTION DESIGNER [address] [place] [address] [facility] Family Medicine 02/17/24 Tony Giron BINDERY MACHINE SETTER.MOTION DESIGNER [address] [place] [address] [facility] Medicine 06/03/24 Fountain Brush Assembler Relationship Specialty Start Date End Date Abhinav Bolden MD [address] [facility] [place] [address] PCP - General Family Medicine 09/16/20 PodlogarMeli APRN.MOTION DESIGNER [address] [facility] [place] [address] Insolvency Consultant Family Medicine 02/17/24 Tony Giron APRN.MOTION DESIGNER [address] [place] [address] Insolvency Consultant Family Medicine 06/03/24 Fountain Brush Assembler Relationship Specialty Start Date End Date Abhinav Bolden MD [address] [facility] [place] [address] PCP - General Family Medicine 09/16/20 PodlogarMeli APRN.MOTION DESIGNER [address] [place] [address] Insolvency Consultant Family Medicine 02/17/24 Tony Giron APRN.MOTION DESIGNER [address] [place] [address] Insolvency Consultant Family Medicine 08/22/24 Fountain Brush Assembler Relationship Specialty Start Date End Date Abhinav Bolden MD [address] [place] [address] PCP - General Family Medicine 09/16/20 PodlogarMeli APRN.MOTION DESIGNER [address] [facility] [place] [address] Insolvency Consultant Family Medicine 02/17/24 Tony Giron APRN.MOTION DESIGNER [address] [facility] [place] [address] Insolvency Consultant Family Medicine 08/22/24 Fountain Brush Assembler Relationship Specialty Start Date End Date Abhinav Bolden MD [address] [place] [address] PCP - General Family Medicine 09/16/20 PodlogarMeli APRN.MOTION DESIGNER [address] [place] [address] Insolvency Consultant Family Medicine 02/17/24 Tony Giron APRN.MOTION DESIGNER [address] [place] [address] Insolvency Consultant Family Medicine 08/22/24 Fountain Brush Assembler Relationship Specialty Start Date End Date Abhinav Bolden MD [address] [place] [address] PCP - General Family Medicine 09/16/20 PodlogarMeli APRN.MOTION DESIGNER [address] [place] [address] Insolvency Consultant Family Medicine 02/17/24 Tony Giron APRN.MOTION DESIGNER [address] [place] [address] [facility] 08/22/24 Fountain Brush Assembler Relationship Specialty Start Date End Date Abhinav Bolden MD [address] [place] [address] PCP - General Family Medicine 09/16/20 PodlogarMeli APRN.MOTION DESIGNER [address] [place] [address] Insolvency Consultant Family Medicine 02/17/24 Tony Giron APRN.MOTION DESIGNER [address] [place] [address] Insolvency Consultant Family [facility] 08/22/24 Christopher Puentes [address] [place] [phone] Referring Ent - Otolaryngology 09/10/24 Fountain Brush Assembler Relationship Specialty Start Date End Date Abhinav Bolden MD [address] [place], [place] [address] PCP - General Family Medicine 09/16/20 PodlogarMeli APRN.MOTION DESIGNER [address] [place], [place] [address] [facility] 02/17/24 Tony Giron APRN.MOTION DESIGNER [address] [place], [place] [address] [facility] 08/22/24 Christopher Puentes [address] [place] [address] Referring Ent - Otolaryngology 09/10/24 Fountain Brush Assembler Relationship Specialty Start Date End Date Abhinav Bolden MD [address] [place], [place] [address] PCP - General Family Medicine 09/16/20 PodlogarMeli, BINDERY MACHINE SETTER.MOTION DESIGNER [address] [place], [place] [address] [facility] Family Medicine 02/17/24 Tony Giron APRN.MOTION DESIGNER [address] [place], [place] [id number] Insolvency Consultant Family Medicine 08/22/24 Christopher Puentes [address] [place] [phone] Referring Ent - Otolaryngology 09/10/24 Fountain Brush Assembler Relationship Specialty Start Date End Date Abhinav Bolden MD [address] [place], [place] [address] [phone] PCP - General Family Medicine 09/16/20 PodlogarMeli BINDERY MACHINE SETTER.MOTION DESIGNER [address] [place], [place] [address] [phone] [facility] 02/17/24 Tony Giron APRN.MOTION DESIGNER [address] [place] [address] [facility] 08/22/24 Christopher Puentes [address] [place] [phone] Referring Ent - Otolaryngology 09/10/24 Fountain Brush Assembler Relationship Specialty Start Date End Date Abhinav Bolden MD [address] [place] [address] PCP - General Family Medicine 09/16/20 PodlogarMeli BINDERY MACHINE SETTER.MOTION DESIGNER [address] [place] [address] [facility] Medicine 02/17/24 Tony Giron APRN.MOTION DESIGNER [address] [place] [address] [facility] Family [facility] 08/22/24 Christopher Puentes [address] [place] [phone] Referring Ent - Otolaryngology 09/10/24 Fountain Brush Assembler Relationship Specialty Start Date End Date Abhinav Bolden MD [address] [place], [place] [id number] PCP - General Family Medicine 09/16/20 Meli Reyna APRN.MOTION DESIGNER [address] [place], [place] [address] Insolvency Consultant Family [facility] 02/17/24 Tony Giron APRN.MOTION DESIGNER [address] [place], [place] [id number] Insolvency Consultant Family [facility] 08/22/24 Christopher Puentes [address] [place] [phone] Referring Ent - Otolaryngology 09/10/24 Team Status: Active Member Role/Relationship Status Dates Dr. Shiraz Mccauley III, MD Family Provider Active Dr. Abel Bolden MD Primary Care Provider Acti ve Team Status: Inactive Member Role/Relationship Status Dates Dr. Abel Bolden MD Primary Care Provider Acti ve Start: November 04, 2024 End: November 04, 2024 Dr. William Song MD Attending Provider Active Start: November 04, 2024 End: November 04, 2024 Dr. William Song MD Referring Provider Active Start: November 04, 2024 End: November 04, 2024 Goals (unrecognized section and content) Goals may be documented in a n alternate sectionGoals may be documented in an alternate sectionGoals may be documented in an alternate sectionGoals may be documented in an alternate section INFORMATION SOURCE (unrecogn ized section and content) DATE CREATED AUTHOR 09/03/2024 [facility] DATE CREATED AUTHOR AUTHOR'S ORGANIZ ATION 01/01/2025 [facility] DATE CREATED AUTHOR AUTHOR'S ORGANIZ ATION 01/23/2025 [facility] FOR RECORDS PERTAINING TO PATIENTS WHO ARE OR HAVE BEEN ENROLLED IN A CHEMICAL DEPENDENCY/SUBSTANCEABUSE PROGRAM, SOME INFORMATION MAY BE OMITTED. This clinical summary was aggregated from multiple sources. Caution should be exercised in using it in the provision of clinical care. This summary normalizes information from multiple sources, and as a consequence, information in this document may materially change the coding, format and clinical context of patient data. In addition, data may be omitted in some cases. CLINICAL DECISIONS SHOULD BE BASED ON THE PRIMARY CLINICAL RECORDS. [facility] [employer] provides no warranty or guarantee of the accuracy or completeness of information in this document.
[2025-02-20] MEDS: Lactated Ringers 1,000 ML 15 ML IV (06:52)
--- NOTE | 2025-02-20 07:04 | PCM.PRE.AN2 ---
ASA Classification* ASA Classification ASA Classification: 2 Assessment & Plan Anesthesia* Anesthesia Assessment Anesthesia Assessment: Discussed sedation and/or anesthesia options, risks, benefits, and alternatives with patient/parents/legal guardian/POA. Questions invited. The patient/parents/legal guardian/POA seems to understand and agrees to proceed with anesthesia plan. Reviewed the physical assessment, medical history, allergy history and patient home medications list prior to surgery/procedure/anesthetic and documented any changes. Performed airway and anesthesia risk assessments. Anesthesia Type Anesthesia Type: MAC History Source History Obtained from:: Patient and Chart Anesthesia Focused Assessment* Temperature: 97.3 F Pulse Rate: 80 Blood Pressure: 122/72 Respiratory Rate: 16 Pulse Ox: 99 Oxygen Delivery Method: Room Air Airway Assessment Mouth opens: >3 cm Mallampati Score: II Teeth Condition: Intact Neck Range of motion (ROM): Limited ROM (Slight Decrease) Labs Anesthesia Preop lab: CBC WBC, (4.4-11.0) 6.5 K/mm3 03/27/24, 09:05 RBC, (4.2-5.4) 4.98 M/mm3 03/27/24, 09:05 Hgb, (12.0-15.0) 14.6 g/dL 03/27/24, 09:05 Hct, (37-47) 44.6 % 03/27/24, 09:05 Plt Count, (150-450) 219 K/mm3 03/27/24, 09:05 CHEMISTRY Potassium, (3.5-5.1) 4.3 mmol/L 03/27/24, 09:05 Sodium, (136-145) 140 mmol/L 03/27/24, 09:05 Phosphorus, (2.5-4.9) 3.1 mg/dL 11/29/12, 09:25 BUN, (7-18) 19 mg/dL H 03/27/24, 09:05 Creatinine, (0.55-1.02) 0.79 mg/dL 03/27/24, 09:05 Glucose, (74-106) 100 mg/dL 03/27/24, 09:05 POC Glucose, (70-110) 80 mg/dL 02/21/19, 11:53 COAG PT, (11.7-14.9) 19.5 SECONDS H 04/20/22, 20:45 Pre-Assessment Diagnosis/Proposed Procedure Planned Operative Procedure(s): COLONOSCOPY Anesthesia History 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 02/18/25 15:39 Cholinesterase deficiency No 02/18/25 15:39 You/Your Family Experience No 02/18/25 15:39 fever (hyperthermia) with Relationship Recent Exposure to Contagious No 02/20/25 06:44 Disease Does patient have nerve No 02/18/25 15:39 stimulator Patient instructed to have device shut off --Does patient have Pacemaker No 02/20/25 06:44 or ICD? When Was Last Pacemaker Check QUESTION #4 FULL TEXT: You/Your Family Experience fever (hyperthermia) with Anesthesia Last Oral Intake Last Oral intake: Last Oral Intake NPO since 03:45 02/20/25 06:44 Meds taken in AM with sips of No 02/20/25 06:44 water? Meds patient instructed to take am of surgery Any additional information?: Yes NPO since: 03:45 (Patient finished her prep at 3:45 AM.) Meds taken in AM with sips of water?: Yes Meds patient instructed to take am of surgery: Clindamycin preop prophylaxis. PONV PONV - electric engine mechanic: PONV - electric engine mechanic Female Yes 02/18/25 15:39 HX of Motion Sickness No 02/18/25 15:39 HX of N/V After Surgery No 02/18/25 15:39 Non-Smoker Yes 02/18/25 15:39 Duration of Surgery greater No 02/18/25 15:39 than 60 minutes Number of Risk Factors 2 02/18/25 15:39 PONV Score Moderate Risk 02/18/25 15:39 Height & Weight Height & Weight: Anesthesia: Height & Weight Height 5 ft 2 in 02/20/25 06:44 Weight: 77 kg 02/20/25 06:44 Body Mass Index (BMI) 31.0 02/20/25 06:44 Respiratory Assessment Respiratory Assessment - electric engine mechanic: Respiratory Tract Infection Hx - electric engine mechanic Hx Respiratory Tract Infection No 02/18/25 15:39 STOP Sleep Apnea STOP Sleep Apnea - electric engine mechanic: STOP Sleep Apnea - electric engine mechanic Hx Hypertension No 02/18/25 15:39 Hx Sleep Apnea No 02/18/25 15:39 CPAP BIPAP Do you snore loudly (louder No 02/18/25 15:39 than talking or can be heard Do you often feel tired/ No 02/18/25 15:39 fatigued/ sleepy during daytime? Has anyone observed you stop No 02/18/25 15:39 breathing during sleep? STOP Results Negative 02/18/25 15:39 QUESTION #5 FULL TEXT : Do you snore loudly (louder than talking or can be heard through closed doors)? 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 Specify any problems Hx of Preganancy in last 3 No 02/18/25 15:39 Months Nurse Filling Out Transfusion [id number] 02/18/25 15:39 & Questions: Date: 02/18/25 02/18/25 15:39 Time: 15:43 02/18/25 15:39 Patient unable to answer at this time (ie. confused, unrespo /Reproduction History /Reproductive History - electric engine mechanic: /Reproductive Hx- electric engine mechanic Hx Now Gestational Age (in weeks): EDC: Hx Hx Para Hx Section SAB No 02/18/25 15:39 Does the father of the baby or his family experience fever w Father of the baby Malignant Hypertension history comment Active Medications Active Medications: Current Medications Generic Name Dose Route Start Last Admin Trade Name Freq PRN Reason Stop Dose Admin Lactated Ringer's 1,000 mls @ 15 mls/hr 02/20/25 06:45 02/20/25 06:52 IV 15 mls/hr .Q48H JONI Administration PFSH Medical History Pulmonary embolism DVT (deep venous thrombosis) Cardiology follow-up encounter Wears glasses Post-menopausal History of steroid therapy Arthritis Bladder disease High cholesterol Chronic constipation Chronic cough Non-smoker Leg cramps History of edema History of pain when walking History of supraventricular tachycardia History of stress test Home Medications ?Medication ?Instructions ?Recorded ?Last Taken ?Type calcium 500 mg (as carbonate)-vit 1 ea PO BID 02/15/19 Unknown History D3 10 mcg (400 unit) chewable tablet acetaminophen 325 mg tablet 325 mg PO Q6H PRN Pain 03/22/22 Unknown History (Tylenol) atorvastatin 20 mg tablet 20 mg PO QHS 03/22/22 Unknown History ipratropium bromide 42 mcg (0.06 2 spray intranasal DAILY PRN 03/22/22 Unknown History %) nasal spray allergy symptoms ascorbic acid (vitamin C) 1,000 mg 1 g PO DAILY 02/18/25 Unknown History tablet (C-1000) clindamycin HCl 300 mg capsule 600 mg PO X1 02/18/25 02/20/25 History (Cleocin HCl) latanoprost 0.005 % eye drops 1 drp ophthalmic (eye) DAILY 02/18/25 Unknown History methenamine hippurate 1 gram tablet 1 g PO BID 02/18/25 Unknown History Allergy/AdvReac Type Severity Reaction Status Date / Time amoxicillin Allergy Rash Verified 02/20/25 06:40 sulfamethoxazole (From Allergy Other Verified 02/20/25 06:40 Bactrim) trimethoprim (From Bactrim) Allergy Other Verified 02/18/25 15:35 Surgical History H/O total hip arthroplasty History of partial knee replacement Hx of colonoscopy History of hysteroscopy Hx of exploratory laparotomy Hx of exploratory laparotomy Hx of tubal ligation Social History Smoking Status: Never smoker Review of Systems (Anesthesia) ROS Narrative System reviewed and no additional complaints, except as documented.
--- NOTE | 2025-02-20 07:30 | COLBX_PTH ---
PATIENT: MEDARDO GASTELUM LOC: EN U#:[id number] AGE/SX: 74/F ROOM: RE02/20/[address]: Dr. Jacob Nickerson MD : 1950 BED: DIS: 02/20/2025 SPEC #: [id number] RECD: 02/20/25 11:50 STATUS: ALEE REWan #: [id number] GONZALO: 02/20/25 07:[address]: Jacob Nickerson DEPT: SURGICAL PATHOLOGY RECD BY: Arik Eisenberg ENTERED: 02/20/25 13:20 SP TYPE: COLON BX OTHR DR: Dr. Abel Bolden MD Tissues: A - Cecum, NOS Procedures: Surgery Specimen Level IV HEADER OPERATION: Colonoscopy, biopsy, electrohemostasis PRE-OP DIAGNOSIS: Screening for colon cancer TISSUE SUBMITTED: A- Cecal mucosa biopsy MICROSCOPIC DIAGNOSIS A. Colon, cecum, biopsy: - Small intestinal mucosa consistent with terminal ileum. - Negative for neoplasia. - No colonic mucosa observed. MICROSCOPIC DESCRIPTION Slides are reviewed. GROSS DESCRIPTION A. Received in fixative is one container labeled with the patient's name and designated Cecal mucosa biopsy. The specimen consists of one irregular fragment of quiñones tissue that measures 0.3 cm. The specimen is totally submitted in one cassette. IN 02/20/2025 CPT:87536
--- NOTE | 2025-02-20 07:38 | H&P.OPEN ---
[facility] - General General Date of Service: 02/20/25 HPI Narrative MEDARDO GASTELUM, is a 74 F who presents for screening colonoscopy. She confirms her preappointment questionnaire that she has not experienced any change in her bowel habits-and particularly denies any notice of blood. She does remark of some cyclical experiences with constipation but this is presently not an issue. She also denies any family history of GI illness to include diverticulitis, inflammatory bowel disease, or colon cancer explicitly. However, she remarks that her daughter does see a sea kayaking guide for an unspecified inflammatory condition of her large bowel. Lastly she confirms that her prep was completed successfully and that her output is now clear. [facility] Medical History Pulmonary embolism DVT (deep venous thrombosis) Cardiology follow-up encounter Wears glasses Post-menopausal History of steroid therapy Arthritis Bladder disease High cholesterol Chronic constipation Chronic cough Non-smoker Leg cramps History of edema History of pain when walking History of supraventricular tachycardia History of stress test Home Medications ?Medication ?Instructions ?Recorded ?Last Taken ?Type calcium 500 mg (as carbonate)-vit 1 ea PO BID 02/15/19 Unknown History D3 10 mcg (400 unit) chewable tablet acetaminophen 325 mg tablet 325 mg PO Q6H PRN Pain 03/22/22 Unknown History (Tylenol) atorvastatin 20 mg tablet 20 mg PO QHS 03/22/22 Unknown History ipratropium bromide 42 mcg (0.06 2 spray intranasal DAILY PRN 03/22/22 Unknown History %) nasal spray allergy symptoms ascorbic acid (vitamin C) 1,000 mg 1 g PO DAILY 02/18/25 Unknown History tablet (C-1000) clindamycin HCl 300 mg capsule 600 mg PO X1 02/18/25 02/20/25 History (Cleocin HCl) latanoprost 0.005 % eye drops 1 drp ophthalmic (eye) DAILY 02/18/25 Unknown History methenamine hippurate 1 gram tablet 1 g PO BID 02/18/25 Unknown History Allergy/AdvReac Type Severity Reaction Status Date / Time amoxicillin Allergy Rash Verified 02/20/25 06:40 sulfamethoxazole (From Allergy Other Verified 02/20/25 06:40 Bactrim) trimethoprim (From Bactrim) Allergy Other Verified 02/18/25 15:35 Surgical History H/O total hip arthroplasty History of partial knee replacement Hx of colonoscopy History of hysteroscopy Hx of exploratory laparotomy Hx of exploratory laparotomy Hx of tubal ligation Social History Smoking Status: Never smoker Past Medical/Surgical History Planned Operation Planned Operative Procedure(s): COLONOSCOPY S.O.S: No Previous Hospitalizations/Surgeries HX Hospitalizations: No HX of Surgeries: tubal ligation 1982 exploratory lap/appy 1986 exp lap 1986 hysteroscopy d&c cscope Any Problems With Anesthesia: No You/Your Family Experience Fever (Hyperthermia) With Anes: No Cholinesterase deficiency: No Cardiovascular Hx Chest Pain within Last 2 months: No Hx of Irregular Heartbeat and/or Afib: No (remote svt 2004/resolved) Hx Heart Attack: No Hx Congestive Heart Failure: No Hx Rheumatic Fever: No Hx Hypertension: No Hx Internal Defibrillator: No Hx Pacemaker: No Hx Cardiac Catheterization: No Hx Cardiac Surgery/Stents/Etc.: No Hx Stress Test: Yes (2004) Hx Pain in Legs when Walking/Leg Cramps: No Respiratory Chronic Cough: No HX of Shortness of Breath: No Hoarseness: No Hx Chronic Obstructive Pulmonary Disease (COPD): No Hx Asthma: No Hx Emphysema: No Hx Sleep Apnea: No Hx Respiratory Tract Infection/Cold (presently): No Do You Snore Loudly (louder than talking or can be heard): No Do You Often Feel Tired/ Fatigued/ Sleepy Dring Daytime?: No Has Anyone Observed You Stop Breathing During Sleep?: No Result (for STOP score): Negative Hx Smoking: No Smoking Status: Never smoker Gastrointestinal Hx Gastrointestinal Disorders: No Hx Gastrointestinal Bleed: No Hx Ulcer: No Hx Hiatal Hernia: No Difficulty Chewing/Swallowing: No Special diet followed at home: No Hx Unplanned Weight Loss of 20#: No HX Unplanned Weight Gain of 20#: No Neurological Hx Seizures: No HX Syncope/Blackout Spells/Unconsciousness: No Hx Transient Ischemic Attacks (TIA): No Hx Multiple Sclerosis: No Hx Parkinson's Disease: No Hx Head/Neck Injury: No Hx Headaches: Yes () Hx Back Injury/Pain: No Recent Onset of Speech Difficulty: No Restless Legs: No Does patient have nerve stimulator: No Blood Disorder Hx Leukemia: No Bleeding Tendencies: No Hx Deep Vein Thrombosis: No Hx High Cholesterol: No Blood Transmitted Disease: No Hx Hepatitis: No Hx Cirrhosis: No Hx Anemia: No Hx Blood Disorders: No Reproduction Is Patient Lactating: No Hx Hysterectomy: No Hx Tubal Ligation: Yes Are You Post Menopause: Yes Genitourinary Hx Renal Disease: No (rectocele/freq urination/urinary retenion after anesthesia) Musculoskeletal Hx Arthritis: Yes (mild) Hx Rheumatoid Arthritis: No Hx Gout: No Recent Onset of an Orthopedic Problem: No Endocrine Hx Diabetes: No Thyroid Disease: No Hx Steroid Therapy: Yes (hip injection for bursitis 12/2018) Psycho/Social Hx Substance Use: No Hx Alcohol Use: No Hx Anxiety: No Hx Depression: No Mental Illness: No Hx Dementia: No Miscellaneous Hx Cancer: No Recent Exposure to Contagious Disease: No Hx of C-Diff: No Any Loose Teeth: No Allergies amoxicillin Allergy (Verified 02/20/25 06:40) Rash sulfamethoxazole (From Bactrim) Allergy (Verified 02/20/25 06:40) Other MOUTH SORES trimethoprim (From Bactrim) Allergy (Verified 02/18/25 15:35) Other MOUTH SORES Discharge After D/C, Where Do you Plan to Go: Return Home From the [facility] History Number of Risk Factors: 1 Vital Signs Vital Signs Vital Signs: 02/20/25 06:44 02/20/25 06:44 02/20/25 06:44 Temperature 97.3 F L Temperature Source Temporal Pulse Rate 80 Respiratory Rate 16 Respiratory Pattern Normal Blood Pressure 122/72 H Blood Pressure Mean 88 Blood Pressure Source Monitor Blood Pressure Position Semi-Fowlers Blood Pressure Location Left Arm Baseline BP 122/72 Pulse Ox 99 Oxygen Delivery Method Room Air 02/20/25 07:12 Temperature 97.3 F L Temperature Source Pulse Rate 80 Respiratory Rate 16 Respiratory Pattern Blood Pressure 122/72 H Blood Pressure Mean Blood Pressure Source Blood Pressure Position Blood Pressure Location Baseline BP Pulse Ox 99 Oxygen Delivery Method Room Air Weight Weight: 169 lb 12.095 oz Body Mass Index (BMI) 31.0 Physical Exam Const alert, oriented x3 and no apparent distress Resp normal respiratory effort GI GI Narrative: Lower midline scar, no visible hernia, nondistended, soft, nontender palpation x 4 quadrants Assessment & Plan Assessment/Plan (1) Screening for colon cancer: PLAN: Patient is 74-year-old female who presents today for updated screening colonoscopy after prior colonoscopy 10 years ago. No history of polyps. Only notable finding was that for diverticulosis. Patient does remark of a interval history with cyclic constipation episodes but is not presently experiencing. She also denies any additional current GI concerns. She confirms prep was completed for today's procedure. Overview of procedure as well as postprocedure reporting of any biopsies was discussed. Neither patient nor her offer any questions. Will proceed to endoscopy suite for planned colonoscopy. Jacob Nickerson MD General Surgery Endocrine Surgery Pager: [facility] [address] [place] [address], [address] [place] [address] Office: [phone] Surgery Risks - Colonoscopy Risks Include but are not Limited To: Risks include but are not limited to: Bleeding, perforation requiring further surgery, inability to complete colonoscopy requiring barium enema.
--- NOTE | 2025-02-20 08:40 | OP.PROVAT_ITS ---
02/20/2025 Abel Bolden Re : Colonoscopy procedure for Yakelin Velasquez Kimi This procedure was performed on February. My impressions and recommendations are as follows: Impressions : - Perianal skin tags found on perianal exam. - Nodular mucosa in the cecum. Biopsied. - The examination was otherwise normal. Recommendations : - Discharge patient to home (via wheelchair). - Resume previous diet today. - No aspirin, ibuprofen, naproxen, or other non-steroidal anti-inflammatory drugs for 2 days after biopsy. - Await pathology results. - Repeat colonoscopy in 1 week for surveillance based on pathology results. - Telephone my office for pathology results in 1 week. My findings are described in the full procedure note, which is enclosed. If I can be of further assistance, please feel free to contact me at Doctor phone number(s): , Work: . Sincerely, Jacob Nickerson MD 02/20/2025 8:39:57 AM This report has been signed electronically.
--- NOTE | 2025-02-20 08:40 | OP.COLON_ITS ---
Patient Name: Yakelin Huynh Procedure Date: 02/20/2025 7:50 AM Date of : 1950 Age: 74 Procedure: Colonoscopy Indications: Screening for colorectal malignant neoplasm Providers: Jacob Nickerson MD Referring MD: Jacob Nickerson MD Medicines: See the Anesthesia note for documentation of the administered medications Patient Profile: Last Colonoscopy: 10 years ago. Complications: No immediate complications. Estimated blood loss: Minimal. Procedure: Pre-Anesthesia Assessment: - The heart rate, respiratory rate, oxygen saturations, blood pressure, adequacy of pulmonary ventilation, and response to care were monitored throughout the procedure. After I obtained informed consent, the scope was passed under direct vision. Throughout the procedure, the patient's blood pressure, pulse, and oxygen saturations were monitored continuously. The adult colonoscope was introduced through the anus and advanced to the cecum, identified by transillumination. The colonoscopy was somewhat difficult due to a redundant colon. Successful completion of the procedure was aided by using manual pressure and straightening and shortening the scope to obtain bowel loop reduction. The patient tolerated the procedure well. The quality of the bowel preparation was adequate to identify polyps. Scope In: 7:53:40 AM Scope Withdrawal Time 0 hours 20 minutes 11 seconds Scope Out: 8:31:56 AM Total Procedure Duration Time 0 hours 38 minutes 16 seconds Findings: Skin tags were found on perianal exam. A localized area of mildly nodular mucosa was found in the cecum. Biopsies were taken with a cold forceps for histology. Estimated blood loss: 3 mL requiring treatment with coagulation. The exam was otherwise without abnormality. Impression: - Perianal skin tags found on perianal exam. - Nodular mucosa in the cecum. Biopsied. - The examination was otherwise normal. Recommendation: - Discharge patient to home (via wheelchair). - Resume previous diet today. - No aspirin, ibuprofen, naproxen, or other non-steroidal anti-inflammatory drugs for 2 days after biopsy. - Await pathology results. - Repeat colonoscopy in 1 week for surveillance based on pathology results. - Telephone my office for pathology results in 1 week. Procedure Code(s): --- Professional --- 10668, Colonoscopy, flexible; with biopsy, single or multiple Diagnosis Code(s): --- Professional --- Z12.11, Encounter for screening for malignant neoplasm of colon K63.89, Other specified diseases of intestine K64.4, Residual hemorrhoidal skin tags CPT copyright 2021 [employer]. All rights reserved. The codes documented in this report are preliminary and upon format proofreader review may be revised to meet current compliance requirements. Jacob Nickerson MD 02/20/2025 8:39:57 AM This report has been signed electronically. Number of Addenda: 0 Note Initiated On: 02/20/2025 7:50 AM
--- NOTE | 2025-02-20 08:40 | PCM.POST.ANE ---
Anesthesia: Postop Eval I Current Vital Signs Temperature: 97.1 F Pulse Rate: 70 Blood Pressure: 105/78 Respiratory Rate: 20 Pulse Ox: 98 Assessment Airway patent: Yes Spontaneous unlabored respirations: Yes nausea: No Vomiting: No Anesthesia Complication: No Fluid Hydration Crystalloid volume administer (ml): 300 Total IV fluid infused: 300 Progress Note Anesthesia document: Postop Eval 1 completed: Yes
--- NOTE | 2025-02-20 12:30 | POSTOPAN2_ITS ---
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 INSTRUCTOR.CSIR Spontaneous unlabored Yes 02/20/25 08:40 TRUCK DRIVER INSTRUCTOR.CSIR respirations Mental status nausea No 02/20/25 08:40 TRUCK DRIVER INSTRUCTOR.CSIR Vomiting No 02/20/25 08:40 TRUCK DRIVER INSTRUCTOR.CSIR Anesthesia Postop Eval I: Fluid Summary Crystalloid volume administer 300 02/20/25 08:40 TRUCK DRIVER INSTRUCTOR.CSIR (ml) Colloids volume administered ( ml) Blood Product volume administered (ml) Total IV fluid infused 300 02/20/25 08:40 TRUCK DRIVER INSTRUCTOR.CSIR Anesthesia Postop Eval I: Summary Notes Anesthesia Complication No 02/20/25 08:40 TRUCK DRIVER INSTRUCTOR.CSIR Anesthesia Complication Comment: Post-operative progress note Anesthesia: Postop Eval II Evaluation Mental status: Awake Pain Level: 0 nausea: No Vomiting: No
--- NOTE | 2025-02-20 12:30 | PCM.POSTANE2 ---
Anesthesia Postop Eval I Sum Postop Eval Completion status Anesthesia document: Postop Eval 1 completed: Yes Anesthesia Postop Eval I Summary Anesthesia Postop Eval I Summary: Anesthesia Postop Eval I: Assessment Summary Airway patent Yes 02/20/25 08:40 UNDERGROUND CONDUIT INSTALLER.CSIR Spontaneous unlabored Yes 02/20/25 08:40 UNDERGROUND CONDUIT INSTALLER.CSIR respirations Mental status nausea No 02/20/25 08:40 UNDERGROUND CONDUIT INSTALLER.CSIR Vomiting No 02/20/25 08:40 UNDERGROUND CONDUIT INSTALLER.CSIR Anesthesia Postop Eval I: Fluid Summary Crystalloid volume administer 300 02/20/25 08:40 UNDERGROUND CONDUIT INSTALLER.CSIR (ml) Colloids volume administered ( ml) Blood Product volume administered (ml) Total IV fluid infused 300 02/20/25 08:40 UNDERGROUND CONDUIT INSTALLER.CSIR Anesthesia Postop Eval I: Summary Notes Anesthesia Complication No 02/20/25 08:40 UNDERGROUND CONDUIT INSTALLER.CSIR Anesthesia Complication Comment: Post-operative progress note Anesthesia: Postop Eval II Evaluation Mental status: Awake Pain Level: 0 nausea: No Vomiting: No
== END 2025-02-20 09:26 | disposition home or self-care (01) ==
LOC: EN 06:28 → AC 06:29
PROVIDERS: PCP Family Medicine; Referring Provider Surgery; Visit Provider Surgery
PROC: 0DJD8ZZ Inspection of Lower Intestinal Tract, Via Natural or Artificial Opening Endoscopic (ICD-10-PCS; CPT 45378; principal; 2025-02-20 07:25)
DX: Z12.11 Encounter for screening for malignant neoplasm of colon (principal); K64.4 Residual hemorrhoidal skin tags; E78.00 Pure hypercholesterolemia, unspecified; Z79.899 Other long term (current) drug therapy; Z96.649 Presence of unspecified artificial hip joint; Z96.659 Presence of unspecified artificial knee joint; Z98.51 Tubal ligation status; K63.89 Other specified diseases of intestine
CPT/HCPCS: 45380; 88305; C1889; J2405

== ENCOUNTER → 2025-02-24 | Outpatient (CLI) | payer MEDICARE, OTHER, SELFPAY ==
--- NOTE | 2025-02-24 14:43 | BI_ITS ---
EXAM: SCRN MAMM (CAD)W/HORTENCIA BILAT DATE: 02/24/2025 CLINICAL HISTORY: F, Age 74 y/o , SCREENING TECHNIQUE: Procedure Code: [id number] Modality: MG Procedure: SCRN MAMM (CAD)W/HORTENCIA BILAT COMPARISON: Prior exam(s) were compared FINDINGS: TISSUE DENSITY: The breasts are heterogeneously dense, which may obscure small masses. Bilateral Breast Mammographic Findings: No significant masses, calcifications or other abnormalities are identified. BI/SCRN MAMM (CAD)W/HORTENCIA BILAT IMPRESSION: No mammographic evidence of malignancy. OVERALL FINAL ASSESSMENT BI-RADS 1: NEGATIVE. RECOMMENDATION: Routine annual follow-up in 1 Year Additional Recommendation none A letter with findings and recommendations will be mailed to the patient. Reading Location: [id number]
== END | disposition home or self-care (01) ==
LOC: OPBI 14:42
PROVIDERS: PCP Family Medicine; Referring Provider Obstetrics & Gynecology; Visit Provider Obstetrics & Gynecology
DX: Z12.31 Encounter for screening mammogram for malignant neoplasm of breast (principal)
CPT/HCPCS: 77063; 77067